=== PATIENT | male | born 1955 | race Caucasian/White ===

== ENCOUNTER → 2020-06-17 | Outpatient (CLI) | payer MEDICARE, MEDICAID ==
[2015-07-01 18:00] VITALS: BP 104/73
[~2020-06-17] MED LIST: ALPR0.5T6 PO; AMLO10TA8 PO; ASPI1CPM PO; CITA10TA8 PO; DEXA4TAB PO; HYDR-2761 PO; IBUP-1060 PO; INDO50CA15 PO; LOSA-73 PO; METO50TA6 PO; NAPR-514 PO; ONDA4TAB12 PO; PENI500T PO
--- NOTE | 2020-06-17 16:35 | CARD ---
MR#: [id number] Date of Study: 06/17/2020 Ordering Physician: HARMEET COSTELLO, Referring Physician: HARMEET COSTELLO, Tech: Melissa Apple [facility] APPROVED REPORT EXAM: Two-dimensional and M-mode echocardiogram with Doppler and color Doppler. Other Information Quality : Good INDICATION Cardiac Disease: CAD Colostomy History 2014 2D DIMENSIONS RVDd2.0 (2.9-3.5cm)Left Atrium(2D)2.4 (1.6-4.0cm) IVSd0.7 (0.7-1.1cm)Aortic Root(2D)2.6 (2.0-3.7cm) LVDd6.3 (3.9-5.9cm)LVOT Diameter1.9 (1.8-2.4cm) PWd0.7 (0.7-1.1cm)LVDs5.0 (2.5-4.0cm) FS (%) 10.0 %SV83.0 ml LVEF(%)20.0 (>50%) Aortic Valve AoV Peak Rolan.114.9cm/sAoV VTI16.9cm AO Peak GR.5.3mmHgLVOT Peak Rolan.86.0cm/s LVOT VTI 14.17cmAO Mean GR.3mmHg FRANK (VMAX)2.76vq8BBD (VTI)2.43cm2 AI P 1/2 Lgkj678my Mitral Valve MV E Qnxowotf04.2cm/sMV DECEL RAKM067yd MV A Agbvtyah39.4cm/sMV POC35bd E/A Ratio0.5MVA (PHT)3.30cm2 TDI E/Lateral E'11.4E/Medial E'11.7 Tricuspid Valve TR P. Mcuoxwfd427gz/sRAP VGLJGQSI8xmSd TR Peak Gr.19fyEbCAGK44vqGp Pulmonary Vein S1 Ewooahmc79.8cm/sD2 Uxthlawx10.2cm/s LEFT VENTRICLE The Left Ventricle is mildly dilated. There is normal left ventricular wall thickness. Left ventricle ejection fraction is severely impaired. The Ejection Fraction is 15-20%. Severe global hypokinesis. Tissue Doppler imaging reveals severe left ventricular diastolic dysfunction. RIGHT VENTRICLE The right ventricle is normal size. The right ventricular systolic function is normal. ATRIA The left atrium size is normal. The right atrium size is normal. The interatrial septum is intact wit h no evidence for an atrial septal defect or patent foramen ovale as noted on 2-D or Doppler imaging. AORTIC VALVE The aortic valve is calcified but opens well. Doppler and Color Flow revealed trace aortic regurgitat ion. There is no significant aortic valvular stenosis. MITRAL VALVE The mitral valve is calcified but opens well. There is no evidence of mitral valve prolapse. There is no mitral valve stenosis. Doppler and Color-flow revealed trace mitral regurgitation. TRICUSPID VALVE The tricuspid valve is normal in structure and function. Doppler and Color Flow revealed trace tricus pid regurgitation. The PA pressure was estimated at 18 mmHg. There is no tricuspid valve stenosis. PULMONIC VALVE The pulmonic valve is not well visualized. Doppler and Color Flow revealed no pulmonic valvular regur gitation. There is no pulmonic valvular stenosis. GREAT VESSELS The aortic root is normal in size. The ascending aorta is normal in size. The IVC was not visualized. PERICARDIAL EFFUSION There is no evidence of significant pericardial effusion. Critical Notification Critical Value: No <Conclusion> Left ventricle ejection fraction is severely impaired. The Ejection Fraction is 15-20%. Severe global hypokinesis. Signed by : Harmeet Costello, Electronically Approved : 06/17/2020 16:34:12
== END | disposition home or self-care (01) ==
LOC: ECHO 09:49
PROVIDERS: ATTEND Internal Medicine Cardiovascular Disease
DX: I08.0 Rheumatic disorders of both mitral and aortic valves (principal); I25.10 Atherosclerotic heart disease of native coronary artery without angina pectoris
CPT/HCPCS: 93306

== ENCOUNTER → 2020-09-16 | Outpatient (CLI) | payer MEDICARE, MEDICAID ==
[2020-09-07 07:00] VITALS: BP_SYST 124
[2020-09-07 15:00] VITALS: BP_DIAS 79
[~2020-09-16] MED LIST changes: +AMLO-187 PO; -AMLO10TA8 PO; +CARV3.1210 PO; +LEVO50TA5 PO; +ONDA-84 PO; +PANT40TA77 PO
--- NOTE | 2020-09-16 16:33 | RAD ---
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 RADIOPHARMACEUTICAL: 13.47 mCi of F-18 Fluorodeoxyglucose (FDG) I.V. via the left antecubital fossa. TECHNIQUE: Patient weight: 100 pounds. Following at least four-hour fasting, the patient's blood glucose was 139 mg/dl. Approximately 1 hour after administration of FDG, overlapping emission scanning was performed from the orbital meatal line through the pelvis. A low-dose CT was performed for attenuation correction purposes and anatomic localization. Fused images of PET and CT were reviewed. Any standardized uptake values (SUV) reported are maximum values within a volume region of interest, expressed in gm/ml. COMPARISON: Chest abdomen pelvis CT with IV contrast of 08/28/2020 FINDINGS: PET: In the head and neck, asymmetric FDG activity in the left parotid gland to a max SUV of 2.99 is evident. Uptake in the left superior esophagus at the level of the arytenoids to max SUV of 3.43 is present. No abnormal FDG uptake in the cervical lymph nodes. In the chest, long segment of abnormal FDG uptake in the thoracic esophagus from the approximate level of the aortopulmonary window through to the gastroesophageal junction is seen, showing FDG uptake superiorly (at level of the aortopulmonary window) to max SUV of 6.46, and inferiorly, near the gastroesophageal junction to a max SUV of 3.74. In addition, masslike consolidation in the medial basal left lower lobe is present that shows FDG uptake to max SUV of 6.54. This is associated with peribronchial thickening and ipsilateral peripheral lower lobe nodularity and volume loss. In the abdomen and pelvis, there are loops of small bowel along the left pelvic sidewall that appear mildly thick walled and show increased FDG uptake to max SUV of 5.2. No abnormal activity in the bones identified. CT: In the head and neck, no mass or adenopathy is seen. In the chest, the esophagus is severely distended with ingested debris and inferiorly occluded by soft tissue. This extends into the gastroesophageal junction with masslike soft tissue is identified extending to the gastric cardia and antrum. No mediastinal or hilar adenopathy is identified on CT. There are calcified mediastinal lymph nodes. Thoracic aorta is borderline ectatic at 3.8 cm. The heart is upper normal in size. No pericardial effusion. Dense coronary calcifications. Lungs show patchy consolidation in the left lower lobe associated with peribronchial thickening and tree-in-bud groundglass opacities. No pleural effusion or pneumothorax. Mild bilateral gynecomastia. No acute or aggressive osseous lesions. There is stigmata of a low body mass index. Abdomen and pelvis show benign-appearing cysts in the left kidney that requires no additional imaging evaluation and moderate stool scattered throughout the large bowel. There are loops of small bowel along the left pelvic sidewall that show possible wall thickening (image 288 of series 3) that are associated with mild FDG uptake. Bones show degenerative changes and mild osteopenia. IMPRESSION: 1. Long segment thoracic esophageal wall thickening extending into the gastroesophageal junction is associated with abnormal FDG activity to a max SUV of 6.46, compatible with the recent diagnosis of esophageal carcinoma. No uptake suggesting locoregional florentin spread. 2. Mild activity in the upper cervical esophagus at the level of the arytenoids to max SUV of 3.43 could be inflammatory. No associated soft tissue mass identified. Recommend correlation with endoscopy. 3. Consolidation in the left lower lobe with tree-in-bud opacities and satellite nodules is likely inflammatory/infectious. However, solid left lower lobe lung mass is not excluded. Abnormal FDG uptake measures 6.54 and merits reassessment on follow-up. 4. Possible wall thickening in small bowel loops in the left pelvis is associated with mild FDG uptake to max SUV of 5.2. Correlate for any evidence of enteritis. More detailed assessment can be pursued with CT with IV contrast if clinically warranted. Electronically signed by: Rere Gaspar MD (09/16/2020 4:30 PM) [id number]
== END ==
LOC: PETSC 11:52
PROVIDERS: ATTEND Internal Medicine
DX: C32.9 Malignant neoplasm of larynx, unspecified (principal); N62 Hypertrophy of breast; N28.1 Cyst of kidney, acquired; M85.88 Other specified disorders of bone density and structure, other site; R91.1 Solitary pulmonary nodule; M19.09 Primary osteoarthritis, other specified site
CPT/HCPCS: 78815; A9552

== ENCOUNTER → 2020-09-21 | Outpatient (CLI) | payer MEDICARE, MEDICAID ==
[2020-09-07 15:00] VITALS: BP 124/79
[2020-09-21 11:22] LABS: BASO % 1 % (0-3); EOS # 0.1 x10^3/uL (0.0-0.7); EOS % 3 % (0-3); HEMATOCRIT 35.2 % (39.0-53.0); HEMOGLOBIN 11.6 g/dL (13.0-17.5); LYMPH # 0.6 x10^3/uL (1.0-4.8); LYMPH % 16 % (24-48); MEAN CORPUSCULAR HEMOGLOBIN 28 pg (25-35); MEAN CORPUSCULAR HGB CONC 33 g/dL (31-37); MEAN CORPUSCULAR VOLUME 85 fL (79-100); MONO # 0.5 x10^3/uL (0.0-1.1); MONO % 12 % (0-9); NEUT # 2.7 x10^3/uL (1.8-7.7); NEUT % 68 % (31-73); PLATELET COUNT 349 x10^3/uL (140-400); RED BLOOD COUNT 4.14 x10^6/uL (4.30-5.70); RED CELL DISTRIBUTION WIDTH 15.4 % (11.5-14.5)
[2020-09-21 11:35] LABS: CREATININE 1.3 mg/dL (0.7-1.3); GFR 55.2; POTASSIUM 4.2 mmol/L (3.5-5.1)
[2020-09-21 11:38] LABS: ALBUMIN 2.9 g/dL (3.4-5.0); ALBUMIN/GLOBULIN RATIO 0.7 (1.0-1.7); TOTAL BILIRUBIN 0.4 mg/dL (0.2-1.0); TOTAL PROTEIN 6.8 g/dL (6.4-8.2)
== END ==
LOC: ONCLAB 10:43
PROVIDERS: ATTEND Internal Medicine Hematology & Oncology
DX: C15.5 Malignant neoplasm of lower third of esophagus (principal)
CPT/HCPCS: 36415; 80053; 85025

== ENCOUNTER 2020-10-28 07:42 | Outpatient (CLI) | payer MEDICARE, MEDICAID ==
[~2020-10-28] VITALS: Ht 162.6 cm; Wt 45.4 kg
[2020-10-28] MEDS ORDERED: ceFAZolin SODIUM IV Push 1 GM VIAL. IVP ONE (08:00)
[2020-10-28 08:22] VITALS: BP 146/79
[2020-10-28] MEDS ORDERED: fentaNYL PF VIAL 100 MCG/2 ML VIAL IV ONE (08:30)
[2020-10-28] MEDS ORDERED: LIDOCAINE 1%/EPI 1:100,000 20 ML VIAL. SQ ONE (08:30)
[2020-10-28] MEDS ORDERED: MIDAZOLAM HCL/PF 2 MG/2 ML VIAL. IV ONE (08:30)
[2020-10-28 08:55] LABS: BASO % 1 % (0-3); EOS % 1 % (0-3); HEMATOCRIT 38.5 % (39.0-53.0); HEMOGLOBIN 12.8 g/dL (13.0-17.5); LYMPH # 0.6 x10^3/uL (1.0-4.8); LYMPH % 8 % (24-48); MEAN CORPUSCULAR HEMOGLOBIN 28 pg (25-35); MEAN CORPUSCULAR HGB CONC 33 g/dL (31-37); MEAN CORPUSCULAR VOLUME 84 fL (79-100); MONO # 0.5 x10^3/uL (0.0-1.1); MONO % 7 % (0-9); NEUT # 6.2 x10^3/uL (1.8-7.7); NEUT % 84 % (31-73); PLATELET COUNT 184 x10^3/uL (140-400); RED BLOOD COUNT 4.58 x10^6/uL (4.30-5.70); RED CELL DISTRIBUTION WIDTH 14.9 % (11.5-14.5); WHITE BLOOD COUNT 7.4 x10^3/uL (4.0-11.0)
[2020-10-28 08:57] LABS: PROTHROMBIN TIME PATIENT 14.1 SEC (11.7-14.0)
[2020-10-28 09:04] LABS: ANION GAP 11 (6-14); BLOOD UREA NITROGEN 11 mg/dL (8-26); BUN/CREATININE RATIO 8 (6-20); CALCIUM 9.4 mg/dL (8.5-10.1); CARBON DIOXIDE 28 mmol/L (21-32); CHLORIDE 102 mmol/L (98-107); CREATININE 1.4 mg/dL (0.7-1.3); GFR 50.7; GLUCOSE 85 mg/dL (70-99); POTASSIUM 3.5 mmol/L (3.5-5.1); SODIUM 141 mmol/L (136-145)
[2020-10-28 09:09] LABS: ALBUMIN 3.5 g/dL (3.4-5.0); ALBUMIN/GLOBULIN RATIO 0.9 (1.0-1.7); ALK PHOS 79 U/L (46-116); AST (SGOT) 9 U/L (15-37); TOTAL BILIRUBIN 0.9 mg/dL (0.2-1.0); TOTAL PROTEIN 7.5 g/dL (6.4-8.2)
[2020-10-28 09:10] LABS: ALT (SGPT) < 6 U/L (16-63)
[2020-10-28 09:42] VITALS: BP 100/74
[2020-10-28 10:00] VITALS: BP 118/78
[2020-10-28 10:15] VITALS: BP 116/76
[2020-10-28 10:30] VITALS: BP 133/76
[2020-10-28 10:45] VITALS: BP 112/71
--- NOTE | 2020-10-28 10:51 | NUR ---
pt discharged to home with family. PIV dc'd. Pt ambulated and tolerated PO
--- NOTE | 2020-10-28 16:21 | RAD ---
Procedure: Ultrasound and fluoroscopically guided placement of right internal jugular power port.. 10/28/2020 2:16 PM Clinical Indication: ESOPHAGEAL CA Sedation: Conscious sedation was administered for 30 minutes. The patient was monitored by a qualified independent observer throughout the time of sedation. Please refer to the medical record for exact doses of medications utilized to achieve moderate sedation. Fluoroscopy time: 0.1 minutes Dose area product: 0.3Gycm2 Consent: The procedure was explained in its entirety to the patient or the patients designated business center representative by a member of the treatment team, including a discussion of the risks, benefits and commonly accepted alternatives to the procedure, as well as the expected consequences of no therapy whatsoever. Discussion of the risks included, but was not limited to, those that are most frequent and those that are rare but possibly severe or life-threatening, as well as the possibility of unforeseen complications. Technique and Findings: All elements of maximal sterile barrier technique including the use of a cap, mask, sterile gown, sterile gloves, large sterile sheet, appropriate hand hygiene, and 2% chlorhexidine for cutaneous antisepsis (or acceptable alternative antiseptic per current guidelines) were followed for this procedure. Following informed consent, and a timeout procedure, the patient was prepped and draped in the usual sterile fashion. Ultrasound interrogation of the right neck revealed patency and compressibility of the right internal jugular vein. A 21-gauge micropuncture was then used to gain access to this vein under ultrasound guidance. A hard copy ultrasound image was recorded. The needle was exchanged over a wire for a sheath. A 1 inch incision was made several centimeters inferior to the venotomy site. A catheter was tunneled from this site dermatotomy site in the neck. Catheter was advanced through peel-away sheath such that its tip was in the proximal right atrium with the patient supine. The catheter was trimmed to length and connected to the port reservoir. The port was found to flush and aspirate normally. The wound was closed in layers using 4-0 Vicryl suture. Sterile dressings were applied. Impression: Successful ultrasound and fluoroscopically guided placement of a right internal jugular PowerPort
== END 2020-10-28 11:24 | disposition home or self-care (01) ==
LOC: INTRAD 07:42
PROVIDERS: ATTEND Internal Medicine Hematology & Oncology
DX: Z45.2 Encounter for adjustment and management of vascular access device (principal); C15.9 Malignant neoplasm of esophagus, unspecified; I10 Essential (primary) hypertension; E03.9 Hypothyroidism, unspecified; M19.90 Unspecified osteoarthritis, unspecified site; F32.9 Major depressive disorder, single episode, unspecified; Z79.899 Other long term (current) drug therapy; Z72.89 Other problems related to lifestyle
CPT/HCPCS: 36415; 36561; 76937; 77001; 80053; 85025; 85610; 99152; 99153; C1751; C1892; J0690; J2250; J3010; J3490

== ENCOUNTER → 2020-11-08 | Outpatient (CLI) | payer MEDICARE, MEDICAID ==
[2020-10-28 10:45] VITALS: BP 112/71
[2020-11-08 09:40] LABS: BASO % 1 % (0-3); EOS # 0.1 x10^3/uL (0.0-0.7); EOS % 2 % (0-3); HEMATOCRIT 34.5 % (39.0-53.0); HEMOGLOBIN 11.4 g/dL (13.0-17.5); LYMPH # 0.2 x10^3/uL (1.0-4.8); LYMPH % 5 % (24-48); MEAN CORPUSCULAR HEMOGLOBIN 27 pg (25-35); MEAN CORPUSCULAR HGB CONC 33 g/dL (31-37); MEAN CORPUSCULAR VOLUME 83 fL (79-100); MONO # 0.2 x10^3/uL (0.0-1.1); MONO % 5 % (0-9); NEUT # 4.3 x10^3/uL (1.8-7.7); NEUT % 88 % (31-73); PLATELET COUNT 206 x10^3/uL (140-400); RED BLOOD COUNT 4.17 x10^6/uL (4.30-5.70); RED CELL DISTRIBUTION WIDTH 14.9 % (11.5-14.5); WHITE BLOOD COUNT 4.9 x10^3/uL (4.0-11.0)
[2020-11-08 10:05] LABS: CREATININE 1.1 mg/dL (0.7-1.3); POTASSIUM 3.9 mmol/L (3.5-5.1)
[2020-11-08 10:09] LABS: ALBUMIN 3.2 g/dL (3.4-5.0); ALBUMIN/GLOBULIN RATIO 0.9 (1.0-1.7); TOTAL BILIRUBIN 0.8 mg/dL (0.2-1.0); TOTAL PROTEIN 6.7 g/dL (6.4-8.2)
[2020-11-08 10:22] LABS: % BANDS 4 % (0-9); % BASOS 3 % (0-3); % EOS 4 % (0-5); % LYMPHS 6 % (24-48); % MONOS 1 % (0-10); % SEGS 82 % (35-66); PLT ESTIMATE ADEQUATE (ADEQUATE)
== END ==
LOC: ONCLAB 09:17
PROVIDERS: ATTEND Internal Medicine Hematology & Oncology
DX: C15.5 Malignant neoplasm of lower third of esophagus (principal)
CPT/HCPCS: 36415; 80053; 85007; 85025

== ENCOUNTER → 2020-11-15 | Outpatient (CLI) | payer MEDICARE, MEDICAID ==
[2020-10-28 10:45] VITALS: BP 112/71
[2020-11-15 09:07] LABS: CALCIUM 8.9 mg/dL (8.5-10.1); CREATININE 0.9 mg/dL (0.7-1.3); GFR 84.4
[2020-11-15 09:08] LABS: BASO % 1 % (0-3); EOS # 0.1 x10^3/uL (0.0-0.7); EOS % 4 % (0-3); HEMATOCRIT 35.2 % (39.0-53.0); HEMOGLOBIN 11.4 g/dL (13.0-17.5); LYMPH # 0.1 x10^3/uL (1.0-4.8); LYMPH % 7 % (24-48); MEAN CORPUSCULAR HEMOGLOBIN 26 pg (25-35); MEAN CORPUSCULAR HGB CONC 32 g/dL (31-37); MEAN CORPUSCULAR VOLUME 82 fL (79-100); MONO # 0.2 x10^3/uL (0.0-1.1); MONO % 12 % (0-9); NEUT # 1.3 x10^3/uL (1.8-7.7); NEUT % 77 % (31-73); PLATELET COUNT 176 x10^3/uL (140-400); RED BLOOD COUNT 4.32 x10^6/uL (4.30-5.70); RED CELL DISTRIBUTION WIDTH 14.7 % (11.5-14.5)
[2020-11-15 09:14] LABS: ALBUMIN 3.3 g/dL (3.4-5.0); ALBUMIN/GLOBULIN RATIO 1.2 (1.0-1.7); TOTAL BILIRUBIN 0.6 mg/dL (0.2-1.0); TOTAL PROTEIN 6.1 g/dL (6.4-8.2)
[2020-11-15 09:22] LABS: WHITE BLOOD COUNT 1.8 x10^3/uL (4.0-11.0)
[2020-11-15 12:03] LABS: % ATYL 1 % (0-0); % BANDS 20 % (0-9); % EOS 2 % (0-5); % LYMPHS 10 % (24-48); % MONOS 8 % (0-10); % SEGS 59 % (35-66)
[2020-11-15 12:06] LABS: ANISOCYTOSIS SLIGHT; PLT ESTIMATE ADEQUATE (ADEQUATE); POIKILOCYTOSIS SLIGHT
[2020-11-15 12:07] LABS: TOXIC GRANULATION SLIGHT
== END ==
LOC: ONCLAB 08:54
PROVIDERS: ATTEND Internal Medicine Hematology & Oncology
DX: C15.5 Malignant neoplasm of lower third of esophagus (principal)
CPT/HCPCS: 36415; 80053; 85007; 85025

== ENCOUNTER 2020-11-22 11:25 | Inpatient (IN) | payer MEDICARE, MEDICAID ==
[~2020-11-22] VITALS: Ht 162.6 cm; Wt 43.3 kg
[~2020-11-22 11:25] MED LIST changes: -CEPH250C PO; -NAPR-695 PO; -PRED20TA PO
[2020-11-22 12:48] LABS: BASO % 1 % (0-3); EOS % 1 % (0-3); HEMATOCRIT 31.4 % (39.0-53.0); HEMOGLOBIN 10.3 g/dL (13.0-17.5); LYMPH # 0.1 x10^3/uL (1.0-4.8); LYMPH % 4 % (24-48); MEAN CORPUSCULAR HEMOGLOBIN 26 pg (25-35); MEAN CORPUSCULAR HGB CONC 33 g/dL (31-37); MEAN CORPUSCULAR VOLUME 81 fL (79-100); MONO # 0.4 x10^3/uL (0.0-1.1); MONO % 16 % (0-9); NEUT # 2.3 x10^3/uL (1.8-7.7); NEUT % 80 % (31-73); PLATELET COUNT 106 x10^3/uL (140-400); RED BLOOD COUNT 3.89 x10^6/uL (4.30-5.70); RED CELL DISTRIBUTION WIDTH 14.8 % (11.5-14.5); WHITE BLOOD COUNT 2.9 x10^3/uL (4.0-11.0)
[2020-11-22 12:54] LABS: CALCIUM 8.5 mg/dL (8.5-10.1); CREATININE 1.1 mg/dL (0.7-1.3); POTASSIUM 3.7 mmol/L (3.5-5.1)
--- NOTE | 2020-11-22 12:59 | ED.ADGEN ---
Past Medical History Past Medical History: Cancer, Hypertension, [place], Stroke, Other Additional Past Medical Histor: throat CA, esphogeal CA Past Surgical History: Other Additional Past Surgical Histo: CABG, colostomy bag Smoking Status: Never Smoker Alcohol Use: None General Adult EDM: Chief Complaint: ABNORMAL LABS HPI: HPI: Patient is 65-year-old male who presents to the emergency room complaining of failure to thrive. Patient is currently on chemotherapy for esophageal cancer. He has not been able to eat anything for the last week. He went in for chemo today and they stated that he needed to come to the emergency room due to severe weakness and that he cannot get chemo today. They has been trying to get him on TPN better awaiting approval from insurance. Patient states that he is unable to get up and take care of himself at this time due to severe weakness. Review of Systems: Review of Systems: Complete ROS is negative unless otherwise documented in HPI Current Medications: Current Medications Medications (Trade) Dose Ordered Sig/Steff Start Time Stop Time Status Last Admin Dose Admin Info (Tpn Per Pharmacy) 1 each PRN DAILY PRN 11/22/20 15:15 UNV Allergies: Allergies: Allergies Coded Allergies Type Severity Reaction Last Updated Verified No Known Drug Allergies 08/31/20 No Physical Exam: PE: General: Awake, alert, NAD. Cachectic HEENT: Atraumatic, EOMI, PERRL, airway patent, dry oral mucosa Neck: Supple, trachea midline Respiratory: CTA bilaterally, normal effort, no wheezing/crackles CV: RRR, no murmur, cap refill <2 GI: Soft, nondistended, nontender, no masses, colostomy MSK: No obvious deformities Skin: Warm, dry, intact Neuro: A&O x3, speech NL, sensory and motor grossly intact, no focal deficits Psych: Normal affect, normal mood, not suicidal or homicidal Current Patient Data: Labs: Laboratory Tests Test 11/22/20 12:15 White Blood Count 2.9 x10^3/uL (4.0-11.0) L Red Blood Count 3.89 x10^6/uL (4.30-5.70) L Hemoglobin 10.3 g/dL (13.0-17.5) L Hematocrit 31.4 % (39.0-53.0) L Mean Corpuscular Volume 81 fL (79-100) Mean Corpuscular Hemoglobin 26 pg (25-35) Mean Corpuscular Hemoglobin Concent 33 g/dL (31-37) Red Cell Distribution Width 14.8 % (11.5-14.5) H Platelet Count 106 x10^3/uL (140-400) L Neutrophils (%) (Auto) 80 % (31-73) H Lymphocytes (%) (Auto) 4 % (24-48) L Monocytes (%) (Auto) 16 % (0-9) H Eosinophils (%) (Auto) 1 % (0-3) Basophils (%) (Auto) 1 % (0-3) Neutrophils # (Auto) 2.3 x10^3/uL (1.8-7.7) Lymphocytes # (Auto) 0.1 x10^3/uL (1.0-4.8) L Monocytes # (Auto) 0.4 x10^3/uL (0.0-1.1) Eosinophils # (Auto) 0.0 x10^3/uL (0.0-0.7) Basophils # (Auto) 0.0 x10^3/uL (0.0-0.2) Segmented Neutrophils % 81 % (35-66) H Lymphocytes % 4 % (24-48) L Monocytes % 15 % (0-10) H Platelet Estimate Decreased (ADEQUATE) Tear Drop Cells Occ Ovalocytes Few Sodium Level 141 mmol/L (136-145) Potassium Level 3.7 mmol/L (3.5-5.1) Chloride Level 104 mmol/L (98-107) Carbon Dioxide Level 26 mmol/L (21-32) Anion Gap 11 (6-14) Blood Urea Nitrogen 14 mg/dL (8-26) Creatinine 1.1 mg/dL (0.7-1.3) Estimated GFR (Cockcroft-Gault) 67.0 BUN/Creatinine Ratio 13 (6-20) Glucose Level 69 mg/dL (70-99) L Calcium Level 8.5 mg/dL (8.5-10.1) Total Bilirubin 0.7 mg/dL (0.2-1.0) Aspartate Amino Transferase (AST) 10 U/L (15-37) L Alanine Aminotransferase (ALT) 9 U/L (16-63) L Alkaline Phosphatase 47 U/L (46-116) Total Protein 5.7 g/dL (6.4-8.2) L Albumin 2.7 g/dL (3.4-5.0) L Albumin/Globulin Ratio 0.9 (1.0-1.7) L Laboratory Tests 11/22/20 12:15 Laboratory Tests 11/22/20 12:15 Vital Signs: Vital Signs Date Time Temp Pulse Resp B/P (MAP) Pulse Ox O2 Delivery O2 Flow Rate FiO2 11/22/20 15:00 58 14 112/77 (89) 100 Room Air 11/22/20 11:40 97.9 97.9 EKG: EKG: [] Heart Score: Risk Factors: Risk Factors: DM, Current or recent (<one month) smoker, HTN, HLP, family history of CAD, obesity. Risk Scores: Score 0 - 3: 2.5% MACE over next 6 weeks - Discharge Home Score 4 - 6: 20.3% MACE over next 6 weeks - Admit for Clinical Observation Score 7 - 10: 72.7% MACE over next 6 weeks - Early Invasive Strategies Radiology/Procedures: Radiology/Procedures: [] Course & Med Decision Making: Course & Med Decision Making Pertinent Labs and Imaging studies reviewed. (See chart for details) Patient is 65-year-old male presents to the emergency room with failure to thrive. Patient appears to be significantly dehydrated. He was sent here by oncology for admission. We will plan for admission and will address all lab abnormalities. Dragon Disclaimer: Dragon Disclaimer: This electronic medical record was generated, in whole or in part, using a voice recognition dictation system. Departure Departure Impression: Primary Impression: Failure to thrive Additional Impression: Dehydration Disposition: ADMITTED INPT THIS HOSP Condition: STABLE Referrals: BRITTANY CLIFFORD MD (PCP) Problem Qualifiers MIC LEON MD Nov 22, 2020 12:59
[2020-11-22 13:00] LABS: ALBUMIN 2.7 g/dL (3.4-5.0); ALBUMIN/GLOBULIN RATIO 0.9 (1.0-1.7); TOTAL BILIRUBIN 0.7 mg/dL (0.2-1.0); TOTAL PROTEIN 5.7 g/dL (6.4-8.2)
[2020-11-22 13:38] LABS: % LYMPHS 4 % (24-48); % MONOS 15 % (0-10); % SEGS 81 % (35-66); OVALOCYTES FEW; PLT ESTIMATE DECREASED (ADEQUATE); TEAR DROP CELLS OCC
--- NOTE | 2020-11-22 15:15 | PDOC1 ---
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 He has not been able to eat anything for the last week and for the 2 weeks prior to that was regurgitating everything he tried to eat. Patient states that he is unable to get up and take care of himself at this time due to severe weakness. His family is bedside. Patient has continued to lose weight, now down to 43kg. Labs with WBC 2.9, Hb 10.3, Platelets 106, Na 141, K 3.7, BUN 14, Cr 1.1, Albumin 2.7, glucose 69 He is unable to stand even with assistance. Admitted for further care. Past Medical History Cardiovascular: HTN CENTRAL NERVOUS SYSTEM: CVA Heme/Onc: Cancer Hepatobiliary: No pertinent hx Psych: No pertinent hx Rheumatologic: No pertinent hx Infectious disease: No pertinent hx Renal/: No pertinent hx Endocrine: No pertinent hx Past Surgical History Past Surgical History: Other Social History Smoke: No ALCOHOL: none Drugs: None Current Problem List Problem List Problems Medical Problems: (1) Dehydration Status: Acute (2) Failure to thrive Status: Acute Current Medications Current Medications Active Scripts Active Protonix (Pantoprazole Sodium) 40 Mg Tablet.dr 40 Mg PO DAILYAC 30 Days Reported Levothyroxine Sodium 50 Mcg Tablet 1 Tab PO DAILY Carvedilol (Carvedilol) 3.125 Mg Tablet 3.125 Mg PO BIDWMEALS Ondansetron Hcl 4 Mg Tablet 1 Tab PO PRN Q8HRS PRN Allergies Allergies: Coded Allergies: No Known Drug Allergies (Unverified , 08/31/20) ROS General: YES: Fatigue, Malaise, Appetite; No: Chills, Night Sweats, Other PSYCHOLOGICAL ROS: YES: Anxiety; No: Behavioral Disorder, Concentration difficultie, Decreased libido, Depression, Disorientation, Hallucinations, Hostility, Irritablity, Memory difficulties, Mood Swings, Obsessive thoughts, Physical abuse, Sexual abuse, Sleep disturbances, Suicidal ideation, Other Eyes: No Blurry vision, No Decreased vision, No Double vision, No Dry eyes, No Excessive tearing, No Eye Pain, No Itchy Eyes, No Loss of vision, No Photophobia, No Scotomata, No Uses contacts, No Uses glasses, No Other HEENT: No: Heacaches, Visual Changes, Hearing change, Nasal congestion, Nasal discharge, Oral lesions, Sinus pain, Sore Throat, Epistaxis, Sneezing, Snoring, Tinnitus, Vertigo, Vocal changes, Other ALLERGY AND IMMUNOLOGY: No: Hives, Insect Bite Sensitivity, Itchy/Watery Eyes, Nasal Congestion, Post Nasal Drip, Seasonal Allergies, Other Hematological and Lymphatic: No: Bleeding Problems, Blood Clots, Blood Transfusions, Brusing, Night Sweats, Pallor, Swollen Lymph Nodes, Other ENDOCRINE: No: Breast Changes, Galactorrhea, Hair Pattern Changes, Hot Flashes, Malaise/lethargy, Mood Swings, Palpitations, Polydipsia/polyuria, Skin Changes, Temperature Intolerance, Unexpected Weight Changes, Other Breast: No New/Changing Breast Lumps, No Nipple changes, No Nipple discharge, No Other Respiratory: No: Cough, Hemoptysis, Orthopnea, Pleuritic Pain, Shortness of breath, SOB with excertion, Sputum Changes, Stridor, Tachypnea, Wheezing, Other Cardiovascular: No Chest Pain, No Palpitations, No Orthopnea, No Paroxysmal Noc. Dyspnea, No Edema, No Lt Headedness, No Other Gastrointestinal: Yes Nausea, Yes Vomiting, Yes Abdominal Pain; No Diarrhea, No Constipation, No Melena, No Hematochezia, No Other Genitourinary: No Dysuria, No Frequency, No Incontinence, No Hematuria, No Retention, No Discharge, No Urgency, No Pain, No Flank Pain, No Other, No , No , No , No , No , No , No Musculoskeletal: No Gait Disturbance, No Joint Pain, No Joint Stiffness, No Joint Swelling, No Muscle Pain, No Muscular Weakness, No Pain In:, No Swelling In:, No Other Neurological: No Behavorial Changes, No Bowel/Bladder ControlChng, No Confusion, No Dizziness, No Gait Disturbance, No Headaches, No Impaired Coord/balance, No Memory Loss, No Numbness/Tingling, No Seizures, No Speech Problems, No Tremors, No Visual Changes, No Weakness, No Other Skin: No Dry Skin, No Eczema, No Hair Changes, No Lumps, No Mole Changes, No Mottling, No Nail Changes, No Pruritus, No Rash, No Skin Lesion Changes, No Other, No Acne Physical Exam General: Alert, Oriented X3, Cooperative, mild distress HEENT: Atraumatic, PERRLA, EOMI, Mucous membr. moist/pink, Other (cachectic appearing) Lungs: Clear to auscultation, Normal air movement Heart: S1S2, RRR, no thrills, no rubs, no gallops, no murmurs Abdomen: Normal bowel sounds, Soft, No tenderness, No hepatosplenomegaly, No masses Skin: No rashes, No breakdown, No significant lesion Neuro: Normal speech, Strength at 5/5 X4 ext, Normal tone, Sensation intact, Cranial nerves 3-12 NL, Reflexes 2+ Psych/Mental Status: Mental status NL, Mood NL Vitals Vitals Vital Signs Date Time Temp Pulse Resp B/P (MAP) Pulse Ox O2 Delivery O2 Flow Rate FiO2 11/22/20 13:30 60 13 130/87 (101) 100 Room Air 11/22/20 11:40 97.9 97.9 Labs Labs Laboratory Tests Test 11/22/20 12:15 White Blood Count 2.9 x10^3/uL (4.0-11.0) Red Blood Count 3.89 x10^6/uL (4.30-5.70) Hemoglobin 10.3 g/dL (13.0-17.5) Hematocrit 31.4 % (39.0-53.0) Mean Corpuscular Volume 81 fL (79-100) Mean Corpuscular Hemoglobin 26 pg (25-35) Mean Corpuscular Hemoglobin Concent 33 g/dL (31-37) Red Cell Distribution Width 14.8 % (11.5-14.5) Platelet Count 106 x10^3/uL (140-400) Neutrophils (%) (Auto) 80 % (31-73) Lymphocytes (%) (Auto) 4 % (24-48) Monocytes (%) (Auto) 16 % (0-9) Eosinophils (%) (Auto) 1 % (0-3) Basophils (%) (Auto) 1 % (0-3) Neutrophils # (Auto) 2.3 x10^3/uL (1.8-7.7) Lymphocytes # (Auto) 0.1 x10^3/uL (1.0-4.8) Monocytes # (Auto) 0.4 x10^3/uL (0.0-1.1) Eosinophils # (Auto) 0.0 x10^3/uL (0.0-0.7) Basophils # (Auto) 0.0 x10^3/uL (0.0-0.2) Segmented Neutrophils % 81 % (35-66) Lymphocytes % 4 % (24-48) Monocytes % 15 % (0-10) Platelet Estimate Decreased (ADEQUATE) Tear Drop Cells Occ Ovalocytes Few Sodium Level 141 mmol/L (136-145) Potassium Level 3.7 mmol/L (3.5-5.1) Chloride Level 104 mmol/L (98-107) Carbon Dioxide Level 26 mmol/L (21-32) Anion Gap 11 (6-14) Blood Urea Nitrogen 14 mg/dL (8-26) Creatinine 1.1 mg/dL (0.7-1.3) Estimated GFR (Cockcroft-Gault) 67.0 BUN/Creatinine Ratio 13 (6-20) Glucose Level 69 mg/dL (70-99) Calcium Level 8.5 mg/dL (8.5-10.1) Total Bilirubin 0.7 mg/dL (0.2-1.0) Aspartate Amino Transf (AST/SGOT) 10 U/L (15-37) Alanine Aminotransferase (ALT/SGPT) 9 U/L (16-63) Alkaline Phosphatase 47 U/L (46-116) Total Protein 5.7 g/dL (6.4-8.2) Albumin 2.7 g/dL (3.4-5.0) Albumin/Globulin Ratio 0.9 (1.0-1.7) Laboratory Tests Test 11/22/20 12:15 White Blood Count 2.9 x10^3/uL (4.0-11.0) Red Blood Count 3.89 x10^6/uL (4.30-5.70) Hemoglobin 10.3 g/dL (13.0-17.5) Hematocrit 31.4 % (39.0-53.0) Mean Corpuscular Volume 81 fL (79-100) Mean Corpuscular Hemoglobin 26 pg (25-35) Mean Corpuscular Hemoglobin Concent 33 g/dL (31-37) Red Cell Distribution Width 14.8 % (11.5-14.5) Platelet Count 106 x10^3/uL (140-400) Neutrophils (%) (Auto) 80 % (31-73) Lymphocytes (%) (Auto) 4 % (24-48) Monocytes (%) (Auto) 16 % (0-9) Eosinophils (%) (Auto) 1 % (0-3) Basophils (%) (Auto) 1 % (0-3) Neutrophils # (Auto) 2.3 x10^3/uL (1.8-7.7) Lymphocytes # (Auto) 0.1 x10^3/uL (1.0-4.8) Monocytes # (Auto) 0.4 x10^3/uL (0.0-1.1) Eosinophils # (Auto) 0.0 x10^3/uL (0.0-0.7) Basophils # (Auto) 0.0 x10^3/uL (0.0-0.2) Segmented Neutrophils % 81 % (35-66) Lymphocytes % 4 % (24-48) Monocytes % 15 % (0-10) Platelet Estimate Decreased (ADEQUATE) Tear Drop Cells Occ Ovalocytes Few Sodium Level 141 mmol/L (136-145) Potassium Level 3.7 mmol/L (3.5-5.1) Chloride Level 104 mmol/L (98-107) Carbon Dioxide Level 26 mmol/L (21-32) Anion Gap 11 (6-14) Blood Urea Nitrogen 14 mg/dL (8-26) Creatinine 1.1 mg/dL (0.7-1.3) Estimated GFR (Cockcroft-Gault) 67.0 BUN/Creatinine Ratio 13 (6-20) Glucose Level 69 mg/dL (70-99) Calcium Level 8.5 mg/dL (8.5-10.1) Total Bilirubin 0.7 mg/dL (0.2-1.0) Aspartate Amino Transf (AST/SGOT) 10 U/L (15-37) Alanine Aminotransferase (ALT/SGPT) 9 U/L (16-63) Alkaline Phosphatase 47 U/L (46-116) Total Protein 5.7 g/dL (6.4-8.2) Albumin 2.7 g/dL (3.4-5.0) Albumin/Globulin Ratio 0.9 (1.0-1.7) VTE Prophylaxis Ordered VTE Prophylaxis Devices: No VTE Pharmacological Prophylaxi: Yes Assessment/Plan Assessment/Plan A/P: Dysphagia - due to esophageal cancer, strictures as well. Unable to get enough nutrition to survive currently. Failure to thrive - due to inability to obtain proper nutrition. 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 will monitor Protein calorie malnutrition - severe, will add TPN to his regimen Weakness - will have PT and OT evaluated for ADLs and self care FEN - TPN PPX - lovenox FULL CODE Dispo -inpatient for above Justifications for Admission Other Justification KATHRYN MONTES DE OCA MD Nov 22, 2020 15:15
[2020-11-22] MEDS: ONDANSETRON ODT 4 MG TAB.RAPDIS. PO PRN (18:15)
[2020-11-22 18:44] VITALS: BP 121/83
[2020-11-22] MEDS: AMINO AC 3%/ELECTROLYTE/GLYCER 1,000 ML IV SCH (19:59)
[2020-11-22] MEDS: CARVEDILOL 3.125 MG TABLET. PO SCH (20:00)
[2020-11-22 23:00] VITALS: BP 128/78
[2020-11-23 03:00] VITALS: BP 139/83
[2020-11-23] MEDS: LEVOTHYROXINE 50 MCG TABLET PO SCH (05:38)
[2020-11-23] MEDS: ENOXAPARIN 30 MG/0.3 ML SYRINGE. SQ SCH ×2 (05:39→21:30)
[2020-11-23 07:00] VITALS: BP 142/92
[2020-11-23] MEDS: PANTOPRAZOLE 40 MG TABLET.DR. PO SCH (07:31)
[2020-11-23] MEDS: ONDANSETRON ODT 4 MG TAB.RAPDIS. PO PRN (07:32)
[2020-11-23] MEDS: CARVEDILOL 3.125 MG TABLET. PO SCH ×2 (08:53→16:22)
--- NOTE | 2020-11-23 09:24 | NUR ---
SW following. Discussed with RN, pt from home with family, room air, GI soft. RN ordering PT/OT. SW will continue to follow.
[2020-11-23] MEDS ORDERED: ACETAMINOPHEN 325 MG SUPP.RECT. PR PRN (10:00)
[2020-11-23] MEDS: AMINO AC 3%/ELECTROLYTE/GLYCER 1,000 ML IV SCH ×2 (10:35→18:45)
[2020-11-23 11:00] VITALS: BP 133/91
--- NOTE | 2020-11-23 11:06 | PDOC ---
PROGRESS NOTES Date of Service: DATE: 11/23/20 TIME: 11:03 Chief Complaint Chief Complaint Dysphagia - due to esophageal cancer, strictures as well. Unable to get enough nutrition to survive currently. Failure to thrive - due to inability to obtain proper nutrition. 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 He has not been able to eat anything for the last week and for the 2 weeks prior to that was regurgitating everything he tried to eat. Patient states that he is unable to get up and take care of himself at this time due to severe weakness. His family is bedside. Patient has continued to lose weight, now down to 43kg. Labs with WBC 2.9, Hb 10.3, Platelets 106, Na 141, K 3.7, BUN 14, Cr 1.1, Albumin 2.7, glucose 69 He is unable to stand even with assistance. Admitted for further care. 11/23 No acute events reported overnight, case discussed with nursing staff patient in no acute distress no complaints during my visit no complaints during my visit Vitals Vitals Vital Signs Date Time Temp Pulse Resp B/P (MAP) Pulse Ox O2 Delivery O2 Flow Rate FiO2 11/23/20 08:53 83 142/92 11/23/20 07:00 97.7 16 98 Room Air 97.7 Physical Exam General: Alert, Oriented X3, Cooperative, mild distress Heart: Regular rate, Normal S1, Normal S2 Lungs: Clear, Wheezing, Other Abdomen: Normal bowel sounds, Soft, No tenderness, No hepatosplenomegaly, No masses Extremities: No clubbing, No cyanosis Skin: No rashes, No breakdown, No significant lesion Labs LABS Laboratory Tests Test 11/22/20 12:15 White Blood Count 2.9 x10^3/uL (4.0-11.0) Red Blood Count 3.89 x10^6/uL (4.30-5.70) Hemoglobin 10.3 g/dL (13.0-17.5) Hematocrit 31.4 % (39.0-53.0) Mean Corpuscular Volume 81 fL (79-100) Mean Corpuscular Hemoglobin 26 pg (25-35) Mean Corpuscular Hemoglobin Concent 33 g/dL (31-37) Red Cell Distribution Width 14.8 % (11.5-14.5) Platelet Count 106 x10^3/uL (140-400) Neutrophils (%) (Auto) 80 % (31-73) Lymphocytes (%) (Auto) 4 % (24-48) Monocytes (%) (Auto) 16 % (0-9) Eosinophils (%) (Auto) 1 % (0-3) Basophils (%) (Auto) 1 % (0-3) Neutrophils # (Auto) 2.3 x10^3/uL (1.8-7.7) Lymphocytes # (Auto) 0.1 x10^3/uL (1.0-4.8) Monocytes # (Auto) 0.4 x10^3/uL (0.0-1.1) Eosinophils # (Auto) 0.0 x10^3/uL (0.0-0.7) Basophils # (Auto) 0.0 x10^3/uL (0.0-0.2) Segmented Neutrophils % 81 % (35-66) Lymphocytes % 4 % (24-48) Monocytes % 15 % (0-10) Platelet Estimate Decreased (ADEQUATE) Tear Drop Cells Occ Ovalocytes Few Sodium Level 141 mmol/L (136-145) Potassium Level 3.7 mmol/L (3.5-5.1) Chloride Level 104 mmol/L (98-107) Carbon Dioxide Level 26 mmol/L (21-32) Anion Gap 11 (6-14) Blood Urea Nitrogen 14 mg/dL (8-26) Creatinine 1.1 mg/dL (0.7-1.3) Estimated GFR (Cockcroft-Gault) 67.0 BUN/Creatinine Ratio 13 (6-20) Glucose Level 69 mg/dL (70-99) Calcium Level 8.5 mg/dL (8.5-10.1) Total Bilirubin 0.7 mg/dL (0.2-1.0) Aspartate Amino Transf (AST/SGOT) 10 U/L (15-37) Alanine Aminotransferase (ALT/SGPT) 9 U/L (16-63) Alkaline Phosphatase 47 U/L (46-116) Total Protein 5.7 g/dL (6.4-8.2) Albumin 2.7 g/dL (3.4-5.0) Albumin/Globulin Ratio 0.9 (1.0-1.7) Assessment and Plan Assessmemt and Plan Problems Medical Problems: (1) Dehydration Status: Acute (2) Failure to thrive Status: Acute Comment Review of Relevant I have reviewed the following items adeline (where applicable) has been applied. Labs Laboratory Tests Test 11/22/20 12:15 White Blood Count 2.9 x10^3/uL (4.0-11.0) Red Blood Count 3.89 x10^6/uL (4.30-5.70) Hemoglobin 10.3 g/dL (13.0-17.5) Hematocrit 31.4 % (39.0-53.0) Mean Corpuscular Volume 81 fL (79-100) Mean Corpuscular Hemoglobin 26 pg (25-35) Mean Corpuscular Hemoglobin Concent 33 g/dL (31-37) Red Cell Distribution Width 14.8 % (11.5-14.5) Platelet Count 106 x10^3/uL (140-400) Neutrophils (%) (Auto) 80 % (31-73) Lymphocytes (%) (Auto) 4 % (24-48) Monocytes (%) (Auto) 16 % (0-9) Eosinophils (%) (Auto) 1 % (0-3) Basophils (%) (Auto) 1 % (0-3) Neutrophils # (Auto) 2.3 x10^3/uL (1.8-7.7) Lymphocytes # (Auto) 0.1 x10^3/uL (1.0-4.8) Monocytes # (Auto) 0.4 x10^3/uL (0.0-1.1) Eosinophils # (Auto) 0.0 x10^3/uL (0.0-0.7) Basophils # (Auto) 0.0 x10^3/uL (0.0-0.2) Segmented Neutrophils % 81 % (35-66) Lymphocytes % 4 % (24-48) Monocytes % 15 % (0-10) Platelet Estimate Decreased (ADEQUATE) Tear Drop Cells Occ Ovalocytes Few Sodium Level 141 mmol/L (136-145) Potassium Level 3.7 mmol/L (3.5-5.1) Chloride Level 104 mmol/L (98-107) Carbon Dioxide Level 26 mmol/L (21-32) Anion Gap 11 (6-14) Blood Urea Nitrogen 14 mg/dL (8-26) Creatinine 1.1 mg/dL (0.7-1.3) Estimated GFR (Cockcroft-Gault) 67.0 BUN/Creatinine Ratio 13 (6-20) Glucose Level 69 mg/dL (70-99) Calcium Level 8.5 mg/dL (8.5-10.1) Total Bilirubin 0.7 mg/dL (0.2-1.0) Aspartate Amino Transf (AST/SGOT) 10 U/L (15-37) Alanine Aminotransferase (ALT/SGPT) 9 U/L (16-63) Alkaline Phosphatase 47 U/L (46-116) Total Protein 5.7 g/dL (6.4-8.2) Albumin 2.7 g/dL (3.4-5.0) Albumin/Globulin Ratio 0.9 (1.0-1.7) Laboratory Tests Test 11/22/20 12:15 White Blood Count 2.9 x10^3/uL (4.0-11.0) Red Blood Count 3.89 x10^6/uL (4.30-5.70) Hemoglobin 10.3 g/dL (13.0-17.5) Hematocrit 31.4 % (39.0-53.0) Mean Corpuscular Volume 81 fL (79-100) Mean Corpuscular Hemoglobin 26 pg (25-35) Mean Corpuscular Hemoglobin Concent 33 g/dL (31-37) Red Cell Distribution Width 14.8 % (11.5-14.5) Platelet Count 106 x10^3/uL (140-400) Neutrophils (%) (Auto) 80 % (31-73) Lymphocytes (%) (Auto) 4 % (24-48) Monocytes (%) (Auto) 16 % (0-9) Eosinophils (%) (Auto) 1 % (0-3) Basophils (%) (Auto) 1 % (0-3) Neutrophils # (Auto) 2.3 x10^3/uL (1.8-7.7) Lymphocytes # (Auto) 0.1 x10^3/uL (1.0-4.8) Monocytes # (Auto) 0.4 x10^3/uL (0.0-1.1) Eosinophils # (Auto) 0.0 x10^3/uL (0.0-0.7) Basophils # (Auto) 0.0 x10^3/uL (0.0-0.2) Segmented Neutrophils % 81 % (35-66) Lymphocytes % 4 % (24-48) Monocytes % 15 % (0-10) Platelet Estimate Decreased (ADEQUATE) Tear Drop Cells Occ Ovalocytes Few Sodium Level 141 mmol/L (136-145) Potassium Level 3.7 mmol/L (3.5-5.1) Chloride Level 104 mmol/L (98-107) Carbon Dioxide Level 26 mmol/L (21-32) Anion Gap 11 (6-14) Blood Urea Nitrogen 14 mg/dL (8-26) Creatinine 1.1 mg/dL (0.7-1.3) Estimated GFR (Cockcroft-Gault) 67.0 BUN/Creatinine Ratio 13 (6-20) Glucose Level 69 mg/dL (70-99) Calcium Level 8.5 mg/dL (8.5-10.1) Total Bilirubin 0.7 mg/dL (0.2-1.0) Aspartate Amino Transf (AST/SGOT) 10 U/L (15-37) Alanine Aminotransferase (ALT/SGPT) 9 U/L (16-63) Alkaline Phosphatase 47 U/L (46-116) Total Protein 5.7 g/dL (6.4-8.2) Albumin 2.7 g/dL (3.4-5.0) Albumin/Globulin Ratio 0.9 (1.0-1.7) Medications Current Medications Info (Tpn Per Pharmacy) 1 each PRN DAILY PRN MC SEE COMMENTS; Start 11/22/20 at 15:15 Amino Acids/ Glycerin/ Electrolytes 1,000 ml @ 80 mls/hr [id number] IV Last administered on 11/23/20at 10:35; Start 11/22/20 at 17:45 Carvedilol (Coreg) 3.125 mg BIDWMEALS PO Last administered on 11/23/20at 08:53; Start 11/22/20 at 18:00 Levothyroxine Sodium (Synthroid) 50 mcg DAILY06 PO Last administered on 11/23/20at 05:38; Start 11/23/20 at 06:00 Pantoprazole Sodium (Protonix) 40 mg DAILYAC PO Last administered on 11/23/20at 07:31; Start 11/23/20 at 07:30 Ondansetron HCl (Zofran Odt) 4 mg PRN Q8HRS PRN PO NAUSEA/VOMITING Last administered on 11/23/20at 07:32; Start 11/22/20 at 18:00 Enoxaparin Sodium (Lovenox 30mg Syringe) 30 mg Q24H SQ Last administered on 11/23/20at 05:39; Start 11/22/20 at 22:00 Acetaminophen (Tylenol Supp) 325 mg PRN Q6HRS PRN [place] MILD PAIN / TEMP > 100.3'F; Start 11/23/20 at 10:00 Active Scripts Active Protonix (Pantoprazole Sodium) 40 Mg Tablet.dr 40 Mg PO DAILYAC 30 Days Reported Levothyroxine Sodium 50 Mcg Tablet 1 Tab PO DAILY Carvedilol (Carvedilol) 3.125 Mg Tablet 3.125 Mg PO BIDWMEALS Ondansetron Hcl 4 Mg Tablet 1 Tab PO PRN Q8HRS PRN Vitals/I & O Vital Sign - Last 24 Hours 11/22/20 11/22/20 11/22/20 11/22/20 11:40 12:30 13:00 13:30 Temp 97.9 97.9 Pulse 58 64 56 60 Resp 18 15 14 13 B/P (MAP) 132/87 (102) 132/87 (102) 130/80 (97) 130/87 (101) Pulse Ox 100 100 100 O2 Delivery Room Air Room Air Room Air Room Air 11/22/20 11/22/20 11/22/20 11/22/20 14:00 14:30 15:00 15:30 Pulse 58 56 58 58 Resp 14 12 14 14 B/P (MAP) 128/85 (99) 116/81 (93) 112/77 (89) 131/80 (97) Pulse Ox 100 100 100 100 O2 Delivery Room Air Room Air Room Air Room Air 11/22/20 11/22/20 11/22/20 11/22/20 16:00 16:30 17:00 17:30 Pulse 60 60 62 60 Resp 15 17 18 19 B/P (MAP) 121/74 (90) 129/74 (92) 144/85 (104) 125/74 (91) Pulse Ox 100 100 100 100 O2 Delivery Room Air Room Air Room Air Room Air 11/22/20 11/22/20 11/22/20 11/23/20 18:44 20:00 23:00 03:00 Temp 98.2 96.6 98.0 98.2 96.6 98.0 Pulse 66 66 64 67 Resp 18 18 18 B/P (MAP) 121/83 (96) 121/83 128/78 (95) 139/83 (101) Pulse Ox 96 99 99 O2 Delivery Room Air Room Air Room Air 11/23/20 11/23/20 07:00 08:53 Temp 97.7 97.7 Pulse 83 83 Resp 16 B/P (MAP) 142/92 (109) 142/92 Pulse Ox 98 O2 Delivery Room Air Intake and Output 11/22/20 11/22/20 11/23/20 15:00 23:00 07:00 Output Total 0 ml Balance 0 ml Justicifation of Admission Dx: Justifications for Admission: Justification of Admission Dx: Yes DANIELITO OLGUIN MD Nov 23, 2020 11:06
--- NOTE | 2020-11-23 12:54 | PDOC2 ---
CONSULT Date of Consult Date of Consult DATE: 11/23/20 TIME: 12:46 Reason for Consult Reason for Consult: Esophageal cancer Referring Physician Referring Physician: Dr. Mondragon Identification/Chief Complaint Chief Complaint Generalized weakness and unable to swallow Source Source: Caregiver, Chart review, Patient History of Present Illness Reason for Visit: Burt Dao is a 65-year-old male with history of oropharyngeal cancer who is currently undergoing concurrent chemoradiotherapy for locally advanced gastroesophageal junction adenocarcinoma. He started concurrent chemoradiotherapy 3 weeks ago and has had progressive decline in oral intake due to esophageal obstruction. He has also had associated weight loss during treatment of 15 pounds. Burt was seen in Dr. Neil's office for consideration of feeding tube placement. Due to presence of colostomy, TPN was recommended and orders were placed. Burt was seen in the office yesterday for consideration of chemotherapy. He reported continued weakness and reported that TPN had not been started yet. He informed me that he wanted to go to the emergency room and get admitted to start TPN. He has been seen by RD and TPN orders have been placed. Oncology consultation has been sought due to the patient's history of esophageal cancer. He is accompanied by his [id number] in the hospital room. Past Medical History Cardiovascular: HTN CENTRAL NERVOUS SYSTEM: CVA Heme/Onc: Cancer Hepatobiliary: No pertinent hx Psych: No pertinent hx Rheumatologic: No pertinent hx Infectious disease: No pertinent hx Renal/: No pertinent hx Endocrine: No pertinent hx Past Surgical History Past Surgical History: Other Social History No ALCOHOL: none Drugs: None Lives: with Family Domestic Violence: Neg Current Problem List Problem List Problems Medical Problems: (1) Dehydration Status: Acute (2) Failure to thrive Status: Acute Current Medications Current Medications Current Medications Info (Tpn Per Pharmacy) 1 each PRN DAILY PRN MC SEE COMMENTS; Start 11/22/20 at 15:15 Amino Acids/ Glycerin/ Electrolytes 1,000 ml @ 80 mls/hr [id number] IV Last administered on 11/23/20at 10:35; Start 11/22/20 at 17:45 Carvedilol (Coreg) 3.125 mg BIDWMEALS PO Last administered on 11/23/20at 08:53; Start 11/22/20 at 18:00 Levothyroxine Sodium (Synthroid) 50 mcg DAILY06 PO Last administered on 11/23/20at 05:38; Start 11/23/20 at 06:00 Pantoprazole Sodium (Protonix) 40 mg DAILYAC PO Last administered on 11/23/20at 07:31; Start 11/23/20 at 07:30 Ondansetron HCl (Zofran Odt) 4 mg PRN Q8HRS PRN PO NAUSEA/VOMITING Last administered on 11/23/20at 07:32; Start 11/22/20 at 18:00; Stop 11/23/20 at 12:46; Status DC Enoxaparin Sodium (Lovenox 30mg Syringe) 30 mg Q24H SQ Last administered on 11/23/20at 05:39; Start 11/22/20 at 22:00 Acetaminophen (Tylenol Supp) 325 mg PRN Q6HRS PRN TX MILD PAIN / TEMP > 100.3'F; Start 11/23/20 at 10:00 Active Scripts Active Protonix (Pantoprazole Sodium) 40 Mg Tablet.dr 40 Mg PO DAILYAC 30 Days Reported Levothyroxine Sodium 50 Mcg Tablet 1 Tab PO DAILY Carvedilol (Carvedilol) 3.125 Mg Tablet 3.125 Mg PO BIDWMEALS Ondansetron Hcl 4 Mg Tablet 1 Tab PO PRN Q8HRS PRN Allergies Allergies: Coded Allergies: No Known Drug Allergies (Unverified , 08/31/20) ROS General: YES: Fatigue, Malaise PSYCHOLOGICAL ROS: No: Hallucinations, Hostility Eyes: No Eye Pain, No Itchy Eyes HEENT: No: Oral lesions, Sinus pain ALLERGY AND IMMUNOLOGY: No: Nasal Congestion, Post Nasal Drip Hematological and Lymphatic: No: Brusing, Night Sweats ENDOCRINE: YES: Malaise/lethargy Respiratory: YES: Shortness of breath Cardiovascular: No Chest Pain, No Palpitations Gastrointestinal: Yes Nausea, Yes Vomiting; No Abdominal Pain, No Diarrhea, No Constipation Genitourinary: No Dysuria, No Frequency Musculoskeletal: No Gait Disturbance, No Joint Pain Neurological: No Confusion, No Dizziness Skin: No Lumps Physical Exam General: Alert, Oriented X3 HEENT: Atraumatic Lungs: Clear to auscultation Heart: Regular rate Abdomen: Normal bowel sounds, Soft, Other (Colostomy bag noted) Extremities: No clubbing Skin: No rashes Neuro: Normal speech MUSCULOSKELETAL: No swelling Vitals VITALS Vital Signs Date Time Temp Pulse Resp B/P (MAP) Pulse Ox O2 Delivery O2 Flow Rate FiO2 11/23/20 11:00 97.9 75 16 133/91 (105) 100 Room Air 97.9 Labs Labs Laboratory Tests Test 11/22/20 12:15 White Blood Count 2.9 x10^3/uL (4.0-11.0) Red Blood Count 3.89 x10^6/uL (4.30-5.70) Hemoglobin 10.3 g/dL (13.0-17.5) Hematocrit 31.4 % (39.0-53.0) Mean Corpuscular Volume 81 fL (79-100) Mean Corpuscular Hemoglobin 26 pg (25-35) Mean Corpuscular Hemoglobin Concent 33 g/dL (31-37) Red Cell Distribution Width 14.8 % (11.5-14.5) Platelet Count 106 x10^3/uL (140-400) Neutrophils (%) (Auto) 80 % (31-73) Lymphocytes (%) (Auto) 4 % (24-48) Monocytes (%) (Auto) 16 % (0-9) Eosinophils (%) (Auto) 1 % (0-3) Basophils (%) (Auto) 1 % (0-3) Neutrophils # (Auto) 2.3 x10^3/uL (1.8-7.7) Lymphocytes # (Auto) 0.1 x10^3/uL (1.0-4.8) Monocytes # (Auto) 0.4 x10^3/uL (0.0-1.1) Eosinophils # (Auto) 0.0 x10^3/uL (0.0-0.7) Basophils # (Auto) 0.0 x10^3/uL (0.0-0.2) Segmented Neutrophils % 81 % (35-66) Lymphocytes % 4 % (24-48) Monocytes % 15 % (0-10) Platelet Estimate Decreased (ADEQUATE) Tear Drop Cells Occ Ovalocytes Few Sodium Level 141 mmol/L (136-145) Potassium Level 3.7 mmol/L (3.5-5.1) Chloride Level 104 mmol/L (98-107) Carbon Dioxide Level 26 mmol/L (21-32) Anion Gap 11 (6-14) Blood Urea Nitrogen 14 mg/dL (8-26) Creatinine 1.1 mg/dL (0.7-1.3) Estimated GFR (Cockcroft-Gault) 67.0 BUN/Creatinine Ratio 13 (6-20) Glucose Level 69 mg/dL (70-99) Calcium Level 8.5 mg/dL (8.5-10.1) Total Bilirubin 0.7 mg/dL (0.2-1.0) Aspartate Amino Transf (AST/SGOT) 10 U/L (15-37) Alanine Aminotransferase (ALT/SGPT) 9 U/L (16-63) Alkaline Phosphatase 47 U/L (46-116) Total Protein 5.7 g/dL (6.4-8.2) Albumin 2.7 g/dL (3.4-5.0) Albumin/Globulin Ratio 0.9 (1.0-1.7) Assessment/Plan Assessment/Plan Assessment: GE junction adenocarcinoma Weight loss Severe protein calorie malnutrition due to dysphagia History of oropharyngeal cancer Recommendations: -Continue radiation while inpatient per radiation oncology -No plans for additional chemotherapy at this time -Agree with initiating TPN. Will follow recommendations -We will arrange follow-up with oncology after hospital discharge -We will start IV Zofran 4 mg every 6 hours as needed. Discontinued Zofran ODT. -Rest per Dr Alanna Barr MD Medical Oncology/Hematology Ph: [phone] JASSON BARR MD Nov 23, 2020 12:54
[2020-11-23] MEDS: ONDANSETRON PF 4 MG/2 ML VIAL. IVP PRN (12:56)
[2020-11-23 12:58] LABS: ALBUMIN 2.6 g/dL (3.4-5.0); ALBUMIN/GLOBULIN RATIO 0.9 (1.0-1.7); CALCIUM 8.4 mg/dL (8.5-10.1); CREATININE 1.1 mg/dL (0.7-1.3); MAGNESIUM 1.8 mg/dL (1.8-2.4); PHOSPHORUS 2.7 mg/dL (2.6-4.7); POTASSIUM 3.9 mmol/L (3.5-5.1); TOTAL BILIRUBIN 0.7 mg/dL (0.2-1.0); TOTAL PROTEIN 5.4 g/dL (6.4-8.2)
[2020-11-23] MEDS: TPN PER PHARMACY MC PRN ×2 (14:19→14:20)
--- NOTE | 2020-11-23 14:29 | NUR ---
Pharmacy TPN Dosing Note S: JASON KIRK is a 65 year old M Currently receiving Central Continuous TPN started 11/23/20 B:Pertinent PMH: NPO/ESOPHAGEAL CANCER Height: 5 feet, 4 inches Weight: 41.5 kg Current diet: LABS: Sodium: 136 Potassium: 3.9 Chloride: 101 Calcium: 8.4 Corrected Calcium: 9.52 Magnesium: 1.8 CO2: 28 SCr: 1.1 Glucose: 97 Albumin: 2.6 AST: 11 ALT: 47 TPN FORMULA: TPN TYPE: Central Continuous AMINO ACIDS: 60 gm DEXTROSE: 195 gm LIPIDS: 20 gm SODIUM CHLORIDE: 90 mEq SODIUM ACETATE: mEq SODIUM PHOSPHATE: mmol POTASSIUM CHLORIDE: 50 mEq POTASSIUM ACETATE: mEq POTASSIUM PHOSPHATE: 13.6 mmol MAGNESIUM: 10 mEq CALCIUM: 10 mEq INSULIN: units MULTIPLE VITAMIN: 5 ml TRACE ELEMENTS: 1 ml(s) TPN PLAN: HOUSE TPN. BMP/LYTES TOMORROW. R: Begin TPN AT 63ML/HR Will monitor electrolytes, glucose, and tolerance to TPN. SONJA HESS [facility], 11/23/20 [id number]
[2020-11-23 15:00] VITALS: BP 130/89
[2020-11-23 19:00] VITALS: BP 131/91
[2020-11-23] MEDS: PROCHLORPERAZINE 10 MG/2 ML VIAL. IV PRN (19:37)
[2020-11-23] MEDS ORDERED: TOTAL PARENTERAL NUTRITION 1,429.9614 ML, AMINO ACID 15% 60 GM, DEXTROSE 70 % IN WATER ... IV SCH (22:00)
[2020-11-23 22:56] VITALS: BP 120/91
[2020-11-24 02:58] VITALS: BP 101/73
[2020-11-24] MEDS: LEVOTHYROXINE 50 MCG TABLET PO SCH (05:07)
[2020-11-24] MEDS: ONDANSETRON PF 4 MG/2 ML VIAL. IVP PRN ×2 (05:07→12:38)
[2020-11-24] MEDS: PANTOPRAZOLE 40 MG TABLET.DR. PO SCH (05:07)
[2020-11-24 05:42] LABS: CALCIUM 8.2 mg/dL (8.5-10.1); CREATININE 0.9 mg/dL (0.7-1.3); GFR 84.4; MAGNESIUM 1.8 mg/dL (1.8-2.4); PHOSPHORUS 2.2 mg/dL (2.6-4.7); POTASSIUM 3.6 mmol/L (3.5-5.1)
[2020-11-24 07:00] VITALS: BP 86/61
[2020-11-24] MEDS: CARVEDILOL 3.125 MG TABLET. PO SCH ×2 (08:00→16:25)
--- NOTE | 2020-11-24 08:51 | PDOC2 ---
CONSULT Date of Consult Date of Consult DATE: 11/24/20 TIME: 08:39 Reason for Consult Reason for Consult: TPN Referring Physician Referring Physician: IPC Identification/Chief Complaint Chief Complaint weakness, failure to thrive Source Source: Chart review, Patient History of Present Illness Reason for Visit: Patient known from outpt evaluation and office had been working on arranging TPN. Seen in oncology and worsening fatigue, weakness, inability to take any oral sustenance Past Medical History Cardiovascular: HTN CENTRAL NERVOUS SYSTEM: CVA Heme/Onc: Cancer Hepatobiliary: No pertinent hx Psych: No pertinent hx Rheumatologic: No pertinent hx Infectious disease: No pertinent hx Renal/: No pertinent hx Endocrine: No pertinent hx Past Surgical History Past Surgical History: Colectomy, Other Family History Family History: Family History Unknown Social History No ALCOHOL: none Drugs: None Lives: with Family Domestic Violence: Neg Current Problem List Problem List Problems Medical Problems: (1) Dehydration Status: Acute (2) Failure to thrive Status: Acute Current Medications Current Medications Current Medications Info (Tpn Per Pharmacy) 1 each PRN DAILY PRN MC SEE COMMENTS Last administered on 11/23/20at 14:20; Start 11/22/20 at 15:15 Amino Acids/ Glycerin/ Electrolytes 1,000 ml @ 80 mls/hr [id number] IV Last administered on 11/23/20at 10:35; Start 11/22/20 at 17:45; Stop 11/23/20 at 21:59; Status DC Carvedilol (Coreg) 3.125 mg BIDWMEALS PO Last administered on 11/23/20at 16:22; Start 11/22/20 at 18:00 Levothyroxine Sodium (Synthroid) 50 mcg DAILY06 PO Last administered on 11/24/20at 05:07; Start 11/23/20 at 06:00 Pantoprazole Sodium (Protonix) 40 mg DAILYAC PO Last administered on 11/24/20at 05:07; Start 11/23/20 at 07:30 Ondansetron HCl (Zofran Odt) 4 mg PRN Q8HRS PRN PO NAUSEA/VOMITING Last administered on 11/23/20at 07:32; Start 11/22/20 at 18:00; Stop 11/23/20 at 12:46; Status DC Enoxaparin Sodium (Lovenox 30mg Syringe) 30 mg Q24H SQ Last administered on 11/23/20at 21:30; Start 11/22/20 at 22:00 Acetaminophen (Tylenol Supp) 325 mg PRN Q6HRS PRN SC MILD PAIN / TEMP > 100.3'F; Start 11/23/20 at 10:00 Ondansetron HCl (Zofran) 4 mg PRN Q6HRS PRN IVP NAUSEA/VOMITING Last administered on 11/24/20at 05:07; Start 11/23/20 at 12:45 Sodium Chloride 90 meq/Potassium Chloride 50 meq/ Potassium Phosphate 13.6 mmol/Magnesium Sulfate 10 meq/ Calcium Gluconate 10 meq/ Multivitamins 5 ml/Zinc/Copper/ Manganese/ Selenium 1 ml/ Total Parenteral Nutrition/Amino Acids/Dextrose/ Fat Emulsion Intravenous 1,512 ml @ 63 mls/hr TPN CONT IV Last administered on 11/23/20at 21:26; Start 11/23/20 at 22:00; Stop 11/24/20 at 21:59 Prochlorperazine Edisylate (Compazine) 10 mg PRN Q6HRS PRN IV NAUSEA/VOMITING Last administered on 11/23/20at 19:37; Start 11/23/20 at 19:15 Active Scripts Active Protonix (Pantoprazole Sodium) 40 Mg Tablet.dr 40 Mg PO DAILYAC 30 Days Reported Levothyroxine Sodium 50 Mcg Tablet 1 Tab PO DAILY Carvedilol (Carvedilol) 3.125 Mg Tablet 3.125 Mg PO BIDWMEALS Ondansetron Hcl 4 Mg Tablet 1 Tab PO PRN Q8HRS PRN Allergies Allergies: Coded Allergies: No Known Drug Allergies (Unverified , 08/31/20) ROS General: YES: Fatigue, Other (weakness ) PSYCHOLOGICAL ROS: No: Anxiety, Depression Eyes: No Blurry vision, No Double vision HEENT: No: Heacaches, Sore Throat Hematological and Lymphatic: No: Bleeding Problems, Blood Clots Respiratory: No: Cough, SOB with excertion Cardiovascular: No Chest Pain, No Palpitations Gastrointestinal: No Abdominal Pain, No Diarrhea Genitourinary: No Frequency, No Hematuria Musculoskeletal: Yes Muscular Weakness; No Joint Swelling Neurological: Yes Impaired Coord/balance; No Confusion Skin: No Pruritus, No Rash Physical Exam General: Cooperative, No acute distress, Other (thin, frail) HEENT: Atraumatic, PERRLA Lungs: Clear to auscultation, Normal air movement Heart: Regular rate, Normal S1, Normal S2 Abdomen: Soft, Other (colostomy in place) Extremities: No clubbing, No cyanosis Skin: No rashes, No breakdown Neuro: Normal gait, Normal speech Psych/Mental Status: Mental status NL, Mood NL MUSCULOSKELETAL: No deformity, No swelling Vitals VITALS Vital Signs Date Time Temp Pulse Resp B/P (MAP) Pulse Ox O2 Delivery O2 Flow Rate FiO2 11/24/20 08:00 73 86/61 11/24/20 07:59 Room Air 11/24/20 07:00 97.7 16 97 97.7 Labs Labs Laboratory Tests Test 11/22/20 12:15 11/23/20 12:30 11/24/20 05:15 White Blood Count 2.9 x10^3/uL (4.0-11.0) Red Blood Count 3.89 x10^6/uL (4.30-5.70) Hemoglobin 10.3 g/dL (13.0-17.5) Hematocrit 31.4 % (39.0-53.0) Mean Corpuscular Volume 81 fL (79-100) Mean Corpuscular Hemoglobin 26 pg (25-35) Mean Corpuscular Hemoglobin Concent 33 g/dL (31-37) Red Cell Distribution Width 14.8 % (11.5-14.5) Platelet Count 106 x10^3/uL (140-400) Neutrophils (%) (Auto) 80 % (31-73) Lymphocytes (%) (Auto) 4 % (24-48) Monocytes (%) (Auto) 16 % (0-9) Eosinophils (%) (Auto) 1 % (0-3) Basophils (%) (Auto) 1 % (0-3) Neutrophils # (Auto) 2.3 x10^3/uL (1.8-7.7) Lymphocytes # (Auto) 0.1 x10^3/uL (1.0-4.8) Monocytes # (Auto) 0.4 x10^3/uL (0.0-1.1) Eosinophils # (Auto) 0.0 x10^3/uL (0.0-0.7) Basophils # (Auto) 0.0 x10^3/uL (0.0-0.2) Segmented Neutrophils % 81 % (35-66) Lymphocytes % 4 % (24-48) Monocytes % 15 % (0-10) Platelet Estimate Decreased (ADEQUATE) Tear Drop Cells Occ Ovalocytes Few Sodium Level 141 mmol/L (136-145) 136 mmol/L (136-145) 136 mmol/L (136-145) Potassium Level 3.7 mmol/L (3.5-5.1) 3.9 mmol/L (3.5-5.1) 3.6 mmol/L (3.5-5.1) Chloride Level 104 mmol/L (98-107) 101 mmol/L (98-107) 99 mmol/L (98-107) Carbon Dioxide Level 26 mmol/L (21-32) 28 mmol/L (21-32) 29 mmol/L (21-32) Anion Gap 11 (6-14) 7 (6-14) 8 (6-14) Blood Urea Nitrogen 14 mg/dL (8-26) 18 mg/dL (8-26) 21 mg/dL (8-26) Creatinine 1.1 mg/dL (0.7-1.3) 1.1 mg/dL (0.7-1.3) 0.9 mg/dL (0.7-1.3) Estimated GFR (Cockcroft-Gault) 67.0 67.0 84.4 BUN/Creatinine Ratio 13 (6-20) 16 (6-20) Glucose Level 69 mg/dL (70-99) 97 mg/dL (70-99) 158 mg/dL (70-99) Calcium Level 8.5 mg/dL (8.5-10.1) 8.4 mg/dL (8.5-10.1) 8.2 mg/dL (8.5-10.1) Total Bilirubin 0.7 mg/dL (0.2-1.0) 0.7 mg/dL (0.2-1.0) Aspartate Amino Transf (AST/SGOT) 10 U/L (15-37) 11 U/L (15-37) Alanine Aminotransferase (ALT/SGPT) 9 U/L (16-63) 10 U/L (16-63) Alkaline Phosphatase 47 U/L (46-116) 47 U/L (46-116) Total Protein 5.7 g/dL (6.4-8.2) 5.4 g/dL (6.4-8.2) Albumin 2.7 g/dL (3.4-5.0) 2.6 g/dL (3.4-5.0) Albumin/Globulin Ratio 0.9 (1.0-1.7) 0.9 (1.0-1.7) Phosphorus Level 2.7 mg/dL (2.6-4.7) 2.2 mg/dL (2.6-4.7) Magnesium Level 1.8 mg/dL (1.8-2.4) 1.8 mg/dL (1.8-2.4) Triglycerides Level 183 mg/dL (0-150) Laboratory Tests Test 11/23/20 12:30 11/24/20 05:15 Sodium Level 136 mmol/L (136-145) 136 mmol/L (136-145) Potassium Level 3.9 mmol/L (3.5-5.1) 3.6 mmol/L (3.5-5.1) Chloride Level 101 mmol/L (98-107) 99 mmol/L (98-107) Carbon Dioxide Level 28 mmol/L (21-32) 29 mmol/L (21-32) Anion Gap 7 (6-14) 8 (6-14) Blood Urea Nitrogen 18 mg/dL (8-26) 21 mg/dL (8-26) Creatinine 1.1 mg/dL (0.7-1.3) 0.9 mg/dL (0.7-1.3) Estimated GFR (Cockcroft-Gault) 67.0 84.4 BUN/Creatinine Ratio 16 (6-20) Glucose Level 97 mg/dL (70-99) 158 mg/dL (70-99) Calcium Level 8.4 mg/dL (8.5-10.1) 8.2 mg/dL (8.5-10.1) Phosphorus Level 2.7 mg/dL (2.6-4.7) 2.2 mg/dL (2.6-4.7) Magnesium Level 1.8 mg/dL (1.8-2.4) 1.8 mg/dL (1.8-2.4) Total Bilirubin 0.7 mg/dL (0.2-1.0) Aspartate Amino Transf (AST/SGOT) 11 U/L (15-37) Alanine Aminotransferase (ALT/SGPT) 10 U/L (16-63) Alkaline Phosphatase 47 U/L (46-116) Total Protein 5.4 g/dL (6.4-8.2) Albumin 2.6 g/dL (3.4-5.0) Albumin/Globulin Ratio 0.9 (1.0-1.7) Triglycerides Level 183 mg/dL (0-150) Assessment/Plan Assessment/Plan esophageal adenocarcinoma Has a colostomy in place that due to placement prevents any placement of feeding tube and is a poor surgical candidate related to this and previous surgeries TPN will be sole source of nutrition and will be needed for at least 90 days--to least allow time to see if improvement from radiation treatment I will FU with pt as an outpt after TPN started, please call with questions SHOSHANA SOMMERS MAIL DIST[employer]OR Nov 24, 2020 08:51
--- NOTE | 2020-11-24 09:20 | NUR ---
[facility] following. Discussed with RN, pt from home with family, room air, clear liquid diet. Per Yudith Nickel - home TPN set up has been started by their office with [facility]. [facility] sent message to [facility] to determine if there is anything else needed so pt can discharge home with TPN. Awaiting response. RN anticipates discharge home today. [facility] will continue to follow. Addendum: 11/24/20 at 1011 by ASHLEY GOLDSTEIN [facility] faxed all clinicals requested to [facility]. Advised pt is likely discharging today. [facility] stated they can try and get it done today but it might be tomorrow. [facility] stated to Braulio at [facility] that other infusion companies can get home TPN arranged same day, so to please do everything he possibly can to get this done for today. [facility] will continue to follow. Addendum: 11/24/20 at 1143 by ASHLEY GOLDSTEIN Everything is completed for home TPN through [facility]. Rowley with [facility] meeting with pt prior to discharge (have used [facility] before). Awaiting discharge orders. RN notified.
[2020-11-24 11:00] VITALS: BP 87/58
[2020-11-24 15:00] VITALS: BP 91/64
[2020-11-24] MEDS: TPN PER PHARMACY MC PRN (15:03)
--- NOTE | 2020-11-24 15:08 | NUR ---
Pharmacy TPN Dosing Note S: JASON KIRK is a 65 year old M Currently receiving Central Continuous TPN started 11/23/20 B:Pertinent PMH: NPO/ESOPHAGEAL CANCER Height: 5 feet, 4 inches Weight: 41.8 kg Current diet: LABS: Sodium: 136 Potassium: 3.6 Chloride: 99 Calcium: 8.4 Corrected Calcium: 9.52 Magnesium: 1.8 CO2: 29 SCr: 0.9 Glucose: 158 Albumin: 2.6 AST: 11 ALT: 47 TPN FORMULA: TPN TYPE: Central Continuous AMINO ACIDS: 60 gm DEXTROSE: 195 gm LIPIDS: 20 gm SODIUM CHLORIDE: 90 mEq SODIUM ACETATE: mEq SODIUM PHOSPHATE: mmol POTASSIUM CHLORIDE: 50 mEq POTASSIUM ACETATE: mEq POTASSIUM PHOSPHATE: 13.6 mmol MAGNESIUM: 10 mEq CALCIUM: 10 mEq INSULIN: units MULTIPLE VITAMIN: 5 ml TRACE ELEMENTS: 1 ml(s) TPN PLAN: HOUSE TPN. BMP/LYTES TOMORROW. R: Continue TPN AT 63ML/HR Will monitor electrolytes, glucose, and tolerance to TPN. SONJA HESS [facility], 11/24/20 [id number]
--- NOTE | 2020-11-24 15:11 | PDOC ---
PROGRESS NOTES Date of Service: DATE: 11/24/20 TIME: 15:09 Chief Complaint Chief Complaint Dysphagia - due to esophageal cancer, strictures as well. Unable to get enough nutrition to survive currently. Failure to thrive - due to inability to obtain proper nutrition. 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 He has not been able to eat anything for the last week and for the 2 weeks prior to that was regurgitating everything he tried to eat. Patient states that he is unable to get up and take care of himself at this time due to severe weakness. His family is bedside. Patient has continued to lose w eight, now down to 43kg. Labs with WBC 2.9, Hb 10.3, Platelets 106, Na 141, K 3.7, BUN 14, Cr 1.1, Albumin 2.7, glucose 69 He is unable to stand even with assistance. Admitted for further care. 11/23 No acute events reported overnight, case discussed with nursing staff patient in no acute distress no complaints during my visit no complaints during my visit 11/24 Patient feeling somewhat better. professional employer consultant recommendations are greatly appreciated. He is scheduled to have radiation therapy in the a.m. Still having nausea for which our hadoop consultant has transition to an IV form in order to control his symptoms better. Still quite debilitated tolerating some clear liquids which is more for quality rather than for nutrition. Home health has been arranged by case management we will reassess in the a.m. and hopefully discharge soon Vitals Vitals Vital Signs Date Time Temp Pulse Resp B/P (MAP) Pulse Ox O2 Delivery O2 Flow Rate FiO2 11/24/20 11:00 97.8 67 16 87/58 (68) 100 Room Air 97.8 Physical Exam General: Cooperative, No acute distress, Other (thin, frail) Heart: Regular rate, Normal S1, Normal S2 Lungs: Clear, Wheezing, Other Abdomen: Soft, Other (colostomy in place) Extremities: No clubbing, No cyanosis Skin: No rashes, No breakdown Labs LABS Laboratory Tests Test 11/24/20 05:15 Sodium Level 136 mmol/L (136-145) Potassium Level 3.6 mmol/L (3.5-5.1) Chloride Level 99 mmol/L (98-107) Carbon Dioxide Level 29 mmol/L (21-32) Anion Gap 8 (6-14) Blood Urea Nitrogen 21 mg/dL (8-26) Creatinine 0.9 mg/dL (0.7-1.3) Estimated GFR (Cockcroft-Gault) 84.4 Glucose Level 158 mg/dL (70-99) Calcium Level 8.2 mg/dL (8.5-10.1) Phosphorus Level 2.2 mg/dL (2.6-4.7) Magnesium Level 1.8 mg/dL (1.8-2.4) Assessment and Plan Assessmemt and Plan Problems Medical Problems: (1) Dehydration Status: Acute (2) Failure to thrive Status: Acute Comment Review of Relevant I have reviewed the following items adeline (where applicable) has been applied. Labs Laboratory Tests Test 11/23/20 12:30 11/24/20 05:15 Sodium Level 136 mmol/L (136-145) 136 mmol/L (136-145) Potassium Level 3.9 mmol/L (3.5-5.1) 3.6 mmol/L (3.5-5.1) Chloride Level 101 mmol/L (98-107) 99 mmol/L (98-107) Carbon Dioxide Level 28 mmol/L (21-32) 29 mmol/L (21-32) Anion Gap 7 (6-14) 8 (6-14) Blood Urea Nitrogen 18 mg/dL (8-26) 21 mg/dL (8-26) Creatinine 1.1 mg/dL (0.7-1.3) 0.9 mg/dL (0.7-1.3) Estimated GFR (Cockcroft-Gault) 67.0 84.4 BUN/Creatinine Ratio 16 (6-20) Glucose Level 97 mg/dL (70-99) 158 mg/dL (70-99) Calcium Level 8.4 mg/dL (8.5-10.1) 8.2 mg/dL (8.5-10.1) Phosphorus Level 2.7 mg/dL (2.6-4.7) 2.2 mg/dL (2.6-4.7) Magnesium Level 1.8 mg/dL (1.8-2.4) 1.8 mg/dL (1.8-2.4) Total Bilirubin 0.7 mg/dL (0.2-1.0) Aspartate Amino Transf (AST/SGOT) 11 U/L (15-37) Alanine Aminotransferase (ALT/SGPT) 10 U/L (16-63) Alkaline Phosphatase 47 U/L (46-116) Total Protein 5.4 g/dL (6.4-8.2) Albumin 2.6 g/dL (3.4-5.0) Albumin/Globulin Ratio 0.9 (1.0-1.7) Triglycerides Level 183 mg/dL (0-150) Laboratory Tests Test 11/24/20 05:15 Sodium Level 136 mmol/L (136-145) Potassium Level 3.6 mmol/L (3.5-5.1) Chloride Level 99 mmol/L (98-107) Carbon Dioxide Level 29 mmol/L (21-32) Anion Gap 8 (6-14) Blood Urea Nitrogen 21 mg/dL (8-26) Creatinine 0.9 mg/dL (0.7-1.3) Estimated GFR (Cockcroft-Gault) 84.4 Glucose Level 158 mg/dL (70-99) Calcium Level 8.2 mg/dL (8.5-10.1) Phosphorus Level 2.2 mg/dL (2.6-4.7) Magnesium Level 1.8 mg/dL (1.8-2.4) Medications Current Medications Info (Tpn Per Pharmacy) 1 each PRN DAILY PRN MC SEE COMMENTS Last administered on 11/24/20at 15:03; Start 11/22/20 at 15:15 Amino Acids/ Glycerin/ Electrolytes 1,000 ml @ 80 mls/hr [id number] IV Last administered on 11/23/20at 10:35; Start 11/22/20 at 17:45; Stop 11/23/20 at 21:59; Status DC Carvedilol (Coreg) 3.125 mg BIDWMEALS PO Last administered on 11/23/20at 16:22; Start 11/22/20 at 18:00 Levothyroxine Sodium (Synthroid) 50 mcg DAILY06 PO Last administered on 11/24/20at 05:07; Start 11/23/20 at 06:00 Pantoprazole Sodium (Protonix) 40 mg DAILYAC PO Last administered on 11/24/20at 05:07; Start 11/23/20 at 07:30 Ondansetron HCl (Zofran Odt) 4 mg PRN Q8HRS PRN PO NAUSEA/VOMITING Last administered on 11/23/20at 07:32; Start 11/22/20 at 18:00; Stop 11/23/20 at 12:46; Status DC Enoxaparin Sodium (Lovenox 30mg Syringe) 30 mg Q24H SQ Last administered on 11/23/20at 21:30; Start 11/22/20 at 22:00 Acetaminophen (Tylenol Supp) 325 mg PRN Q6HRS PRN OR MILD PAIN / TEMP > 100.3'F; Start 11/23/20 at 10:00 Ondansetron HCl (Zofran) 4 mg PRN Q6HRS PRN IVP NAUSEA/VOMITING Last administered on 11/24/20at 12:38; Start 11/23/20 at 12:45 Sodium Chloride 90 meq/Potassium Chloride 50 meq/ Potassium Phosphate 13.6 mmol/Magnesium Sulfate 10 meq/ Calcium Gluconate 10 meq/ Multivitamins 5 ml/Zinc/Copper/ Manganese/ Selenium 1 ml/ Total Parenteral Nutrition/Amino Acids/Dextrose/ Fat Emulsion Intravenous 1,512 ml @ 63 mls/hr TPN CONT IV Last administered on 11/23/20at 21:26; Start 11/23/20 at 22:00; Stop 11/24/20 at 21:59 Prochlorperazine Edisylate (Compazine) 10 mg PRN Q6HRS PRN IV NAUSEA/VOMITING Last administered on 11/23/20at 19:37; Start 11/23/20 at 19:15 Sodium Chloride 90 meq/Potassium Chloride 50 meq/ Potassium Phosphate 13.6 mmol/Magnesium Sulfate 10 meq/ Calcium Gluconate 10 meq/ Multivitamins 5 ml/Zinc/Copper/ Manganese/ Selenium 1 ml/ Total Parenteral Nutrition/Amino Acids/Dextrose/ Fat Emulsion Intravenous 1,512 ml @ 63 mls/hr TPN CONT IV ; Start 11/24/20 at 22:00; Stop 11/25/20 at 21:59 Active Scripts Active Protonix (Pantoprazole Sodium) 40 Mg Tablet.dr 40 Mg PO DAILYAC 30 Days Reported Levothyroxine Sodium 50 Mcg Tablet 1 Tab PO DAILY Carvedilol (Carvedilol) 3.125 Mg Tablet 3.125 Mg PO BIDWMEALS Ondansetron Hcl 4 Mg Tablet 1 Tab PO PRN Q8HRS PRN Vitals/I & O Vital Sign - Last 24 Hours 11/23/20 11/23/20 11/23/20 11/23/20 16:22 19:00 20:00 22:56 Temp 98.7 97.9 98.7 97.9 Pulse 76 70 94 Resp 16 14 B/P (MAP) 130/89 131/91 (104) 120/91 (101) Pulse Ox 97 99 O2 Delivery Room Air Room Air Room Air 11/24/20 11/24/20 11/24/20 11/24/20 02:58 07:00 07:59 08:00 Temp 98.0 97.7 98.0 97.7 Pulse 90 73 73 Resp 14 16 B/P (MAP) 101/73 (82) 86/61 (69) 86/61 Pulse Ox 98 97 O2 Delivery Room Air Room Air Room Air 11/24/20 11:00 Temp 97.8 97.8 Pulse 67 Resp 16 B/P (MAP) 87/58 (68) Pulse Ox 100 O2 Delivery Room Air Intake and Output 11/23/20 11/23/20 11/24/20 15:00 23:00 07:00 Intake Total 360 ml 170 ml Balance 360 ml 170 ml Nutrition Consultation Dietary Evaluation: Recommendations by RD: Dietary education by RD, PPN/TPN Comments: REC STD TPN : 195 g dextrose, 60 g AA, 20 g lipid and diet as tolerated Expected Outcomes/Goals: to meet >75% est nutr needs via TPN Interpretation of weight loss: >10% in 6 months Malnutrition Findings: Food and Nutrition Intake (Sev: <50% est energy req 5days Body Fat Depletion (Non Severe: Mod to Severe Weight Status: Underweight Justicifation of Admission Dx: Justifications for Admission: Justification of Admission Dx: Yes DANIELITO OLGUIN MD Nov 24, 2020 15:11
[2020-11-24] MEDS: PROCHLORPERAZINE 10 MG/2 ML VIAL. IV PRN (16:32)
[2020-11-24 19:15] VITALS: BP 96/67
[2020-11-24] MEDS ORDERED: TOTAL PARENTERAL NUTRITION 1,429.9614 ML, AMINO ACID 15% 60 GM, DEXTROSE 70 % IN WATER ... IV SCH (22:00)
[2020-11-24] MEDS: ENOXAPARIN 30 MG/0.3 ML SYRINGE. SQ SCH (22:06)
[2020-11-24 23:08] VITALS: BP 86/60
[2020-11-25 03:14] VITALS: BP 84/57
[2020-11-25] MEDS: LEVOTHYROXINE 50 MCG TABLET PO SCH (06:19)
[2020-11-25 07:00] VITALS: BP 82/59
[2020-11-25] MEDS: CARVEDILOL 3.125 MG TABLET. PO SCH ×2 (08:00→17:00)
[2020-11-25] MEDS: PROMETHAZINE 12.5 MG TABLET. PO PRN (08:37)
[2020-11-25] MEDS: PANTOPRAZOLE 40 MG TABLET.DR. PO SCH (08:37)
[2020-11-25 09:18] LABS: ALBUMIN 2.2 g/dL (3.4-5.0); ALBUMIN/GLOBULIN RATIO 0.8 (1.0-1.7); CALCIUM 8.1 mg/dL (8.5-10.1); TOTAL PROTEIN 5.1 g/dL (6.4-8.2)
[2020-11-25 09:19] LABS: CREATININE 0.9 mg/dL (0.7-1.3); GFR 84.4; POTASSIUM 4.3 mmol/L (3.5-5.1); TOTAL BILIRUBIN 0.4 mg/dL (0.2-1.0)
[2020-11-25 09:24] LABS: BASO % 0 % (0-3); EOS % 1 % (0-3); HEMATOCRIT 29.8 % (39.0-53.0); HEMOGLOBIN 9.9 g/dL (13.0-17.5); LYMPH # 0.1 x10^3/uL (1.0-4.8); LYMPH % 2 % (24-48); MEAN CORPUSCULAR HEMOGLOBIN 26 pg (25-35); MEAN CORPUSCULAR HGB CONC 33 g/dL (31-37); MEAN CORPUSCULAR VOLUME 80 fL (79-100); MONO # 0.4 x10^3/uL (0.0-1.1); MONO % 7 % (0-9); NEUT # 5.7 x10^3/uL (1.8-7.7); NEUT % 91 % (31-73); PLATELET COUNT 83 x10^3/uL (140-400); RED BLOOD COUNT 3.75 x10^6/uL (4.30-5.70); RED CELL DISTRIBUTION WIDTH 14.4 % (11.5-14.5); WHITE BLOOD COUNT 6.3 x10^3/uL (4.0-11.0)
--- NOTE | 2020-11-25 09:39 | PDOC ---
PROGRESS NOTES Date of Service: DATE: 11/25/20 TIME: 09:38 Chief Complaint Chief Complaint Dysphagia - due to esophageal cancer, strictures as well. Unable to get enough nutrition to survive currently. Failure to thrive - due to inability to obtain proper nutrition. 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 He has not been able to eat anything for the last week and for the 2 weeks prior to that was regurgitating everything he tried to eat. Patient states that he is unable to get up and take care of himself at this time due to severe weakness. His family is bedside. Patient has continued to lose weight, now down to 43kg. Labs with WBC 2.9, Hb 10.3, Platelets 106, Na 141, K 3.7, BUN 14, Cr 1.1, Albumin 2.7, glucose 69 He is unable to stand even with assistance. Admitted for further care. 11/23 No acute events reported overnight, case discussed with nursing staff patient in no acute distress no complaints during my visit no complaints during my visit 11/24 Patient feeling somewhat better. change consultant recommendations are greatly appreciated. He is scheduled to have radiation therapy in the a.m. Still having nausea for which our data power consultant has transition to an IV form in order to control his symptoms better. Still quite debilitated tolerating some clear liquids which is more for quality rather than for nutrition. Home health has been arranged by case management we will reassess in the a.m. and hopefully discharge soon 11/25 Continues to have emesis no other acute events reported overnight, case discussed with nursing staff patient in no acute distress no complaints during my visit Vitals Vitals Vital Signs Date Time Temp Pulse Resp B/P (MAP) Pulse Ox O2 Delivery O2 Flow Rate FiO2 11/25/20 07:41 Room Air 11/25/20 07:00 98.2 87 16 82/59 (67) 99 98.2 Physical Exam General: Cooperative, No acute distress, Other (thin, frail) Heart: Regular rate, Normal S1, Normal S2 Lungs: Clear, Wheezing, Other Abdomen: Soft, Other (colostomy in place) Extremities: No clubbing, No cyanosis Skin: No rashes, No breakdown Labs LABS Laboratory Tests Test 11/25/20 08:45 White Blood Count 6.3 x10^3/uL (4.0-11.0) Red Blood Count 3.75 x10^6/uL (4.30-5.70) Hemoglobin 9.9 g/dL (13.0-17.5) Hematocrit 29.8 % (39.0-53.0) Mean Corpuscular Volume 80 fL (79-100) Mean Corpuscular Hemoglobin 26 pg (25-35) Mean Corpuscular Hemoglobin Concent 33 g/dL (31-37) Red Cell Distribution Width 14.4 % (11.5-14.5) Platelet Count 83 x10^3/uL (140-400) Neutrophils (%) (Auto) 91 % (31-73) Lymphocytes (%) (Auto) 2 % (24-48) Monocytes (%) (Auto) 7 % (0-9) Eosinophils (%) (Auto) 1 % (0-3) Basophils (%) (Auto) 0 % (0-3) Neutrophils # (Auto) 5.7 x10^3/uL (1.8-7.7) Lymphocytes # (Auto) 0.1 x10^3/uL (1.0-4.8) Monocytes # (Auto) 0.4 x10^3/uL (0.0-1.1) Eosinophils # (Auto) 0.0 x10^3/uL (0.0-0.7) Basophils # (Auto) 0.0 x10^3/uL (0.0-0.2) Sodium Level 136 mmol/L (136-145) Potassium Level 4.3 mmol/L (3.5-5.1) Chloride Level 103 mmol/L (98-107) Carbon Dioxide Level 29 mmol/L (21-32) Anion Gap 4 (6-14) Blood Urea Nitrogen 25 mg/dL (8-26) Creatinine 0.9 mg/dL (0.7-1.3) Estimated GFR (Cockcroft-Gault) 84.4 BUN/Creatinine Ratio 28 (6-20) Glucose Level 111 mg/dL (70-99) Calcium Level 8.1 mg/dL (8.5-10.1) Total Bilirubin 0.4 mg/dL (0.2-1.0) Aspartate Amino Transf (AST/SGOT) 9 U/L (15-37) Alanine Aminotransferase (ALT/SGPT) 9 U/L (16-63) Alkaline Phosphatase 39 U/L (46-116) Total Protein 5.1 g/dL (6.4-8.2) Albumin 2.2 g/dL (3.4-5.0) Albumin/Globulin Ratio 0.8 (1.0-1.7) Assessment and Plan Assessmemt and Plan Problems Medical Problems: (1) Dehydration Status: Acute (2) Failure to thrive Status: Acute Comment Review of Relevant I have reviewed the following items adeline (where applicable) has been applied. Labs Laboratory Tests Test 11/23/20 12:30 11/24/20 05:15 11/25/20 08:45 Sodium Level 136 mmol/L (136-145) 136 mmol/L (136-145) 136 mmol/L (136-145) Potassium Level 3.9 mmol/L (3.5-5.1) 3.6 mmol/L (3.5-5.1) 4.3 mmol/L (3.5-5.1) Chloride Level 101 mmol/L (98-107) 99 mmol/L (98-107) 103 mmol/L (98-107) Carbon Dioxide Level 28 mmol/L (21-32) 29 mmol/L (21-32) 29 mmol/L (21-32) Anion Gap 7 (6-14) 8 (6-14) 4 (6-14) Blood Urea Nitrogen 18 mg/dL (8-26) 21 mg/dL (8-26) 25 mg/dL (8-26) Creatinine 1.1 mg/dL (0.7-1.3) 0.9 mg/dL (0.7-1.3) 0.9 mg/dL (0.7-1.3) Estimated GFR (Cockcroft-Gault) 67.0 84.4 84.4 BUN/Creatinine Ratio 16 (6-20) 28 (6-20) Glucose Level 97 mg/dL (70-99) 158 mg/dL (70-99) 111 mg/dL (70-99) Calcium Level 8.4 mg/dL (8.5-10.1) 8.2 mg/dL (8.5-10.1) 8.1 mg/dL (8.5-10.1) Phosphorus Level 2.7 mg/dL (2.6-4.7) 2.2 mg/dL (2.6-4.7) Magnesium Level 1.8 mg/dL (1.8-2.4) 1.8 mg/dL (1.8-2.4) Total Bilirubin 0.7 mg/dL (0.2-1.0) 0.4 mg/dL (0.2-1.0) Aspartate Amino Transf (AST/SGOT) 11 U/L (15-37) 9 U/L (15-37) Alanine Aminotransferase (ALT/SGPT) 10 U/L (16-63) 9 U/L (16-63) Alkaline Phosphatase 47 U/L (46-116) 39 U/L (46-116) Total Protein 5.4 g/dL (6.4-8.2) 5.1 g/dL (6.4-8.2) Albumin 2.6 g/dL (3.4-5.0) 2.2 g/dL (3.4-5.0) Albumin/Globulin Ratio 0.9 (1.0-1.7) 0.8 (1.0-1.7) Triglycerides Level 183 mg/dL (0-150) White Blood Count 6.3 x10^3/uL (4.0-11.0) Red Blood Count 3.75 x10^6/uL (4.30-5.70) Hemoglobin 9.9 g/dL (13.0-17.5) Hematocrit 29.8 % (39.0-53.0) Mean Corpuscular Volume 80 fL (79-100) Mean Corpuscular Hemoglobin 26 pg (25-35) Mean Corpuscular Hemoglobin Concent 33 g/dL (31-37) Red Cell Distribution Width 14.4 % (11.5-14.5) Platelet Count 83 x10^3/uL (140-400) Neutrophils (%) (Auto) 91 % (31-73) Lymphocytes (%) (Auto) 2 % (24-48) Monocytes (%) (Auto) 7 % (0-9) Eosinophils (%) (Auto) 1 % (0-3) Basophils (%) (Auto) 0 % (0-3) Neutrophils # (Auto) 5.7 x10^3/uL (1.8-7.7) Lymphocytes # (Auto) 0.1 x10^3/uL (1.0-4.8) Monocytes # (Auto) 0.4 x10^3/uL (0.0-1.1) Eosinophils # (Auto) 0.0 x10^3/uL (0.0-0.7) Basophils # (Auto) 0.0 x10^3/uL (0.0-0.2) Laboratory Tests Test 11/25/20 08:45 White Blood Count 6.3 x10^3/uL (4.0-11.0) Red Blood Count 3.75 x10^6/uL (4.30-5.70) Hemoglobin 9.9 g/dL (13.0-17.5) Hematocrit 29.8 % (39.0-53.0) Mean Corpuscular Volume 80 fL (79-100) Mean Corpuscular Hemoglobin 26 pg (25-35) Mean Corpuscular Hemoglobin Concent 33 g/dL (31-37) Red Cell Distribution Width 14.4 % (11.5-14.5) Platelet Count 83 x10^3/uL (140-400) Neutrophils (%) (Auto) 91 % (31-73) Lymphocytes (%) (Auto) 2 % (24-48) Monocytes (%) (Auto) 7 % (0-9) Eosinophils (%) (Auto) 1 % (0-3) Basophils (%) (Auto) 0 % (0-3) Neutrophils # (Auto) 5.7 x10^3/uL (1.8-7.7) Lymphocytes # (Auto) 0.1 x10^3/uL (1.0-4.8) Monocytes # (Auto) 0.4 x10^3/uL (0.0-1.1) Eosinophils # (Auto) 0.0 x10^3/uL (0.0-0.7) Basophils # (Auto) 0.0 x10^3/uL (0.0-0.2) Sodium Level 136 mmol/L (136-145) Potassium Level 4.3 mmol/L (3.5-5.1) Chloride Level 103 mmol/L (98-107) Carbon Dioxide Level 29 mmol/L (21-32) Anion Gap 4 (6-14) Blood Urea Nitrogen 25 mg/dL (8-26) Creatinine 0.9 mg/dL (0.7-1.3) Estimated GFR (Cockcroft-Gault) 84.4 BUN/Creatinine Ratio 28 (6-20) Glucose Level 111 mg/dL (70-99) Calcium Level 8.1 mg/dL (8.5-10.1) Total Bilirubin 0.4 mg/dL (0.2-1.0) Aspartate Amino Transf (AST/SGOT) 9 U/L (15-37) Alanine Aminotransferase (ALT/SGPT) 9 U/L (16-63) Alkaline Phosphatase 39 U/L (46-116) Total Protein 5.1 g/dL (6.4-8.2) Albumin 2.2 g/dL (3.4-5.0) Albumin/Globulin Ratio 0.8 (1.0-1.7) Medications Current Medications Info (Tpn Per Pharmacy) 1 each PRN DAILY PRN MC SEE COMMENTS Last administered on 11/24/20at 15:03; Start 11/22/20 at 15:15 Amino Acids/ Glycerin/ Electrolytes 1,000 ml @ 80 mls/hr [id number] IV Last administered on 11/23/20at 10:35; Start 11/22/20 at 17:45; Stop 11/23/20 at 21:59; Status DC Carvedilol (Coreg) 3.125 mg BIDWMEALS PO Last administered on 11/23/20at 16:22; Start 11/22/20 at 18:00 Levothyroxine Sodium (Synthroid) 50 mcg DAILY06 PO Last administered on 11/25/20at 06:19; Start 11/23/20 at 06:00 Pantoprazole Sodium (Protonix) 40 mg DAILYAC PO Last administered on 11/25/20at 08:37; Start 11/23/20 at 07:30 Ondansetron HCl (Zofran Odt) 4 mg PRN Q8HRS PRN PO NAUSEA/VOMITING Last administered on 11/23/20at 07:32; Start 11/22/20 at 18:00; Stop 11/23/20 at 12:46; Status DC Enoxaparin Sodium (Lovenox 30mg Syringe) 30 mg Q24H SQ Last administered on 11/24/20at 22:06; Start 11/22/20 at 22:00 Acetaminophen (Tylenol Supp) 325 mg PRN Q6HRS PRN OR MILD PAIN / TEMP > 100.3'F; Start 11/23/20 at 10:00 Ondansetron HCl (Zofran) 4 mg PRN Q6HRS PRN IVP NAUSEA/VOMITING Last administered on 11/24/20at 12:38; Start 11/23/20 at 12:45 Sodium Chloride 90 meq/Potassium Chloride 50 meq/ Potassium Phosphate 13.6 mmol/Magnesium Sulfate 10 meq/ Calcium Gluconate 10 meq/ Multivitamins 5 ml/Zinc/Copper/ Manganese/ Selenium 1 ml/ Total Parenteral Nutrition/Amino Acids/Dextrose/ Fat Emulsion Intravenous 1,512 ml @ 63 mls/hr TPN CONT IV Last administered on 11/23/20at 21:26; Start 11/23/20 at 22:00; Stop 11/24/20 at 21:59; Status DC Prochlorperazine Edisylate (Compazine) 10 mg PRN Q6HRS PRN IV NAUSEA/VOMITING Last administered on 11/24/20at 16:32; Start 11/23/20 at 19:15 Sodium Chloride 90 meq/Potassium Chloride 50 meq/ Potassium Phosphate 13.6 mmol/Magnesium Sulfate 10 meq/ Calcium Gluconate 10 meq/ Multivitamins 5 ml/Zinc/Copper/ Manganese/ Selenium 1 ml/ Total Parenteral Nutrition/Amino Acids/Dextrose/ Fat Emulsion Intravenous 1,512 ml @ 63 mls/hr TPN CONT IV Last administered on 11/24/20at 22:04; Start 11/24/20 at 22:00; Stop 11/25/20 at 21:59 Promethazine HCl (Phenergan) 12.5 mg PRN Q6HRS PRN PO NAUSEA/VOMITING Last administered on 11/25/20at 08:37; Start 11/25/20 at 08:30 Active Scripts Active Protonix (Pantoprazole Sodium) 40 Mg Tablet.dr 40 Mg PO DAILYAC 30 Days Reported Levothyroxine Sodium 50 Mcg Tablet 1 Tab PO DAILY Carvedilol (Carvedilol) 3.125 Mg Tablet 3.125 Mg PO BIDWMEALS Ondansetron Hcl 4 Mg Tablet 1 Tab PO PRN Q8HRS PRN Vitals/I & O Vital Sign - Last 24 Hours 11/24/20 11/24/20 11/24/20 11/24/20 11:00 15:00 19:15 19:40 Temp 97.8 98.0 97.8 97.8 98.0 97.8 Pulse 67 70 85 Resp 16 16 20 B/P (MAP) 87/58 (68) 91/64 (73) 96/67 (77) Pulse Ox 100 99 95 O2 Delivery Room Air Room Air Room Air Room Air 11/24/20 11/25/20 11/25/20 11/25/20 23:08 03:14 07:00 07:41 Temp 98.3 98.8 98.2 98.3 98.8 98.2 Pulse 57 73 87 Resp 18 18 16 B/P (MAP) 86/60 (69) 84/57 (66) 82/59 (67) Pulse Ox 100 95 99 O2 Delivery Room Air Room Air Room Air Room Air Intake and Output 11/24/20 11/24/20 11/25/20 14:59 22:59 06:59 Intake Total 240 ml 180 ml 1872 ml Output Total 250 ml Balance 240 ml 180 ml 1622 ml Nutrition Consultation Dietary Evaluation: Recommendations by RD: Dietary education by RD, PPN/TPN Comments: REC continue STD TPN : 195 g dextrose, 60 g AA, 20 g lipid and diet as tolerated Expected Outcomes/Goals: to meet >75% est nutr needs via TPN- met, goal ongoing Interpretation of weight loss: >10% in 6 months Malnutrition Findings: Food and Nutrition Intake (Sev: <50% est energy req 5days Body Fat Depletion (Non Severe: Mod to Severe Weight Status: Underweight Justicifation of Admission Dx: Justifications for Admission: Justification of Admission Dx: Yes DANIELITO OLGUIN MD Nov 25, 2020 09:39
[2020-11-25 09:59] LABS: MAGNESIUM 1.9 mg/dL (1.8-2.4); PHOSPHORUS 2.5 mg/dL (2.6-4.7)
[2020-11-25 11:00] VITALS: BP 95/50
[2020-11-25] MEDS: PROCHLORPERAZINE 10 MG/2 ML VIAL. IV PRN (13:31)
[2020-11-25] MEDS: TPN PER PHARMACY MC PRN (14:25)
--- NOTE | 2020-11-25 14:27 | NUR ---
Pharmacy TPN Dosing Note S: JASON KIRK is a 65 year old M Currently receiving Central Continuous TPN started 11/23/20 B:Pertinent PMH: NPO/ESOPHAGEAL CANCER Height: 5 feet, 4 inches Weight: 41.8 kg Current diet: LABS: Sodium: 136 Potassium: 4.3 Chloride: 103 Calcium: 8.1 Corrected Calcium: 9.54 Magnesium: 1.9 CO2: 29 SCr: 0.9 Glucose: 111 Albumin: 2.2 AST: 9 ALT: 39 TPN FORMULA: TPN TYPE: Central Continuous AMINO ACIDS: 60 gm DEXTROSE: 195 gm LIPIDS: 20 gm SODIUM CHLORIDE: 90 mEq SODIUM ACETATE: mEq SODIUM PHOSPHATE: mmol POTASSIUM CHLORIDE: 50 mEq POTASSIUM ACETATE: mEq POTASSIUM PHOSPHATE: 15 mmol MAGNESIUM: 10 mEq CALCIUM: 10 mEq INSULIN: units MULTIPLE VITAMIN: 5 ml TRACE ELEMENTS: 1 ml(s) TPN PLAN: increase kphos to 15 mmol R: Continue TPN at 63ml/hr Will monitor electrolytes, glucose, and tolerance to TPN. SONJA HESS [facility], 11/25/20 [id number]
[2020-11-25 15:00] VITALS: BP 89/57
[2020-11-25 19:04] VITALS: BP 98/62
[2020-11-25] MEDS: ONDANSETRON PF 4 MG/2 ML VIAL. IVP PRN (19:21)
[2020-11-25] MEDS: BENZONATATE 100 MG CAPSULE. PO SCH (19:50)
[2020-11-25] MEDS: guaiFENesin DM 200MG/20MG 10 ML SYRUP PO PRN (19:50)
[2020-11-25] MEDS: ENOXAPARIN 30 MG/0.3 ML SYRINGE. SQ SCH (21:54)
[2020-11-25] MEDS ORDERED: TOTAL PARENTERAL NUTRITION IV SCH (22:00)
[2020-11-25] MEDS ORDERED: AMINO ACID IV SCH (22:00)
[2020-11-25] MEDS ORDERED: DEXTROSE 70% IV SCH (22:00)
[2020-11-25] MEDS ORDERED: [UNRECOGNIZED DRUG - OTHER] IV SCH (22:00)
[2020-11-25 23:00] VITALS: BP 99/67
[2020-11-26 02:48] VITALS: BP 90/55
[2020-11-26] MEDS: PANTOPRAZOLE 40 MG TABLET.DR. PO SCH (05:58)
[2020-11-26] MEDS: LEVOTHYROXINE 50 MCG TABLET PO SCH (05:58)
[2020-11-26 07:04] LABS: CALCIUM 8.1 mg/dL (8.5-10.1); CREATININE 0.9 mg/dL (0.7-1.3); GFR 84.4; MAGNESIUM 2.1 mg/dL (1.8-2.4); POTASSIUM 4.1 mmol/L (3.5-5.1)
[2020-11-26 07:22] VITALS: BP 100/65
[2020-11-26] MEDS: CARVEDILOL 3.125 MG TABLET. PO SCH ×2 (08:00→16:15)
[2020-11-26] MEDS: BENZONATATE 100 MG CAPSULE. PO SCH (08:28)
[2020-11-26] MEDS: PROMETHAZINE 12.5 MG TABLET. PO PRN ×3 (08:28→21:50)
[2020-11-26 10:34] VITALS: BP 101/64
[2020-11-26] MEDS: TPN PER PHARMACY MC PRN (14:17)
--- NOTE | 2020-11-26 14:19 | NUR ---
Pharmacy TPN Dosing Note S: YELENAJASON is a 65 year old M Currently receiving Central Continuous TPN started 11/23/20 B:Pertinent PMH: NPO/ESOPHAGEAL CANCER Height: 5 feet, 4 inches Weight: 44.6 kg Current diet: LABS: Sodium: 135 Potassium: 4.1 Chloride: 105 Calcium: 8.1 Corrected Calcium: 9.54 Magnesium: 2.1 CO2: 26 SCr: 0.9 Glucose: 105 Albumin: 2.2 AST: 9 ALT: 9 TPN FORMULA: TPN TYPE: Central Continuous AMINO ACIDS: 60 gm DEXTROSE: 195 gm LIPIDS: 20 gm SODIUM CHLORIDE: 90 mEq POTASSIUM CHLORIDE: 50 mEq POTASSIUM PHOSPHATE: 15 mmol MAGNESIUM: 10 mEq CALCIUM: 10 mEq MULTIPLE VITAMIN: 5 ml TRACE ELEMENTS: 1 ml(s) TPN PLAN: All electrolyte stable. Continue TPN. R: Continue TPN Will monitor electrolytes, glucose, and tolerance to TPN. Jason Rangel [facility], 11/26/20 [id number]
[2020-11-26 14:30] VITALS: BP 100/68
--- NOTE | 2020-11-26 18:12 | PDOC ---
PROGRESS NOTES Date of Service: DATE: 11/26/20 TIME: 18:11 Chief Complaint Chief Complaint Dysphagia - due to esophageal cancer, strictures as well. Unable to get enough nutrition to survive currently. Failure to thrive - due to inability to obtain proper nutrition. 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 He has not been able to eat anything for the last week and for the 2 weeks prior to that was regurgitating everything he tried to eat. Patient states that he is unable to get up and take care of himself at this time due to severe weakness. His family is bedside. Patient has continued to lose weight, now down to 43kg. Labs with WBC 2.9, Hb 10.3, Platelets 106, Na 141, K 3.7, BUN 14, Cr 1.1, Albumin 2.7, glucose 69 He is unable to stand even with assistance. Admitted for further care. 11/23 No acute events reported overnight, case discussed with nursing staff patient in no acute distress no complaints during my visit no complaints during my visit 11/24 Patient feeling somewhat better. customer support consultant recommendations are greatly appreciated. He is scheduled to have radiation therapy in the a.m. Still having nausea for which our strategic planning consultant has transition to an IV form in order to control his symptoms better. Still quite debilitated tolerating some clear liquids which is more for quality rather than for nutrition. Home health has been arranged by case management we will reassess in the a.m. and hopefully discharge soon 11/25 Continues to have emesis no other acute events reported overnight, case discussed with nursing staff patient in no acute distress no complaints during my visit 11/26 Patient unfortunately is not feeling well still, I have advised him to only put swabs in his mouth for comfort and try to avoid any oral intake since he continues to have emesis. Reassurance has been provided Vitals Vitals Vital Signs Date Time Temp Pulse Resp B/P (MAP) Pulse Ox O2 Delivery O2 Flow Rate FiO2 11/26/20 16:15 72 100/68 11/26/20 14:30 98.0 18 97 Room Air 98.0 Physical Exam General: Cooperative, No acute distress, Other (thin, frail) Heart: Regular rate, Normal S1, Normal S2 Lungs: Clear, Wheezing, Other Abdomen: Soft, Other (colostomy in place) Extremities: No clubbing, No cyanosis Skin: No rashes, No breakdown Labs LABS Laboratory Tests Test 11/26/20 06:15 Sodium Level 135 mmol/L (136-145) Potassium Level 4.1 mmol/L (3.5-5.1) Chloride Level 105 mmol/L (98-107) Carbon Dioxide Level 26 mmol/L (21-32) Anion Gap 4 (6-14) Blood Urea Nitrogen 23 mg/dL (8-26) Creatinine 0.9 mg/dL (0.7-1.3) Estimated GFR (Cockcroft-Gault) 84.4 Glucose Level 106 mg/dL (70-99) Calcium Level 8.1 mg/dL (8.5-10.1) Phosphorus Level 3.0 mg/dL (2.6-4.7) Magnesium Level 2.1 mg/dL (1.8-2.4) Assessment and Plan Assessmemt and Plan Problems Medical Problems: (1) Dehydration Status: Acute (2) Failure to thrive Status: Acute Comment Review of Relevant I have reviewed the following items adeline (where applicable) has been applied. Labs Laboratory Tests Test 11/25/20 08:45 11/26/20 06:15 White Blood Count 6.3 x10^3/uL (4.0-11.0) Red Blood Count 3.75 x10^6/uL (4.30-5.70) Hemoglobin 9.9 g/dL (13.0-17.5) Hematocrit 29.8 % (39.0-53.0) Mean Corpuscular Volume 80 fL (79-100) Mean Corpuscular Hemoglobin 26 pg (25-35) Mean Corpuscular Hemoglobin Concent 33 g/dL (31-37) Red Cell Distribution Width 14.4 % (11.5-14.5) Platelet Count 83 x10^3/uL (140-400) Neutrophils (%) (Auto) 91 % (31-73) Lymphocytes (%) (Auto) 2 % (24-48) Monocytes (%) (Auto) 7 % (0-9) Eosinophils (%) (Auto) 1 % (0-3) Basophils (%) (Auto) 0 % (0-3) Neutrophils # (Auto) 5.7 x10^3/uL (1.8-7.7) Lymphocytes # (Auto) 0.1 x10^3/uL (1.0-4.8) Monocytes # (Auto) 0.4 x10^3/uL (0.0-1.1) Eosinophils # (Auto) 0.0 x10^3/uL (0.0-0.7) Basophils # (Auto) 0.0 x10^3/uL (0.0-0.2) Sodium Level 136 mmol/L (136-145) 135 mmol/L (136-145) Potassium Level 4.3 mmol/L (3.5-5.1) 4.1 mmol/L (3.5-5.1) Chloride Level 103 mmol/L (98-107) 105 mmol/L (98-107) Carbon Dioxide Level 29 mmol/L (21-32) 26 mmol/L (21-32) Anion Gap 4 (6-14) 4 (6-14) Blood Urea Nitrogen 25 mg/dL (8-26) 23 mg/dL (8-26) Creatinine 0.9 mg/dL (0.7-1.3) 0.9 mg/dL (0.7-1.3) Estimated GFR (Cockcroft-Gault) 84.4 84.4 BUN/Creatinine Ratio 28 (6-20) Glucose Level 111 mg/dL (70-99) 106 mg/dL (70-99) Calcium Level 8.1 mg/dL (8.5-10.1) 8.1 mg/dL (8.5-10.1) Phosphorus Level 2.5 mg/dL (2.6-4.7) 3.0 mg/dL (2.6-4.7) Magnesium Level 1.9 mg/dL (1.8-2.4) 2.1 mg/dL (1.8-2.4) Total Bilirubin 0.4 mg/dL (0.2-1.0) Aspartate Amino Transf (AST/SGOT) 9 U/L (15-37) Alanine Aminotransferase (ALT/SGPT) 9 U/L (16-63) Alkaline Phosphatase 39 U/L (46-116) Total Protein 5.1 g/dL (6.4-8.2) Albumin 2.2 g/dL (3.4-5.0) Albumin/Globulin Ratio 0.8 (1.0-1.7) Laboratory Tests Test 11/26/20 06:15 Sodium Level 135 mmol/L (136-145) Potassium Level 4.1 mmol/L (3.5-5.1) Chloride Level 105 mmol/L (98-107) Carbon Dioxide Level 26 mmol/L (21-32) Anion Gap 4 (6-14) Blood Urea Nitrogen 23 mg/dL (8-26) Creatinine 0.9 mg/dL (0.7-1.3) Estimated GFR (Cockcroft-Gault) 84.4 Glucose Level 106 mg/dL (70-99) Calcium Level 8.1 mg/dL (8.5-10.1) Phosphorus Level 3.0 mg/dL (2.6-4.7) Magnesium Level 2.1 mg/dL (1.8-2.4) Medications Current Medications Info (Tpn Per Pharmacy) 1 each PRN DAILY PRN MC SEE COMMENTS Last administered on 11/26/20at 14:17; Start 11/22/20 at 15:15 Amino Acids/ Glycerin/ Electrolytes 1,000 ml @ 80 mls/hr [id number] IV Last administered on 11/23/20at 10:35; Start 11/22/20 at 17:45; Stop 11/23/20 at 21:59; Status DC Carvedilol (Coreg) 3.125 mg BIDWMEALS PO Last administered on 11/23/20at 16:22; Start 11/22/20 at 18:00 Levothyroxine Sodium (Synthroid) 50 mcg DAILY06 PO Last administered on 11/26/20at 05:58; Start 11/23/20 at 06:00 Pantoprazole Sodium (Protonix) 40 mg DAILYAC PO Last administered on 11/26/20at 0 5:58; Start 11/23/20 at 07:30 Ondansetron HCl (Zofran Odt) 4 mg PRN Q8HRS PRN PO NAUSEA/VOMITING Last administered on 11/23/20at 07:32; Start 11/22/20 at 18:00; Stop 11/23/20 at 12:46; Status DC Enoxaparin Sodium (Lovenox 30mg Syringe) 30 mg Q24H SQ Last administered on 11/25/20at 21:54; Start 11/22/20 at 22:00; Stop 11/26/20 at 11:31; Status DC Acetaminophen (Tylenol Supp) 325 mg PRN Q6HRS PRN [place] MILD PAIN / TEMP > 100.3'F; Start 11/23/20 at 10:00 Ondansetron HCl (Zofran) 4 mg PRN Q6HRS PRN IVP NAUSEA/VOMITING (1st Choice) Last administered on 11/25/20at 19:21; Start 11/23/20 at 12:45 Sodium Chloride 90 meq/Potassium Chloride 50 meq/ Potassium Phosphate 13.6 mmol/Magnesium Sulfate 10 meq/ Calcium Gluconate 10 meq/ Multivitamins 5 ml/Zinc/Copper/ Manganese/ Selenium 1 ml/ Total Parenteral Nutrition/Amino Acids/Dextrose/ Fat Emulsion Intravenous 1,512 ml @ 63 mls/hr TPN CONT IV Last administered on 11/23/20at 21:26; Start 11/23/20 at 22:00; Stop 11/24/20 at 21:59; Status DC Prochlorperazine Edisylate (Compazine) 10 mg PRN Q6HRS PRN IV NAUSEA/VOMITING (2nd Choice) Last administered on 11/25/20at 13:31; Start 11/23/20 at 19:15 Sodium Chloride 90 meq/Potassium Chloride 50 meq/ Potassium Phosphate 13.6 mmol/Magnesium Sulfate 10 meq/ Calcium Gluconate 10 meq/ Multivitamins 5 ml/Zinc/Copper/ Manganese/ Selenium 1 ml/ Total Parenteral Nutrition/Amino Acids/Dextrose/ Fat Emulsion Intravenous 1,512 ml @ 63 mls/hr TPN CONT IV Last administered on 11/24/20at 22:04; Start 11/24/20 at 22:00; Stop 11/25/20 at 21:59; Status DC Promethazine HCl (Phenergan) 12.5 mg PRN Q6HRS PRN PO NAUSEA/VOMITING Last administered on 11/26/20at 16:17; Start 11/25/20 at 08:30 Sodium Chloride 90 meq/Potassium Chloride 50 meq/ Potassium Phosphate 15 mmol/ Magnesium Sulfate 10 meq/Calcium Gluconate 10 meq/ Multivitamins 5 ml/Zinc/Copper/ Manganese/ Selenium 1 ml/ Total Parenteral Nutrition/Amino Acids/Dextrose/ Fat Emulsion Intravenous 1,512 ml @ 63 mls/hr TPN CONT IV Last administered on 11/25/20at 21:54; Start 11/25/20 at 22:00; Stop 11/26/20 at 21:59 Guaifenesin (Robitussin Dm) 10 ml PRN Q6HRS PRN PO COUGH Last administered on 11/25/20at 19:50; Start 11/25/20 at 19:15 Benzonatate (Tessalon Perle) 100 mg [id number] PO Last administered on 11/26/20at 08:28; Start 11/25/20 at 21:00; Stop 11/26/20 at 09:01; Status DC Enoxaparin Sodium (Lovenox 40mg Syringe) 40 mg Q24H SQ ; Start 11/26/20 at 22:00 Sodium Chloride 90 meq/Potassium Chloride 50 meq/ Potassium Phosphate 15 mmol/ Magnesium Sulfate 10 meq/Calcium Gluconate 10 meq/ Multivitamins 5 ml/Zinc/Copper/ Manganese/ Selenium 1 ml/ Total Parenteral Nutrition/Amino Acids/Dextrose/ Fat Emulsion Intravenous 1,512 ml @ 63 mls/hr TPN CONT IV ; Start 11/26/20 at 22:00; Stop 11/27/20 at 21:59 Active Scripts Active Protonix (Pantoprazole Sodium) 40 Mg Tablet. 40 Mg PO DAILYAC 30 Days Reported Levothyroxine Sodium 50 Mcg Tablet 1 Tab PO DAILY Carvedilol (Carvedilol) 3.125 Mg Tablet 3.125 Mg PO BIDWMEALS Ondansetron Hcl 4 Mg Tablet 1 Tab PO PRN Q8HRS PRN Vitals/I & O Vital Sign - Last 24 Hours 11/25/20 11/25/20 11/25/20 11/26/20 19:04 20:00 23:00 02:48 Temp 98.1 98.9 98.0 98.1 98.9 98.0 Pulse 77 88 96 Resp 18 14 20 B/P (MAP) 98/62 (74) 99/67 (78) 90/55 (67) Pulse Ox 93 99 97 O2 Delivery Room Air Room Air Room Air Room Air 11/26/20 11/26/20 11/26/20 11/26/20 07:22 07:40 08:00 10:34 Temp 98.1 99.2 98.1 99.2 Pulse 69 69 66 Resp 18 18 B/P (MAP) 100/65 (77) 100/65 101/64 (76) Pulse Ox 99 95 O2 Delivery Room Air Room Air Room Air 11/26/20 11/26/20 14:30 16:15 Temp 98.0 98.0 Pulse 72 72 Resp 18 B/P (MAP) 100/68 (79) 100/68 Pulse Ox 97 O2 Delivery Room Air Intake and Output0 11/25/20 11/25/20 11/26/20 15:00 23:00 07:00 Intake Total 300 ml 200 ml 120 ml Output Total 400 ml Balance 300 ml 200 ml -280 ml Nutrition Consultation Dietary Evaluation: Recommendations by RD: Dietary education by RD, PPN/TPN Comments: REC continue STD TPN : 195 g dextrose, 60 g AA, 20 g lipid and diet as tolerated Expected Outcomes/Goals: to meet >75% est nutr needs via TPN- met, goal ongoing Interpretation of weight loss: >10% in 6 months Malnutrition Findings: Food and Nutrition Intake (Sev: <50% est energy req 5days Body Fat Depletion (Non Severe: Mod to Severe Weight Status: Underweight Justicifation of Admission Dx: Justifications for Admission: Justification of Admission Dx: Yes DANIELITO OLGUIN MD Nov 26, 2020 18:12
[2020-11-26 19:00] VITALS: BP 99/63
[2020-11-26] MEDS: ENOXAPARIN 40 MG/0.4 ML SYRINGE. SQ SCH (20:23)
[2020-11-26] MEDS ORDERED: DEXTROSE 70% IV SCH (22:00)
[2020-11-26] MEDS ORDERED: TOTAL PARENTERAL NUTRITION IV SCH (22:00)
[2020-11-26] MEDS ORDERED: AMINO ACID IV SCH (22:00)
[2020-11-26] MEDS ORDERED: [UNRECOGNIZED DRUG - OTHER] IV SCH (22:00)
[2020-11-26 23:50] VITALS: BP 122/75
[2020-11-27] MEDS: guaiFENesin DM 200MG/20MG 10 ML SYRUP PO PRN ×2 (01:04→16:08)
[2020-11-27 03:05] VITALS: BP 131/83
[2020-11-27] MEDS: PROMETHAZINE 12.5 MG TABLET. PO PRN ×2 (06:03→21:24)
[2020-11-27] MEDS: PANTOPRAZOLE 40 MG TABLET.DR. PO SCH (06:03)
[2020-11-27] MEDS: LEVOTHYROXINE 50 MCG TABLET PO SCH (06:03)
[2020-11-27 07:00] VITALS: BP 149/93
[2020-11-27] MEDS: CARVEDILOL 3.125 MG TABLET. PO SCH ×2 (08:33→16:08)
--- NOTE | 2020-11-27 09:03 | PDOC ---
PROGRESS NOTES Date of Service: DATE: 11/27/20 TIME: 09:01 Chief Complaint Chief Complaint Dysphagia - due to esophageal cancer, strictures as well. Unable to get enough nutrition to survive currently. Right lower lobe coarse breath sounds, we will rule out pneumonic process with x-ray Failure to thrive - due to inability to obtain proper nutrition. 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 Esophageal strictures - as above Pancytopenia - likely related to cancer and treatment. 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 He has not been able to eat anything for the last week and for the 2 weeks prior to that was regurgitating everything he tried to eat. Patient states that he is unable to get up and take care of himself at this time due to severe weakness. His family is bedside. Patient has continued to lose weight, now down to 43kg. Labs with WBC 2.9, Hb 10.3, Platelets 106, Na 141, K 3.7, BUN 14, Cr 1.1, Al bumin 2.7, glucose 69 He is unable to stand even with assistance. Admitted for further care. 11/23 No acute events reported overnight, case discussed with nursing staff patient in no acute distress no complaints during my visit no complaints during my visit 11/24 Patient feeling somewhat better. sap plant maintenance consultant recommendations are greatly appreciated. He is scheduled to have radiation therapy in the a.m. Still having nausea for which our operations consultant has transition to an IV form in order to control his symptoms better. Still quite debilitated tolerating some clear liquids which is more for quality rather than for nutrition. Home health has been arranged by case management we will reassess in the a.m. and hopefully discharge soon 11/25 Continues to have emesis no other acute events reported overnight, case discussed with nursing staff patient in no acute distress no complaints during my visit 11/26 Patient unfortunately is not feeling well still, I have advised him to only put swabs in his mouth for comfort and try to avoid any oral intake since he continues to have emesis. Reassurance has been provided 11/27 Patient with improved symptoms. Still quite debilitated on physical exam the patient has coarse breath sounds over the right lower lobe. Suspicion for aspiration given his underlying pathology is high. We will do x-rays today we will start empiric antibiotics Vitals Vitals Vital Signs Date Time Temp Pulse Resp B/P (MAP) Pulse Ox O2 Delivery O2 Flow Rate FiO2 11/27/20 08:33 75 149/93 11/27/20 07:15 Room Air 11/27/20 07:00 98.2 18 99 98.2 Physical Exam General: Cooperative, No acute distress, Other (thin, frail) Heart: Regular rate, Normal S1, Normal S2 Lungs: Clear, Wheezing, Other Abdomen: Soft, Other (colostomy in place) Extremities: No clubbing, No cyanosis Skin: No rashes, No breakdown Review of Systems Review of Systems Review of systems pertinent as per HPI otherwise 14 point review of system is negative Assessment and Plan Assessmemt and Plan Problems Medical Problems: (1) Dehydration Status: Acute (2) Failure to thrive Status: Acute Comment Review of Relevant I have reviewed the following items adeline (where applicable) has been applied. Labs Laboratory Tests Test 11/26/20 06:15 Sodium Level 135 mmol/L (136-145) Potassium Level 4.1 mmol/L (3.5-5.1) Chloride Level 105 mmol/L (98-107) Carbon Dioxide Level 26 mmol/L (21-32) Anion Gap 4 (6-14) Blood Urea Nitrogen 23 mg/dL (8-26) Creatinine 0.9 mg/dL (0.7-1.3) Estimated GFR (Cockcroft-Gault) 84.4 Glucose Level 106 mg/dL (70-99) Calcium Level 8.1 mg/dL (8.5-10.1) Phosphorus Level 3.0 mg/dL (2.6-4.7) Magnesium Level 2.1 mg/dL (1.8-2.4) Medications Current Medications Info (Tpn Per Pharmacy) 1 each PRN DAILY PRN MC SEE COMMENTS Last administered on 11/26/20at 14:17; Start 11/22/20 at 15:15 Amino Acids/ Glycerin/ Electrolytes 1,000 ml @ 80 mls/hr [id number] IV Last administered on 11/23/20at 10:35; Start 11/22/20 at 17:45; Stop 11/23/20 at 21:59; Status DC Carvedilol (Coreg) 3.125 mg BIDWMEALS PO Last administered on 11/27/20at 08:33; Start 11/22/20 at 18:00 Levothyroxine Sodium (Synthroid) 50 mcg DAILY06 PO Last administered on 11/27/20 06:03; Start 11/23/20 at 06:00 Pantoprazole Sodium (Protonix) 40 mg DAILYAC PO Last administered on 11/27/20at 06:03; Start 11/23/20 at 07:30 Ondansetron HCl (Zofran Odt) 4 mg PRN Q8HRS PRN PO NAUSEA/VOMITING Last administered on 11/23/20at 07:32; Start 11/22/20 at 18:00; Stop 11/23/20 at 12:46; Status DC Enoxaparin Sodium (Lovenox 30mg Syringe) 30 mg Q24H SQ Last administered on 11/25/20at 21:54; Start 11/22/20 at 22:00; Stop 11/26/20 at 11:31; Status DC Acetaminophen (Tylenol Supp) 325 mg PRN Q6HRS PRN [place] MILD PAIN / TEMP > 100.3'F; Start 11/23/20 at 10:00 Ondansetron HCl (Zofran) 4 mg PRN Q6HRS PRN IVP NAUSEA/VOMITING (1st Choice) Last administered on 11/25/20at 19:21; Start 11/23/20 at 12:45 Sodium Chloride 90 meq/Potassium Chloride 50 meq/ Potassium Phosphate 13.6 mmol/Magnesium Sulfate 10 meq/ Calcium Gluconate 10 meq/ Multivitamins 5 ml/Zinc/Copper/ Manganese/ Selenium 1 ml/ Total Parenteral Nutrition/Amino Acids/Dextrose/ Fat Emulsion Intravenous 1,512 ml @ 63 mls/hr TPN CONT IV Last administered on 11/23/20at 21:26; Start 11/23/20 at 22:00; Stop 11/24/20 at 21:59; Status DC Prochlorperazine Edisylate (Compazine) 10 mg PRN Q6HRS PRN IV NAUSEA/VOMITING (2nd Choice) Last administered on 11/25/20at 13:31; Start 11/23/20 at 19:15 Sodium Chloride 90 meq/Potassium Chloride 50 meq/ Potassium Phosphate 13.6 mmol/Magnesium Sulfate 10 meq/ Calcium Gluconate 10 meq/ Multivitamins 5 ml/Zinc/Copper/ Manganese/ Selenium 1 ml/ Total Parenteral Nutrition/Amino Acids/Dextrose/ Fat Emulsion Intravenous 1,512 ml @ 63 mls/hr TPN CONT IV Las t administered on 11/24/20at 22:04; Start 11/24/20 at 22:00; Stop 11/25/20 at 21:59; Status DC Promethazine HCl (Phenergan) 12.5 mg PRN Q6HRS PRN PO NAUSEA/VOMITING Last administered on 11/27/20at 06:03; Start 11/25/20 at 08:30 Sodium Chloride 90 meq/Potassium Chloride 50 meq/ Potassium Phosphate 15 mmol/ Magnesium Sulfate 10 meq/Calcium Gluconate 10 meq/ Multivitamins 5 ml/Zinc/Copper/ Manganese/ Selenium 1 ml/ Total Parenteral Nutrition/Amino Acids/Dextrose/ Fat Emulsion Intravenous 1,512 ml @ 63 mls/hr TPN CONT IV Last administered on 11/25/20at 21:54; Start 11/25/20 at 22:00; Stop 11/26/20 at 21:59; Status DC Guaifenesin (Robitussin Dm) 10 ml PRN Q6HRS PRN PO COUGH Last administered on 11/27/20at 01:04; Start 11/25/20 at 19:15 Benzonatate (Tessalon Perle) 100 mg [id number] PO Last administered on 11/26/20at 08:28; Start 11/25/20 at 21:00; Stop 11/26/20 at 09:01; Status DC Enoxaparin Sodium (Lovenox 40mg Syringe) 40 mg Q24H SQ Last administered on 11/26/20at 20:23; Start 11/26/20 at 22:00 Sodium Chloride 90 meq/Potassium Chloride 50 meq/ Potassium Phosphate 15 mmol/ Magnesium Sulfate 10 meq/Calcium Gluconate 10 meq/ Multivitamins 5 ml/Zinc/Hammad er/ Manganese/ Selenium 1 ml/ Total Parenteral Nutrition/Amino Acids/Dextrose/ Fat Emulsion Intravenous 1,512 ml @ 63 mls/hr TPN CONT IV Last administered on 11/26/20at 21:50; Start 11/26/20 at 22:00; Stop 11/27/20 at 21:59 Active Scripts Active Protonix (Pantoprazole Sodium) 40 Mg Tablet.dr 40 Mg PO DAILYAC 30 Days Reported Levothyroxine Sodium 50 Mcg Tablet 1 Tab PO DAILY Carvedilol (Carvedilol) 3.125 Mg Tablet 3.125 Mg PO BIDWMEALS Ondansetron Hcl 4 Mg Tablet 1 Tab PO PRN Q8HRS PRN Vitals/I & O Vital Sign - Last 24 Hours 11/26/20 11/26/20 11/26/20 11/26/20 10:34 14:30 16:15 19:00 Temp 99.2 98.0 98.6 99.2 98.0 98.6 Pulse 66 72 72 76 Resp 18 18 18 B/P (MAP) 101/64 (76) 100/68 (79) 100/68 99/63 (75) Pulse Ox 95 97 100 O2 Delivery Room Air Room Air Room Air 11/26/20 11/26/20 11/27/20 11/27/20 20:00 23:50 03:05 07:00 Temp 98.7 98.3 98.2 98.7 98.3 98.2 Pulse 70 75 75 Resp 18 18 18 B/P (MAP) 122/75 (91) 131/83 (99) 149/93 (111) Pulse Ox 100 100 99 O2 Delivery Room Air Room Air Room Air Room Air 11/27/20 11/27/20 07:15 08:33 Pulse 75 B/P (MAP) 149/93 O2 Delivery Room Air Intake and Output 11/26/20 11/26/20 11/27/20 15:00 23:00 07:00 Intake Total 0 ml 120 ml Output Total 300 ml 120 ml 250 ml Balance -300 ml -120 ml -130 ml Nutrition Consultation Dietary Evaluation: Recommendations by RD: Dietary education by RD, PPN/TPN Comments: REC continue STD TPN : 195 g dextrose, 60 g AA, 20 g lipid and diet as tolerated Expected Outcomes/Goals: to meet >75% est nutr needs via TPN- met, goal ongoing Interpretation of weight loss: >10% in 6 months Malnutrition Findings: Food and Nutrition Intake (Sev: <50% est energy req 5days Body Fat Depletion (Non Severe: Mod to Severe Weight Status: Underweight Justicifation of Admission Dx: Justifications for Admission: Justification of Admission Dx: Yes DANIELITO OLGUIN MD Nov 27, 2020 09:03
--- NOTE | 2020-11-27 09:12 | RAD ---
AP chest. HISTORY: Cough AP view was taken of the chest. Patient is rotated to the left. Heart is normal in size. There are ol d left rib fractures. There is a right Port-A-Cath which extends to the superior vena cava in good po sition. There is chronic pleural thickening and scarring on the left. No new confluent infiltrates ar e noted. IMPRESSION: 1. Right Port-A-Cath in good position. 2. Chronic pleural thickening on the left. 3. No new infiltrates. Electronically signed by: Aleksandr Garcia MD (11/27/2020 9:04 AM) [facility]
[2020-11-27 11:00] VITALS: BP 130/79
[2020-11-27] MEDS: PIPERACILLIN/TAZOBACTAM 3.375 GM in IV NORMAL SALINE 50ML 50 ML IV SCH ×3 (11:32→23:44)
[2020-11-27] MEDS: TPN PER PHARMACY MC PRN (12:21)
--- NOTE | 2020-11-27 12:27 | NUR ---
Pharmacy TPN Dosing Note S: YELENAJASON is a 65 year old M Currently receiving Central Continuous TPN started 11/23/20 B:Pertinent PMH: NPO/ESOPHAGEAL CANCER Height: 5 feet, 4 inches Weight: 44.9 kg Current diet: LABS: Sodium: 135 Potassium: 4.1 Chloride: 105 Calcium: 8.1 Corrected Calcium: 9.54 Magnesium: 2.1 CO2: 26 SCr: 0.9 Glucose: 105 Albumin: 2.2 AST: 9 ALT: 9 TPN FORMULA: TPN TYPE: Central Continuous AMINO ACIDS: 60 gm DEXTROSE: 195 gm LIPIDS: 20 gm SODIUM CHLORIDE: 90 mEq POTASSIUM CHLORIDE: 50 mEq POTASSIUM PHOSPHATE: 15 mmol MAGNESIUM: 10 mEq CALCIUM: 10 mEq MULTIPLE VITAMIN: 5 ml TRACE ELEMENTS: 1 ml(s) TPN PLAN: No lytes today. Continue same TPN. R: Continue TPN Will monitor electrolytes, glucose, and tolerance to TPN. Jason Rangel [facility], 11/27/20 [id number]
[2020-11-27 14:28] VITALS: BP 120/76
[2020-11-27 19:14] VITALS: BP 139/85
[2020-11-27] MEDS: ENOXAPARIN 40 MG/0.4 ML SYRINGE. SQ SCH (21:24)
[2020-11-27] MEDS ORDERED: DEXTROSE 70% IV SCH (22:00)
[2020-11-27] MEDS ORDERED: [UNRECOGNIZED DRUG - OTHER] IV SCH (22:00)
[2020-11-27] MEDS ORDERED: TOTAL PARENTERAL NUTRITION IV SCH (22:00)
[2020-11-27] MEDS ORDERED: AMINO ACID IV SCH (22:00)
[2020-11-27 22:23] VITALS: BP 107/57
[2020-11-28 02:30] VITALS: BP 119/81
[2020-11-28] MEDS: LEVOTHYROXINE 50 MCG TABLET PO SCH (05:30)
[2020-11-28] MEDS: PIPERACILLIN/TAZOBACTAM 3.375 GM in IV NORMAL SALINE 50ML 50 ML IV SCH (05:30)
[2020-11-28] MEDS: PANTOPRAZOLE 40 MG TABLET.DR. PO SCH (05:31)
[2020-11-28 07:00] VITALS: BP 100/62
[2020-11-28] MEDS: CARVEDILOL 3.125 MG TABLET. PO SCH ×2 (08:00→17:00)
[2020-11-28] MEDS: PROMETHAZINE 12.5 MG TABLET. PO PRN (08:04)
[2020-11-28 08:39] LABS: MAGNESIUM 1.8 mg/dL (1.8-2.4)
[2020-11-28 08:40] LABS: ALBUMIN 2.3 g/dL (3.4-5.0); ALBUMIN/GLOBULIN RATIO 0.8 (1.0-1.7); GFR 74.8; POTASSIUM 4.3 mmol/L (3.5-5.1); TOTAL BILIRUBIN 0.7 mg/dL (0.2-1.0); TOTAL PROTEIN 5.3 g/dL (6.4-8.2)
[2020-11-28] MEDS: TPN PER PHARMACY MC PRN (10:35)
--- NOTE | 2020-11-28 10:35 | NUR ---
SW following. Discussed with RN, pt from home - everything arranged for [facility] for TPN and [facility]. Dr. Mcginnis asked SW to speak to pt about SNF. SW met with pt (no isolation precautions at the time), pt does not want to go to SNF at this time. SW advised pt if he gets home and changes his mind then [facility] can get him to a SNF from home. Pt verbalized understanding. Pt reported his sister will be back home tomorrow (11/29/20) - Dr. Mcginnis planning on discharge home tomorrow. SW will continue to follow.
[2020-11-28 11:00] VITALS: BP 95/61
--- NOTE | 2020-11-28 11:28 | PDOC ---
[facility] PROGRESS NOTE Date of Service DOS: DATE: 11/28/20 TIME: 11:27 Chief Complaint Chief Complaint Dysphagia - due to esophageal cancer, strictures as well. Unable to get enough nutrition to survive currently. Right lower lobe coarse breath sounds, we will rule out pneumonic process with x-ray Failure to thrive - due to inability to obtain proper nutrition. 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 Esophageal strictures - as above Pancytopenia - likely related to cancer and treatment. 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 He has not been able to eat anything for the last week and for the 2 weeks prior to that was regurgitating everything he tried to eat. Patient states that he is unable to get up and take care of himself at this time due to severe weakness. His family is bedside. Patient has continued to lose weight, now down to 43kg. Labs with WBC 2.9, Hb 10.3, Platelets 106, Na 141, K 3.7, BUN 14, Cr 1.1, Albumin 2.7, glucose 69 He is unable to stand even with assistance. Admitted for further care. 1/6 No acute events reported overnight, case discussed with nursing staff patient in no acute distress no complaints during my visit no complaints during my visit 11/24 Patient feeling somewhat better. reporting process consultant recommendations are greatly appreciated. He is scheduled to have radiation therapy in the a.m. Still having nausea for which our service delivery management consultant has transition to an IV form in order to control his symptoms better. Still quite debilitated tolerating some clear liquids which is more for quality rather than for nutrition. Home health has been arranged by case management we will reassess in the a.m. and hopefully discharge soon 11/25 Continues to have emesis no other acute events reported overnight, case discussed with nursing staff patient in no acute distress no complaints during my visit 11/26 Patient unfortunately is not feeling well still, I have advised him to only put swabs in his mouth for comfort and try to avoid any oral intake since he continues to have emesis. Reassurance has been provided 11/27 Patient with improved symptoms. Still quite debilitated on physical exam the patient has coarse breath sounds over the right lower lobe. Suspicion for aspiration given his underlying pathology is high. We will do x-rays today we will start empiric antibiotics 11/28/2020 No acute events overnight. Patient continues to have some vomiting but tolerating clear liquids. No chest pain. Was started on antibiotics over the weekend due to concern for aspiration pneumonia. However labs and imaging did not indicate this phenomenon as of yet. Patient clinically looks stable. Anticipate discharge in the next 24 hours. Vitals/I&O Vitals/I&O: Vital Signs Date Time Temp Pulse Resp B/P (MAP) Pulse Ox O2 Delivery O2 Flow Rate FiO2 11/28/20 07:32 Room Air 11/28/20 07:00 98.1 73 18 100/62 (75) 98 98.1 I & O 11/27/20 11/27/20 11/28/20 15:00 23:00 07:00 Intake Total 60 ml 0 ml Output Total 800 ml 600 ml 400 ml Balance -800 ml -540 ml -400 ml Physical Exam General: Cooperative, No acute distress, Other (thin, frail) Heart: Regular rate, Normal S1, Normal S2 Lungs: Clear, Wheezing, Other Abdomen: Soft, Other (colostomy in place) Extremities: No clubbing, No cyanosis Skin: No rashes, No breakdown Labs Labs: Laboratory Tests Test 11/28/20 08:15 Sodium Level 136 mmol/L (136-145) Potassium Level 4.3 mmol/L (3.5-5.1) Chloride Level 102 mmol/L (98-107) Carbon Dioxide Level 28 mmol/L (21-32) Anion Gap 6 (6-14) Blood Urea Nitrogen 19 mg/dL (8-26) Creatinine 1.0 mg/dL (0.7-1.3) Estimated GFR (Cockcroft-Gault) 74.8 BUN/Creatinine Ratio 19 (6-20) Glucose Level 89 mg/dL (70-99) Calcium Level 8.0 mg/dL (8.5-10.1) Phosphorus Level 4.0 mg/dL (2.6-4.7) Magnesium Level 1.8 mg/dL (1.8-2.4) Total Bilirubin 0.7 mg/dL (0.2-1.0) Aspartate Amino Transf (AST/SGOT) 9 U/L (15-37) Alanine Aminotransferase (ALT/SGPT) 12 U/L (16-63) Alkaline Phosphatase 64 U/L (46-116) Total Protein 5.3 g/dL (6.4-8.2) Albumin 2.3 g/dL (3.4-5.0) Albumin/Globulin Ratio 0.8 (1.0-1.7) Assessment and Plan Assessmemt and Plan Problems Medical Problems: (1) Dehydration Status: Acute (2) Failure to thrive Status: Acute Comment Review of Relevant I have reviewed the following items adeline (where applicable) has been applied. Medications: Current Medications Medications (Trade) Dose Ordered Sig/Steff Route PRN Reason Start Time Stop Time Status Last Admin Dose Admin Piperacillin Sod/ Tazobactam Sod 3.375 gm/Sodium Chloride 50 ml @ 100 mls/hr Q6HRS IV 11/27/20 12:00 11/28/20 09:48 DC 11/28/20 05:30 Sodium Chloride 90 meq/Potassium Chloride 50 meq/ Potassium Phosphate 15 mmol/ Magnesium Sulfate 10 meq/Calcium Gluconate 10 meq/ Multivitamins 5 ml/Zinc/Copper/ Manganese/ Selenium 1 ml/ Total Parenteral Nutrition/Amino Acids/Dextrose/ Fat Emulsion Intravenous 1,512 ml @ 63 mls/hr TPN CONT IV 11/27/20 22:00 11/28/20 21:59 11/27/20 21:25 Justifications for Admission Other Justification DANNY LOPES MD Nov 28, 2020 11:28
--- NOTE | 2020-11-28 13:41 | NUR ---
Pharmacy TPN Dosing Note S: JASON KIRK is a 65 year old M Currently receiving Central Continuous TPN started 11/23/20 B:Pertinent PMH: NPO/ESOPHAGEAL CANCER Height: 5 feet, 4 inches Weight: 43.5 kg Current diet: LABS: Sodium: 136 Potassium: 4.3 Chloride: 102 Calcium: 8.0 Corrected Calcium: 9.36 Magnesium: 1.8 CO2: 28 SCr: 1.0 Glucose: 89 Albumin: 2.3 AST: 9 ALT: 12 TPN FORMULA: TPN TYPE: Central Continuous AMINO ACIDS: 60 gm DEXTROSE: 195 gm LIPIDS: 20 gm SODIUM CHLORIDE: 110 mEq SODIUM ACETATE: mEq SODIUM PHOSPHATE: mmol POTASSIUM CHLORIDE: 50 mEq POTASSIUM ACETATE: mEq POTASSIUM PHOSPHATE: 12 mmol MAGNESIUM: 12 mEq CALCIUM: 10 mEq INSULIN: units MULTIPLE VITAMIN: 5 ml TRACE ELEMENTS: 1 ml(s) TPN PLAN: increase NACL TO 110 MEQ, INCREASE MAGSO4 12MEQ, DECREASE KPHOS TO 12 MM R: Continue TPN AT 63ML/HR Will monitor electrolytes, glucose, and tolerance to TPN. SONAJ HESS [facility], 11/28/20 [id number]
[2020-11-28 15:00] VITALS: BP 102/63
[2020-11-28 19:00] VITALS: BP 114/72
[2020-11-28] MEDS ORDERED: DEXTROSE 70% IV SCH (22:00)
[2020-11-28] MEDS ORDERED: [UNRECOGNIZED DRUG - OTHER] IV SCH (22:00)
[2020-11-28] MEDS ORDERED: AMINO ACID IV SCH (22:00)
[2020-11-28] MEDS ORDERED: TOTAL PARENTERAL NUTRITION IV SCH (22:00)
[2020-11-28] MEDS: ENOXAPARIN 40 MG/0.4 ML SYRINGE. SQ SCH (22:17)
[2020-11-28 22:44] VITALS: BP 108/71
[2020-11-29 02:46] VITALS: BP 115/70
[2020-11-29] MEDS: LEVOTHYROXINE 50 MCG TABLET PO SCH (05:45)
[2020-11-29] MEDS: PANTOPRAZOLE 40 MG TABLET.DR. PO SCH (05:45)
[2020-11-29 07:00] VITALS: BP 108/71
[2020-11-29] MEDS: CARVEDILOL 3.125 MG TABLET. PO SCH (08:00)
[2020-11-29] MEDS: PROMETHAZINE 12.5 MG TABLET. PO PRN (08:35)
--- NOTE | 2020-11-29 10:24 | SNU/HH DC ---
DISCHARGE WITH HOME HEALTH DISCHARGE INFORMATION: Discharge Date: Nov 29, 2020 Final Diagnosis: Problems Medical Problems: (1) Dehydration Status: Acute (2) Failure to thrive Status: Acute Condition on Discharge: Stable CODE STATUS: Code Status: Full HOME HEALTH: Face to Face: I certify this patient is under my care and that I, or a nurse practitioner or physician's trading assistant working with me, had a face to face encounter that meets the physician face to face encounter requirements with this patient on []. Medical Complications: Other (Esophageal cancer) RN For Eval/Treatment: Yes Physical Therapy For: Evalulation/Treatment Occupational Therapy For: Evaluation/Treatment Speech Language Pathology For: Evaluation/Treatment Home Health Aide For: Self-care Pt Meets Homebound Status: Poor coordination w/ amb., Frequent falls w/ injury, Limited distance walking, Unable to negotiate home POST DISCHARGE ORDERS: Activity Instructions for Disc: Resume previous activity, Activity as tolerated Weight Bearing Status after Di: As tolerated DIET AFTER DISCHARGE: Clear liquid diet CHECKS AFTER DISCHARGE: Checks after discharge: Check blood press - daily, Check your Temp as needed FOLLOW-UP: Follow up with: PCP within 2 weeks of discharge DC TO SNF LABS: CBC, CMP within 1 week at discharge while on TPN TREATMENT/EQUIPMENT ORDERS: Adaptive Equipment Issued: None, Walker Infusion Equipment, home use: IV Line, PICC Line (Patient will be on TPN) CERTIFICATION STATEMENT: Certification Statement: Certification Statement: Based on the above finding, I certify that this patient is confined to the home and needs intermittent correction care, physical therapy and/or speech therapy, or continues to need occupational therapy.~ This patient is under my care, and I have initiated the establishment of the plan of care.~ This patient will be followed by myself or a community physician who will periodically review the plan of care. Home Meds Active Scripts Pantoprazole Sodium (PROTONIX ) 40 Mg Tablet., 40 MG PO DAILYAC for GERD for 30 Days, #30 TAB Prov:CINDY MUÑIZ MD 09/07/20 Reported Medications Levothyroxine Sodium (LEVOTHYROXINE SODIUM) 50 Mcg Tablet, 1 TAB PO DAILY for hypothyroid, #30 TAB 5 Refills 08/27/20 Carvedilol (CARVEDILOL ) 3.125 Mg Tablet, 3.125 MG PO BIDWMEALS for CARDIAC, TAB 08/27/20 Ondansetron Hcl (ONDANSETRON HCL) 4 Mg Tablet, 1 TAB PO PRN Q8HRS PRN for NAUSEA/VOMITING, #10 TAB 1 Refill 08/27/20 DANNY LOPES MD Nov 29, 2020 10:24
[2020-11-29 11:00] VITALS: BP 114/61
--- NOTE | 2020-11-29 11:21 | NUR ---
[facility] following. Discussed with RN, pt stating his sister now won't be home until tomorrow (11/30/20). Discharge orders entered. SW spoke with pt's sister to verify and advise of discharge. Maura stated she was going to be able to pick him up first thing tomorrow morning, however pt advised pt is not medically needing to be in the hospital. Marua advised she can come home this evening. SW to arrange transportation - verifying pt address to arrange the transportation. Dr. Mcginnis and RN notified. [facility] will continue to follow. Addendum: 11/29/20 at 1130 by ASHLEY GOLDSTEIN Transportation arranged with [employer], slate picker between [phone]. RN and pt's sister in law notified. Discharge orders faxed to [facility]. No further SW needs.
[2020-11-29 11:34] LABS: BASO % 1 % (0-3); EOS # 0.1 x10^3/uL (0.0-0.7); EOS % 3 % (0-3); HEMATOCRIT 25.1 % (39.0-53.0); HEMOGLOBIN 8.3 g/dL (13.0-17.5); LYMPH # 0.1 x10^3/uL (1.0-4.8); LYMPH % 3 % (24-48); MEAN CORPUSCULAR HEMOGLOBIN 26 pg (25-35); MEAN CORPUSCULAR HGB CONC 33 g/dL (31-37); MEAN CORPUSCULAR VOLUME 80 fL (79-100); MONO # 0.5 x10^3/uL (0.0-1.1); MONO % 17 % (0-9); NEUT % 76 % (31-73); PLATELET COUNT 87 x10^3/uL (140-400); RED BLOOD COUNT 3.13 x10^6/uL (4.30-5.70); RED CELL DISTRIBUTION WIDTH 14.5 % (11.5-14.5); WHITE BLOOD COUNT 2.7 x10^3/uL (4.0-11.0)
[2020-11-29 11:44] LABS: CALCIUM 8.2 mg/dL (8.5-10.1); CREATININE 0.9 mg/dL (0.7-1.3); GFR 84.4; POTASSIUM 4.3 mmol/L (3.5-5.1)
[2020-11-29 11:48] LABS: MAGNESIUM 2.1 mg/dL (1.8-2.4); PHOSPHORUS 3.1 mg/dL (2.6-4.7)
[2020-11-29 15:00] VITALS: BP 101/64
--- NOTE | 2020-11-29 17:09 | NUR ---
PT DISCHARGED HOME WITH HOME HEALTH. [facility] CH[facility]ED PT TPN AND PROVIDED EDUCATION ON HOW TO USE PUMP. PT ASSISTED TO WHEELCHAIR AND WAS TAKEN BY TRANSPORTATION.
--- NOTE | 2020-12-01 15:29 | PDOC3 ---
[facility]-Discharge Summary Date of Admission: Date of Admission: Nov 22, 2020 Date of Discharge: Date of Discharge: Nov 29, 2020 Discharge Diagnosis: Discharge Diagnosis: Dysphagia - due to esophageal cancer, strictures as well. Unable to get enough nutrition to survive currently. Right lower lobe coarse breath sounds, we will rule out pneumonic process with x-ray Failure to thrive - due to inability to obtain proper nutrition. 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 Esophageal strictures - as above Pancytopenia - likely related to cancer and treatment. 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 He has not been able to eat anything for the last week and for the 2 weeks prior to that was regurgitating everything he tried to eat. Patient states that he is unable to get up and take care of himself at this time due to severe weakness. His family is bedside. Patient has continued to lose weight, now down to 43kg. Labs with WBC 2.9, Hb 10.3, Platelets 106, Na 141, K 3.7, BUN 14, Cr 1.1, Albumin 2.7, glucose 69 He is unable to stand even with assistance. Admitted for further care. 11/23 No acute events reported overnight, case discussed with nursing staff patient in no acute distress no complaints during my visit no complaints during my visit 11/24 Patient feeling somewhat better. regulatory consultant recommendations are greatly appreciated. He is scheduled to have radiation therapy in the a.m. Still having nausea for which our workers compensation consultant has transition to an IV form in order to control his symptoms better. Still quite debilitated tolerating some clear liquids which is more for quality rather than for nutrition. Home health has been arranged by case management we will reassess in the a.m. and hopefully discharge soon 11/25 Continues to have emesis no other acute events reported overnight, case discussed with nursing staff patient in no acute distress no complaints during my visit 11/26 Patient unfortunately is not feeling well still, I have advised him to only put swabs in his mouth for comfort and try to avoid any oral intake since he continues to have emesis. Reassurance has been provided 11/27 Patient with improved symptoms. Still quite debilitated on physical exam the patient has coarse breath sounds over the right lower lobe. Suspicion for aspiration given his underlying pathology is high. We will do x-rays today we will start empiric antibiotics 11/28/2020 No acute events overnight. Patient continues to have some vomiting but tolerating clear liquids. No chest pain. Was started on antibiotics over the weekend due to concern for aspiration pneumonia. However labs and imaging did not indicate this phenomenon as of yet. Patient clinically looks stable. Anticipate discharge in the next 24 hours. [facility] following. Discussed with RN, pt stating his sister now won't be home until tomorrow (11/30/20). Discharge orders entered. [facility] spoke with pt's sister to verify and advise of discharge. Maura stated she was going to be able to pick him up first thing tomorrow morning, however pt advised pt is not medically needing to be in the hospital. Maura advised she can come home this evening. SW to arrange transportation - verifying pt address to arrange the transportation. Dr. Mcginnis and RN notified. [facility] will continue to follow. Addendum: 11/29/20 at 1130 by ASHLEY GOLDSTEIN Transportation arranged with [employer], pick up worker between [phone]. RN and pt's sister in law notified. Discharge orders faxed to [facility]. No further SW needs. User: Mary Richards Rp PHA Date: 11/28/20 13:41 Type: Pharmacist Notes ----- Pharmacy TPN Dosing Note S: JASON KIRK is a 65 year old M Currently receiving Central Continuous TPN started 11/23/20 B:Pertinent PMH: NPO/ESOPHAGEAL CANCER Height: 5 feet, 4 inches Weight: 43.5 kg Current diet: LABS: Sodium: 136 Potassium: 4.3 Chloride: 102 Calcium: 8.0 Corrected Calcium: 9.36 Magnesium: 1.8 CO2: 28 SCr: 1.0 Glucose: 89 Albumin: 2.3 AST: 9 ALT: 12 TPN FORMULA: TPN TYPE: Central Continuous AMINO ACIDS: 60 gm DEXTROSE: 195 gm LIPIDS: 20 gm SODIUM CHLORIDE: 110 mEq SODIUM ACETATE: mEq SODIUM PHOSPHATE: mmol POTASSIUM CHLORIDE: 50 mEq POTASSIUM ACETATE: mEq POTASSIUM PHOSPHATE: 12 mmol MAGNESIUM: 12 mEq CALCIUM: 10 mEq INSULIN: units MULTIPLE VITAMIN: 5 ml TRACE ELEMENTS: 1 ml(s) TPN PLAN: increase NACL TO 110 MEQ, INCREASE MAGSO4 12MEQ, DECREASE KPHOS TO 12 MM R: Continue TPN AT 63ML/HR Will monitor electrolytes, glucose, and tolerance to TPN. Disposition: Disposition/Orders: D/C to Home w/ HH Activity: Activity: Resume previous activity Diet: Diet: Clear Liquids Medications: Home Meds Active Scripts Pantoprazole Sodium (PROTONIX ) 40 Mg Tablet.dr, 40 MG PO DAILYAC for GERD for 30 Days, #30 TAB Prov:CINDY MUÑIZ MD 09/07/20 Reported Medications Levothyroxine Sodium (LEVOTHYROXINE SODIUM) 50 Mcg Tablet, 1 TAB PO DAILY for hypothyroid, #30 TAB 5 Refills 08/27/20 Carvedilol (CARVEDILOL ) 3.125 Mg Tablet, 3.125 MG PO BIDWMEALS for CARDIAC, TAB 08/27/20 Ondansetron Hcl (ONDANSETRON HCL) 4 Mg Tablet, 1 TAB PO PRN Q8HRS PRN for NAUSEA/VOMITING, #10 TAB 1 Refill 08/27/20 Scheduled Carvedilol (Carvedilol ), 3.125 MG PO BIDWMEALS, (Reported) Levothyroxine Sodium (Levothyroxine Sodium), 1 TAB PO DAILY, (Reported) Pantoprazole Sodium (Protonix ), 40 MG PO DAILYAC Scheduled PRN Ondansetron Hcl (Ondansetron Hcl), 1 TAB PO PRN Q8HRS PRN for NAUSEA/VOMITING, (Reported) Total Time: Total Time: Total time spent was 50 minutes in preparing scripts, discharge planning with SW and RN, and preparing this discharge summary. Patient seen and examined on day of discharge. Justicifation of Admission Dx: Justifications for Admission: Justification of Admission Dx: Yes DANNY MCGINNIS MD Dec 01, 2020 15:29
== END 2020-11-29 17:14 | disposition home health service (06) | DRG 374 ==
LOC: ER 11:25 → 4 NORTH 15:16
PROVIDERS: ADMIT Internal Medicine; ATTEND Internal Medicine
DX: C15.9 Malignant neoplasm of esophagus, unspecified (principal); D61.810 Antineoplastic chemotherapy induced pancytopenia; E43 Unspecified severe protein-calorie malnutrition; C16.0 Malignant neoplasm of cardia; K57.80 Diverticulitis of intestine, part unspecified, with perforation and abscess without bleeding; D61.818 Other pancytopenia; Z68.1 Body mass index [BMI] 19.9 or less, adult; C02.9 Malignant neoplasm of tongue, unspecified; E86.0 Dehydration; I10 Essential (primary) hypertension; I25.10 Atherosclerotic heart disease of native coronary artery without angina pectoris; K22.2 Esophageal obstruction; Z85.01 Personal history of malignant neoplasm of esophagus; R62.7 Adult failure to thrive; Z85.810 Personal history of malignant neoplasm of tongue; Z85.818 Personal history of malignant neoplasm of other sites of lip, oral cavity, and pharynx; Z86.73 Personal history of transient ischemic attack (TIA), and cerebral infarction without residual deficits; Z92.21 Personal history of antineoplastic chemotherapy; Z92.3 Personal history of irradiation; Z93.3 Colostomy status; Z95.1 Presence of aortocoronary bypass graft
CPT/HCPCS: 36415; 71045; 80048; 80053; 83735; 84100; 84478; 85007; 85025; 99285; J0610; J0780; J1650; J2405; J2543; J3475; J3480; J3490; 97110-GP; 97116-GP; 97530-GO; 97530-GP; 97535-GO; G0378; Q0169

== ENCOUNTER → 2020-11-22 | Outpatient (CLI) | payer MEDICARE, MEDICAID ==
[2020-10-28 10:45] VITALS: BP 112/71
[~2020-11-22] MED LIST changes: +CEPH250C PO; +NAPR-695 PO; +PRED20TA PO
[2020-11-22 09:19] LABS: BASO % 1 % (0-3); EOS % 1 % (0-3); HEMATOCRIT 34.8 % (39.0-53.0); HEMOGLOBIN 11.4 g/dL (13.0-17.5); LYMPH # 0.1 x10^3/uL (1.0-4.8); LYMPH % 3 % (24-48); MEAN CORPUSCULAR HEMOGLOBIN 27 pg (25-35); MEAN CORPUSCULAR HGB CONC 33 g/dL (31-37); MEAN CORPUSCULAR VOLUME 81 fL (79-100); MONO # 0.5 x10^3/uL (0.0-1.1); MONO % 16 % (0-9); NEUT # 2.4 x10^3/uL (1.8-7.7); NEUT % 79 % (31-73); PLATELET COUNT 131 x10^3/uL (140-400); RED BLOOD COUNT 4.32 x10^6/uL (4.30-5.70); RED CELL DISTRIBUTION WIDTH 14.3 % (11.5-14.5)
[2020-11-22 09:25] LABS: CALCIUM 8.9 mg/dL (8.5-10.1); CREATININE 1.3 mg/dL (0.7-1.3); GFR 55.2; POTASSIUM 3.8 mmol/L (3.5-5.1)
[2020-11-22 09:30] LABS: ALBUMIN/GLOBULIN RATIO 0.9 (1.0-1.7); TOTAL BILIRUBIN 0.8 mg/dL (0.2-1.0); TOTAL PROTEIN 6.2 g/dL (6.4-8.2)
[2020-11-22 10:18] LABS: % EOS 1 % (0-5); % LYMPHS 5 % (24-48); % MONOS 15 % (0-10); % SEGS 79 % (35-66)
[2020-11-22 10:19] LABS: OVALOCYTES FEW; PLT ESTIMATE DECREASED (ADEQUATE); TEAR DROP CELLS OCC
== END ==
LOC: ONCLAB 08:47
PROVIDERS: ATTEND Internal Medicine Hematology & Oncology
DX: C15.5 Malignant neoplasm of lower third of esophagus (principal)
CPT/HCPCS: 36415; 80053; 85007; 85025

== ENCOUNTER → 2020-12-01 | Outpatient (CLI) | payer MEDICARE, MEDICAID ==
[2020-11-29 15:00] VITALS: BP 101/64
[2020-12-01 09:46] LABS: BASO % 1 % (0-3); EOS # 0.1 x10^3/uL (0.0-0.7); EOS % 4 % (0-3); HEMATOCRIT 25.2 % (39.0-53.0); HEMOGLOBIN 8.5 g/dL (13.0-17.5); LYMPH # 0.1 x10^3/uL (1.0-4.8); LYMPH % 2 % (24-48); MEAN CORPUSCULAR HEMOGLOBIN 28 pg (25-35); MEAN CORPUSCULAR HGB CONC 34 g/dL (31-37); MEAN CORPUSCULAR VOLUME 83 fL (79-100); MONO # 0.3 x10^3/uL (0.0-1.1); MONO % 9 % (0-9); NEUT # 2.7 x10^3/uL (1.8-7.7); NEUT % 84 % (31-73); PLATELET COUNT 112 x10^3/uL (140-400); RED BLOOD COUNT 3.05 x10^6/uL (4.30-5.70); RED CELL DISTRIBUTION WIDTH 14.7 % (11.5-14.5); WHITE BLOOD COUNT 3.2 x10^3/uL (4.0-11.0)
[2020-12-01 10:49] LABS: ALBUMIN 2.1 g/dL (3.4-5.0); ALBUMIN/GLOBULIN RATIO 0.7 (1.0-1.7); CALCIUM 7.8 mg/dL (8.5-10.1); CREATININE 0.7 mg/dL (0.7-1.3); GFR 112.8; POTASSIUM 4.2 mmol/L (3.5-5.1); TOTAL BILIRUBIN 0.4 mg/dL (0.2-1.0); TOTAL PROTEIN 5.3 g/dL (6.4-8.2)
== END ==
LOC: ONCLAB 09:04
PROVIDERS: ATTEND Internal Medicine Hematology & Oncology
DX: C15.5 Malignant neoplasm of lower third of esophagus (principal)
CPT/HCPCS: 36415; 80053; 85025

== ENCOUNTER → 2020-12-08 | Outpatient (CLI) | payer MEDICARE, MEDICAID ==
[2020-11-29 15:00] VITALS: BP 101/64
[2020-12-08 09:27] LABS: BASO % 1 % (0-3); EOS # 0.2 x10^3/uL (0.0-0.7); EOS % 12 % (0-3); LYMPH % 1 % (24-48); MEAN CORPUSCULAR HEMOGLOBIN 27 pg (25-35); MEAN CORPUSCULAR HGB CONC 33 g/dL (31-37); MEAN CORPUSCULAR VOLUME 81 fL (79-100); MONO # 0.1 x10^3/uL (0.0-1.1); MONO % 7 % (0-9); NEUT # 1.2 x10^3/uL (1.8-7.7); NEUT % 80 % (31-73); PLATELET COUNT 119 x10^3/uL (140-400); RED BLOOD COUNT 2.55 x10^6/uL (4.30-5.70); RED CELL DISTRIBUTION WIDTH 15.1 % (11.5-14.5)
[2020-12-08 09:35] LABS: WHITE BLOOD COUNT 1.5 x10^3/uL (4.0-11.0)
[2020-12-08 09:36] LABS: HEMATOCRIT 20.8 % (39.0-53.0); HEMOGLOBIN 6.8 g/dL (13.0-17.5)
[2020-12-08 09:40] LABS: CREATININE 0.8 mg/dL (0.7-1.3); GFR 96.7; POTASSIUM 3.8 mmol/L (3.5-5.1)
[2020-12-08 09:46] LABS: ALBUMIN 2.3 g/dL (3.4-5.0); ALBUMIN/GLOBULIN RATIO 0.7 (1.0-1.7); TOTAL BILIRUBIN 0.3 mg/dL (0.2-1.0); TOTAL PROTEIN 5.6 g/dL (6.4-8.2)
[2020-12-08 14:55] LABS: % BANDS 4 % (0-9); % EOS 12 % (0-5); % LYMPHS 5 % (24-48); % MONOS 2 % (0-10); % SEGS 77 % (35-66); ANISOCYTOSIS SLIGHT; OVALOCYTES FEW; PLT ESTIMATE DECREASED (ADEQUATE)
== END ==
LOC: ONCLAB 09:03
PROVIDERS: ATTEND Internal Medicine Hematology & Oncology
DX: C15.5 Malignant neoplasm of lower third of esophagus (principal)
CPT/HCPCS: 36415; 80053; 85007; 85025

== ENCOUNTER 2020-12-12 12:56 | Inpatient (IN) | payer MEDICARE, MEDICAID ==
[~2020-12-12] VITALS: Ht 162.6 cm; Wt 42.3 kg
[2020-12-12 14:26] LABS: BASO % 1 % (0-3); EOS % 3 % (0-3); HEMATOCRIT 21.8 % (39.0-53.0); HEMOGLOBIN 7.1 g/dL (13.0-17.5); LYMPH % 2 % (24-48); MEAN CORPUSCULAR HEMOGLOBIN 26 pg (25-35); MEAN CORPUSCULAR HGB CONC 33 g/dL (31-37); MEAN CORPUSCULAR VOLUME 81 fL (79-100); MONO # 0.3 x10^3/uL (0.0-1.1); MONO % 21 % (0-9); NEUT % 74 % (31-73); PLATELET COUNT 142 x10^3/uL (140-400); RED BLOOD COUNT 2.69 x10^6/uL (4.30-5.70); RED CELL DISTRIBUTION WIDTH 15.8 % (11.5-14.5)
[2020-12-12 14:28] LABS: CALCIUM 8.3 mg/dL (8.5-10.1); CREATININE 0.9 mg/dL (0.7-1.3); GFR 84.4; POTASSIUM 4.4 mmol/L (3.5-5.1)
[2020-12-12 14:30] LABS: WHITE BLOOD COUNT 1.4 x10^3/uL (4.0-11.0)
[2020-12-12 14:34] LABS: ALBUMIN 2.3 g/dL (3.4-5.0); ALBUMIN/GLOBULIN RATIO 0.7 (1.0-1.7); TOTAL BILIRUBIN 0.4 mg/dL (0.2-1.0); TOTAL PROTEIN 5.7 g/dL (6.4-8.2)
--- NOTE | 2020-12-12 14:48 | RAD ---
EXAM: AP View of the chest DATE: 12/12/2020 2:19 PM INDICATION: FATIGUE, HX CA COMPARISON: 11/27/2020 FINDINGS: Right port tip terminates within the distal SVC. The heart is not enlarged. Background of emphysematous change. Patchy opacities left lung base. Small left pleural effusion. No definite pneumothorax. IMPRESSION: Patchy opacities adjacent to the small left pleural effusion, may represent atelectasis or scarring, in general improved compared to 11/27/2020. Electronically signed by: Pietro Pantoja MD (12/12/2020 2:46 PM) MOUNA
[2020-12-12 15:25] LABS: BILIRUBIN,URINE NEGATIVE (NEG); CLARITY,URINE CLEAR; COLOR,URINE YELLOW; NITRITE,URINE NEGATIVE (NEG); PROTEIN,URINE NEGATIVE (NEG-TRACE); UROBILINOGEN,URINE 0.2 mg/dL (0.2 mg/dL)
[2020-12-12 15:27] LABS: % BANDS 13 % (0-9); % LYMPHS 13 % (24-48); % MONOS 13 % (0-10); % SEGS 61 % (35-66); PLT ESTIMATE ADEQUATE (ADEQUATE)
[2020-12-12 15:28] LABS: ANISOCYTOSIS SLIGHT
[2020-12-12 15:38] LABS: BACTERIA,URINE FEW /HPF (0-FEW)
--- NOTE | 2020-12-12 16:28 | EKG ---
[facility] [address] [place] [address] Test Date: 2020-12-12 Test Time: 13:38:40 Pat Name: JASON KIRK Department: Room: Gender: M Medicare Specialist: : [id number] Requested By: SUZAN DIAZ Order Number: [id number] Reading MD: Measurements Intervals [place] Rate: 109 P: 90 DC: 126 QRS: -26 QRSD: 84 T: 29 QT: 332 QTc: 449 Interpretive Statements SINUS TACHYCARDIA VENTRICULAR PREMATURE COMPLEX(ES) LEFT ATRIAL ABNORMALITY LEFTWARD AXIS QRS(T) CONTOUR ABNORMALITY CONSISTENT WITH ANTEROSEPTAL INFARCT AGE UNDETERMINED T ABNORMALITY IN ANTERIOR LEADS ABNORMAL ECG RI6.02 No previous ECG available for comparison
--- NOTE | 2020-12-12 16:31 | PHYS DOC ---
Past Medical History Past Medical History: Cancer, Hypertension, [place], Stroke, Other Additional Past Medical Histor: throat CA, esphogeal CA Past Surgical History: Other Additional Past Surgical Histo: CABG, colostomy bag Smoking Status: Never Smoker Alcohol Use: None General Adult EDM: Chief Complaint: FATIGUE HPI: HPI: Patient is a 65 year old male presents to the emergency department planing of increased weakness feeling tired and fatigued this started today. Patient s tates that he has a history of esophageal cancer and colon cancer, patient states that he completed his chemotherapy treatments 2 weeks ago and has been on radiation therapy since and completed his last radiation therapy treatment today. Patient reports that he has noticed all of a sudden today he had weakness and fatigue and was unable to stand and walk around and do his normal daily living activities. Patient denies shortness of breath, denies chest pains, denies abdominal pains, states he does have a colostomy bag and has been having normal bowel movements. Patient denies any urinary tract infection signs and symptoms. Patient denies any body aches. Review of Systems: Review of Systems: 14 body systems of review of systems have been reviewed. See HPI for pertinent positives and negative responses, otherwise all other systems are negative, nonpertinent or noncontributory. Heart Score: Risk Factors: Risk Factors: DM, Current or recent (<one month) smoker, HTN, HLP, family history of CAD, obesity. Risk Scores: Score 0 - 3: 2.5% MACE over next 6 weeks - Discharge Home Score 4 - 6: 20.3% MACE over next 6 weeks - Admit for Clinical Observation Score 7 - 10: 72.7% MACE over next 6 weeks - Early Invasive Strategies Current Medications: Patient reports taking 50 mcg levothyroxine, 40 mg Protonix, 4 mg ondansetron as needed, 3.125 mg carvedilol. Allergies: Allergies: Allergies Coded Allergies Type Severity Reaction Last Updated Verified No Known Drug Allergies 08/31/20 No Physical Exam: PE: Constitutional: Well developed, poor nourishment requiring TPN, no acute distress, non-toxic appearance. Thin emaciated male. HENT: Normocephalic, atraumatic, bilateral external ears normal, oropharynx moist, no oral exudates, nose normal. Eyes: PERRLA, EOMI, conjunctiva normal, no discharge. Neck: Normal range of motion, no tenderness, supple, no stridor. Cardiovascular:Heart rate irregular rhythm, no murmur Lungs & Thorax: Bronchial and fascicular lung sounds throughout upper lobes, diminished in the left middle and left lower lobe, diminished in right lower lobe, no other adventitious lung sounds appreciated. Abdomen: Bowel sounds normal, soft, no tenderness, no masses, no pulsatile masses. Patient has colostomy stoma with bag intact with fecal matter in bag. Skin: Warm, dry, no erythema, no rash. Back: No tenderness, no CVA tenderness. Extremities: No tenderness, no cyanosis, no clubbing, ROM intact, no edema. Neurologic: Alert and oriented X 3, normal motor function, normal sensory function, no focal deficits noted. Psychologic: Affect normal, judgement normal, mood normal. Current Patient Data: Labs: Laboratory Tests Test 12/12/20 14:00 12/12/20 15:17 White Blood Count 1.4 x10^3/uL Red Blood Count 2.69 x10^6/uL Hemoglobin 7.1 g/dL Hematocrit 21.8 % Mean Corpuscular Volume 81 fL Mean Corpuscular Hemoglobin 26 pg Mean Corpuscular Hemoglobin Concent 33 g/dL Red Cell Distribution Width 15.8 % Platelet Count 142 x10^3/uL Neutrophils (%) (Auto) 74 % Lymphocytes (%) (Auto) 2 % Monocytes (%) (Auto) 21 % Eosinophils (%) (Auto) 3 % Basophils (%) (Auto) 1 % Neutrophils # (Auto) 1.0 x10^3/uL Lymphocytes # (Auto) 0.0 x10^3/uL Monocytes # (Auto) 0.3 x10^3/uL Eosinophils # (Auto) 0.0 x10^3/uL Basophils # (Auto) 0.0 x10^3/uL Segmented Neutrophils % 61 % Band Neutrophils % 13 % Lymphocytes % 13 % Monocytes % 13 % Platelet Estimate Adequate Anisocytosis Slight Sodium Level 134 mmol/L Potassium Level 4.4 mmol/L Chloride Level 102 mmol/L Carbon Dioxide Level 22 mmol/L Anion Gap 10 Blood Urea Nitrogen 17 mg/dL Creatinine 0.9 mg/dL Estimated GFR (Cockcroft-Gault) 84.4 BUN/Creatinine Ratio 19 Glucose Level 102 mg/dL Calcium Level 8.3 mg/dL Total Bilirubin 0.4 mg/dL Aspartate Amino Transf (AST/SGOT) 11 U/L Alanine Aminotransferase (ALT/SGPT) 21 U/L Alkaline Phosphatase 61 U/L Troponin I Quantitative 0.027 ng/mL Total Protein 5.7 g/dL Albumin 2.3 g/dL Albumin/Globulin Ratio 0.7 Urine Collection Type Unknown Urine Color Yellow Urine Clarity Clear Urine pH 5.0 Urine Specific [place] 1.015 Urine Protein Negative mg/dL Urine Glucose (UA) Negative mg/dL Urine Ketones (Stick) Negative mg/dL Urine Blood Negative Urine Nitrite Negative Urine Bilirubin Negative Urine Urobilinogen Dipstick 0.2 mg/dL Urine Leukocyte Esterase Negative Urine RBC 1-2 /HPF Urine WBC 1-4 /HPF Urine Squamous Epithelial Cells Few /LPF Urine Bacteria Few /HPF Urine Mucus Slight /LPF Current Medications Medications (Trade) Dose Ordered Sig/Steff Route PRN Reason Start Time Stop Time Status Last Admin Dose Admin Cefepime HCl (Maxipime) 2 gm 1X ONCE IVP 12/12/20 16:45 12/12/20 16:46 DC 12/12/20 17:01 Sennosides (Senna) 17.2 mg PRN BID PRN PO CONSTIPATION 12/12/20 16:45 Docusate Sodium (Colace) 100 mg PRN DAILY PRN PO HARD STOOLS 12/12/20 16:45 Ondansetron HCl (Zofran) 4 mg PRN Q6HRS PRN IVP NAUSEA/VOMITING 12/12/20 16:45 Dextrose (Dextrose 50%-Water Syringe) 12.5 gm PRN Q15MIN PRN IV SEE COMMENTS 12/12/20 16:45 Laboratory Tests Test 12/12/20 14:00 12/12/20 15:17 White Blood Count 1.4 x10^3/uL (4.0-11.0) *L Red Blood Count 2.69 x10^6/uL (4.30-5.70) L Hemoglobin 7.1 g/dL (13.0-17.5) L Hematocrit 21.8 % (39.0-53.0) L Mean Corpuscular Volume 81 fL (79-100) Mean Corpuscular Hemoglobin 26 pg (25-35) Mean Corpuscular Hemoglobin Concent 33 g/dL (31-37) Red Cell Distribution Width 15.8 % (11.5-14.5) H Platelet Count 142 x10^3/uL (140-400) Neutrophils (%) (Auto) 74 % (31-73) H Lymphocytes (%) (Auto) 2 % (24-48) L Monocytes (%) (Auto) 21 % (0-9) H Eosinophils (%) (Auto) 3 % (0-3) Basophils (%) (Auto) 1 % (0-3) Neutrophils # (Auto) 1.0 x10^3/uL (1.8-7.7) L Lymphocytes # (Auto) 0.0 x10^3/uL (1.0-4.8) L Monocytes # (Auto) 0.3 x10^3/uL (0.0-1.1) Eosinophils # (Auto) 0.0 x10^3/uL (0.0-0.7) Basophils # (Auto) 0.0 x10^3/uL (0.0-0.2) Segmented Neutrophils % 61 % (35-66) Band Neutrophils % 13 % (0-9) H Lymphocytes % 13 % (24-48) L Monocytes % 13 % (0-10) H Platelet Estimate Adequate (ADEQUATE) Anisocytosis Slight Sodium Level 134 mmol/L (136-145) L Potassium Level 4.4 mmol/L (3.5-5.1) Chloride Level 102 mmol/L (98-107) Carbon Dioxide Level 22 mmol/L (21-32) Anion Gap 10 (6-14) Blood Urea Nitrogen 17 mg/dL (8-26) Creatinine 0.9 mg/dL (0.7-1.3) Estimated GFR (Cockcroft-Gault) 84.4 BUN/Creatinine Ratio 19 (6-20) Glucose Level 102 mg/dL (70-99) H Calcium Level 8.3 mg/dL (8.5-10.1) L Total Bilirubin 0.4 mg/dL (0.2-1.0) Aspartate Amino Transferase (AST) 11 U/L (15-37) L Alanine Aminotransferase (ALT) 21 U/L (16-63) Alkaline Phosphatase 61 U/L (46-116) Troponin I Quantitative 0.027 ng/mL (0.000-0.055) Total Protein 5.7 g/dL (6.4-8.2) L Albumin 2.3 g/dL (3.4-5.0) L Albumin/Globulin Ratio 0.7 (1.0-1.7) L Urine Collection Type Unknown Urine Color Yellow Urine Clarity Clear Urine pH 5.0 (<5.0-8.0) Urine Specific [place] 1.015 (1.000-1.030) Urine Protein Negative mg/dL (NEG-TRACE) Urine Glucose (UA) Negative mg/dL (NEG) Urine Ketones (Stick) Negative mg/dL (NEG) Urine Blood Negative (NEG) Urine Nitrite Negative (NEG) Urine Bilirubin Negative (NEG) Urine Urobilinogen Dipstick 0.2 mg/dL (0.2 mg/dL) Urine Leukocyte Esterase Negative (NEG) Urine RBC 1-2 /HPF (0-2) Urine WBC 1-4 /HPF (0-4) Urine Squamous Epithelial Cells Few /LPF Urine Bacteria Few /HPF (0-FEW) Urine Mucus Slight /LPF Laboratory Tests 12/12/20 14:00 Laboratory Tests 12/12/20 14:00 Vital Signs: Vital Signs Date Time Temp Pulse Resp B/P (MAP) Pulse Ox O2 Delivery O2 Flow Rate FiO2 12/12/20 13:15 99.8 110 16 129/71 (90) 99 Room Air 99.8 EKG: EKG: EKG performed at 1338 by ED nursing staff shows a heart rate of 109 bpm, sinus tachycardia with occasional PVCs, [place] interval 0.126, QTc interval 0.449, no acute STEMI, no ACS, no acute ischemia appreciated, EKG interpreted by ED attending physician Dr. Stokes Radiology/Procedures: Radiology/Procedures: PATIENT: JASON KIRK ACCOUNT: [id number] : 1955 LOCATION: ER AGE: 65 SEX: M EXAM STATUS: REG ER ORD. PHYSICIAN: NON,STAFF REASON: FATIGUE, HX CA PROCEDURE: PORTABLE CHEST 1V EXAM: AP View of the chest DATE: 12/12/2020 2:19 PM INDICATION: FATIGUE, HX CA COMPARISON: 11/27/2020 FINDINGS: Right port tip terminates within the distal SVC. The heart is not enlarged. Background of emphysematous change. Patchy opacities left lung base. Small left pleural effusion. No definite pneumothorax. IMPRESSION: Patchy opacities adjacent to the small left pleural effusion, may represent atelectasis or scarring, in general improved compared to 11/27/2020. Electronically signed by: Pietro Del Valle MD (12/12/2020 2:46 PM) [facility] DICTATED and SIGNED BY: PIETRO DEL VALLE MD DATE: 12/12/20 [id number] 0 Course & Med Decision Making: Course & Med Decision Making Pertinent Labs and Imaging studies reviewed. (See chart for details) 65-year-old male, vital signs reviewed, presents emergency department with a complaint of fatigue. Patient has a history of colon cancer and esophageal cancer, just finished chemotherapy 2 weeks ago, and his last round of radiation therapy today. Physical examination was concerning for pulmonary process, related to patient's tachycardia and fatigue, ER work-up consisted of EKG, troponinhigh, CBC, CMP, chest x-ray, blood cultures x2. Patient CBC concerning for neutropenia, chest x-ray concerning for left lower lobe pneumonia, called and reviewed case with [facility] physician Dr. Mcginnis who was agreeable to take patient under admission to an appropriate neutropenic unit. Discussed admission plans with patient who was amendable to being admitted to the hospital for treatment of pneumonia and weakness. Patient will be tested for the COVID-19 virus under PUI status. Patient will be admitted to [facility] under Dr. Mcginnis's care Dragon Disclaimer: Gm Disclaimer: This electronic medical record was generated, in whole or in part, using a voice recognition dictation system. Departure Departure Impression: Primary Impression: Left lower lobe pneumonia Qualified Codes: J18.9 - Pneumonia, unspecified organism Additional Impressions: Person under investigation for COVID-19 Neutropenia Qualified Codes: D70.9 - Neutropenia, unspecified Esophageal cancer Qualified Codes: C15.9 - Malignant neoplasm of esophagus, unspecified Colon cancer Qualified Codes: C18.9 - Malignant neoplasm of colon, unspecified Fatigue Qualified Codes: R53.83 - Other fatigue Disposition: 01 DC HOME SELF CARE/HOMELESS Admitting [facility] (ADMITT TO DR MCGINNIS) Condition: GUARDED Referrals: BRITTANY CLIFFORD MD (PCP) SUZAN DIAZ APRN Dec 12, 2020 16:31
--- NOTE | 2020-12-12 16:38 | PDOC1 ---
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 PEG is contraindicated and he was sent home with TPN through his portacath. Since his discharge on 12/01/20, patient has been doing well with his last session of chemoTx 2 weeks ago, but he stated he did feel week yesterday before his radiation Tx. Last labs drawn shown he had a WBC of 1.5 and today was 1.4 in the ED with ANC of > 700. He denied fevers, N/V, chest pain, SOB, diarrhea, or ABD pain. he does still have early satiety and some dysphagia with chopped chicken and mashed potatoes. He is able to tolerate ice cream and broth. Past Medical/Surgical History: PMH/PSH: Past Medical History: Cancer, Hypertension, [place], Stroke, throat CA, esphogeal CA Past Surgical History: CABG, colostomy bag Allergies: Allergies: Coded Allergies: No Known Drug Allergies (Unverified , 08/31/20) Family History: Family History: Reviewed with no relevant findings Social History: Social History: Smoking Status: Never Smoker Alcohol Use: None Current Medications: Current Medications Current Medications Cefepime HCl (Maxipime) 2 gm 1X ONCE IVP ; Start 12/12/20 at 16:45; Stop 12/12/20 at 16:46 Active Scripts Active Protonix (Pantoprazole Sodium) 40 Mg Tablet.dr 40 Mg PO DAILYAC 30 Days Reported Levothyroxine Sodium 50 Mcg Tablet 1 Tab PO DAILY Carvedilol (Carvedilol) 3.125 Mg Tablet 3.125 Mg PO BIDWMEALS Ondansetron Hcl 4 Mg Tablet 1 Tab PO PRN Q8HRS PRN ROS: Review of Systems Review of System REVIEW OF SYSTEMS: GENERAL: Denies weakness SKIN: No bruising, hair changes or rashes. EYES: No blurred, double or loss of vision. NOSE AND THROAT: No history of nosebleeds, hoarseness or sore throat. HEART: No history of palpitations, chest pain or shortness of breath on exertion. LUNGS: Denies cough, hemoptysis, wheezing or shortness of breath. GASTROINTESTINAL: Denies changes in appetite, nausea, vomiting, diarrhea or constipation. GENITOURINARY: No history of frequency, urgency, hesitancy or nocturia. NEUROLOGIC: Denies history of numbness, tingling, or tremor. PSYCHIATRIC: No history of panic, anxiety or depression. ENDOCRINE: No history of heat or cold intolerance, polyuria or polydipsia. EXTREMITIES: Denies joint pain, pain on walking or stiffness. Physical Exam: Vital Signs: Vital Signs Date Time Temp Pulse Resp B/P (MAP) Pulse Ox O2 Delivery O2 Flow Rate FiO2 12/12/20 13:15 99.8 110 16 129/71 (90) 99 Room Air 99.8 Physcial Exam: GEN: No apparent distress. Alert and oriented HEENT: Normal cephalic, atraumatic, external auditory canals are patent EYES: Extraocular muscles are intact, pupil are equally round and reactive to light and accommodation MUSCULOSKELETAL: Well developed , well nourished, good range of motion ENDOCRINE: No thyromegaly was palpated LYMPHATICS: No cervical chain or axillary nodes were noted HEMATOPOIETIC: No bruising NECK: Supple, no JVD, no thyromegaly was noted LUNGS: Clear to auscultation in all lung kimble without rhonchi or wheezing HEART: RRR, S!, S2 present. Peripheral pulses intact, no obvious murmurs noted ABDOMEN: Soft, nontender. Positive bowel sounds, no organomegaly, normal bowel sounds EXTREMITIES: Without clubbing, cyanosis, or edema. Pedal pulses intact. Negative Homans sign NEUROLOGIC: Normal speech and tone. A&O x 3, moves all extremities, no obvious focal deficits PSYCHIATRIC: Normal affect, normal mood. Stable SKIN: No ulcerations or rashes, good skin turgor, no jaundice VASCULAR: Good capillary refill, neurovascular bundle appears to be intact Labs: Labs: Laboratory Tests Test 12/12/20 14:00 12/12/20 15:17 White Blood Count 1.4 x10^3/uL (4.0-11.0) Red Blood Count 2.69 x10^6/uL (4.30-5.70) Hemoglobin 7.1 g/dL (13.0-17.5) Hematocrit 21.8 % (39.0-53.0) Mean Corpuscular Volume 81 fL (79-100) Mean Corpuscular Hemoglobin 26 pg (25-35) Mean Corpuscular Hemoglobin Concent 33 g/dL (31-37) Red Cell Distribution Width 15.8 % (11.5-14.5) Platelet Count 142 x10^3/uL (140-400) Neutrophils (%) (Auto) 74 % (31-73) Lymphocytes (%) (Auto) 2 % (24-48) Monocytes (%) (Auto) 21 % (0-9) Eosinophils (%) (Auto) 3 % (0-3) Basophils (%) (Auto) 1 % (0-3) Neutrophils # (Auto) 1.0 x10^3/uL (1.8-7.7) Lymphocytes # (Auto) 0.0 x10^3/uL (1.0-4.8) Monocytes # (Auto) 0.3 x10^3/uL (0.0-1.1) Eosinophils # (Auto) 0.0 x10^3/uL (0.0-0.7) Basophils # (Auto) 0.0 x10^3/uL (0.0-0.2) Segmented Neutrophils % 61 % (35-66) Band Neutrophils % 13 % (0-9) Lymphocytes % 13 % (24-48) Monocytes % 13 % (0-10) Platelet Estimate Adequate (ADEQUATE) Anisocytosis Slight Sodium Level 134 mmol/L (136-145) Potassium Level 4.4 mmol/L (3.5-5.1) Chloride Level 102 mmol/L (98-107) Carbon Dioxide Level 22 mmol/L (21-32) Anion Gap 10 (6-14) Blood Urea Nitrogen 17 mg/dL (8-26) Creatinine 0.9 mg/dL (0.7-1.3) Estimated GFR (Cockcroft-Gault) 84.4 BUN/Creatinine Ratio 19 (6-20) Glucose Level 102 mg/dL (70-99) Calcium Level 8.3 mg/dL (8.5-10.1) Total Bilirubin 0.4 mg/dL (0.2-1.0) Aspartate Amino Transf (AST/SGOT) 11 U/L (15-37) Alanine Aminotransferase (ALT/SGPT) 21 U/L (16-63) Alkaline Phosphatase 61 U/L (46-116) Troponin I Quantitative 0.027 ng/mL (0.000-0.055) Total Protein 5.7 g/dL (6.4-8.2) Albumin 2.3 g/dL (3.4-5.0) Albumin/Globulin Ratio 0.7 (1.0-1.7) Urine Collection Type Unknown Urine Color Yellow Urine Clarity Clear Urine pH 5.0 (<5.0-8.0) Urine Specific [place] 1.015 (1.000-1.030) Urine Protein Negative mg/dL (NEG-TRACE) Urine Glucose (UA) Negative mg/dL (NEG) Urine Ketones (Stick) Negative mg/dL (NEG) Urine Blood Negative (NEG) Urine Nitrite Negative (NEG) Urine Bilirubin Negative (NEG) Urine Urobilinogen Dipstick 0.2 mg/dL (0.2 mg/dL) Urine Leukocyte Esterase Negative (NEG) Urine RBC 1-2 /HPF (0-2) Urine WBC 1-4 /HPF (0-4) Urine Squamous Epithelial Cells Few /LPF Urine Bacteria Few /HPF (0-FEW) Urine Mucus Slight /LPF Laboratory Tests Test 12/12/20 14:00 12/12/20 15:17 White Blood Count 1.4 x10^3/uL (4.0-11.0) Red Blood Count 2.69 x10^6/uL (4.30-5.70) Hemoglobin 7.1 g/dL (13.0-17.5) Hematocrit 21.8 % (39.0-53.0) Mean Corpuscular Volume 81 fL (79-100) Mean Corpuscular Hemoglobin 26 pg (25-35) Mean Corpuscular Hemoglobin Concent 33 g/dL (31-37) Red Cell Distribution Width 15.8 % (11.5-14.5) Platelet Count 142 x10^3/uL (140-400) Neutrophils (%) (Auto) 74 % (31-73) Lymphocytes (%) (Auto) 2 % (24-48) Monocytes (%) (Auto) 21 % (0-9) Eosinophils (%) (Auto) 3 % (0-3) Basophils (%) (Auto) 1 % (0-3) Neutrophils # (Auto) 1.0 x10^3/uL (1.8-7.7) Lymphocytes # (Auto) 0.0 x10^3/uL (1.0-4.8) Monocytes # (Auto) 0.3 x10^3/uL (0.0-1.1) Eosinophils # (Auto) 0.0 x10^3/uL (0.0-0.7) Basophils # (Auto) 0.0 x10^3/uL (0.0-0.2) Segmented Neutrophils % 61 % (35-66) Band Neutrophils % 13 % (0-9) Lymphocytes % 13 % (24-48) Monocytes % 13 % (0-10) Platelet Estimate Adequate (ADEQUATE) Anisocytosis Slight Sodium Level 134 mmol/L (136-145) Potassium Level 4.4 mmol/L (3.5-5.1) Chloride Level 102 mmol/L (98-107) Carbon Dioxide Level 22 mmol/L (21-32) Anion Gap 10 (6-14) Blood Urea Nitrogen 17 mg/dL (8-26) Creatinine 0.9 mg/dL (0.7-1.3) Estimated GFR (Cockcroft-Gault) 84.4 BUN/Creatinine Ratio 19 (6-20) Glucose Level 102 mg/dL (70-99) Calcium Level 8.3 mg/dL (8.5-10.1) Total Bilirubin 0.4 mg/dL (0.2-1.0) Aspartate Amino Transf (AST/SGOT) 11 U/L (15-37) Alanine Aminotransferase (ALT/SGPT) 21 U/L (16-63) Alkaline Phosphatase 61 U/L (46-116) Troponin I Quantitative 0.027 ng/mL (0.000-0.055) Total Protein 5.7 g/dL (6.4-8.2) Albumin 2.3 g/dL (3.4-5.0) Albumin/Globulin Ratio 0.7 (1.0-1.7) Urine Collection Type Unknown Urine Color Yellow Urine Clarity Clear Urine pH 5.0 (<5.0-8.0) Urine Specific [place] 1.015 (1.000-1.030) Urine Protein Negative mg/dL (NEG-TRACE) Urine Glucose (UA) Negative mg/dL (NEG) Urine Ketones (Stick) Negative mg/dL (NEG) Urine Blood Negative (NEG) Urine Nitrite Negative (NEG) Urine Bilirubin Negative (NEG) Urine Urobilinogen Dipstick 0.2 mg/dL (0.2 mg/dL) Urine Leukocyte Esterase Negative (NEG) Urine RBC 1-2 /HPF (0-2) Urine WBC 1-4 /HPF (0-4) Urine Squamous Epithelial Cells Few /LPF Urine Bacteria Few /HPF (0-FEW) Urine Mucus Slight /LPF Images: Images CXR FINDINGS: Right port tip terminates within the distal SVC. The heart is not enlarged. Background of emphysematous change. Patchy opacities left lung base. Small left pleural effusion. No definite pneumothorax. Assessment/Plan Assessment/Plan Acute generalized weakness due to recent chemoradiation Tx Neutropenia Failure to thrive Debility Oropharyngeal dysphagia due to adenoCA Hyponatremia due to volume depletion Severe protein malnutrition Admit to medicine for further management Oncology consult Neutropenic precautions Continue IV Cefepime 2G Daily Nutrition consult Continue TPN via Portacath FLD continue IVF Lovenox for DVT prophylaxis DPOA: Maura ([id number]) Justifications for Admission Other Justification DANNY LOPES MD Dec 12, 2020 16:38
[2020-12-12] MEDS ORDERED: CEFEPIME HCL IV Push 2 GM VIAL. IVP ONE (16:45)
[2020-12-12] MEDS ORDERED: SENNOSIDES 8.6 MG TABLET PO PRN (16:45)
[2020-12-12] MEDS ORDERED: DEXTROSE 50% 25 GM / 50ML DISP.SYRIN. IV PRN (16:45)
[2020-12-12] MEDS ORDERED: DOCUSATE SODIUM 100 MG CAPSULE. PO PRN (16:45)
[2020-12-12 18:00] VITALS: BP 118/68
[2020-12-12 19:00] VITALS: BP 92/60
[2020-12-12] MEDS: ONDANSETRON PF 4 MG/2 ML VIAL. IVP PRN (19:01)
[2020-12-12] MEDS: ENOXAPARIN 40 MG/0.4 ML SYRINGE. SQ SCH (19:01)
[2020-12-12] MEDS: IV NORMAL SALINE 1000ML BAG 1,000 ML IV SCH (19:02)
[2020-12-12 23:00] VITALS: BP 105/64
[2020-12-12] MEDS: ZOLPIDEM 5 MG TABLET. PO PRN (23:41)
[2020-12-13] VITALS (9 sets, daily range): BP systolic 89–108; BP diastolic 54–70
[2020-12-13] MEDS: IV NORMAL SALINE 1000ML BAG 1,000 ML IV SCH ×3 (06:08→23:45)
[2020-12-13 06:20] LABS: BASO % 1 % (0-3); EOS % 4 % (0-3); LYMPH % 3 % (24-48); MEAN CORPUSCULAR HEMOGLOBIN 26 pg (25-35); MEAN CORPUSCULAR HGB CONC 33 g/dL (31-37); MEAN CORPUSCULAR VOLUME 81 fL (79-100); MONO # 0.2 x10^3/uL (0.0-1.1); MONO % 16 % (0-9); NEUT # 0.8 x10^3/uL (1.8-7.7); NEUT % 76 % (31-73); PLATELET COUNT 104 x10^3/uL (140-400); RED BLOOD COUNT 2.44 x10^6/uL (4.30-5.70); RED CELL DISTRIBUTION WIDTH 15.5 % (11.5-14.5)
[2020-12-13 06:24] LABS: HEMATOCRIT 19.7 % (39.0-53.0)
[2020-12-13 06:25] LABS: HEMOGLOBIN 6.7 g/dL (13.0-17.5)
[2020-12-13 06:37] LABS: CREATININE 0.8 mg/dL (0.7-1.3); GFR 96.7; MAGNESIUM 1.7 mg/dL (1.8-2.4); PHOSPHORUS 3.4 mg/dL (2.6-4.7)
--- NOTE | 2020-12-13 06:46 | PDOC ---
PROGRESS NOTES Date of Service: DATE: 12/13/20 TIME: 06:46 Chief Complaint Chief Complaint IMPRESSION Assessment/Plan Acute generalized weakness due to recent chemoradiation Tx Patchy opacities left lung base. Small left pleural effusion. Neutropenia Failure to thrive Debility Oropharyngeal dysphagia due to adenoCA Hyponatremia due to volume depletion Severe protein malnutrition POS BLOOD CULT 12-13 Blood culture positive with Gram-positive cocci, likely from the Port-A-Cath IE colonization or infection. PLAN Admit to medicine for further management Oncology consult Neutropenic precautions ID CONSULT Continue IV Cefepime 2G Daily Nutrition consult Continue TPN via Portacath FLD continue IVF Lovenox for DVT prophylaxis DPOA: Maura ([id number]) REPEAT BLOOD CULT X 2 12-13 LACTIC ACID PROCALCITONIN Start G-CSF 300 mcg daily while inpatient BLOOD CULTURE Final GRAM POSITIVE COCCI IN CLUSTERS, SUGGESTIVE OF STAPH, IN 2 OF 4 BOTLES, TWO SETS DRAWN ONE SET IS POSITIVE. 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 PEG is contraindicated and he was sent home with TPN through his portacath. Since his discharge on 12/01/20, patient has been doing well with his last session of chemoTx 2 weeks ago, but he stated he did feel week yesterday before his radiation Tx. Last labs drawn shown he had a WBC of 1.5 and today was 1.4 in the ED with ANC of > 700. He denied fevers, N/V, chest pain, SOB, diarrhea, or ABD pain. he does still have early satiety and some dysphagia with chopped chicken and mashed potatoes. He is able to tolerate ice cream and broth. Past Medical/Surgical History: PMH/PSH: Past Medical History: Cancer, Hypertension, IA, Stroke, throat CA, esphogeal CA Past Surgical History: CABG, colostomy bag Allergies: Allergies: Coded Allergies: No Known Drug Allergies (Unverified , 08/31/20) Family History: Family History: Reviewed with no relevant findings Social History: Social History: Smoking Status: Never Smoker Alcohol Use: None Vitals Vitals Vital Signs Date Time Temp Pulse Resp B/P (MAP) Pulse Ox O2 Delivery O2 Flow Rate FiO2 12/13/20 03:00 99.9 92 16 89/54 (66) 99 Room Air 99.9 Physical Exam Physical Exam Physcial Exam: GEN: No apparent distress. Alert and oriented HEENT: Normal cephalic, atraumatic, external auditory canals are patent EYES: Extraocular muscles are intact, pupil are equally round and reactive to light and accommodation MUSCULOSKELETAL: Well developed , well nourished, good range of motion ENDOCRINE: No thyromegaly was palpated LYMPHATICS: No cervical chain or axillary nodes were noted HEMATOPOIETIC: No bruising NECK: Supple, no JVD, no thyromegaly was noted LUNGS: Clear to auscultation in all lung kimble without rhonchi or wheezing HEART: RRR, S!, S2 present. Peripheral pulses intact, no obvious murmurs noted ABDOMEN: Soft, nontender. Positive bowel sounds, no organomegaly, normal bowel sounds EXTREMITIES: Without clubbing, cyanosis, or edema. Pedal pulses intact. Negative Homans sign NEUROLOGIC: Normal speech and tone. A&O x 3, moves all extremities, no obvious focal deficits PSYCHIATRIC: Normal affect, normal mood. Stable SKIN: No ulcerations or rashes, good skin turgor, no jaundice VASCULAR: Good capillary refill, neurovascular bundle appears to be intact General: Alert, Cooperative Lungs: Clear, Wheezing, Other Labs LABS SPEC #: [id number] JASEN: 12/12/20 STATUS: COMP REQ #: [id number] RECD: 12/12/[address]: SUZAN DIAZ APRN SOURCE: BLOOD ENTR: 12/12/[address] [facility] [address]: BRITTANY CLIFFORD MD [facility]: ORDERED: BCULT Procedure Result BLOOD CULTURE Final GRAM POSITIVE COCCI IN CLUSTERS, SUGGESTIVE OF STAPH, IN 2 OF 4 BOTLES, TWO SETS DRAWN ONE SET IS POSITIVE. CALLED TO MAYNOR MCDONALD RN ON AT 8:15 ON 12/13/20 DW MT SENT TO [facility] FOR FURTHER WORKUP. Signed PATIENT: JASON KIRK ACCOUNT: [id number] : 1955 LOCATION: [facility] AGE: 65 SEX: M EXAM STATUS: REG CLI ORD. 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 RADIOPHARMACEUTICAL: 13.47 mCi of F-18 Fluorodeoxyglucose (FDG) I.V. via the left antecubital fossa. TECHNIQUE: Patient weight: 100 pounds. Following at least four-hour fasting, the patient's blood glucose was 139 mg/dl. Approximately 1 hour after administration of FDG, overlapping emission scanning was performed from the orbital meatal line through the pelvis. A low-dose CT was performed for attenuation correction purposes and anatomic localization. Fused images of PET and CT were reviewed. Any standardized uptake values (SUV) reported are maximum values within a volume region of interest, expressed in gm/ml. COMPARISON: Chest abdomen pelvis CT with IV contrast of 08/28/2020 FINDINGS: PET: In the head and neck, asymmetric FDG activity in the left parotid gland to a max SUV of 2.99 is evident. Uptake in the left superior esophagus at the level of the arytenoids to max SUV of 3.43 is present. No abnormal FDG uptake in the cervical lymph nodes. In the chest, long segment of abnormal FDG uptake in the thoracic esophagus from the approximate level of the aortopulmonary window through to the gastroesophageal junction is seen, showing FDG uptake superiorly (at level of the aortopulmonary window) to max SUV of 6.46, and inferiorly, near the gastroesophageal junction to a max SUV of 3.74. In addition, masslike consolidation in the medial basal left lower lobe is present that shows FDG uptake to max SUV of 6.54. This is associated with peribronchial thickening and ipsilateral peripheral lower lobe nodularity and volume loss. In the abdomen and pelvis, there are loops of small bowel along the left pelvic sidewall that appear mildly thick walled and show increased FDG uptake to max SUV of 5.2. No abnormal activity in the bones identified. CT: In the head and neck, no mass or adenopathy is seen. In the chest, the esophagus is severely distended with ingested debris and inferiorly occluded by soft tissue. This extends into the gastroesophageal junction with masslike soft tissue is identified extending to the gastric cardia and antrum. No mediastinal or hilar adenopathy is identified on CT. There are calcified mediastinal lymph nodes. Thoracic aorta is borderline ectatic at 3.8 cm. The heart is upper normal in size. No pericardial effusion. Dense coronary calcifications. Lungs show patchy consolidation in the left lower lobe associated with peribronchial thickening and tree-in-bud groundglass opacities. No pleural effusion or pneumothorax. Mild bilateral gynecomastia. No acute or aggressive osseous lesions. There is stigmata of a low body mass index. Abdomen and pelvis show benign-appearing cysts in the left kidney that requires no additional imaging evaluation and moderate stool scattered throughout the large bowel. There are loops of small bowel along the left pelvic sidewall that show possible wall thickening (image 288 of series 3) that are associated with mild FDG uptake. Bones show degenerative changes and mild osteopenia. IMPRESSION: 1. Long segment thoracic esophageal wall thickening extending into the gastroesophageal junction is associated with abnormal FDG activity to a max SUV of 6.46, compatible with the recent diagnosis of esophageal carcinoma. No uptake suggesting locoregional florentin spread. 2. Mild activity in the upper cervical esophagus at the level of the arytenoids to max SUV of 3.43 could be inflammatory. No associated soft tissue mass identified. Recommend correlation with endoscopy. 3. Consolidation in the left lower lobe with tree-in-bud opacities and satellite nodules is likely inflammatory/infectious. However, solid left lower lobe lung mass is not excluded. Abnormal FDG uptake measures 6.54 and merits reassessment on follow-up. 4. Possible wall thickening in small bowel loops in the left pelvis is associated with mild FDG uptake to max SUV of 5.2. Correlate for any evidence of enteritis. More detailed assessment can be pursued with CT with IV contrast if clinically warranted. Electronically signed by: Marzena Gaspar MD (09/16/2020 4:30 PM) [id number] DICTATED and SIGNED BY: MARZENA GASPAR MD DATE: 09/16/20 1630 PATIENT: JASON KIRK ACCOUNT: [id number] : 1955 LOCATION: ER AGE: 65 SEX: M EXAM STATUS: REG ER ORD. PHYSICIAN: NON,STAFF REASON: FATIGUE, HX CA PROCEDURE: PORTABLE CHEST 1V EXAM: AP View of the chest DATE: 12/12/2020 2:19 PM INDICATION: FATIGUE, HX CA COMPARISON: 11/27/2020 FINDINGS: Right port tip terminates within the distal SVC. The heart is not enlarged. Background of emphysematous change. Patchy opacities left lung base. Small left pleural effusion. No definite pneumothorax. IMPRESSION: Patchy opacities adjacent to the small left pleural effusion, may represent atelectasis or scarring, in general improved compared to 11/27/2020. Electronically signed by: Pietro Del Valle MD (12/12/2020 2:46 PM) [facility] DICTATED and SIGNED BY: PIETRO DEL VALLE MD DATE: 12/12/20 [id number] Laboratory Tests Test 12/12/20 14:00 12/12/20 15:17 12/13/20 06:00 White Blood Count 1.4 x10^3/uL (4.0-11.0) 1.0 x10^3/uL (4.0-11.0) Red Blood Count 2.69 x10^6/uL (4.30-5.70) 2.44 x10^6/uL (4.30-5.70) Hemoglobin 7.1 g/dL (13.0-17.5) 6.7 g/dL (13.0-17.5) Hematocrit 21.8 % (39.0-53.0) 19.7 % (39.0-53.0) Mean Corpuscular Volume 81 fL (79-100) 81 fL (79-100) Mean Corpuscular Hemoglobin 26 pg (25-35) 26 pg (25-35) Mean Corpuscular Hemoglobin Concent 33 g/dL (31-37) 33 g/dL (31-37) Red Cell Distribution Width 15.8 % (11.5-14.5) 15.5 % (11.5-14.5) Platelet Count 142 x10^3/uL (140-400) 104 x10^3/uL (140-400) Neutrophils (%) (Auto) 74 % (31-73) 76 % (31-73) Lymphocytes (%) (Auto) 2 % (24-48) 3 % (24-48) Monocytes (%) (Auto) 21 % (0-9) 16 % (0-9) Eosinophils (%) (Auto) 3 % (0-3) 4 % (0-3) Basophils (%) (Auto) 1 % (0-3) 1 % (0-3) Neutrophils # (Auto) 1.0 x10^3/uL (1.8-7.7) 0.8 x10^3/uL (1.8-7.7) Lymphocytes # (Auto) 0.0 x10^3/uL (1.0-4.8) 0.0 x10^3/uL (1.0-4.8) Monocytes # (Auto) 0.3 x10^3/uL (0.0-1.1) 0.2 x10^3/uL (0.0-1.1) Eosinophils # (Auto) 0.0 x10^3/uL (0.0-0.7) 0.0 x10^3/uL (0.0-0.7) Basophils # (Auto) 0.0 x10^3/uL (0.0-0.2) 0.0 x10^3/uL (0.0-0.2) Segmented Neutrophils % 61 % (35-66) Band Neutrophils % 13 % (0-9) Lymphocytes % 13 % (24-48) Monocytes % 13 % (0-10) Platelet Estimate Adequate (ADEQUATE) Anisocytosis Slight Sodium Level 134 mmol/L (136-145) 135 mmol/L (136-145) Potassium Level 4.4 mmol/L (3.5-5.1) 4.0 mmol/L (3.5-5.1) Chloride Level 102 mmol/L (98-107) 103 mmol/L (98-107) Carbon Dioxide Level 22 mmol/L (21-32) 24 mmol/L (21-32) Anion Gap 10 (6-14) 8 (6-14) Blood Urea Nitrogen 17 mg/dL (8-26) 19 mg/dL (8-26) Creatinine 0.9 mg/dL (0.7-1.3) 0.8 mg/dL (0.7-1.3) Estimated GFR (Cockcroft-Gault) 84.4 96.7 BUN/Creatinine Ratio 19 (6-20) Glucose Level 102 mg/dL (70-99) 86 mg/dL (70-99) Calcium Level 8.3 mg/dL (8.5-10.1) 8.0 mg/dL (8.5-10.1) Total Bilirubin 0.4 mg/dL (0.2-1.0) Aspartate Amino Transf (AST/SGOT) 11 U/L (15-37) Alanine Aminotransferase (ALT/SGPT) 21 U/L (16-63) Alkaline Phosphatase 61 U/L (46-116) Troponin I Quantitative 0.027 ng/mL (0.000-0.055) Total Protein 5.7 g/dL (6.4-8.2) Albumin 2.3 g/dL (3.4-5.0) Albumin/Globulin Ratio 0.7 (1.0-1.7) Urine Collection Type Unknown Urine Color Yellow Urine Clarity Clear Urine pH 5.0 (<5.0-8.0) Urine Specific Carbon 1.015 (1.000-1.030) Urine Protein Negative mg/dL (NEG-TRACE) Urine Glucose (UA) Negative mg/dL (NEG) Urine Ketones (Stick) Negative mg/dL (NEG) Urine Blood Negative (NEG) Urine Nitrite Negative (NEG) Urine Bilirubin Negative (NEG) Urine Urobilinogen Dipstick 0.2 mg/dL (0.2 mg/dL) Urine Leukocyte Esterase Negative (NEG) Urine RBC 1-2 /HPF (0-2) Urine WBC 1-4 /HPF (0-4) Urine Squamous Epithelial Cells Few /LPF Urine Bacteria Few /HPF (0-FEW) Urine Mucus Slight /LPF Phosphorus Level 3.4 mg/dL (2.6-4.7) Magnesium Level 1.7 mg/dL (1.8-2.4) Assessment and Plan Assessmemt and Plan Problems Medical Problems: (1) Colon cancer Status: Acute (2) Esophageal cancer Status: Acute (3) Fatigue Status: Acute (4) Left lower lobe pneumonia Status: Acute (5) Person under investigation for COVID-19 Status: Acute Comment Review of Relevant I have reviewed the following items adeline (where applicable) has been applied. Labs Laboratory Tests Test 12/12/20 14:00 12/12/20 15:17 12/13/20 06:00 White Blood Count 1.4 x10^3/uL (4.0-11.0) 1.0 x10^3/uL (4.0-11.0) Red Blood Count 2.69 x10^6/uL (4.30-5.70) 2.44 x10^6/uL (4.30-5.70) Hemoglobin 7.1 g/dL (13.0-17.5) 6.7 g/dL (13.0-17.5) Hematocrit 21.8 % (39.0-53.0) 19.7 % (39.0-53.0) Mean Corpuscular Volume 81 fL (79-100) 81 fL (79-100) Mean Corpuscular Hemoglobin 26 pg (25-35) 26 pg (25-35) Mean Corpuscular Hemoglobin Concent 33 g/dL (31-37) 33 g/dL (31-37) Red Cell Distribution Width 15.8 % (11.5-14.5) 15.5 % (11.5-14.5) Platelet Count 142 x10^3/uL (140-400) 104 x10^3/uL (140-400) Neutrophils (%) (Auto) 74 % (31-73) 76 % (31-73) Lymphocytes (%) (Auto) 2 % (24-48) 3 % (24-48) Monocytes (%) (Auto) 21 % (0-9) 16 % (0-9) Eosinophils (%) (Auto) 3 % (0-3) 4 % (0-3) Basophils (%) (Auto) 1 % (0-3) 1 % (0-3) Neutrophils # (Auto) 1.0 x10^3/uL (1.8-7.7) 0.8 x10^3/uL (1.8-7.7) Lymphocytes # (Auto) 0.0 x10^3/uL (1.0-4.8) 0.0 x10^3/uL (1.0-4.8) Monocytes # (Auto) 0.3 x10^3/uL (0.0-1.1) 0.2 x10^3/uL (0.0-1.1) Eosinophils # (Auto) 0.0 x10^3/uL (0.0-0.7) 0.0 x10^3/uL (0.0-0.7) Basophils # (Auto) 0.0 x10^3/uL (0.0-0.2) 0.0 x10^3/uL (0.0-0.2) Segmented Neutrophils % 61 % (35-66) Band Neutrophils % 13 % (0-9) Lymphocytes % 13 % (24-48) Monocytes % 13 % (0-10) Platelet Estimate Adequate (ADEQUATE) Anisocytosis Slight Sodium Level 134 mmol/L (136-145) 135 mmol/L (136-145) Potassium Level 4.4 mmol/L (3.5-5.1) 4.0 mmol/L (3.5-5.1) Chloride Level 102 mmol/L (98-107) 103 mmol/L (98-107) Carbon Dioxide Level 22 mmol/L (21-32) 24 mmol/L (21-32) Anion Gap 10 (6-14) 8 (6-14) Blood Urea Nitrogen 17 mg/dL (8-26) 19 mg/dL (8-26) Creatinine 0.9 mg/dL (0.7-1.3) 0.8 mg/dL (0.7-1.3) Estimated GFR (Cockcroft-Gault) 84.4 96.7 BUN/Creatinine Ratio 19 (6-20) Glucose Level 102 mg/dL (70-99) 86 mg/dL (70-99) Calcium Level 8.3 mg/dL (8.5-10.1) 8.0 mg/dL (8.5-10.1) Total Bilirubin 0.4 mg/dL (0.2-1.0) Aspartate Amino Transf (AST/SGOT) 11 U/L (15-37) Alanine Aminotransferase (ALT/SGPT) 21 U/L (16-63) Alkaline Phosphatase 61 U/L (46-116) Troponin I Quantitative 0.027 ng/mL (0.000-0.055) Total Protein 5.7 g/dL (6.4-8.2) Albumin 2.3 g/dL (3.4-5.0) Albumin/Globulin Ratio 0.7 (1.0-1.7) Urine Collection Type Unknown Urine Color Yellow Urine Clarity Clear Urine pH 5.0 (<5.0-8.0) Urine Specific Carbon 1.015 (1.000-1.030) Urine Protein Negative mg/dL (NEG-TRACE) Urine Glucose (UA) Negative mg/dL (NEG) Urine Ketones (Stick) Negative mg/dL (NEG) Urine Blood Negative (NEG) Urine Nitrite Negative (NEG) Urine Bilirubin Negative (NEG) Urine Urobilinogen Dipstick 0.2 mg/dL (0.2 mg/dL) Urine Leukocyte Esterase Negative (NEG) Urine RBC 1-2 /HPF (0-2) Urine WBC 1-4 /HPF (0-4) Urine Squamous Epithelial Cells Few /LPF Urine Bacteria Few /HPF (0-FEW) Urine Mucus Slight /LPF Phosphorus Level 3.4 mg/dL (2.6-4.7) Magnesium Level 1.7 mg/dL (1.8-2.4) Laboratory Tests Test 12/12/20 14:00 12/12/20 15:17 12/13/20 06:00 White Blood Count 1.4 x10^3/uL (4.0-11.0) 1.0 x10^3/uL (4.0-11.0) Red Blood Count 2.69 x10^6/uL (4.30-5.70) 2.44 x10^6/uL (4.30-5.70) Hemoglobin 7.1 g/dL (13.0-17.5) 6.7 g/dL (13.0-17.5) Hematocrit 21.8 % (39.0-53.0) 19.7 % (39.0-53.0) Mean Corpuscular Volume 81 fL (79-100) 81 fL (79-100) Mean Corpuscular Hemoglobin 26 pg (25-35) 26 pg (25-35) Mean Corpuscular Hemoglobin Concent 33 g/dL (31-37) 33 g/dL (31-37) Red Cell Distribution Width 15.8 % (11.5-14.5) 15.5 % (11.5-14.5) Platelet Count 142 x10^3/uL (140-400) 104 x10^3/uL (140-400) Neutrophils (%) (Auto) 74 % (31-73) 76 % (31-73) Lymphocytes (%) (Auto) 2 % (24-48) 3 % (24-48) Monocytes (%) (Auto) 21 % (0-9) 16 % (0-9) Eosinophils (%) (Auto) 3 % (0-3) 4 % (0-3) Basophils (%) (Auto) 1 % (0-3) 1 % (0-3) Neutrophils # (Auto) 1.0 x10^3/uL (1.8-7.7) 0.8 x10^3/uL (1.8-7.7) Lymphocytes # (Auto) 0.0 x10^3/uL (1.0-4.8) 0.0 x10^3/uL (1.0-4.8) Monocytes # (Auto) 0.3 x10^3/uL (0.0-1.1) 0.2 x10^3/uL (0.0-1.1) Eosinophils # (Auto) 0.0 x10^3/uL (0.0-0.7) 0.0 x10^3/uL (0.0-0.7) Basophils # (Auto) 0.0 x10^3/uL (0.0-0.2) 0.0 x10^3/uL (0.0-0.2) Segmented Neutrophils % 61 % (35-66) Band Neutrophils % 13 % (0-9) Lymphocytes % 13 % (24-48) Monocytes % 13 % (0-10) Platelet Estimate Adequate (ADEQUATE) Anisocytosis Slight Sodium Level 134 mmol/L (136-145) 135 mmol/L (136-145) Potassium Level 4.4 mmol/L (3.5-5.1) 4.0 mmol/L (3.5-5.1) Chloride Level 102 mmol/L (98-107) 103 mmol/L (98-107) Carbon Dioxide Level 22 mmol/L (21-32) 24 mmol/L (21-32) Anion Gap 10 (6-14) 8 (6-14) Blood Urea Nitrogen 17 mg/dL (8-26) 19 mg/dL (8-26) Creatinine 0.9 mg/dL (0.7-1.3) 0.8 mg/dL (0.7-1.3) Estimated GFR (Cockcroft-Gault) 84.4 96.7 BUN/Creatinine Ratio 19 (6-20) Glucose Level 102 mg/dL (70-99) 86 mg/dL (70-99) Calcium Level 8.3 mg/dL (8.5-10.1) 8.0 mg/dL (8.5-10.1) Total Bilirubin 0.4 mg/dL (0.2-1.0) Aspartate Amino Transf (AST/SGOT) 11 U/L (15-37) Alanine Aminotransferase (ALT/SGPT) 21 U/L (16-63) Alkaline Phosphatase 61 U/L (46-116) Troponin I Quantitative 0.027 ng/mL (0.000-0.055) Total Protein 5.7 g/dL (6.4-8.2) Albumin 2.3 g/dL (3.4-5.0) Albumin/Globulin Ratio 0.7 (1.0-1.7) Urine Collection Type Unknown Urine Color Yellow Urine Clarity Clear Urine pH 5.0 (<5.0-8.0) Urine Specific Carbon 1.015 (1.000-1.030) Urine Protein Negative mg/dL (NEG-TRACE) Urine Glucose (UA) Negative mg/dL (NEG) Urine Ketones (Stick) Negative mg/dL (NEG) Urine Blood Negative (NEG) Urine Nitrite Negative (NEG) Urine Bilirubin Negative (NEG) Urine Urobilinogen Dipstick 0.2 mg/dL (0.2 mg/dL) Urine Leukocyte Esterase Negative (NEG) Urine RBC 1-2 /HPF (0-2) Urine WBC 1-4 /HPF (0-4) Urine Squamous Epithelial Cells Few /LPF Urine Bacteria Few /HPF (0-FEW) Urine Mucus Slight /LPF Phosphorus Level 3.4 mg/dL (2.6-4.7) Magnesium Level 1.7 mg/dL (1.8-2.4) Medications Current Medications Cefepime HCl (Maxipime) 2 gm 1X ONCE IVP Last administered on 12/12/20at 17:01; Start 12/12/20 at 16:45; Stop 12/12/20 at 16:46; Status DC Sennosides (Senna) 17.2 mg PRN BID PRN PO CONSTIPATION; Start 12/12/20 at 16:45 Docusate Sodium (Colace) 100 mg PRN DAILY PRN PO HARD STOOLS; Start 12/12/20 at 16:45 Ondansetron HCl (Zofran) 4 mg PRN Q6HRS PRN IVP NAUSEA/VOMITING Last administered on 12/12/20at 19:01; Start 12/12/20 at 16:45 Dextrose (Dextrose 50%-Water Syringe) 12.5 gm PRN Q15MIN PRN IV SEE COMMENTS; Start 12/12/20 at 16:45 Cefepime HCl (Maxipime) 2 gm DAILY ONCE IVP ; Start 12/13/20 at 09:00; Stop 12/13/20 at 09:01 Sodium Chloride 1,000 ml @ 100 mls/hr Q10H IV Last administered on 12/13/20at 06:08; Start 12/12/20 at 17:45 Enoxaparin Sodium (Lovenox 40mg Syringe) 40 mg Q24H SQ Last administered on 12/12/20at 19:01; Start 12/12/20 at 17:45 Zolpidem Tartrate (Ambien) 5 mg PRN QHS PRN PO INSOMNIA Last administered on 12/12/20at 23:41; Start 12/12/20 at 23:30 Active Scripts Active Protonix (Pantoprazole Sodium) 40 Mg Tablet.dr 40 Mg PO DAILYAC 30 Days Reported Levothyroxine Sodium 50 Mcg Tablet 1 Tab PO DAILY Carvedilol (Carvedilol) 3.125 Mg Tablet 3.125 Mg PO BIDWMEALS Ondansetron Hcl 4 Mg Tablet 1 Tab PO PRN Q8HRS PRN Vitals/I & O Vital Sign - Last 24 Hours 12/12/20 12/12/20 12/12/20 12/12/20 13:15 13:45 14:15 14:45 Temp 99.8 99.8 Pulse 110 106 108 104 Resp 24 B/P (MAP) 129/71 (90) 119/71 (87) 116/74 (88) 111/67 (82) Pulse Ox 99 99 100 100 O2 Delivery Room Air Room Air Room Air Room Air 12/12/20 12/12/20 12/12/20 12/12/20 15:45 16:15 16:45 17:15 Pulse 106 104 110 114 Resp 20 B/P (MAP) 119/69 (86) 115/74 (88) 117/73 (88) 111/69 (83) Pulse Ox 98 98 98 99 O2 Delivery Room Air Room Air Room Air Room Air 12/12/20 12/12/20 12/12/20 12/12/20 18:00 19:00 20:00 23:00 Temp 101.5 99.8 99.4 101.5 99.8 99.4 Pulse 112 105 100 Resp 18 B/P (MAP) 118/68 (85) 92/60 (71) 105/64 (78) Pulse Ox 100 97 100 O2 Delivery Room Air Room Air Room Air Room Air 12/13/20 03:00 Temp 99.9 99.9 Pulse 92 Resp 16 B/P (MAP) 89/54 (66) Pulse Ox 99 O2 Delivery Room Air Intake and Output 12/12/20 12/12/20 12/13/20 15:00 23:00 07:00 Intake Total 150 ml 160 ml Output Total 1 ml 725 ml Balance 149 ml -565 ml Justicifation of Admission Dx: Justifications for Admission: Justification of Admission Dx: Yes RONALD VANEGAS MD Dec 13, 2020 06:46
[2020-12-13] MEDS: ONDANSETRON PF 4 MG/2 ML VIAL. IVP PRN ×2 (08:08→16:04)
[2020-12-13] MEDS ORDERED: CEFEPIME HCL IV Push 2 GM VIAL. IVP ONE (09:00)
--- NOTE | 2020-12-13 10:47 | PDOC ---
Infectious Disease Note Vital Sign Vital Signs Vital Signs Date Time Temp Pulse Resp B/P (MAP) Pulse Ox O2 Delivery O2 Flow Rate FiO2 12/13/20 07:00 97.9 90 18 96/61 (73) 99 Room Air 97.9 Labs Lab Laboratory Tests Test 12/12/20 14:00 12/12/20 15:17 12/13/20 06:00 White Blood Count 1.4 x10^3/uL (4.0-11.0) 1.0 x10^3/uL (4.0-11.0) Red Blood Count 2.69 x10^6/uL (4.30-5.70) 2.44 x10^6/uL (4.30-5.70) Hemoglobin 7.1 g/dL (13.0-17.5) 6.7 g/dL (13.0-17.5) Hematocrit 21.8 % (39.0-53.0) 19.7 % (39.0-53.0) Mean Corpuscular Volume 81 fL (79-100) 81 fL (79-100) Mean Corpuscular Hemoglobin 26 pg (25-35) 26 pg (25-35) Mean Corpuscular Hemoglobin Concent 33 g/dL (31-37) 33 g/dL (31-37) Red Cell Distribution Width 15.8 % (11.5-14.5) 15.5 % (11.5-14.5) Platelet Count 142 x10^3/uL (140-400) 104 x10^3/uL (140-400) Neutrophils (%) (Auto) 74 % (31-73) 76 % (31-73) Lymphocytes (%) (Auto) 2 % (24-48) 3 % (24-48) Monocytes (%) (Auto) 21 % (0-9) 16 % (0-9) Eosinophils (%) (Auto) 3 % (0-3) 4 % (0-3) Basophils (%) (Auto) 1 % (0-3) 1 % (0-3) Neutrophils # (Auto) 1.0 x10^3/uL (1.8-7.7) 0.8 x10^3/uL (1.8-7.7) Lymphocytes # (Auto) 0.0 x10^3/uL (1.0-4.8) 0.0 x10^3/uL (1.0-4.8) Monocytes # (Auto) 0.3 x10^3/uL (0.0-1.1) 0.2 x10^3/uL (0.0-1.1) Eosinophils # (Auto) 0.0 x10^3/uL (0.0-0.7) 0.0 x10^3/uL (0.0-0.7) Basophils # (Auto) 0.0 x10^3/uL (0.0-0.2) 0.0 x10^3/uL (0.0-0.2) Segmented Neutrophils % 61 % (35-66) Band Neutrophils % 13 % (0-9) Lymphocytes % 13 % (24-48) Monocytes % 13 % (0-10) Platelet Estimate Adequate (ADEQUATE) Anisocytosis Slight Sodium Level 134 mmol/L (136-145) 135 mmol/L (136-145) Potassium Level 4.4 mmol/L (3.5-5.1) 4.0 mmol/L (3.5-5.1) Chloride Level 102 mmol/L (98-107) 103 mmol/L (98-107) Carbon Dioxide Level 22 mmol/L (21-32) 24 mmol/L (21-32) Anion Gap 10 (6-14) 8 (6-14) Blood Urea Nitrogen 17 mg/dL (8-26) 19 mg/dL (8-26) Creatinine 0.9 mg/dL (0.7-1.3) 0.8 mg/dL (0.7-1.3) Estimated GFR (Cockcroft-Gault) 84.4 96.7 BUN/Creatinine Ratio 19 (6-20) Glucose Level 102 mg/dL (70-99) 86 mg/dL (70-99) Calcium Level 8.3 mg/dL (8.5-10.1) 8.0 mg/dL (8.5-10.1) Total Bilirubin 0.4 mg/dL (0.2-1.0) Aspartate Amino Transf (AST/SGOT) 11 U/L (15-37) Alanine Aminotransferase (ALT/SGPT) 21 U/L (16-63) Alkaline Phosphatase 61 U/L (46-116) Troponin I Quantitative 0.027 ng/mL (0.000-0.055) Total Protein 5.7 g/dL (6.4-8.2) Albumin 2.3 g/dL (3.4-5.0) Albumin/Globulin Ratio 0.7 (1.0-1.7) Urine Collection Type Unknown Urine Color Yellow Urine Clarity Clear Urine pH 5.0 (<5.0-8.0) Urine Specific [place] 1.015 (1.000-1.030) Urine Protein Negative mg/dL (NEG-TRACE) Urine Glucose (UA) Negative mg/dL (NEG) Urine Ketones (Stick) Negative mg/dL (NEG) Urine Blood Negative (NEG) Urine Nitrite Negative (NEG) Urine Bilirubin Negative (NEG) Urine Urobilinogen Dipstick 0.2 mg/dL (0.2 mg/dL) Urine Leukocyte Esterase Negative (NEG) Urine RBC 1-2 /HPF (0-2) Urine WBC 1-4 /HPF (0-4) Urine Squamous Epithelial Cells Few /LPF Urine Bacteria Few /HPF (0-FEW) Urine Mucus Slight /LPF Phosphorus Level 3.4 mg/dL (2.6-4.7) Magnesium Level 1.7 mg/dL (1.8-2.4) Micro Microbiology 12/12/20 Blood Culture - Final, Complete Objective Assessment pt seen, consult dictated Plan Plan of Care / TIM WONG MD Dec 13, 2020 10:47
[2020-12-13] MEDS ORDERED: MAGNESIUM SULFATE 2GM 50 ML IV SCH (11:00)
[2020-12-13] MEDS ORDERED: VANCOMYCIN 1 GM in IV NORMAL SALINE 250ML 250 ML IV ONE (11:00)
--- NOTE | 2020-12-13 12:04 | CONS ---
DATE OF CONSULTATION: PULMONARY CONSULTATION ATTENDING PHYSICIAN: David Mcginnis MD. REASON FOR CONSULTATION: Possible pneumonia. 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 He has been on chemo, last chemo was a week ago. He was brought into the hospital with failure to thrive and dysphagia. The patient has been on TPN. He denied any fever or chills. No chest pain. He has a cough, which has been productive of light yellow sputum production. His chest x-ray from 12/12 was reviewed. There is possible tiny left basal infiltrate versus atelectasis. Consultation requested for further evaluation and management. PAST MEDICAL HISTORY: History of oropharyngeal adeno CA, locally advanced through the GE junction, currently on chemo. History of CABG, colostomy bag. PAST SURGICAL HISTORY: As above. ALLERGIES: None. MEDICATIONS: Reviewed as listed in the MRAD including vancomycin and cefepime. REVIEW OF SYSTEMS: Ten-point system obtained. Pertinent positives discussed in my history of present illness, otherwise noncontributory. All systems that were negative were reviewed as well. SOCIAL HISTORY: Very minimal tobacco use. FAMILY HISTORY: Noncontributory to lungs. PHYSICAL EXAMINATION: VITAL SIGNS: T-max of 101.5. Blood pressure stable, pulse ox 100% on room air. GENERAL: He appears to be weak and wasted. NECK: Supple. LUNGS: With diminished breath sounds. CARDIOVASCULAR: With a regular rate. ABDOMEN: Soft. EXTREMITIES: With no pitting edema. LABORATORY DATA: Reviewed. White cell count 1.0, hemoglobin 6.7, and platelets are 104. IMPRESSION: 1. Fever in a patient who is pancytopenic and immunocompromised. The sources of fever could be lungs. Currently on broad-spectrum antibiotics. 2. Pancytopenia post-chemotherapy. 3. 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 4. No significant tobacco history. RECOMMENDATIONS: 1. Continue with present antibiotics. Infectious Disease is following. 2. Chest x-ray with minimal infiltrate versus atelectasis, left base. Rule out all other sources of infection as well. 3. Follow white cell count, platelets and hemoglobin. 4. Transfusion per PCP. 5. TPN for nutrition. 6. Discussed with RN. We will follow along with you. BINDU BARRIOS MD DR: Avtar JOB#: [id number] / [id number]
--- NOTE | 2020-12-13 12:47 | CONS ---
DATE OF CONSULTATION: 12/13/2020 REQUESTING PHYSICIAN: Dr. Mcginnis. REASON FOR CONSULTATION: Blood culture positive in a patient with neutropenic fever. HISTORY OF PRESENT ILLNESS: This is a 65-year-old gentleman with a history of adenocarcinoma, oropharynx with advance to the GE junction, who has finished chemotherapy and in fact yesterday finished the last radiation dose, the patient was very weak and debilitated, could no dress himself, hence decided to come in. He did not have any fever at home. Denied any nausea, vomiting. He has lost a lot of weight as he is on TPN at home and unable to eat. The patient was noted to have fever up to 101.5. White count is down to 1, hemoglobin 6.7, platelets are 104,000. His blood culture is positive with 2/4 gram-positive cocci in clusters. The patient is receiving cefepime and consult has been requested. PAST MEDICAL HISTORY: Positive for oropharyngeal cancer with involvement of the GE junction, status post chemoradiation, gastroesophageal reflux disease, hypertension, coronary artery disease with stenting done, cerebrovascular accident, hypothyroidism, and history of depression. SOCIAL HISTORY: Negative for smoking, alcohol or illicit drug use. ALLERGIES: No known drug allergies. CURRENT MEDICATIONS: Reviewed. REVIEW OF SYSTEMS: As in HPI. All other systems reviewed are negative. PHYSICAL EXAMINATION: GENERAL: Alert and oriented gentleman, not in distress. The patient is thin, cachectic down to 102 pounds. VITAL SIGNS: Stable. Temperature 97.9 with a T-max 101.5, pulse 90, respirations 18, blood pressure 96/61. HEENT: Both pupils are round and reacting. No conjunctival lesion, no lesion in the mouth. NECK: Supple, no JVP, no lymphadenopathy. LUNGS: Clear. HEART: S1, S2 regular. ABDOMEN: Has a colostomy in place, but otherwise unremarkable. The patient does have Port-A-Cath in the right upper chest, which is not showing any obvious signs of infection. NEUROLOGIC: The patient is alert, awake and appropriate. No focal neurologic deficit. LABORATORY DATA: White count is 1000, hemoglobin 6.7, platelets are 104,000. BUN and creatinine is normal. Blood culture 2/4 positive with Gram-positive cocci in clusters, further identification is pending. IMPRESSION: 1. Neutropenic fever. 2. Blood culture positive with Gram-positive cocci, likely from the Port-A-Cath either colonization or infection. Further ID of the organism is pending. 3. Neutropenia from chemotherapy. 4. 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 5. Malnutrition. RECOMMENDATIONS: Continue cefepime, adjust the dose. Add vancomycin and the patient is high risk for fungemia. We will continue to follow. Thank you very much, Dr. Mcginnis, for giving me the opportunity to participate in this patient's care. TIM WONG MD DR: MUSTAPHA/audra JOB#: [id number] / [id number]
--- NOTE | 2020-12-13 12:49 | PDOC2 ---
CONSULT Date of Consult Date of Consult DATE: 12/13/20 TIME: 12:43 Reason for Consult Reason for Consult: Esophageal cancer on chemoradiation, neutropenia Referring Physician Referring Physician: Dr. Stapleton Identification/Chief Complaint Chief Complaint Fever and failure to thrive Source Source: Chart review, Patient History of Present Illness Reason for Visit: Burt Dao is a 65-year-old male who has recently completed concurrent chemoradiotherapy for locally advanced GE junction adenocarcinoma. He has been admitted to the hospital after presenting with fever and fatigue. Burt completed concurrent chemoradiotherapy on 12/12/2020. His last dose of chemotherapy was 2 weeks ago. Chemotherapy was held last week due to neutropenia that was noted on labs obtained on 12/08/2020. His treatment was previously complicated by dysphagia and weight loss associated with dysphagia. He was hospitalized and began total parenteral nutrition. He has continued TPN with improvement in his weight and functional status since then. He has continued with radiation throughout and finished it yesterday. Burt reports that after finishing radiation, he experienced more fatigue than normal. He al so had a temperature of 100.5. He came into the emergency room and was admitted for further evaluation and management. He received a chest x-ray which showed a left lower lobe infiltrates that was previously noted. Labs also show neutropenia with WBC count of 1 today. He denies any other symptoms. He continues to have dysphagia and associated nausea and vomiting. Past Medical History Cardiovascular: HTN CENTRAL NERVOUS SYSTEM: CVA Heme/Onc: Cancer Hepatobiliary: No pertinent hx Psych: No pertinent hx Rheumatologic: No pertinent hx Infectious disease: No pertinent hx Renal/: No pertinent hx Endocrine: No pertinent hx Past Surgical History Past Surgical History: Colectomy, Other Family History Family History: Family History Unknown Social History ALCOHOL: none Drugs: None Lives: with Family Domestic Violence: Neg Current Problem List Problem List Problems Medical Problems: (1) Colon cancer Status: Acute (2) Esophageal cancer Status: Acute (3) Fatigue Status: Acute (4) Left lower lobe pneumonia Status: Acute (5) Person under investigation for COVID-19 Status: Acute Current Medications Current Medications Current Medications Cefepime HCl (Maxipime) 2 gm 1X ONCE IVP Last administered on 12/12/20at 17:01; Start 12/12/20 at 16:45; Stop 12/12/20 at 16:46; Status DC Sennosides (Senna) 17.2 mg PRN BID PRN PO CONSTIPATION; Start 12/12/20 at 16:45 Docusate Sodium (Colace) 100 mg PRN DAILY PRN PO HARD STOOLS; Start 12/12/20 at 16:45 Ondansetron HCl (Zofran) 4 mg PRN Q6HRS PRN IVP NAUSEA/VOMITING Last administered on 12/13/20at 08:08; Start 12/12/20 at 16:45 Dextrose (Dextrose 50%-Water Syringe) 12.5 gm PRN Q15MIN PRN IV SEE COMMENTS; Start 12/12/20 at 16:45 Cefepime HCl (Maxipime) 2 gm DAILY ONCE IVP Last administered on 12/13/20at 08:08; Start 12/13/20 at 09:00; Stop 12/13/20 at 10:46; Status DC Sodium Chloride 1,000 ml @ 100 mls/hr Q10H IV Last administered on 12/13/20at 06:08; Start 12/12/20 at 17:45 Enoxaparin Sodium (Lovenox 40mg Syringe) 40 mg Q24H SQ Last administered on 12/12/20at 19:01; Start 12/12/20 at 17:45 Zolpidem Tartrate (Ambien) 5 mg PRN QHS PRN PO INSOMNIA Last administered on 12/12/20at 23:41; Start 12/12/20 at 23:30 Magnesium Sulfate 50 ml @ 25 mls/hr Q24H IV ; Start 12/13/20 at 11:00; Stop 12/13/20 at 12:59 Cefepime HCl (Maxipime) 1 gm Q12HR IVP ; Start 12/13/20 at 21:00 Vancomycin HCl (Vanco Per Pharmacy) 1 each PRN DAILY PRN MC SEE COMMENTS; Start 12/13/20 at 10:45 Vancomycin HCl 1 gm/Sodium Chloride 250 ml @ 250 mls/hr 1X ONCE IV Last administered on 12/13/20at 12:22; Start 12/13/20 at 11:00; Stop 12/13/20 at 11:59; Status DC Micafungin Sodium 100 mg/Dextrose 100 ml @ 100 mls/hr Q24H IV ; Start 12/13/20 at 12:00 Info (Tpn Per Pharmacy) 1 each PRN DAILY PRN MC SEE COMMENTS; Start 12/13/20 at 11:30 Sodium Chloride 110 meq/Potassium Chloride 50 meq/ Potassium Phosphate 12 mmol/ Magnesium Sulfate 12 meq/Calcium Gluconate 10 meq/ Multivitamins 5 ml/Zinc/Copper/ Manganese/ Selenium 1 ml/ Total Parenteral Nutrition/Amino Acids/Dextrose/ Fat Emulsion Intravenous 1,512 ml @ 63 mls/hr TPN CONT IV ; Start 12/13/20 at 22:00; Stop 12/14/20 at 21:59 Active Scripts Active Protonix (Pantoprazole Sodium) 40 Mg Tablet.dr 40 Mg PO DAILYAC 30 Days Reported Levothyroxine Sodium 50 Mcg Tablet 1 Tab PO DAILY Carvedilol (Carvedilol) 3.125 Mg Tablet 3.125 Mg PO BIDWMEALS Ondansetron Hcl 4 Mg Tablet 1 Tab PO PRN Q8HRS PRN Allergies Allergies: Coded Allergies: No Known Drug Allergies (Unverified , 08/31/20) ROS General: YES: Fatigue, Malaise PSYCHOLOGICAL ROS: No: Hallucinations, Hostility Eyes: No Eye Pain, No Itchy Eyes HEENT: No: Oral lesions, Sinus pain ALLERGY AND IMMUNOLOGY: No: Nasal Congestion, Post Nasal Drip Hematological and Lymphatic: No: Brusing, Night Sweats ENDOCRINE: YES: Malaise/lethargy, Mood Swings; No: Palpitations Respiratory: YES: Cough, Shortness of breath Cardiovascular: yes Chest Pain Gastrointestinal: Yes Nausea, Yes Vomiting; No Abdominal Pain, No Diarrhea Genitourinary: No Dysuria, No Frequency Musculoskeletal: No Joint Stiffness Neurological: No Behavorial Changes Skin: No Rash Physical Exam General: Alert, Oriented X3 HEENT: Atraumatic Lungs: Clear to auscultation Heart: Regular rate, Normal S1, Normal S2 Abdomen: Soft Extremities: No cyanosis Skin: No rashes Neuro: Normal speech MUSCULOSKELETAL: No swelling Vitals VITALS Vital Signs Date Time Temp Pulse Resp B/P (MAP) Pulse Ox O2 Delivery O2 Flow Rate FiO2 12/13/20 11:29 97.6 87 18 91/65 97.6 12/13/20 11:00 100 Room Air Labs Labs Laboratory Tests Test 12/12/20 14:00 12/12/20 15:17 12/13/20 06:00 12/13/20 09:50 White Blood Count 1.4 x10^3/uL (4.0-11.0) 1.0 x10^3/uL (4.0-11.0) Red Blood Count 2.69 x10^6/uL (4.30-5.70) 2.44 x10^6/uL (4.30-5.70) Hemoglobin 7.1 g/dL (13.0-17.5) 6.7 g/dL (13.0-17.5) Hematocrit 21.8 % (39.0-53.0) 19.7 % (39.0-53.0) Mean Corpuscular Volume 81 fL (79-100) 81 fL (79-100) Mean Corpuscular Hemoglobin 26 pg (25-35) 26 pg (25-35) Mean Corpuscular Hemoglobin Concent 33 g/dL (31-37) 33 g/dL (31-37) Red Cell Distribution Width 15.8 % (11.5-14.5) 15.5 % (11.5-14.5) Platelet Count 142 x10^3/uL (140-400) 104 x10^3/uL (140-400) Neutrophils (%) (Auto) 74 % (31-73) 76 % (31-73) Lymphocytes (%) (Auto) 2 % (24-48) 3 % (24-48) Monocytes (%) (Auto) 21 % (0-9) 16 % (0-9) Eosinophils (%) (Auto) 3 % (0-3) 4 % (0-3) Basophils (%) (Auto) 1 % (0-3) 1 % (0-3) Neutrophils # (Auto) 1.0 x10^3/uL (1.8-7.7) 0.8 x10^3/uL (1.8-7.7) Lymphocytes # (Auto) 0.0 x10^3/uL (1.0-4.8) 0.0 x10^3/uL (1.0-4.8) Monocytes # (Auto) 0.3 x10^3/uL (0.0-1.1) 0.2 x10^3/uL (0.0-1.1) Eosinophils # (Auto) 0.0 x10^3/uL (0.0-0.7) 0.0 x10^3/uL (0.0-0.7) Basophils # (Auto) 0.0 x10^3/uL (0.0-0.2) 0.0 x10^3/uL (0.0-0.2) Segmented Neutrophils % 61 % (35-66) Band Neutrophils % 13 % (0-9) Lymphocytes % 13 % (24-48) Monocytes % 13 % (0-10) Platelet Estimate Adequate (ADEQUATE) Anisocytosis Slight Sodium Level 134 mmol/L (136-145) 135 mmol/L (136-145) Potassium Level 4.4 mmol/L (3.5-5.1) 4.0 mmol/L (3.5-5.1) Chloride Level 102 mmol/L (98-107) 103 mmol/L (98-107) Carbon Dioxide Level 22 mmol/L (21-32) 24 mmol/L (21-32) Anion Gap 10 (6-14) 8 (6-14) Blood Urea Nitrogen 17 mg/dL (8-26) 19 mg/dL (8-26) Creatinine 0.9 mg/dL (0.7-1.3) 0.8 mg/dL (0.7-1.3) Estimated GFR (Cockcroft-Gault) 84.4 96.7 BUN/Creatinine Ratio 19 (6-20) Glucose Level 102 mg/dL (70-99) 86 mg/dL (70-99) Calcium Level 8.3 mg/dL (8.5-10.1) 8.0 mg/dL (8.5-10.1) Total Bilirubin 0.4 mg/dL (0.2-1.0) Aspartate Amino Transf (AST/SGOT) 11 U/L (15-37) Alanine Aminotransferase (ALT/SGPT) 21 U/L (16-63) Alkaline Phosphatase 61 U/L (46-116) Troponin I Quantitative 0.027 ng/mL (0.000-0.055) Total Protein 5.7 g/dL (6.4-8.2) Albumin 2.3 g/dL (3.4-5.0) Albumin/Globulin Ratio 0.7 (1.0-1.7) Urine Collection Type Unknown Urine Color Yellow Urine Clarity Clear Urine pH 5.0 (<5.0-8.0) Urine Specific [place] 1.015 (1.000-1.030) Urine Protein Negative mg/dL (NEG-TRACE) Urine Glucose (UA) Negative mg/dL (NEG) Urine Ketones (Stick) Negative mg/dL (NEG) Urine Blood Negative (NEG) Urine Nitrite Negative (NEG) Urine Bilirubin Negative (NEG) Urine Urobilinogen Dipstick 0.2 mg/dL (0.2 mg/dL) Urine Leukocyte Esterase Negative (NEG) Urine RBC 1-2 /HPF (0-2) Urine WBC 1-4 /HPF (0-4) Urine Squamous Epithelial Cells Few /LPF Urine Bacteria Few /HPF (0-FEW) Urine Mucus Slight /LPF Phosphorus Level 3.4 mg/dL (2.6-4.7) Magnesium Level 1.7 mg/dL (1.8-2.4) Procalcitonin 0.23 ng/mL (0.00-0.10) Lactic Acid Level 0.7 mmol/L (0.4-2.0) Laboratory Tests Test 12/12/20 14:00 12/12/20 15:17 12/13/20 06:00 12/13/20 09:50 White Blood Count 1.4 x10^3/uL (4.0-11.0) 1.0 x10^3/uL (4.0-11.0) Red Blood Count 2.69 x10^6/uL (4.30-5.70) 2.44 x10^6/uL (4.30-5.70) Hemoglobin 7.1 g/dL (13.0-17.5) 6.7 g/dL (13.0-17.5) Hematocrit 21.8 % (39.0-53.0) 19.7 % (39.0-53.0) Mean Corpuscular Volume 81 fL (79-100) 81 fL (79-100) Mean Corpuscular Hemoglobin 26 pg (25-35) 26 pg (25-35) Mean Corpuscular Hemoglobin Concent 33 g/dL (31-37) 33 g/dL (31-37) Red Cell Distribution Width 15.8 % (11.5-14.5) 15.5 % (11.5-14.5) Platelet Count 142 x10^3/uL (140-400) 104 x10^3/uL (140-400) Neutrophils (%) (Auto) 74 % (31-73) 76 % (31-73) Lymphocytes (%) (Auto) 2 % (24-48) 3 % (24-48) Monocytes (%) (Auto) 21 % (0-9) 16 % (0-9) Eosinophils (%) (Auto) 3 % (0-3) 4 % (0-3) Basophils (%) (Auto) 1 % (0-3) 1 % (0-3) Neutrophils # (Auto) 1.0 x10^3/uL (1.8-7.7) 0.8 x10^3/uL (1.8-7.7) Lymphocytes # (Auto) 0.0 x10^3/uL (1.0-4.8) 0.0 x10^3/uL (1.0-4.8) Monocytes # (Auto) 0.3 x10^3/uL (0.0-1.1) 0.2 x10^3/uL (0.0-1.1) Eosinophils # (Auto) 0.0 x10^3/uL (0.0-0.7) 0.0 x10^3/uL (0.0-0.7) Basophils # (Auto) 0.0 x10^3/uL (0.0-0.2) 0.0 x10^3/uL (0.0-0.2) Segmented Neutrophils % 61 % (35-66) Band Neutrophils % 13 % (0-9) Lymphocytes % 13 % (24-48) Monocytes % 13 % (0-10) Platelet Estimate Adequate (ADEQUATE) Anisocytosis Slight Sodium Level 134 mmol/L (136-145) 135 mmol/L (136-145) Potassium Level 4.4 mmol/L (3.5-5.1) 4.0 mmol/L (3.5-5.1) Chloride Level 102 mmol/L (98-107) 103 mmol/L (98-107) Carbon Dioxide Level 22 mmol/L (21-32) 24 mmol/L (21-32) Anion Gap 10 (6-14) 8 (6-14) Blood Urea Nitrogen 17 mg/dL (8-26) 19 mg/dL (8-26) Creatinine 0.9 mg/dL (0.7-1.3) 0.8 mg/dL (0.7-1.3) Estimated GFR (Cockcroft-Gault) 84.4 96.7 BUN/Creatinine Ratio 19 (6-20) Glucose Level 102 mg/dL (70-99) 86 mg/dL (70-99) Calcium Level 8.3 mg/dL (8.5-10.1) 8.0 mg/dL (8.5-10.1) Total Bilirubin 0.4 mg/dL (0.2-1.0) Aspartate Amino Transf (AST/SGOT) 11 U/L (15-37) Alanine Aminotransferase (ALT/SGPT) 21 U/L (16-63) Alkaline Phosphatase 61 U/L (46-116) Troponin I Quantitative 0.027 ng/mL (0.000-0.055) Total Protein 5.7 g/dL (6.4-8.2) Albumin 2.3 g/dL (3.4-5.0) Albumin/Globulin Ratio 0.7 (1.0-1.7) Urine Collection Type Unknown Urine Color Yellow Urine Clarity Clear Urine pH 5.0 (<5.0-8.0) Urine Specific [place] 1.015 (1.000-1.030) Urine Protein Negative mg/dL (NEG-TRACE) Urine Glucose (UA) Negative mg/dL (NEG) Urine Ketones (Stick) Negative mg/dL (NEG) Urine Blood Negative (NEG) Urine Nitrite Negative (NEG) Urine Bilirubin Negative (NEG) Urine Urobilinogen Dipstick 0.2 mg/dL (0.2 mg/dL) Urine Leukocyte Esterase Negative (NEG) Urine RBC 1-2 /HPF (0-2) Urine WBC 1-4 /HPF (0-4) Urine Squamous Epithelial Cells Few /LPF Urine Bacteria Few /HPF (0-FEW) Urine Mucus Slight /LPF Phosphorus Level 3.4 mg/dL (2.6-4.7) Magnesium Level 1.7 mg/dL (1.8-2.4) Procalcitonin 0.23 ng/mL (0.00-0.10) Lactic Acid Level 0.7 mmol/L (0.4-2.0) Assessment/Plan Assessment/Plan Assessment: Locally advanced GE junction adenocarcinoma, status post concurrent chemoradiotherapy with carboplatin and paclitaxel Fever, possibly secondary to aspiration pneumonia Protein calorie malnutrition secondary to dysphagia Dysphagia from esophageal cancer, status post initiation of TPN Neutropenia from antineoplastic chemotherapy Recommendations: -Continue with empiric antibiotics per ID service at this time -We will follow up on blood culture results -Given neutropenia and fever, would recommend starting G-CSF 300 mcg daily while inpatient -Follow-up will be arranged with medical oncology clinic after discharge from hospital -Continue TPN -Rest per Dr. Pieter Barr MD Medical Oncology/Hematology Ph: [phone] JASSON BARR MD Dec 13, 2020 12:49
[2020-12-13] MEDS: MICAFUNGIN 100 MG in IV DEXTROSE 5% 100ML 100 ML IV SCH (14:06)
[2020-12-13] MEDS: VANCOMYCIN PER PHARMACY MC PRN (15:45)
[2020-12-13] MEDS: TPN PER PHARMACY MC PRN (15:50)
--- NOTE | 2020-12-13 15:58 | NUR ---
Pharmacy Vancomycin Dosing Note S:Consulted to monitor and dose vancomycin started 12/13/20. O:JASON KIRK is a 65 year old M with Bacteremia, Neutropenic Fever . Height: 5 feet, 4 inches Weight: 46.0 kg [place] Body Weight: 59.20 Adjusted Body Weight: 53.92 Dosing Weight: Actual Other Antibiotics: cefepime micafungin LABS: Last BUN: 19 Last Creatinine: 0.8 Creatinine Clearance: 47 mL/min Last WBC: 1 Last Procalcitonin: 0.23 Tmax (past 24 hours): 101.5 Microbiology: BLOOD: GPC SUGGESTIVE OF STAPH IN 2/4 BOTTLES I/O: 310/726 Last dose given 12/13/20 at 1222 Vancomycin Dosing: Loading Dose: 1000 mg x1 Dosing Weight: Actual Target Trough: 15-20 A: Based on: weight and renal function P: 1. Begin Vancomycin 750 mg IV q24h 2. Follow up Trough level on 12/15/20 at 1200 3. Pharmacy will continue to monitor, follow and adjust therapy as needed. Nela Richards RPH, 12/13/20 1714
--- NOTE | 2020-12-13 16:00 | NUR ---
Pharmacy TPN Dosing Note S: JASON KIRK is a 65 year old M Currently receiving Central Continuous TPN B:Pertinent PMH: Oropharyngeal adenocarcinoma Height: 5 feet, 4 inches Weight: 46.0 kg Current diet: LABS: Sodium: 135 Potassium: 4 Chloride: 103 Calcium: 8.0 Corrected Calcium: 9.36 Magnesium: 1.7 CO2: 24 SCr: 0.8 Glucose: 86 Albumin: 2.3 AST: 11 ALT: 21 TPN FORMULA: TPN TYPE: Central Continuous AMINO ACIDS: 60 gm DEXTROSE: 195 gm LIPIDS: 20 gm SODIUM CHLORIDE: 110 mEq POTASSIUM CHLORIDE: 50 mEq POTASSIUM PHOSPHATE: 12 mmol MAGNESIUM: 12 mEq CALCIUM: 10 mEq MULTIPLE VITAMIN: 5 ml TRACE ELEMENTS: 1 ml(s) TPN PLAN: Last formula (from earlier admit this month) re-ordered for patient. Labs in AM R: Begin TPN Will monitor electrolytes, glucose, and tolerance to TPN. Nela Richards RPH, 12/13/20 1600
[2020-12-13] MEDS: ENOXAPARIN 40 MG/0.4 ML SYRINGE. SQ SCH (16:05)
--- NOTE | 2020-12-13 16:26 | NUR ---
SW following for discharge planning. Spoke with RN and reviewed chart. Pt on room air, COVID pending. Consults to ID, pulmonary, and oncology. Pt's WBC is 1.0 and his Hgb is 6.7. Pt positive for bacteremia and on IV Cefepime and IV Vancomycin. Pt current [facility] and [facility] for home TPN. Pt remains on TPN. Coordinated care with Braulio for [facility] and Kathe from [facility]. SW following.
[2020-12-13] MEDS: FILGRASTIM 300 MCG/ML SQ SCH (21:58)
[2020-12-13] MEDS: CEFEPIME HCL IV Push 1 GM VIAL. IVP SCH (21:58)
[2020-12-13] MEDS ORDERED: DEXTROSE 70% IV SCH (22:00)
[2020-12-13] MEDS ORDERED: TOTAL PARENTERAL NUTRITION IV SCH (22:00)
[2020-12-13] MEDS ORDERED: [UNRECOGNIZED DRUG - OTHER] IV SCH (22:00)
[2020-12-13] MEDS ORDERED: AMINO ACID IV SCH (22:00)
[2020-12-13] MEDS: ZOLPIDEM 5 MG TABLET. PO PRN (22:13)
[2020-12-14 04:00] VITALS: BP 103/73
[2020-12-14 05:06] LABS: BASO % 1 % (0-3); EOS # 0.1 x10^3/uL (0.0-0.7); EOS % 3 % (0-3); HEMOGLOBIN 7.4 g/dL (13.0-17.5); LYMPH % 1 % (24-48); MEAN CORPUSCULAR HEMOGLOBIN 28 pg (25-35); MEAN CORPUSCULAR HGB CONC 34 g/dL (31-37); MEAN CORPUSCULAR VOLUME 82 fL (79-100); MONO # 0.4 x10^3/uL (0.0-1.1); MONO % 11 % (0-9); NEUT # 3.1 x10^3/uL (1.8-7.7); NEUT % 84 % (31-73); PLATELET COUNT 116 x10^3/uL (140-400); RED BLOOD COUNT 2.69 x10^6/uL (4.30-5.70); RED CELL DISTRIBUTION WIDTH 16.7 % (11.5-14.5); WHITE BLOOD COUNT 3.7 x10^3/uL (4.0-11.0)
[2020-12-14 05:22] LABS: ALBUMIN 1.8 g/dL (3.4-5.0); ALBUMIN/GLOBULIN RATIO 0.6 (1.0-1.7); CALCIUM 7.5 mg/dL (8.5-10.1); CREATININE 0.8 mg/dL (0.7-1.3); GFR 96.7; POTASSIUM 3.7 mmol/L (3.5-5.1); TOTAL BILIRUBIN 0.4 mg/dL (0.2-1.0); TOTAL PROTEIN 4.7 g/dL (6.4-8.2)
[2020-12-14 05:23] LABS: MAGNESIUM 2.1 mg/dL (1.8-2.4); PHOSPHORUS 3.1 mg/dL (2.6-4.7)
[2020-12-14 07:00] VITALS: BP 109/69
[2020-12-14] MEDS: IV NORMAL SALINE 1000ML BAG 1,000 ML IV SCH ×2 (08:28→22:26)
[2020-12-14] MEDS: CEFEPIME HCL IV Push 1 GM VIAL. IVP SCH ×2 (08:29→21:33)
--- NOTE | 2020-12-14 08:45 | PDOC ---
PROGRESS NOTES Date of Service: DATE: 12/14/20 TIME: 08:45 Chief Complaint Chief Complaint IMPRESSION Assessment/Plan Acute generalized weakness due to recent chemoradiation Tx Patchy opacities left lung base. Small left pleural effusion. Neutropenia Failure to thrive Debility Oropharyngeal dysphagia due to adenoCA Hyponatremia due to volume depletion Severe protein malnutrition POS BLOOD CULT 12-13 Blood culture positive with Gram-positive cocci, likely from the Port-A-Cath IE colonization or infection. PLAN Admit to medicine for further management Oncology consult Neutropenic precautions ID CONSULT Continue IV Cefepime 2G Daily Nutrition consult Continue TPN via Portacath FLD continue IVF Lovenox for DVT prophylaxis DPOA: Maura ([id number]) REPEAT BLOOD CULT X 2 12-13 LACTIC ACID PROCALCITONIN Start G-CSF 300 mcg daily while inpatient BLOOD CULTURE Final GRAM POSITIVE COCCI IN CLUSTERS, SUGGESTIVE OF STAPH, IN 2 OF 4 BOTLES, TWO SETS DRAWN ONE SET IS POSITIVE. 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 PEG is contraindicated and he was sent home with TPN through his portacath. Since his discharge on 12/01/20, patient has been doing well with his last session of chemoTx 2 weeks ago, but he stated he did feel week yesterday before his radiation Tx. Last labs drawn shown he had a WBC of 1.5 and today was 1.4 in the ED with ANC of > 700. He denied fevers, N/V, chest pain, SOB, diarrhea, or ABD pain. he does still have early satiety and some dysphagia with chopped chicken and mashed potatoes. He is able to tolerate ice cream and broth. 12-14 COVID NEG, feeling a bit stronger, D/W RN Past Medical/Surgical History: PMH/PSH: Past Medical History: Cancer, Hypertension, MS, Stroke, throat CA, esphogeal CA Past Surgical History: CABG, colostomy bag Allergies: Allergies: Coded Allergies: No Known Drug Allergies (Unverified , 08/31/20) Family History: Family History: Reviewed with no relevant findings Social History: Social History: Smoking Status: Never Smoker Alcohol Use: None Vitals Vitals Vital Signs Date Time Temp Pulse Resp B/P (MAP) Pulse Ox O2 Delivery O2 Flow Rate FiO2 12/14/20 04:00 97.1 85 16 103/73 (83) 100 Room Air 97.1 Physical Exam Physical Exam Physcial Exam: GEN: No apparent distress. Alert and oriented HEENT: Normal cephalic, atraumatic, external auditory canals are patent EYES: Extraocular muscles are intact, pupil are equally round and reactive to light and accommodation MUSCULOSKELETAL: Well developed , well nourished, good range of motion ENDOCRINE: No thyromegaly was palpated LYMPHATICS: No cervical chain or axillary nodes were noted HEMATOPOIETIC: No bruising NECK: Supple, no JVD, no thyromegaly was noted LUNGS: Clear to auscultation in all lung kimble without rhonchi or wheezing HEART: RRR, S!, S2 present. Peripheral pulses intact, no obvious murmurs noted ABDOMEN: Soft, nontender. Positive bowel sounds, no organomegaly, normal bowel sounds EXTREMITIES: Without clubbing, cyanosis, or edema. Pedal pulses intact. Negative Homans sign NEUROLOGIC: Normal speech and tone. A&O x 3, moves all extremities, no obvious focal deficits PSYCHIATRIC: Normal affect, normal mood. Stable SKIN: No ulcerations or rashes, good skin turgor, no jaundice VASCULAR: Good capillary refill, neurovascular bundle appears to be intact General: Alert, Oriented X3, Cooperative, No acute distress Heart: Regular rate, Normal S1, Normal S2 Lungs: Clear, Wheezing, Other Abdomen: Soft Extremities: No clubbing, No cyanosis Skin: No rashes Labs LABS GROWTH OF GRAM POSITIVE COCCI FINAL ID= [STAPHYLOCOCCUS EPIDERMIDIS] Laboratory Tests Test 12/13/20 09:50 12/13/20 23:55 12/14/20 04:55 Lactic Acid Level 0.7 mmol/L (0.4-2.0) Procalcitonin 0.18 ng/mL (0.00-0.10) White Blood Count 3.7 x10^3/uL (4.0-11.0) Red Blood Count 2.69 x10^6/uL (4.30-5.70) Hemoglobin 7.4 g/dL (13.0-17.5) Hematocrit 22.0 % (39.0-53.0) Mean Corpuscular Volume 82 fL (79-100) Mean Corpuscular Hemoglobin 28 pg (25-35) Mean Corpuscular Hemoglobin Concent 34 g/dL (31-37) Red Cell Distribution Width 16.7 % (11.5-14.5) Platelet Count 116 x10^3/uL (140-400) Neutrophils (%) (Auto) 84 % (31-73) Lymphocytes (%) (Auto) 1 % (24-48) Monocytes (%) (Auto) 11 % (0-9) Eosinophils (%) (Auto) 3 % (0-3) Basophils (%) (Auto) 1 % (0-3) Neutrophils # (Auto) 3.1 x10^3/uL (1.8-7.7) Lymphocytes # (Auto) 0.0 x10^3/uL (1.0-4.8) Monocytes # (Auto) 0.4 x10^3/uL (0.0-1.1) Eosinophils # (Auto) 0.1 x10^3/uL (0.0-0.7) Basophils # (Auto) 0.0 x10^3/uL (0.0-0.2) Sodium Level 135 mmol/L (136-145) Potassium Level 3.7 mmol/L (3.5-5.1) Chloride Level 104 mmol/L (98-107) Carbon Dioxide Level 24 mmol/L (21-32) Anion Gap 7 (6-14) Blood Urea Nitrogen 17 mg/dL (8-26) Creatinine 0.8 mg/dL (0.7-1.3) Estimated GFR (Cockcroft-Gault) 96.7 BUN/Creatinine Ratio 21 (6-20) Glucose Level 102 mg/dL (70-99) Calcium Level 7.5 mg/dL (8.5-10.1) Phosphorus Level 3.1 mg/dL (2.6-4.7) Magnesium Level 2.1 mg/dL (1.8-2.4) Total Bilirubin 0.4 mg/dL (0.2-1.0) Aspartate Amino Transf (AST/SGOT) 13 U/L (15-37) Alanine Aminotransferase (ALT/SGPT) 22 U/L (16-63) Alkaline Phosphatase 52 U/L (46-116) Total Protein 4.7 g/dL (6.4-8.2) Albumin 1.8 g/dL (3.4-5.0) Albumin/Globulin Ratio 0.6 (1.0-1.7) Triglycerides Level 94 mg/dL (0-150) Assessment and Plan Assessmemt and Plan Problems Medical Problems: (1) Colon cancer Status: Acute (2) Esophageal cancer Status: Acute (3) Fatigue Status: Acute (4) Left lower lobe pneumonia Status: Acute (5) Person under investigation for COVID-19 Status: Acute Comment Review of Relevant I have reviewed the following items adeline (where applicable) has been applied. Labs Laboratory Tests Test 12/12/20 14:00 12/12/20 15:02 12/12/20 15:17 12/13/20 06:00 White Blood Count 1.4 x10^3/uL (4.0-11.0) 1.0 x10^3/uL (4.0-11.0) Red Blood Count 2.69 x10^6/uL (4.30-5.70) 2.44 x10^6/uL (4.30-5.70) Hemoglobin 7.1 g/dL (13.0-17.5) 6.7 g/dL (13.0-17.5) Hematocrit 21.8 % (39.0-53.0) 19.7 % (39.0-53.0) Mean Corpuscular Volume 81 fL (79-100) 81 fL (79-100) Mean Corpuscular Hemoglobin 26 pg (25-35) 26 pg (25-35) Mean Corpuscular Hemoglobin Concent 33 g/dL (31-37) 33 g/dL (31-37) Red Cell Distribution Width 15.8 % (11.5-14.5) 15.5 % (11.5-14.5) Platelet Count 142 x10^3/uL (140-400) 104 x10^3/uL (140-400) Neutrophils (%) (Auto) 74 % (31-73) 76 % (31-73) Lymphocytes (%) (Auto) 2 % (24-48) 3 % (24-48) Monocytes (%) (Auto) 21 % (0-9) 16 % (0-9) Eosinophils (%) (Auto) 3 % (0-3) 4 % (0-3) Basophils (%) (Auto) 1 % (0-3) 1 % (0-3) Neutrophils # (Auto) 1.0 x10^3/uL (1.8-7.7) 0.8 x10^3/uL (1.8-7.7) Lymphocytes # (Auto) 0.0 x10^3/uL (1.0-4.8) 0.0 x10^3/uL (1.0-4.8) Monocytes # (Auto) 0.3 x10^3/uL (0.0-1.1) 0.2 x10^3/uL (0.0-1.1) Eosinophils # (Auto) 0.0 x10^3/uL (0.0-0.7) 0.0 x10^3/uL (0.0-0.7) Basophils # (Auto) 0.0 x10^3/uL (0.0-0.2) 0.0 x10^3/uL (0.0-0.2) Segmented Neutrophils % 61 % (35-66) Band Neutrophils % 13 % (0-9) Lymphocytes % 13 % (24-48) Monocytes % 13 % (0-10) Platelet Estimate Adequate (ADEQUATE) Anisocytosis Slight Sodium Level 134 mmol/L (136-145) 135 mmol/L (136-145) Potassium Level 4.4 mmol/L (3.5-5.1) 4.0 mmol/L (3.5-5.1) Chloride Level 102 mmol/L (98-107) 103 mmol/L (98-107) Carbon Dioxide Level 22 mmol/L (21-32) 24 mmol/L (21-32) Anion Gap 10 (6-14) 8 (6-14) Blood Urea Nitrogen 17 mg/dL (8-26) 19 mg/dL (8-26) Creatinine 0.9 mg/dL (0.7-1.3) 0.8 mg/dL (0.7-1.3) Estimated GFR (Cockcroft-Gault) 84.4 96.7 BUN/Creatinine Ratio 19 (6-20) Glucose Level 102 mg/dL (70-99) 86 mg/dL (70-99) Calcium Level 8.3 mg/dL (8.5-10.1) 8.0 mg/dL (8.5-10.1) Total Bilirubin 0.4 mg/dL (0.2-1.0) Aspartate Amino Transf (AST/SGOT) 11 U/L (15-37) Alanine Aminotransferase (ALT/SGPT) 21 U/L (16-63) Alkaline Phosphatase 61 U/L (46-116) Troponin I Quantitative 0.027 ng/mL (0.000-0.055) Total Protein 5.7 g/dL (6.4-8.2) Albumin 2.3 g/dL (3.4-5.0) Albumin/Globulin Ratio 0.7 (1.0-1.7) Coronavirus (PCR) Not detected (Not Detected) Urine Collection Type Unknown Urine Color Yellow Urine Clarity Clear Urine pH 5.0 (<5.0-8.0) Urine Specific [place] 1.015 (1.000-1.030) Urine Protein Negative mg/dL (NEG-TRACE) Urine Glucose (UA) Negative mg/dL (NEG) Urine Ketones (Stick) Negative mg/dL (NEG) Urine Blood Negative (NEG) Urine Nitrite Negative (NEG) Urine Bilirubin Negative (NEG) Urine Urobilinogen Dipstick 0.2 mg/dL (0.2 mg/dL) Urine Leukocyte Esterase Negative (NEG) Urine RBC 1-2 /HPF (0-2) Urine WBC 1-4 /HPF (0-4) Urine Squamous Epithelial Cells Few /LPF Urine Bacteria Few /HPF (0-FEW) Urine Mucus Slight /LPF Phosphorus Level 3.4 mg/dL (2.6-4.7) Magnesium Level 1.7 mg/dL (1.8-2.4) Procalcitonin 0.23 ng/mL (0.00-0.10) Test 12/13/20 09:50 12/13/20 23:55 12/14/20 04:55 Lactic Acid Level 0.7 mmol/L (0.4-2.0) Procalcitonin 0.18 ng/mL (0.00-0.10) White Blood Count 3.7 x10^3/uL (4.0-11.0) Red Blood Count 2.69 x10^6/uL (4.30-5.70) Hemoglobin 7.4 g/dL (13.0-17.5) Hematocrit 22.0 % (39.0-53.0) Mean Corpuscular Volume 82 fL (79-100) Mean Corpuscular Hemoglobin 28 pg (25-35) Mean Corpuscular Hemoglobin Concent 34 g/dL (31-37) Red Cell Distribution Width 16.7 % (11.5-14.5) Platelet Count 116 x10^3/uL (140-400) Neutrophils (%) (Auto) 84 % (31-73) Lymphocytes (%) (Auto) 1 % (24-48) Monocytes (%) (Auto) 11 % (0-9) Eosinophils (%) (Auto) 3 % (0-3) Basophils (%) (Auto) 1 % (0-3) Neutrophils # (Auto) 3.1 x10^3/uL (1.8-7.7) Lymphocytes # (Auto) 0.0 x10^3/uL (1.0-4.8) Monocytes # (Auto) 0.4 x10^3/uL (0.0-1.1) Eosinophils # (Auto) 0.1 x10^3/uL (0.0-0.7) Basophils # (Auto) 0.0 x10^3/uL (0.0-0.2) Sodium Level 135 mmol/L (136-145) Potassium Level 3.7 mmol/L (3.5-5.1) Chloride Level 104 mmol/L (98-107) Carbon Dioxide Level 24 mmol/L (21-32) Anion Gap 7 (6-14) Blood Urea Nitrogen 17 mg/dL (8-26) Creatinine 0.8 mg/dL (0.7-1.3) Estimated GFR (Cockcroft-Gault) 96.7 BUN/Creatinine Ratio 21 (6-20) Glucose Level 102 mg/dL (70-99) Calcium Level 7.5 mg/dL (8.5-10.1) Phosphorus Level 3.1 mg/dL (2.6-4.7) Magnesium Level 2.1 mg/dL (1.8-2.4) Total Bilirubin 0.4 mg/dL (0.2-1.0) Aspartate Amino Transf (AST/SGOT) 13 U/L (15-37) Alanine Aminotransferase (ALT/SGPT) 22 U/L (16-63) Alkaline Phosphatase 52 U/L (46-116) Total Protein 4.7 g/dL (6.4-8.2) Albumin 1.8 g/dL (3.4-5.0) Albumin/Globulin Ratio 0.6 (1.0-1.7) Triglycerides Level 94 mg/dL (0-150) Laboratory Tests Test 12/13/20 09:50 12/13/20 23:55 12/14/20 04:55 Lactic Acid Level 0.7 mmol/L (0.4-2.0) Procalcitonin 0.18 ng/mL (0.00-0.10) White Blood Count 3.7 x10^3/uL (4.0-11.0) Red Blood Count 2.69 x10^6/uL (4.30-5.70) Hemoglobin 7.4 g/dL (13.0-17.5) Hematocrit 22.0 % (39.0-53.0) Mean Corpuscular Volume 82 fL (79-100) Mean Corpuscular Hemoglobin 28 pg (25-35) Mean Corpuscular Hemoglobin Concent 34 g/dL (31-37) Red Cell Distribution Width 16.7 % (11.5-14.5) Platelet Count 116 x10^3/uL (140-400) Neutrophils (%) (Auto) 84 % (31-73) Lymphocytes (%) (Auto) 1 % (24-48) Monocytes (%) (Auto) 11 % (0-9) Eosinophils (%) (Auto) 3 % (0-3) Basophils (%) (Auto) 1 % (0-3) Neutrophils # (Auto) 3.1 x10^3/uL (1.8-7.7) Lymphocytes # (Auto) 0.0 x10^3/uL (1.0-4.8) Monocytes # (Auto) 0.4 x10^3/uL (0.0-1.1) Eosinophils # (Auto) 0.1 x10^3/uL (0.0-0.7) Basophils # (Auto) 0.0 x10^3/uL (0.0-0.2) Sodium Level 135 mmol/L (136-145) Potassium Level 3.7 mmol/L (3.5-5.1) Chloride Level 104 mmol/L (98-107) Carbon Dioxide Level 24 mmol/L (21-32) Anion Gap 7 (6-14) Blood Urea Nitrogen 17 mg/dL (8-26) Creatinine 0.8 mg/dL (0.7-1.3) Estimated GFR (Cockcroft-Gault) 96.7 BUN/Creatinine Ratio 21 (6-20) Glucose Level 102 mg/dL (70-99) Calcium Level 7.5 mg/dL (8.5-10.1) Phosphorus Level 3.1 mg/dL (2.6-4.7) Magnesium Level 2.1 mg/dL (1.8-2.4) Total Bilirubin 0.4 mg/dL (0.2-1.0) Aspartate Amino Transf (AST/SGOT) 13 U/L (15-37) Alanine Aminotransferase (ALT/SGPT) 22 U/L (16-63) Alkaline Phosphatase 52 U/L (46-116) Total Protein 4.7 g/dL (6.4-8.2) Albumin 1.8 g/dL (3.4-5.0) Albumin/Globulin Ratio 0.6 (1.0-1.7) Triglycerides Level 94 mg/dL (0-150) Microbiology 12/12/20 Blood Culture - Preliminary, Resulted NO GROWTH AFTER 1 DAY Medications Current Medications Cefepime HCl (Maxipime) 2 gm 1X ONCE IVP Last administered on 12/12/20at 17:01; Start 12/12/20 at 16:45; Stop 12/12/20 at 16:46; Status DC Sennosides (Senna) 17.2 mg PRN BID PRN PO CONSTIPATION; Start 12/12/20 at 16:45 Docusate Sodium (Colace) 100 mg PRN DAILY PRN PO HARD STOOLS; Start 12/12/20 at 16:45 Ondansetron HCl (Zofran) 4 mg PRN Q6HRS PRN IVP NAUSEA/VOMITING Last administered on 12/13/20at 16:04; Start 12/12/20 at 16:45 Dextrose (Dextrose 50%-Water Syringe) 12.5 gm PRN Q15MIN PRN IV SEE COMMENTS; Start 12/12/20 at 16:45 Cefepime HCl (Maxipime) 2 gm DAILY ONCE IVP Last administered on 12/13/20at 08:08; Start 12/13/20 at 09:00; Stop 12/13/20 at 10:46; Status DC Sodium Chloride 1,000 ml @ 100 mls/hr Q10H IV Last administered on 12/14/20at 08:28; Start 12/12/20 at 17:45 Enoxaparin Sodium (Lovenox 40mg Syringe) 40 mg Q24H SQ Last administered on 12/13/20at 16:05; Start 12/12/20 at 17:45 Zolpidem Tartrate (Ambien) 5 mg PRN QHS PRN PO INSOMNIA Last administered on 12/13/20at 22:13; Start 12/12/20 at 23:30 Magnesium Sulfate 50 ml @ 25 mls/hr Q24H IV Last administered on 12/13/20at 16:04; Start 12/13/20 at 11:00; Stop 12/13/20 at 12:59; Status DC Cefepime HCl (Maxipime) 1 gm Q12HR IVP Last administered on 12/14/20at 08:29; Start 12/13/20 at 21:00 Vancomycin HCl (Vanco Per Pharmacy) 1 each PRN DAILY PRN MC SEE COMMENTS Last administered on 12/13/20at 15:45; Start 12/13/20 at 10:45 Vancomycin HCl 1 gm/Sodium Chloride 250 ml @ 250 mls/hr 1X ONCE IV Last administered on 12/13/20at 12:22; Start 12/13/20 at 11:00; Stop 12/13/20 at 11:59; Status DC Micafungin Sodium 100 mg/Dextrose 100 ml @ 100 mls/hr Q24H IV Last administered on 12/13/20at 14:06; Start 12/13/20 at 12:00 Info (Tpn Per Pharmacy) 1 each PRN DAILY PRN MC SEE COMMENTS Last administered on 12/13/20at 15:50; Start 12/13/20 at 11:30 Sodium Chloride 110 meq/Potassium Chloride 50 meq/ Potassium Phosphate 12 mmol/ Magnesium Sulfate 12 meq/Calcium Gluconate 10 meq/ Multivitamins 5 ml/Zinc/Copper/ Manganese/ Selenium 1 ml/ Total Parenteral Nutrition/Amino Acids/Dextrose/ Fat Emulsion Intravenous 1,512 ml @ 63 mls/hr TPN CONT IV Last administered on 12/13/20at 21:57; Start 12/13/20 at 22:00; Stop 12/14/20 at 21:59 Filgrastim (Neupogen) 300 mcg QHS SQ Last administered on 12/13/20at 21:58; Start 12/13/20 at 21:00 Vancomycin HCl 750 mg/Sodium Chloride 250 ml @ 250 mls/hr Q24H IV ; Start 12/14/20 at 12:30 Vancomycin HCl (Vancomycin Trough Level) 1 each 1X ONCE MC ; Start 12/15/20 at 12:00; Stop 12/15/20 at 12:01 Active Scripts Active Protonix (Pantoprazole Sodium) 40 Mg Tablet.dr 40 Mg PO DAILYAC 30 Days Reported Levothyroxine Sodium 50 Mcg Tablet 1 Tab PO DAILY Carvedilol (Carvedilol) 3.125 Mg Tablet 3.125 Mg PO BIDWMEALS Ondansetron Hcl 4 Mg Tablet 1 Tab PO PRN Q8HRS PRN Vitals/I & O Vital Sign - Last 24 Hours 12/13/20 12/13/20 12/13/20 12/13/20 10:29 11:00 11:29 13:47 Temp 98.6 97.4 97.6 98.7 98.6 97.4 97.6 98.7 Pulse 95 89 87 78 Resp 18 18 18 16 B/P (MAP) 108/66 105/70 (82) 91/65 98/63 Pulse Ox 100 O2 Delivery Room Air 12/13/20 12/13/20 12/13/20 12/13/20 15:00 19:00 20:00 22:59 Temp 99.8 99.8 98.6 99.8 99.8 98.6 Pulse 85 86 84 Resp 18 19 16 B/P (MAP) 100/63 (75) 96/56 (69) 102/68 (79) Pulse Ox 99 100 98 O2 Delivery Room Air Room Air Room Air Room Air 12/14/20 04:00 Temp 97.1 97.1 Pulse 85 Resp 16 B/P (MAP) 103/73 (83) Pulse Ox 100 O2 Delivery Room Air Intake and Output 12/13/20 12/13/20 12/14/20 14:59 22:59 06:59 Intake Total 501 ml 1000 ml Output Total 600 ml 200 ml 800 ml Balance -99 ml 800 ml -800 ml Nutrition Consultation Dietary Evaluation: Recommendations by RD: Dietary education by RD, PPN/TPN Comments: REC continue diet as tolerated TPN REC: 195 g dextrose, 60 g AA, 20 g lipid and monitor Expected Outcomes/Goals: to meet >75% est nutr needs via po intake and nutrition support Interpretation of weight loss: >10% in 6 months Malnutrition Findings: Food and Nutrition Intake (Sev: <50% est energy req 5days Body Fat Depletion (Non Severe: Mod to Severe Weight Status: Underweight Justicifation of Admission Dx: Justifications for Admission: Justification of Admission Dx: Yes RONALD VANEGAS MD Dec 14, 2020 08:45
--- NOTE | 2020-12-14 10:30 | PDOC ---
Infectious Disease Note Subjective Subjective pt is feeling good, no fever, no complaints ROS ROS no n/v/d/sob/fever Vital Sign Vital Signs Vital Signs Date Time Temp Pulse Resp B/P (MAP) Pulse Ox O2 Delivery O2 Flow Rate FiO2 12/14/20 07:00 97.4 71 18 109/69 (82) 100 Room Air 97.4 Physical Exam PHYSICAL EXAM GENERAL: Alert and oriented gentleman, not in distress. The patient is thin, cachectic down to 102 pounds. VITAL SIGNS: Stable. HEENT: Both pupils are round and reacting. No conjunctival lesion, no lesion in the mouth. NECK: Supple, no JVP, no lymphadenopathy. LUNGS: Clear. HEART: S1, S2 regular. ABDOMEN: Has a colostomy in place, but otherwise unremarkable. The patient does have Port-A-Cath in the right upper chest, which is not showing any obvious signs of infection. NEUROLOGIC: The patient is alert, awake and appropriate. No focal neurologic deficit. Labs Lab Laboratory Tests Test 12/13/20 23:55 12/14/20 04:55 Procalcitonin 0.18 ng/mL (0.00-0.10) White Blood Count 3.7 x10^3/uL (4.0-11.0) Red Blood Count 2.69 x10^6/uL (4.30-5.70) Hemoglobin 7.4 g/dL (13.0-17.5) Hematocrit 22.0 % (39.0-53.0) Mean Corpuscular Volume 82 fL (79-100) Mean Corpuscular Hemoglobin 28 pg (25-35) Mean Corpuscular Hemoglobin Concent 34 g/dL (31-37) Red Cell Distribution Width 16.7 % (11.5-14.5) Platelet Count 116 x10^3/uL (140-400) Neutrophils (%) (Auto) 84 % (31-73) Lymphocytes (%) (Auto) 1 % (24-48) Monocytes (%) (Auto) 11 % (0-9) Eosinophils (%) (Auto) 3 % (0-3) Basophils (%) (Auto) 1 % (0-3) Neutrophils # (Auto) 3.1 x10^3/uL (1.8-7.7) Lymphocytes # (Auto) 0.0 x10^3/uL (1.0-4.8) Monocytes # (Auto) 0.4 x10^3/uL (0.0-1.1) Eosinophils # (Auto) 0.1 x10^3/uL (0.0-0.7) Basophils # (Auto) 0.0 x10^3/uL (0.0-0.2) Sodium Level 135 mmol/L (136-145) Potassium Level 3.7 mmol/L (3.5-5.1) Chloride Level 104 mmol/L (98-107) Carbon Dioxide Level 24 mmol/L (21-32) Anion Gap 7 (6-14) Blood Urea Nitrogen 17 mg/dL (8-26) Creatinine 0.8 mg/dL (0.7-1.3) Estimated GFR (Cockcroft-Gault) 96.7 BUN/Creatinine Ratio 21 (6-20) Glucose Level 102 mg/dL (70-99) Calcium Level 7.5 mg/dL (8.5-10.1) Phosphorus Level 3.1 mg/dL (2.6-4.7) Magnesium Level 2.1 mg/dL (1.8-2.4) Total Bilirubin 0.4 mg/dL (0.2-1.0) Aspartate Amino Transf (AST/SGOT) 13 U/L (15-37) Alanine Aminotransferase (ALT/SGPT) 22 U/L (16-63) Alkaline Phosphatase 52 U/L (46-116) Total Protein 4.7 g/dL (6.4-8.2) Albumin 1.8 g/dL (3.4-5.0) Albumin/Globulin Ratio 0.6 (1.0-1.7) Triglycerides Level 94 mg/dL (0-150) Micro BLOOD CULTURE LC Final Final GROWTH OF GRAM POSITIVE COCCI FINAL ID= [STAPHYLOCOCCUS EPIDERMIDIS] Growth of organism in only one of multiple sets; isolation does not necessarily indicate infection. Contact Microbiology Lab if further testing is clinically warranted. STAPHYLOCOCCUS EPIDERMIDIS Unless otherwise specified, Testing Performed by: [address] [id number] For Inquires, the Physician may contact the Microbiology department at [phone] Objective Assessment IMPRESSION: 1. Neutropenic fever. 2. Blood culture positive with Gram-positive cocci, likely from the Port-A-Cath either colonization or infection. Coag neg staph 3. Neutropenia from chemotherapy. 4. 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 5. Malnutrition. Plan Plan of Care start scaling down antibiotics hopefully if noting new tomorrow , d/c on po zyvox TIM WONG MD Dec 14, 2020 10:29
[2020-12-14 11:00] VITALS: BP 102/66
--- NOTE | 2020-12-14 11:48 | PDOC ---
PULMONARY PROGRESS NOTES DATE: 12/14/20 TIME: 11:43 Subjective Patient is resting comfortably on room air no increased shortness of breath or chest pain or cough No overnight concerns from nursing Vitals Vital Signs Date Time Temp Pulse Resp B/P (MAP) Pulse Ox O2 Delivery O2 Flow Rate FiO2 12/14/20 11:00 96.7 78 18 102/66 (78) 100 Room Air 96.7 ROS: No Nausea, No Chest Pain, No Abdominal Pain, No Increase Cough General: Alert, No acute distress HEENT: Other Lungs: Clear, Wheezing, Other Cardiovascular: S1 Abdomen: Soft, Other (ostomy) Extremities: Other Labs Laboratory Tests Test 12/12/20 14:00 12/12/20 15:02 12/12/20 15:17 12/13/20 06:00 White Blood Count 1.4 x10^3/uL (4.0-11.0) 1.0 x10^3/uL (4.0-11.0) Red Blood Count 2.69 x10^6/uL (4.30-5.70) 2.44 x10^6/uL (4.30-5.70) Hemoglobin 7.1 g/dL (13.0-17.5) 6.7 g/dL (13.0-17.5) Hematocrit 21.8 % (39.0-53.0) 19.7 % (39.0-53.0) Mean Corpuscular Volume 81 fL (79-100) 81 fL (79-100) Mean Corpuscular Hemoglobin 26 pg (25-35) 26 pg (25-35) Mean Corpuscular Hemoglobin Concent 33 g/dL (31-37) 33 g/dL (31-37) Red Cell Distribution Width 15.8 % (11.5-14.5) 15.5 % (11.5-14.5) Platelet Count 142 x10^3/uL (140-400) 104 x10^3/uL (140-400) Neutrophils (%) (Auto) 74 % (31-73) 76 % (31-73) Lymphocytes (%) (Auto) 2 % (24-48) 3 % (24-48) Monocytes (%) (Auto) 21 % (0-9) 16 % (0-9) Eosinophils (%) (Auto) 3 % (0-3) 4 % (0-3) Basophils (%) (Auto) 1 % (0-3) 1 % (0-3) Neutrophils # (Auto) 1.0 x10^3/uL (1.8-7.7) 0.8 x10^3/uL (1.8-7.7) Lymphocytes # (Auto) 0.0 x10^3/uL (1.0-4.8) 0.0 x10^3/uL (1.0-4.8) Monocytes # (Auto) 0.3 x10^3/uL (0.0-1.1) 0.2 x10^3/uL (0.0-1.1) Eosinophils # (Auto) 0.0 x10^3/uL (0.0-0.7) 0.0 x10^3/uL (0.0-0.7) Basophils # (Auto) 0.0 x10^3/uL (0.0-0.2) 0.0 x10^3/uL (0.0-0.2) Segmented Neutrophils % 61 % (35-66) Band Neutrophils % 13 % (0-9) Lymphocytes % 13 % (24-48) Monocytes % 13 % (0-10) Platelet Estimate Adequate (ADEQUATE) Anisocytosis Slight Sodium Level 134 mmol/L (136-145) 135 mmol/L (136-145) Potassium Level 4.4 mmol/L (3.5-5.1) 4.0 mmol/L (3.5-5.1) Chloride Level 102 mmol/L (98-107) 103 mmol/L (98-107) Carbon Dioxide Level 22 mmol/L (21-32) 24 mmol/L (21-32) Anion Gap 10 (6-14) 8 (6-14) Blood Urea Nitrogen 17 mg/dL (8-26) 19 mg/dL (8-26) Creatinine 0.9 mg/dL (0.7-1.3) 0.8 mg/dL (0.7-1.3) Estimated GFR (Cockcroft-Gault) 84.4 96.7 BUN/Creatinine Ratio 19 (6-20) Glucose Level 102 mg/dL (70-99) 86 mg/dL (70-99) Calcium Level 8.3 mg/dL (8.5-10.1) 8.0 mg/dL (8.5-10.1) Total Bilirubin 0.4 mg/dL (0.2-1.0) Aspartate Amino Transf (AST/SGOT) 11 U/L (15-37) Alanine Aminotransferase (ALT/SGPT) 21 U/L (16-63) Alkaline Phosphatase 61 U/L (46-116) Troponin I Quantitative 0.027 ng/mL (0.000-0.055) Total Protein 5.7 g/dL (6.4-8.2) Albumin 2.3 g/dL (3.4-5.0) Albumin/Globulin Ratio 0.7 (1.0-1.7) Coronavirus (PCR) Not detected (Not Detected) Urine Collection Type Unknown Urine Color Yellow Urine Clarity Clear Urine pH 5.0 (<5.0-8.0) Urine Specific [place] 1.015 (1.000-1.030) Urine Protein Negative mg/dL (NEG-TRACE) Urine Glucose (UA) Negative mg/dL (NEG) Urine Ketones (Stick) Negative mg/dL (NEG) Urine Blood Negative (NEG) Urine Nitrite Negative (NEG) Urine Bilirubin Negative (NEG) Urine Urobilinogen Dipstick 0.2 mg/dL (0.2 mg/dL) Urine Leukocyte Esterase Negative (NEG) Urine RBC 1-2 /HPF (0-2) Urine WBC 1-4 /HPF (0-4) Urine Squamous Epithelial Cells Few /LPF Urine Bacteria Few /HPF (0-FEW) Urine Mucus Slight /LPF Phosphorus Level 3.4 mg/dL (2.6-4.7) Magnesium Level 1.7 mg/dL (1.8-2.4) Procalcitonin 0.23 ng/mL (0.00-0.10) Test 12/13/20 09:50 12/13/20 23:55 12/14/20 04:55 Lactic Acid Level 0.7 mmol/L (0.4-2.0) Procalcitonin 0.18 ng/mL (0.00-0.10) White Blood Count 3.7 x10^3/uL (4.0-11.0) Red Blood Count 2.69 x10^6/uL (4.30-5.70) Hemoglobin 7.4 g/dL (13.0-17.5) Hematocrit 22.0 % (39.0-53.0) Mean Corpuscular Volume 82 fL (79-100) Mean Corpuscular Hemoglobin 28 pg (25-35) Mean Corpuscular Hemoglobin Concent 34 g/dL (31-37) Red Cell Distribution Width 16.7 % (11.5-14.5) Platelet Count 116 x10^3/uL (140-400) Neutrophils (%) (Auto) 84 % (31-73) Lymphocytes (%) (Auto) 1 % (24-48) Monocytes (%) (Auto) 11 % (0-9) Eosinophils (%) (Auto) 3 % (0-3) Basophils (%) (Auto) 1 % (0-3) Neutrophils # (Auto) 3.1 x10^3/uL (1.8-7.7) Lymphocytes # (Auto) 0.0 x10^3/uL (1.0-4.8) Monocytes # (Auto) 0.4 x10^3/uL (0.0-1.1) Eosinophils # (Auto) 0.1 x10^3/uL (0.0-0.7) Basophils # (Auto) 0.0 x10^3/uL (0.0-0.2) Sodium Level 135 mmol/L (136-145) Potassium Level 3.7 mmol/L (3.5-5.1) Chloride Level 104 mmol/L (98-107) Carbon Dioxide Level 24 mmol/L (21-32) Anion Gap 7 (6-14) Blood Urea Nitrogen 17 mg/dL (8-26) Creatinine 0.8 mg/dL (0.7-1.3) Estimated GFR (Cockcroft-Gault) 96.7 BUN/Creatinine Ratio 21 (6-20) Glucose Level 102 mg/dL (70-99) Calcium Level 7.5 mg/dL (8.5-10.1) Phosphorus Level 3.1 mg/dL (2.6-4.7) Magnesium Level 2.1 mg/dL (1.8-2.4) Total Bilirubin 0.4 mg/dL (0.2-1.0) Aspartate Amino Transf (AST/SGOT) 13 U/L (15-37) Alanine Aminotransferase (ALT/SGPT) 22 U/L (16-63) Alkaline Phosphatase 52 U/L (46-116) Total Protein 4.7 g/dL (6.4-8.2) Albumin 1.8 g/dL (3.4-5.0) Albumin/Globulin Ratio 0.6 (1.0-1.7) Triglycerides Level 94 mg/dL (0-150) Laboratory Tests Test 12/13/20 23:55 12/14/20 04:55 Procalcitonin 0.18 ng/mL (0.00-0.10) White Blood Count 3.7 x10^3/uL (4.0-11.0) Red Blood Count 2.69 x10^6/uL (4.30-5.70) Hemoglobin 7.4 g/dL (13.0-17.5) Hematocrit 22.0 % (39.0-53.0) Mean Corpuscular Volume 82 fL (79-100) Mean Corpuscular Hemoglobin 28 pg (25-35) Mean Corpuscular Hemoglobin Concent 34 g/dL (31-37) Red Cell Distribution Width 16.7 % (11.5-14.5) Platelet Count 116 x10^3/uL (140-400) Neutrophils (%) (Auto) 84 % (31-73) Lymphocytes (%) (Auto) 1 % (24-48) Monocytes (%) (Auto) 11 % (0-9) Eosinophils (%) (Auto) 3 % (0-3) Basophils (%) (Auto) 1 % (0-3) Neutrophils # (Auto) 3.1 x10^3/uL (1.8-7.7) Lymphocytes # (Auto) 0.0 x10^3/uL (1.0-4.8) Monocytes # (Auto) 0.4 x10^3/uL (0.0-1.1) Eosinophils # (Auto) 0.1 x10^3/uL (0.0-0.7) Basophils # (Auto) 0.0 x10^3/uL (0.0-0.2) Sodium Level 135 mmol/L (136-145) Potassium Level 3.7 mmol/L (3.5-5.1) Chloride Level 104 mmol/L (98-107) Carbon Dioxide Level 24 mmol/L (21-32) Anion Gap 7 (6-14) Blood Urea Nitrogen 17 mg/dL (8-26) Creatinine 0.8 mg/dL (0.7-1.3) Estimated GFR (Cockcroft-Gault) 96.7 BUN/Creatinine Ratio 21 (6-20) Glucose Level 102 mg/dL (70-99) Calcium Level 7.5 mg/dL (8.5-10.1) Phosphorus Level 3.1 mg/dL (2.6-4.7) Magnesium Level 2.1 mg/dL (1.8-2.4) Total Bilirubin 0.4 mg/dL (0.2-1.0) Aspartate Amino Transf (AST/SGOT) 13 U/L (15-37) Alanine Aminotransferase (ALT/SGPT) 22 U/L (16-63) Alkaline Phosphatase 52 U/L (46-116) Total Protein 4.7 g/dL (6.4-8.2) Albumin 1.8 g/dL (3.4-5.0) Albumin/Globulin Ratio 0.6 (1.0-1.7) Triglycerides Level 94 mg/dL (0-150) Medications Active Scripts Medications Dose Route/Sig Max Daily Dose Days Date Category Protonix (Pantoprazole Sodium) 40 Mg Tablet.dr 40 Mg PO DAILYAC 30 09/07/20 Rx Levothyroxine Sodium 50 Mcg Tablet 1 Tab PO DAILY 08/27/20 Reported Carvedilol (Carvedilol) 3.125 Mg Tablet 3.125 Mg PO BIDWMEALS 08/27/20 Reported Ondansetron Hcl 4 Mg Tablet 1 Tab PO PRN Q8HRS PRN 08/27/20 Reported Impression . IMPRESSION: 1. Fever in a patient who is pancytopenic and immunocompromised. The sources of fever could be lungs. Currently on broad-spectrum antibiotics. 2. Pancytopenia post-chemotherapy. 3. 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 4. No significant tobacco history. Plan . RECOMMENDATIONS: Continue supplemental oxygen to keep oxygen saturations greater 92%, currently on room air Follow ID recommendations in regards to antibiotics, currently on vancomycin Follow cultures Monitor hemoglobin white blood cell count and platelets Transfusion as needed for anemia Continue TPN for additional nutritional support COVID-19 negative can move out of isolation DVT/GI prophylaxis Discussed with BINDU MERCADO MD Dec 14, 2020 11:48
[2020-12-14] MEDS: MULTIVITAMIN with MINERAL TABLET. PO SCH (11:56)
[2020-12-14] MEDS: MICAFUNGIN 100 MG in IV DEXTROSE 5% 100ML 100 ML IV SCH (11:57)
[2020-12-14] MEDS: VANCOMYCIN PER PHARMACY MC PRN (12:03)
[2020-12-14] MEDS: TPN PER PHARMACY MC PRN (12:04)
--- NOTE | 2020-12-14 12:06 | NUR ---
Pharmacy TPN Dosing Note S: JASON KIRK is a 65 year old M Currently receiving Central Continuous TPN B:Pertinent PMH: Oropharyngeal adenocarcinoma Height: 5 feet, 4 inches Weight: 48.1 kg Current diet: LABS: Sodium: 135 Potassium: 3.7 Chloride: 104 Calcium: 7.5 Corrected Calcium: 9.26 Magnesium: 2.1 CO2: 24 SCr: 0.8 Glucose: 102 Albumin: 1.8 AST: 13 ALT: 22 TPN FORMULA: TPN TYPE: Central Continuous AMINO ACIDS: 60 gm DEXTROSE: 195 gm LIPIDS: 20 gm SODIUM CHLORIDE: 110 mEq POTASSIUM CHLORIDE: 50 mEq POTASSIUM PHOSPHATE: 12 mmol MAGNESIUM: 12 mEq CALCIUM: 10 mEq MULTIPLE VITAMIN: 5 ml TRACE ELEMENTS: 1 ml(s) TPN PLAN: Continue same R: Continue TPN Will monitor electrolytes, glucose, and tolerance to TPN. Nela Richards RPH, 12/14/20 [id number]
[2020-12-14] MEDS ORDERED: VANCOMYCIN 750 MG in IV NORMAL SALINE 250ML 250 ML IV SCH (12:30)
[2020-12-14 15:00] VITALS: BP 110/72
--- NOTE | 2020-12-14 15:22 | NUR ---
SW following for discharge planning. Spoke with RN and reviewed chart. Pt's COVID result came back negative. Discharge plan remains home with resumption of [facility] for TPN and possibly abx. SW following.
--- NOTE | 2020-12-14 16:10 | NUR ---
Patient has been received to room 506. Call light placed within easy reach. Patient declined phone, wants to only use his cell phone. No visitors with patient at this time.
[2020-12-14] MEDS: ENOXAPARIN 40 MG/0.4 ML SYRINGE. SQ SCH ×2 (17:45→19:42)
[2020-12-14 19:00] VITALS: BP 116/75
[2020-12-14] MEDS: ONDANSETRON PF 4 MG/2 ML VIAL. IVP PRN (19:46)
[2020-12-14] MEDS: FILGRASTIM 300 MCG/ML SQ SCH (21:33)
[2020-12-14] MEDS: ZOLPIDEM 5 MG TABLET. PO PRN (21:33)
[2020-12-14] MEDS ORDERED: TOTAL PARENTERAL NUTRITION IV SCH (22:00)
[2020-12-14] MEDS ORDERED: [UNRECOGNIZED DRUG - OTHER] IV SCH (22:00)
[2020-12-14] MEDS ORDERED: DEXTROSE 70% IV SCH (22:00)
[2020-12-14] MEDS ORDERED: AMINO ACID IV SCH (22:00)
[2020-12-14 23:00] VITALS: BP 108/66
[2020-12-15 03:00] VITALS: BP 94/51
[2020-12-15 06:52] LABS: CALCIUM 7.3 mg/dL (8.5-10.1); CREATININE 0.7 mg/dL (0.7-1.3); GFR 112.8; MAGNESIUM 1.7 mg/dL (1.8-2.4); PHOSPHORUS 2.3 mg/dL (2.6-4.7)
[2020-12-15 06:55] LABS: VANC TR 10.2 mcg/mL (10.0-20.0)
[2020-12-15 07:00] VITALS: BP 109/66
[2020-12-15] MEDS: ONDANSETRON PF 4 MG/2 ML VIAL. IVP PRN ×2 (08:41→16:58)
--- NOTE | 2020-12-15 09:04 | PDOC ---
PROGRESS NOTES Date of Service DATE: 12/15/20 TIME: 09:01 Subjective Subjective No interval history. No new symptoms today. Likely discharge home today. Objective Objective Vital Signs Date Time Temp Pulse Resp B/P (MAP) Pulse Ox O2 Delivery O2 Flow Rate FiO2 12/15/20 07:00 97.6 80 17 109/66 (80) 100 Room Air 97.6 Intake and Output 12/15/20 07:00 Intake Total 660 ml Output Total 1000 ml Balance -340 ml Intake Oral 660 ml Output Urine Total 1000 ml Physical Exam Abdomen: Normal bowel sounds, Soft Heart: Regular rate, Normal S1, Normal S2 Extremities: No clubbing General: Alert, Oriented X3 HEENT: Atraumatic Lungs: Clear to auscultation MUSCULOSKELETAL: No swelling Neck: Supple Neuro: Normal gait, Normal speech Psych/Mental Status: Mental status NL Skin: No rashes Assessment Assessment Locally advanced GE junction adenocarcinoma, status post concurrent chemoradiotherapy with carboplatin and paclitaxel Fever, possibly secondary to aspiration pneumonia, resolved Protein calorie malnutrition secondary to dysphagia Dysphagia from esophageal cancer, status post initiation of TPN Neutropenia from antineoplastic chemotherapy Plan Plan of Care -Continue with antibiotics per ID service at this time -No growth noted on blood cultures -Given neutropenia and fever, would recommend starting G-CSF 300 mcg daily while inpatient. He does not require prescription for this after discharge from the hospital -Follow-up will be arranged with medical oncology clinic after discharge from hospital. No additional recommendations for management while inpatient from oncology standpoint -Continue TPN -DC and other management per Dr. Pieter Barr MD Medical Oncology/Hematology Ph: [phone] Comment Review of Relevant I have reviewed the following items adeline (where applicable) has been applied. Labs Laboratory Tests Test 12/13/20 09:50 12/13/20 23:55 12/14/20 04:55 12/15/20 06:25 Lactic Acid Level 0.7 mmol/L (0.4-2.0) Procalcitonin 0.18 ng/mL (0.00-0.10) White Blood Count 3.7 x10^3/uL (4.0-11.0) Red Blood Count 2.69 x10^6/uL (4.30-5.70) Hemoglobin 7.4 g/dL (13.0-17.5) Hematocrit 22.0 % (39.0-53.0) Mean Corpuscular Volume 82 fL (79-100) Mean Corpuscular Hemoglobin 28 pg (25-35) Mean Corpuscular Hemoglobin Concent 34 g/dL (31-37) Red Cell Distribution Width 16.7 % (11.5-14.5) Platelet Count 116 x10^3/uL (140-400) Neutrophils (%) (Auto) 84 % (31-73) Lymphocytes (%) (Auto) 1 % (24-48) Monocytes (%) (Auto) 11 % (0-9) Eosinophils (%) (Auto) 3 % (0-3) Basophils (%) (Auto) 1 % (0-3) Neutrophils # (Auto) 3.1 x10^3/uL (1.8-7.7) Lymphocytes # (Auto) 0.0 x10^3/uL (1.0-4.8) Monocytes # (Auto) 0.4 x10^3/uL (0.0-1.1) Eosinophils # (Auto) 0.1 x10^3/uL (0.0-0.7) Basophils # (Auto) 0.0 x10^3/uL (0.0-0.2) Sodium Level 135 mmol/L (136-145) 137 mmol/L (136-145) Potassium Level 3.7 mmol/L (3.5-5.1) 4.0 mmol/L (3.5-5.1) Chloride Level 104 mmol/L (98-107) 105 mmol/L (98-107) Carbon Dioxide Level 24 mmol/L (21-32) 23 mmol/L (21-32) Anion Gap 7 (6-14) 9 (6-14) Blood Urea Nitrogen 17 mg/dL (8-26) 12 mg/dL (8-26) Creatinine 0.8 mg/dL (0.7-1.3) 0.7 mg/dL (0.7-1.3) Estimated GFR (Cockcroft-Gault) 96.7 112.8 BUN/Creatinine Ratio 21 (6-20) Glucose Level 102 mg/dL (70-99) 98 mg/dL (70-99) Calcium Level 7.5 mg/dL (8.5-10.1) 7.3 mg/dL (8.5-10.1) Phosphorus Level 3.1 mg/dL (2.6-4.7) 2.3 mg/dL (2.6-4.7) Magnesium Level 2.1 mg/dL (1.8-2.4) 1.7 mg/dL (1.8-2.4) Total Bilirubin 0.4 mg/dL (0.2-1.0) Aspartate Amino Transf (AST/SGOT) 13 U/L (15-37) Alanine Aminotransferase (ALT/SGPT) 22 U/L (16-63) Alkaline Phosphatase 52 U/L (46-116) Total Protein 4.7 g/dL (6.4-8.2) Albumin 1.8 g/dL (3.4-5.0) Albumin/Globulin Ratio 0.6 (1.0-1.7) Triglycerides Level 94 mg/dL (0-150) Vancomycin Level Trough 10.2 mcg/mL (10.0-20.0) Vancomycin Last Dose Date 12/14/20 Vancomycin Last Dose Time 1230 Laboratory Tests Test 12/15/20 06:25 Sodium Level 137 mmol/L (136-145) Potassium Level 4.0 mmol/L (3.5-5.1) Chloride Level 105 mmol/L (98-107) Carbon Dioxide Level 23 mmol/L (21-32) Anion Gap 9 (6-14) Blood Urea Nitrogen 12 mg/dL (8-26) Creatinine 0.7 mg/dL (0.7-1.3) Estimated GFR (Cockcroft-Gault) 112.8 Glucose Level 98 mg/dL (70-99) Calcium Level 7.3 mg/dL (8.5-10.1) Phosphorus Level 2.3 mg/dL (2.6-4.7) Magnesium Level 1.7 mg/dL (1.8-2.4) Vancomycin Level Trough 10.2 mcg/mL (10.0-20.0) Vancomycin Last Dose Date 12/14/20 Vancomycin Last Dose Time 1230 Microbiology 12/13/20 Blood Culture - Preliminary, Resulted NO GROWTH AFTER 1 DAY Medications Current Medications Cefepime HCl (Maxipime) 2 gm 1X ONCE IVP Last administered on 12/12/20at 17:01; Start 12/12/20 at 16:45; Stop 12/12/20 at 16:46; Status DC Sennosides (Senna) 17.2 mg PRN BID PRN PO CONSTIPATION; Start 12/12/20 at 16:45 Docusate Sodium (Colace) 100 mg PRN DAILY PRN PO HARD STOOLS; Start 12/12/20 at 16:45 Ondansetron HCl (Zofran) 4 mg PRN Q6HRS PRN IVP NAUSEA/VOMITING Last administered on 12/15/20at 08:41; Start 12/12/20 at 16:45 Dextrose (Dextrose 50%-Water Syringe) 12.5 gm PRN Q15MIN PRN IV SEE COMMENTS; Start 12/12/20 at 16:45 Cefepime HCl (Maxipime) 2 gm DAILY ONCE IVP Last administered on 12/13/20at 08:08; Start 12/13/20 at 09:00; Stop 12/13/20 at 10:46; Status DC Sodium Chloride 1,000 ml @ 100 mls/hr Q10H IV Last administered on 12/14/20at 22:26; Start 12/12/20 at 17:45 Enoxaparin Sodium (Lovenox 40mg Syringe) 40 mg Q24H SQ Last administered on 12/13/20at 16:05; Start 12/12/20 at 17:45 Zolpidem Tartrate (Ambien) 5 mg PRN QHS PRN PO INSOMNIA Last administered on 12/14/20at 21:33; Start 12/12/20 at 23:30 Magnesium Sulfate 50 ml @ 25 mls/hr Q24H IV Last administered on 12/13/20at 16:04; Start 12/13/20 at 11:00; Stop 12/13/20 at 12:59; Status DC Cefepime HCl (Maxipime) 1 gm Q12HR IVP Last administered on 12/14/20at 21:33; Start 12/13/20 at 21:00 Vancomycin HCl (Vanco Per Pharmacy) 1 each PRN DAILY PRN MC SEE COMMENTS Last administered on 12/14/20at 12:03; Start 12/13/20 at 10:45 Vancomycin HCl 1 gm/Sodium Chloride 250 ml @ 250 mls/hr 1X ONCE IV Last administered on 12/13/20at 12:22; Start 12/13/20 at 11:00; Stop 12/13/20 at 11:59; Status DC Micafungin Sodium 100 mg/Dextrose 100 ml @ 100 mls/hr Q24H IV Last administered on 12/14/20at 11:57; Start 12/13/20 at 12:00 Info (Tpn Per Pharmacy) 1 each PRN DAILY PRN MC SEE COMMENTS Last administered on 12/14/20at 12:04; Start 12/13/20 at 11:30 Sodium Chloride 110 meq/Potassium Chloride 50 meq/ Potassium Phosphate 12 mmol/ Magnesium Sulfate 12 meq/Calcium Gluconate 10 meq/ Multivitamins 5 ml/Zinc/Copper/ Manganese/ Selenium 1 ml/ Total Parenteral Nutrition/Amino Acids/Dextrose/ Fat Emulsion Intravenous 1,512 ml @ 63 mls/hr TPN CONT IV Last administered on 12/13/20at 21:57; Start 12/13/20 at 22:00; Stop 12/14/20 at 21:59; Status DC Filgrastim (Neupogen) 300 mcg QHS SQ Last administered on 12/14/20at 21:33; Start 12/13/20 at 21:00 Vancomycin HCl 750 mg/Sodium Chloride 250 ml @ 250 mls/hr Q24H IV Last administered on 12/14/20at 13:58; Start 12/14/20 at 12:30 Vancomycin HCl (Vancomycin Trough Level) 1 each 1X ONCE MC ; Start 12/15/20 at 12:00; Stop 12/15/20 at 12:01 Multivitamins (Thera M Plus) 1 tab DAILY PO Last administered on 12/14/20at 11:56; Start 12/14/20 at 11:30 Sodium Chloride 110 meq/Potassium Chloride 50 meq/ Potassium Phosphate 12 mmol/ Magnesium Sulfate 12 meq/Calcium Gluconate 10 meq/ Multivitamins 5 ml/Zinc/Copper/ Manganese/ Selenium 1 ml/ Total Parenteral Nutrition/Amino Acids/Dextrose/ Fat Emulsion Intravenous 1,512 ml @ 63 mls/hr TPN CONT IV Last administered on 12/14/20at 22:27; Start 12/14/20 at 22:00; Stop 12/15/20 at 21:59 Active Scripts Active Protonix (Pantoprazole Sodium) 40 Mg Tablet. 40 Mg PO DAILYAC 30 Days Reported Levothyroxine Sodium 50 Mcg Tablet 1 Tab PO DAILY Carvedilol (Carvedilol) 3.125 Mg Tablet 3.125 Mg PO BIDWMEALS Ondansetron Hcl 4 Mg Tablet 1 Tab PO PRN Q8HRS PRN Vitals/I & O Vital Sign - Last 24 Hours 12/14/20 12/14/20 12/14/20 12/14/20 11:00 15:00 19:00 19:30 Temp 96.7 96.7 98.1 96.7 96.7 98.1 Pulse 78 75 85 Resp 18 18 16 B/P (MAP) 102/66 (78) 110/72 (85) 116/75 (89) Pulse Ox 100 100 99 O2 Delivery Room Air Room Air Room Air Room Air 12/14/20 12/15/20 12/15/20 23:00 03:00 07:00 Temp 98.6 97.7 97.6 98.6 97.7 97.6 Pulse 81 83 80 Resp 16 16 17 B/P (MAP) 108/66 (80) 94/51 (65) 109/66 (80) Pulse Ox 100 100 100 O2 Delivery Room Air Room Air Room Air Intake and Output 12/14/20 12/14/20 12/15/20 15:00 23:00 07:00 Intake Total 600 ml 60 ml 0 ml Output Total 300 ml 700 ml Balance 600 ml -240 ml -700 ml Justifications for Admission Other Justification Nutrition Consultation Dietary Evaluation: Recommendations by RD: Dietary education by RD, PPN/TPN Comments: REC continue diet as tolerated TPN REC: 195 g dextrose, 60 g AA, 20 g lipid and monitor Expected Outcomes/Goals: to meet >75% est nutr needs via po intake and nutrition support Interpretation of weight loss: >10% in 6 months Malnutrition Findings: Food and Nutrition Intake (Sev: <50% est energy req 5days Body Fat Depletion (Non Severe: Mod to Severe Weight Status: Underweight JASSON BARR MD Dec 15, 2020 09:04
--- NOTE | 2020-12-15 09:05 | PDOC ---
PROGRESS NOTES Date of Service: DATE: 12/15/20 TIME: 09:05 Chief Complaint Chief Complaint IMPRESSION Assessment/Plan Acute generalized weakness due to recent chemoradiation Tx Patchy opacities left lung base. Small left pleural effusion. Neutropenia Failure to thrive Debility Oropharyngeal dysphagia due to adenoCA Hyponatremia due to volume depletion Severe protein malnutrition POS BLOOD CULT - Blood culture positive with Gram-positive cocci, likely from the Port-A-Cath IE colonization or infection. PLAN Admit to medicine for further management Oncology consult Neutropenic precautions ID CONSULT Continue IV Cefepime 2G Daily Nutrition consult Continue TPN via Portacath FLD continue IVF Lovenox for DVT prophylaxis DPOA: Maura ([id number]) REPEAT BLOOD CULT X 2 12-13 LACTIC ACID PROCALCITONIN Start G-CSF 300 mcg daily while inpatient BLOOD CULTURE Final GRAM POSITIVE COCCI IN CLUSTERS, SUGGESTIVE OF STAPH, IN 2 OF 4 BOTLES, TWO SETS DRAWN ONE SET IS POSITIVE. 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 PEG is contraindicated and he was sent home with TPN through his portacath. Since his discharge on 12/01/20, patient has been doing well with his last session of chemoTx 2 weeks ago, but he stated he did feel week yesterday before his radiation Tx. Last labs drawn shown he had a WBC of 1.5 and today was 1.4 in the ED with ANC of > 700. He denied fevers, N/V, chest pain, SOB, diarrhea, or ABD pain. he does still have early satiety and some dysphagia with chopped chicken and mashed potatoes. He is able to tolerate ice cream and broth. 12-14 COVID NEG, feeling a bit stronger, D/W RN Past Medical/Surgical History: PMH/PSH: Past Medical History: Cancer, Hypertension, VA, Stroke, throat CA, esphogeal CA Past Surgical History: CABG, colostomy bag Allergies: Allergies: Coded Allergies: No Known Drug Allergies (Unverified , 08/31/20) Family History: Family History: Reviewed with no relevant findings Social History: Social History: Smoking Status: Never Smoker Alcohol Use: None Vitals Vitals Vital Signs Date Time Temp Pulse Resp B/P (MAP) Pulse Ox O2 Delivery O2 Flow Rate FiO2 12/15/20 07:00 97.6 80 17 109/66 (80) 100 Room Air 97.6 Physical Exam Physical Exam GENERAL: Alert and oriented gentleman, not in distress. The patient is thin, cachectic down to 102 pounds. VITAL SIGNS: Stable. HEENT: Both pupils are round and reacting. No conjunctival lesion, no lesion in the mouth. NECK: Supple, no JVP, no lymphadenopathy. LUNGS: Clear. HEART: S1, S2 regular. ABDOMEN: Has a colostomy in place, but otherwise unremarkable. The patient does have Port-A-Cath in the right upper chest, which is not showing any obvious signs of infection. NEUROLOGIC: The patient is alert, awake and appropriate. No focal neurologic deficit. General: Alert, Oriented X3 Heart: Regular rate, Normal S1, Normal S2 Lungs: Clear, Wheezing, Other Abdomen: Normal bowel sounds, Soft Extremities: No clubbing Skin: No rashes Labs LABS Laboratory Tests Test 12/15/20 06:25 Sodium Level 137 mmol/L (136-145) Potassium Level 4.0 mmol/L (3.5-5.1) Chloride Level 105 mmol/L (98-107) Carbon Dioxide Level 23 mmol/L (21-32) Anion Gap 9 (6-14) Blood Urea Nitrogen 12 mg/dL (8-26) Creatinine 0.7 mg/dL (0.7-1.3) Estimated GFR (Cockcroft-Gault) 112.8 Glucose Level 98 mg/dL (70-99) Calcium Level 7.3 mg/dL (8.5-10.1) Phosphorus Level 2.3 mg/dL (2.6-4.7) Magnesium Level 1.7 mg/dL (1.8-2.4) Vancomycin Level Trough 10.2 mcg/mL (10.0-20.0) Vancomycin Last Dose Date 12/14/20 Vancomycin Last Dose Time 1230 Assessment and Plan Assessmemt and Plan Problems Medical Problems: (1) Colon cancer Status: Acute (2) Esophageal cancer Status: Acute (3) Fatigue Status: Acute (4) Left lower lobe pneumonia Status: Acute (5) Person under investigation for COVID-19 Status: Acute Comment Review of Relevant I have reviewed the following items adeline (where applicable) has been applied. Labs Laboratory Tests Test 12/13/20 09:50 12/13/20 23:55 12/14/20 04:55 12/15/20 06:25 Lactic Acid Level 0.7 mmol/L (0.4-2.0) Procalcitonin 0.18 ng/mL (0.00-0.10) White Blood Count 3.7 x10^3/uL (4.0-11.0) Red Blood Count 2.69 x10^6/uL (4.30-5.70) Hemoglobin 7.4 g/dL (13.0-17.5) Hematocrit 22.0 % (39.0-53.0) Mean Corpuscular Volume 82 fL (79-100) Mean Corpuscular Hemoglobin 28 pg (25-35) Mean Corpuscular Hemoglobin Concent 34 g/dL (31-37) Red Cell Distribution Width 16.7 % (11.5-14.5) Platelet Count 116 x10^3/uL (140-400) Neutrophils (%) (Auto) 84 % (31-73) Lymphocytes (%) (Auto) 1 % (24-48) Monocytes (%) (Auto) 11 % (0-9) Eosinophils (%) (Auto) 3 % (0-3) Basophils (%) (Auto) 1 % (0-3) Neutrophils # (Auto) 3.1 x10^3/uL (1.8-7.7) Lymphocytes # (Auto) 0.0 x10^3/uL (1.0-4.8) Monocytes # (Auto) 0.4 x10^3/uL (0.0-1.1) Eosinophils # (Auto) 0.1 x10^3/uL (0.0-0.7) Basophils # (Auto) 0.0 x10^3/uL (0.0-0.2) Sodium Level 135 mmol/L (136-145) 137 mmol/L (136-145) Potassium Level 3.7 mmol/L (3.5-5.1) 4.0 mmol/L (3.5-5.1) Chloride Level 104 mmol/L (98-107) 105 mmol/L (98-107) Carbon Dioxide Level 24 mmol/L (21-32) 23 mmol/L (21-32) Anion Gap 7 (6-14) 9 (6-14) Blood Urea Nitrogen 17 mg/dL (8-26) 12 mg/dL (8-26) Creatinine 0.8 mg/dL (0.7-1.3) 0.7 mg/dL (0.7-1.3) Estimated GFR (Cockcroft-Gault) 96.7 112.8 BUN/Creatinine Ratio 21 (6-20) Glucose Level 102 mg/dL (70-99) 98 mg/dL (70-99) Calcium Level 7.5 mg/dL (8.5-10.1) 7.3 mg/dL (8.5-10.1) Phosphorus Level 3.1 mg/dL (2.6-4.7) 2.3 mg/dL (2.6-4.7) Magnesium Level 2.1 mg/dL (1.8-2.4) 1.7 mg/dL (1.8-2.4) Total Bilirubin 0.4 mg/dL (0.2-1.0) Aspartate Amino Transf (AST/SGOT) 13 U/L (15-37) Alanine Aminotransferase (ALT/SGPT) 22 U/L (16-63) Alkaline Phosphatase 52 U/L (46-116) Total Protein 4.7 g/dL (6.4-8.2) Albumin 1.8 g/dL (3.4-5.0) Albumin/Globulin Ratio 0.6 (1.0-1.7) Triglycerides Level 94 mg/dL (0-150) Vancomycin Level Trough 10.2 mcg/mL (10.0-20.0) Vancomycin Last Dose Date 12/14/20 Vancomycin Last Dose Time 1230 Laboratory Tests Test 12/15/20 06:25 Sodium Level 137 mmol/L (136-145) Potassium Level 4.0 mmol/L (3.5-5.1) Chloride Level 105 mmol/L (98-107) Carbon Dioxide Level 23 mmol/L (21-32) Anion Gap 9 (6-14) Blood Urea Nitrogen 12 mg/dL (8-26) Creatinine 0.7 mg/dL (0.7-1.3) Estimated GFR (Cockcroft-Gault) 112.8 Glucose Level 98 mg/dL (70-99) Calcium Level 7.3 mg/dL (8.5-10.1) Phosphorus Level 2.3 mg/dL (2.6-4.7) Magnesium Level 1.7 mg/dL (1.8-2.4) Vancomycin Level Trough 10.2 mcg/mL (10.0-20.0) Vancomycin Last Dose Date 12/14/20 Vancomycin Last Dose Time 1230 Microbiology 12/13/20 Blood Culture - Preliminary, Resulted NO GROWTH AFTER 1 DAY Medications Current Medications Cefepime HCl (Maxipime) 2 gm 1X ONCE IVP Last administered on 12/12/20at 17:01; Start 12/12/20 at 16:45; Stop 12/12/20 at 16:46; Status DC Sennosides (Senna) 17.2 mg PRN BID PRN PO CONSTIPATION; Start 12/12/20 at 16:45 Docusate Sodium (Colace) 100 mg PRN DAILY PRN PO HARD STOOLS; Start 12/12/20 at 16:45 Ondansetron HCl (Zofran) 4 mg PRN Q6HRS PRN IVP NAUSEA/VOMITING Last administered on 12/15/20at 08:41; Start 12/12/20 at 16:45 Dextrose (Dextrose 50%-Water Syringe) 12.5 gm PRN Q15MIN PRN IV SEE COMMENTS; Start 12/12/20 at 16:45 Cefepime HCl (Maxipime) 2 gm DAILY ONCE IVP Last administered on 12/13/20at 08:08; Start 12/13/20 at 09:00; Stop 12/13/20 at 10:46; Status DC Sodium Chloride 1,000 ml @ 100 mls/hr Q10H IV Last administered on 12/14/20at 22:26; Start 12/12/20 at 17:45 Enoxaparin Sodium (Lovenox 40mg Syringe) 40 mg Q24H SQ Last administered on 12/13/20at 16:05; Start 12/12/20 at 17:45 Zolpidem Tartrate (Ambien) 5 mg PRN QHS PRN PO INSOMNIA Last administered on 12/14/20at 21:33; Start 12/12/20 at 23:30 Magnesium Sulfate 50 ml @ 25 mls/hr Q24H IV Last administered on 12/13/20at 16:04; Start 12/13/20 at 11:00; Stop 12/13/20 at 12:59; Status DC Cefepime HCl (Maxipime) 1 gm Q12HR IVP Last administered on 12/14/20at 21:33; Start 12/13/20 at 21:00 Vancomycin HCl (Vanco Per Pharmacy) 1 each PRN DAILY PRN MC SEE COMMENTS Last administered on 12/14/20at 12:03; Start 12/13/20 at 10:45 Vancomycin HCl 1 gm/Sodium Chloride 250 ml @ 250 mls/hr 1X ONCE IV Last administered on 12/13/20at 12:22; Start 12/13/20 at 11:00; Stop 12/13/20 at 11:59; Status DC Micafungin Sodium 100 mg/Dextrose 100 ml @ 100 mls/hr Q24H IV Last administered on 12/14/20at 11:57; Start 12/13/20 at 12:00 Info (Tpn Per Pharmacy) 1 each PRN DAILY PRN MC SEE COMMENTS Last administered on 12/14/20at 12:04; Start 12/13/20 at 11:30 Sodium Chloride 110 meq/Potassium Chloride 50 meq/ Potassium Phosphate 12 mmol/ Magnesium Sulfate 12 meq/Calcium Gluconate 10 meq/ Multivitamins 5 ml/Zinc/Copper/ Manganese/ Selenium 1 ml/ Total Parenteral Nutrition/Amino Acids/Dextrose/ Fat Emulsion Intravenous 1,512 ml @ 63 mls/hr TPN CONT IV Last administered on 12/13/20at 21:57; Start 12/13/20 at 22:00; Stop 12/14/20 at 21:59; Status DC Filgrastim (Neupogen) 300 mcg QHS SQ Last administered on 12/14/20at 21:33; Start 12/13/20 at 21:00 Vancomycin HCl 750 mg/Sodium Chloride 250 ml @ 250 mls/hr Q24H IV Last administered on 12/14/20at 13:58; Start 12/14/20 at 12:30 Vancomycin HCl (Vancomycin Trough Level) 1 each 1X ONCE MC ; Start 12/15/20 at 12:00; Stop 12/15/20 at 12:01 Multivitamins (Thera M Plus) 1 tab DAILY PO Last administered on 12/14/20at 11:56; Start 12/14/20 at 11:30 Sodium Chloride 110 meq/Potassium Chloride 50 meq/ Potassium Phosphate 12 mmol/ Magnesium Sulfate 12 meq/Calcium Gluconate 10 meq/ Multivitamins 5 ml/Zinc /Copper/ Manganese/ Selenium 1 ml/ Total Parenteral Nutrition/Amino Acids/Dextrose/ Fat Emulsion Intravenous 1,512 ml @ 63 mls/hr TPN CONT IV Last administered on 12/14/20at 22:27; Start 12/14/20 at 22:00; Stop 12/15/20 at 21:59 Active Scripts Active Protonix (Pantoprazole Sodium) 40 Mg Tablet.dr 40 Mg PO DAILYAC 30 Days Reported Levothyroxine Sodium 50 Mcg Tablet 1 Tab PO DAILY Carvedilol (Carvedilol) 3.125 Mg Tablet 3.125 Mg PO BIDWMEALS Ondansetron Hcl 4 Mg Tablet 1 Tab PO PRN Q8HRS PRN Vitals/I & O Vital Sign - Last 24 Hours 12/14/20 12/14/20 12/14/20 12/14/20 11:00 15:00 19:00 19:30 Temp 96.7 96.7 98.1 96.7 96.7 98.1 Pulse 78 75 85 Resp 18 18 16 B/P (MAP) 102/66 (78) 110/72 (85) 116/75 (89) Pulse Ox 100 100 99 O2 Delivery Room Air Room Air Room Air Room Air 12/14/20 12/15/20 12/15/20 23:00 03:00 07:00 Temp 98.6 97.7 97.6 98.6 97.7 97.6 Pulse 81 83 80 Resp 16 16 17 B/P (MAP) 108/66 (80) 94/51 (65) 109/66 (80) Pulse Ox 100 100 100 O2 Delivery Room Air Room Air Room Air Intake and Output 12/14/20 12/14/20 12/15/20 15:00 23:00 07:00 Intake Total 600 ml 60 ml 0 ml Output Total 300 ml 700 ml Balance 600 ml -240 ml -700 ml Nutrition Consultation Dietary Evaluation: Recommendations by RD: Dietary education by RD, PPN/TPN Comments: REC continue diet as tolerated TPN REC: 195 g dextrose, 60 g AA, 20 g lipid and monitor Expected Outcomes/Goals: to meet >75% est nutr needs via po intake and nutrition support Interpretation of weight loss: >10% in 6 months Malnutrition Findings: Food and Nutrition Intake (Sev: <50% est energy req 5days Body Fat Depletion (Non Severe: Mod to Severe Weight Status: Underweight Justicifation of Admission Dx: Justifications for Admission: Justification of Admission Dx: Yes RONALD VANEGAS MD Dec 15, 2020 09:05
--- NOTE | 2020-12-15 09:30 | PDOC ---
Infectious Disease Note Subjective Subjective pt is feeling good, no fever, no complaints ROS ROS no n/v/d/ Vital Sign Vital Signs Vital Signs Date Time Temp Pulse Resp B/P (MAP) Pulse Ox O2 Delivery O2 Flow Rate FiO2 12/15/20 07:00 97.6 80 17 109/66 (80) 100 Room Air 97.6 Physical Exam PHYSICAL EXAM GENERAL: Alert and oriented gentleman, not in distress. The patient is thin, cachectic down to 102 pounds. VITAL SIGNS: Stable. HEENT: Both pupils are round and reacting. No conjunctival lesion, no lesion in the mouth. NECK: Supple, no JVP, no lymphadenopathy. LUNGS: Clear. HEART: S1, S2 regular. ABDOMEN: Has a colostomy in place, but otherwise unremarkable. The patient does have Port-A-Cath in the right upper chest, which is not showing any obvious signs of infection. NEUROLOGIC: The patient is alert, awake and appropriate. No focal neurologic deficit. Labs Lab Laboratory Tests Test 12/15/20 06:25 Sodium Level 137 mmol/L (136-145) Potassium Level 4.0 mmol/L (3.5-5.1) Chloride Level 105 mmol/L (98-107) Carbon Dioxide Level 23 mmol/L (21-32) Anion Gap 9 (6-14) Blood Urea Nitrogen 12 mg/dL (8-26) Creatinine 0.7 mg/dL (0.7-1.3) Estimated GFR (Cockcroft-Gault) 112.8 Glucose Level 98 mg/dL (70-99) Calcium Level 7.3 mg/dL (8.5-10.1) Phosphorus Level 2.3 mg/dL (2.6-4.7) Magnesium Level 1.7 mg/dL (1.8-2.4) Vancomycin Level Trough 10.2 mcg/mL (10.0-20.0) Vancomycin Last Dose Date 12/14/20 Vancomycin Last Dose Time 1230 Micro BLOOD CULTURE LC Final Final GROWTH OF GRAM POSITIVE COCCI FINAL ID= [STAPHYLOCOCCUS EPIDERMIDIS] Growth of organism in only one of multiple sets; isolation does not necessarily indicate infection. Contact Microbiology Lab if further testing is clinically warranted. STAPHYLOCOCCUS EPIDERMIDIS Unless otherwise specified, Testing Performed by: [address] [address] For Inquires, the Physician may contact the Microbiology department at [phone] Objective Assessment IMPRESSION: 1. Neutropenic fever. 2. Blood culture positive with Gram-positive cocci, likely from the Port-A-Cath either colonization or infection. Coag neg staph 3. Neutropenia from chemotherapy. 4. 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 5. Malnutrition. Plan Plan of Care , d/c on po zyvox if recurs then may need port removal TIM WONG MD Dec 15, 2020 09:30
--- NOTE | 2020-12-15 10:09 | PDOC ---
PULMONARY PROGRESS NOTES DATE: 12/15/20 TIME: 10:07 Subjective Patient is resting comfortably on room air no increased shortness of breath or chest pain or cough Afebrile No overnight concerns from nursing Vitals Vital Signs Date Time Temp Pulse Resp B/P (MAP) Pulse Ox O2 Delivery O2 Flow Rate FiO2 12/15/20 07:00 97.6 80 17 109/66 (80) 100 Room Air 97.6 ROS: No Nausea, No Chest Pain, No Abdominal Pain, No Increase Cough General: Alert, No acute distress HEENT: Other Lungs: Clear, Wheezing, Other Cardiovascular: S1 Abdomen: Soft, Other (ostomy) Extremities: Other Labs Laboratory Tests Test 12/13/20 23:55 12/14/20 04:55 12/15/20 06:25 Procalcitonin 0.18 ng/mL (0.00-0.10) White Blood Count 3.7 x10^3/uL (4.0-11.0) Red Blood Count 2.69 x10^6/uL (4.30-5.70) Hemoglobin 7.4 g/dL (13.0-17.5) Hematocrit 22.0 % (39.0-53.0) Mean Corpuscular Volume 82 fL (79-100) Mean Corpuscular Hemoglobin 28 pg (25-35) Mean Corpuscular Hemoglobin Concent 34 g/dL (31-37) Red Cell Distribution Width 16.7 % (11.5-14.5) Platelet Count 116 x10^3/uL (140-400) Neutrophils (%) (Auto) 84 % (31-73) Lymphocytes (%) (Auto) 1 % (24-48) Monocytes (%) (Auto) 11 % (0-9) Eosinophils (%) (Auto) 3 % (0-3) Basophils (%) (Auto) 1 % (0-3) Neutrophils # (Auto) 3.1 x10^3/uL (1.8-7.7) Lymphocytes # (Auto) 0.0 x10^3/uL (1.0-4.8) Monocytes # (Auto) 0.4 x10^3/uL (0.0-1.1) Eosinophils # (Auto) 0.1 x10^3/uL (0.0-0.7) Basophils # (Auto) 0.0 x10^3/uL (0.0-0.2) Sodium Level 135 mmol/L (136-145) 137 mmol/L (136-145) Potassium Level 3.7 mmol/L (3.5-5.1) 4.0 mmol/L (3.5-5.1) Chloride Level 104 mmol/L (98-107) 105 mmol/L (98-107) Carbon Dioxide Level 24 mmol/L (21-32) 23 mmol/L (21-32) Anion Gap 7 (6-14) 9 (6-14) Blood Urea Nitrogen 17 mg/dL (8-26) 12 mg/dL (8-26) Creatinine 0.8 mg/dL (0.7-1.3) 0.7 mg/dL (0.7-1.3) Estimated GFR (Cockcroft-Gault) 96.7 112.8 BUN/Creatinine Ratio 21 (6-20) Glucose Level 102 mg/dL (70-99) 98 mg/dL (70-99) Calcium Level 7.5 mg/dL (8.5-10.1) 7.3 mg/dL (8.5-10.1) Phosphorus Level 3.1 mg/dL (2.6-4.7) 2.3 mg/dL (2.6-4.7) Magnesium Level 2.1 mg/dL (1.8-2.4) 1.7 mg/dL (1.8-2.4) Total Bilirubin 0.4 mg/dL (0.2-1.0) Aspartate Amino Transf (AST/SGOT) 13 U/L (15-37) Alanine Aminotransferase (ALT/SGPT) 22 U/L (16-63) Alkaline Phosphatase 52 U/L (46-116) Total Protein 4.7 g/dL (6.4-8.2) Albumin 1.8 g/dL (3.4-5.0) Albumin/Globulin Ratio 0.6 (1.0-1.7) Triglycerides Level 94 mg/dL (0-150) Vancomycin Level Trough 10.2 mcg/mL (10.0-20.0) Vancomycin Last Dose Date 12/14/20 Vancomycin Last Dose Time 1230 Laboratory Tests Test 12/15/20 06:25 Sodium Level 137 mmol/L (136-145) Potassium Level 4.0 mmol/L (3.5-5.1) Chloride Level 105 mmol/L (98-107) Carbon Dioxide Level 23 mmol/L (21-32) Anion Gap 9 (6-14) Blood Urea Nitrogen 12 mg/dL (8-26) Creatinine 0.7 mg/dL (0.7-1.3) Estimated GFR (Cockcroft-Gault) 112.8 Glucose Level 98 mg/dL (70-99) Calcium Level 7.3 mg/dL (8.5-10.1) Phosphorus Level 2.3 mg/dL (2.6-4.7) Magnesium Level 1.7 mg/dL (1.8-2.4) Vancomycin Level Trough 10.2 mcg/mL (10.0-20.0) Vancomycin Last Dose Date 12/14/20 Vancomycin Last Dose Time 1230 Medications Active Scripts Medications Dose Route/Sig Max Daily Dose Days Date Category Protonix (Pantoprazole Sodium) 40 Mg Tablet.dr 40 Mg PO DAILYAC 30 09/07/20 Rx Levothyroxine Sodium 50 Mcg Tablet 1 Tab PO DAILY 08/27/20 Reported Carvedilol (Carvedilol) 3.125 Mg Tablet 3.125 Mg PO BIDWMEALS 08/27/20 Reported Ondansetron Hcl 4 Mg Tablet 1 Tab PO PRN Q8HRS PRN 08/27/20 Reported Impression . IMPRESSION: 1. Fever in a patient who is pancytopenic and immunocompromised. The sources of fever could be lungs. --- Fever resolved 2. Pancytopenia post-chemotherapy--improving 3. 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 4. No significant tobacco history. Plan . RECOMMENDATIONS: Continue supplemental oxygen to keep oxygen saturations greater 92%, currently on room air Follow ID recommendations in regards to antibiotics, switch to p.o. Zyvox Follow cultures Monitor hemoglobin white blood cell count and platelets Transfusion as needed for anemia Continue TPN for additional nutritional support, tolerating p.o. COVID-19 negative can move out of isolation DVT/GI prophylaxis Discussed with MECHELLE Grant to discharge from a pulmonary standpoint Stable from a pulmonary standpoint we will see if on a as needed basis if the patient does not discharge BINDU BARRIOS MD Dec 15, 2020 10:09
[2020-12-15] MEDS: MULTIVITAMIN with MINERAL TABLET. PO SCH (10:46)
[2020-12-15] MEDS: IV NORMAL SALINE 1000ML BAG 1,000 ML IV SCH ×2 (10:48→20:55)
[2020-12-15 11:00] VITALS: BP 111/69
[2020-12-15] MEDS ORDERED: SODIUM PHOSPHATE 15 MMOL in IV NS 100 ML IV ONE (14:30)
[2020-12-15] MEDS ORDERED: MAGNESIUM SULFATE 2GM 50 ML IV ONE (14:30)
[2020-12-15] MEDS: TPN PER PHARMACY MC PRN (14:36)
--- NOTE | 2020-12-15 14:36 | NUR ---
Pharmacy TPN Dosing Note S: JASON KIRK is a 65 year old M Currently receiving Central Continuous TPN resumed from [facility] order B:Pertinent PMH: Oropharyngeal adenocarcinoma Height: 5 feet, 4 inches Weight: 43.9 kg Current diet: LABS: Sodium: 137 Potassium: 4 Chloride: 105 Calcium: 7.3 Corrected Calcium: 9.06 Magnesium: 1.7 CO2: 23 SCr: 0.7 Glucose: 98 Albumin: 1.8 AST: 13 ALT: 22 TPN FORMULA: TPN TYPE: Central Continuous AMINO ACIDS: 60 gm DEXTROSE: 195 gm LIPIDS: 20 gm SODIUM CHLORIDE: 110 mEq POTASSIUM CHLORIDE: 50 mEq POTASSIUM PHOSPHATE: 17 mmol MAGNESIUM: 15 mEq CALCIUM: 10 mEq MULTIPLE VITAMIN: 5 ml TRACE ELEMENTS: 1 ml TPN PLAN: -Serum phos low, give NaPhos 15 mmol IV infusion. Increase KPhos to 17 mmol/day in TPN. -Serum mag low, give mag sulfate 2g IV infusion. Increase to 15 mEq/day in TPN. -BMP, mag, phos tomorrow per protocol. R: Continue TPN @ 63 ml/hr and above formula. Will monitor electrolytes, glucose, and tolerance to TPN. LELE LAYNE [facility], 12/15/20 [id number]
[2020-12-15 15:00] VITALS: BP 120/76
--- NOTE | 2020-12-15 16:30 | NUR ---
SW following for discharge planning. Spoke with RN and reviewed chart. Pt transferred to . Discharge plan remains home with resumption of [facility] and [facility] home infusion for TPN and possibly abx. SW following.
[2020-12-15] MEDS: ENOXAPARIN 40 MG/0.4 ML SYRINGE. SQ SCH (16:59)
[2020-12-15 19:00] VITALS: BP 108/66
[2020-12-15] MEDS: ZOLPIDEM 5 MG TABLET. PO PRN (20:51)
[2020-12-15] MEDS: FILGRASTIM 300 MCG/ML SQ SCH (20:52)
[2020-12-15] MEDS ORDERED: LINEZOLID 600 MG TABLET PO SCH (21:00)
[2020-12-15] MEDS ORDERED: DEXTROSE 70% IV SCH (22:00)
[2020-12-15] MEDS ORDERED: AMINO ACID IV SCH (22:00)
[2020-12-15] MEDS ORDERED: TOTAL PARENTERAL NUTRITION IV SCH (22:00)
[2020-12-15] MEDS ORDERED: [UNRECOGNIZED DRUG - OTHER] IV SCH (22:00)
[2020-12-15 23:00] VITALS: BP 101/59
[2020-12-16] MEDS: IV NORMAL SALINE 1000ML BAG 1,000 ML IV SCH ×3 (01:45→22:25)
[2020-12-16 03:00] VITALS: BP 111/71
[2020-12-16] MEDS: LEVOTHYROXINE 50 MCG TABLET PO SCH (06:18)
[2020-12-16] MEDS: ONDANSETRON PF 4 MG/2 ML VIAL. IVP PRN (06:32)
[2020-12-16 06:43] LABS: CALCIUM 7.5 mg/dL (8.5-10.1); CREATININE 0.6 mg/dL (0.7-1.3); GFR 134.8; MAGNESIUM 2.1 mg/dL (1.8-2.4); PHOSPHORUS 2.6 mg/dL (2.6-4.7)
[2020-12-16 07:00] VITALS: BP 122/75
--- NOTE | 2020-12-16 08:40 | PDOC ---
PROGRESS NOTES Date of Service: DATE: 12/16/20 TIME: 08:40 Chief Complaint Chief Complaint IMPRESSION Assessment/Plan Acute generalized weakness due to recent chemoradiation Tx Patchy opacities left lung base. Small left pleural effusion. Neutropenia Failure to thrive Debility Oropharyngeal dysphagia due to adenoCA Hyponatremia due to volume depletion Severe protein malnutrition POS BLOOD CULT 12-13 Blood culture positive with Gram-positive cocci, likely from the Port-A-Cath IE colonization or infection. PLAN Admit to medicine for further management Oncology consult Neutropenic precautions ID CONSULT Continue IV Cefepime 2G Daily Nutrition consult Continue TPN via Portacath FLD continue IVF Lovenox for DVT prophylaxis DPOA: Maura ([id number]) REPEAT BLOOD CULT X 2 12-13 LACTIC ACID PROCALCITONIN Start G-CSF 300 mcg daily while inpatient repeat bc + , G + cocci, still likely port is infected vs colonized change zyvox to iv to help clear cath, removal of port d/w pt if cont to have problem BLOOD CULTURE Final GRAM POSITIVE COCCI IN CLUSTERS, SUGGESTIVE OF STAPH, IN 2 OF 4 BOTLES, TWO SETS DRAWN ONE SET IS POSITIVE. 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 PEG is contraindicated and he was sent home with TPN through his portacath. Since his discharge on 12/01/20, patient has been doing well with his last session of chemoTx 2 weeks ago, but he stated he did feel week yesterday before his radiation Tx. Last labs drawn shown he had a WBC of 1.5 and today was 1.4 in the ED with ANC of > 700. He denied fevers, N/V, chest pain, SOB, diarrhea, or ABD pain. he does still have early satiety and some dysphagia with chopped chicken and mashed potatoes. He is able to tolerate ice cream and broth. 12-14 COVID NEG, feeling a bit stronger, D/W RN 12-16 repeat bc + , G + cocci, still likely port is infected vs colonized change zyvox to iv to help clear cath, removal of port d/w pt if cont to have problem Past Medical/Surgical History: PMH/PSH: Past Medical History: Cancer, Hypertension, PA, Stroke, throat CA, esphogeal CA Past Surgical History: CABG, colostomy bag Allergies: Allergies: Coded Allergies: No Known Drug Allergies (Unverified , 08/31/20) Family History: Family History: Reviewed with no relevant findings Social History: Social History: Smoking Status: Never Smoker Alcohol Use: None Vitals Vitals Vital Signs Date Time Temp Pulse Resp B/P (MAP) Pulse Ox O2 Delivery O2 Flow Rate FiO2 12/16/20 07:00 97.7 72 18 122/75 (91) 100 Room Air 97.7 Physical Exam Physical Exam GENERAL: Alert and oriented gentleman, not in distress. The patient is thin, cachectic down to 102 pounds. VITAL SIGNS: Stable. HEENT: Both pupils are round and reacting. No conjunctival lesion, no lesion in the mouth. NECK: Supple, no JVP, no lymphadenopathy. LUNGS: Clear. HEART: S1, S2 regular. ABDOMEN: Has a colostomy in place, but otherwise unremarkable. The patient does have Port-A-Cath in the right upper chest, which is not showing any obvious signs of infection. NEUROLOGIC: The patient is alert, awake and appropriate. No focal neurologic deficit. General: Alert, Oriented X3 Heart: Regular rate, Normal S1, Normal S2 Lungs: Clear, Wheezing, Other Abdomen: Normal bowel sounds, Soft Extremities: No clubbing Skin: No rashes Labs LABS Laboratory Tests Test 12/16/20 06:15 Sodium Level 137 mmol/L (136-145) Potassium Level 4.0 mmol/L (3.5-5.1) Chloride Level 106 mmol/L (98-107) Carbon Dioxide Level 24 mmol/L (21-32) Anion Gap 7 (6-14) Blood Urea Nitrogen 9 mg/dL (8-26) Creatinine 0.6 mg/dL (0.7-1.3) Estimated GFR (Cockcroft-Gault) 134.8 Glucose Level 84 mg/dL (70-99) Calcium Level 7.5 mg/dL (8.5-10.1) Phosphorus Level 2.6 mg/dL (2.6-4.7) Magnesium Level 2.1 mg/dL (1.8-2.4) Assessment and Plan Assessmemt and Plan Problems Medical Problems: (1) Colon cancer Status: Acute (2) Esophageal cancer Status: Acute (3) Fatigue Status: Acute (4) Left lower lobe pneumonia Status: Acute (5) Person under investigation for COVID-19 Status: Acute Comment Review of Relevant I have reviewed the following items adeline (where applicable) has been applied. Labs Laboratory Tests Test 12/15/20 06:25 12/16/20 06:15 Sodium Level 137 mmol/L (136-145) 137 mmol/L (136-145) Potassium Level 4.0 mmol/L (3.5-5.1) 4.0 mmol/L (3.5-5.1) Chloride Level 105 mmol/L (98-107) 106 mmol/L (98-107) Carbon Dioxide Level 23 mmol/L (21-32) 24 mmol/L (21-32) Anion Gap 9 (6-14) 7 (6-14) Blood Urea Nitrogen 12 mg/dL (8-26) 9 mg/dL (8-26) Creatinine 0.7 mg/dL (0.7-1.3) 0.6 mg/dL (0.7-1.3) Estimated GFR (Cockcroft-Gault) 112.8 134.8 Glucose Level 98 mg/dL (70-99) 84 mg/dL (70-99) Calcium Level 7.3 mg/dL (8.5-10.1) 7.5 mg/dL (8.5-10.1) Phosphorus Level 2.3 mg/dL (2.6-4.7) 2.6 mg/dL (2.6-4.7) Magnesium Level 1.7 mg/dL (1.8-2.4) 2.1 mg/dL (1.8-2.4) Vancomycin Level Trough 10.2 mcg/mL (10.0-20.0) Vancomycin Last Dose Date 12/14/20 Vancomycin Last Dose Time 1230 Laboratory Tests Test 12/16/20 06:15 Sodium Level 137 mmol/L (136-145) Potassium Level 4.0 mmol/L (3.5-5.1) Chloride Level 106 mmol/L (98-107) Carbon Dioxide Level 24 mmol/L (21-32) Anion Gap 7 (6-14) Blood Urea Nitrogen 9 mg/dL (8-26) Creatinine 0.6 mg/dL (0.7-1.3) Estimated GFR (Cockcroft-Gault) 134.8 Glucose Level 84 mg/dL (70-99) Calcium Level 7.5 mg/dL (8.5-10.1) Phosphorus Level 2.6 mg/dL (2.6-4.7) Magnesium Level 2.1 mg/dL (1.8-2.4) Microbiology 12/13/20 Blood Culture - Final, Complete Medications Current Medications Cefepime HCl (Maxipime) 2 gm 1X ONCE IVP Last administered on 12/12/20at 17:01; Start 12/12/20 at 16:45; Stop 12/12/20 at 16:46; Status DC Sennosides (Senna) 17.2 mg PRN BID PRN PO CONSTIPATION; Start 12/12/20 at 16:45 Docusate Sodium (Colace) 100 mg PRN DAILY PRN PO HARD STOOLS; Start 12/12/20 at 16:45 Ondansetron HCl (Zofran) 4 mg PRN Q6HRS PRN IVP NAUSEA/VOMITING Last administered on 12/16/20at 06:32; Start 12/12/20 at 16:45 Dextrose (Dextrose 50%-Water Syringe) 12.5 gm PRN Q15MIN PRN IV SEE COMMENTS; Start 12/12/20 at 16:45 Cefepime HCl (Maxipime) 2 gm DAILY ONCE IVP Last administered on 12/13/20at 08:08; Start 12/13/20 at 09:00; Stop 12/13/20 at 10:46; Status DC Sodium Chloride 1,000 ml @ 100 mls/hr Q10H IV Last administered on 12/16/20at 01:45; Start 12/12/20 at 17:45 Enoxaparin Sodium (Lovenox 40mg Syringe) 40 mg Q24H SQ Last administered on 12/15/20at 16:59; Start 12/12/20 at 17:45 Zolpidem Tartrate (Ambien) 5 mg PRN QHS PRN PO INSOMNIA Last administered on 12/15/20at 20:51; Start 12/12/20 at 23:30 Magnesium Sulfate 50 ml @ 25 mls/hr Q24H IV Last administered on 12/13/20at 16:04; Start 12/13/20 at 11:00; Stop 12/13/20 at 12:59; Status DC Cefepime HCl (Maxipime) 1 gm Q12HR IVP Last administered on 12/14/20at 21:33; Start 12/13/20 at 21:00; Stop 12/15/20 at 09:30; Status DC Vancomycin HCl (Vanco Per Pharmacy) 1 each PRN DAILY PRN MC SEE COMMENTS Last administered on 12/14/20at 12:03; Start 12/13/20 at 10:45; Stop 12/15/20 at 09:46; Status DC Vancomycin HCl 1 gm/Sodium Chloride 250 ml @ 250 mls/hr 1X ONCE IV Last administered on 12/13/20at 12:22; Start 12/13/20 at 11:00; Stop 12/13/20 at 11:59; Status DC Micafungin Sodium 100 mg/Dextrose 100 ml @ 100 mls/hr Q24H IV Last a dministered on 12/14/20at 11:57; Start 12/13/20 at 12:00; Stop 12/15/20 at 09:30; Status DC Info (Tpn Per Pharmacy) 1 each PRN DAILY PRN MC SEE COMMENTS Last administered on 12/15/20at 14:36; Start 12/13/20 at 11:30 Sodium Chloride 110 meq/Potassium Chloride 50 meq/ Potassium Phosphate 12 mmol/ Magnesium Sulfate 12 meq/Calcium Gluconate 10 meq/ Multivitamins 5 ml/Zinc/Copper/ Manganese/ Selenium 1 ml/ Total Parenteral Nutrition/Amino Acids/Dextrose/ Fat Emulsion Intravenous 1,512 ml @ 63 mls/hr TPN CONT IV Last administered on 12/13/20at 21:57; Start 12/13/20 at 22:00; Stop 12/14/20 at 21:59; Status DC Filgrastim (Neupogen) 300 mcg QHS SQ Last administered on 12/15/20at 20:52; Start 12/13/20 at 21:00 Vancomycin HCl 750 mg/Sodium Chloride 250 ml @ 250 mls/hr Q24H IV Last administered on 12/14/20at 13:58; Start 12/14/20 at 12:30; Stop 12/15/20 at 09:30; Status DC Vancomycin HCl (Vancomycin Trough Level) 1 each 1X ONCE MC ; Start 12/15/20 at 12:00; Stop 12/15/20 at 12:01; Status Cancel Multivitamins (Thera M Plus) 1 tab DAILY PO Last administered on 12/15/20at 10:46; Start 12/14/20 at 11:30 Sodium Chloride 110 meq/Potassium Chloride 50 meq/ Potassium Phosphate 12 mmol/ Magnesium Sulfate 12 meq/Calcium Gluconate 10 meq/ Multivitamins 5 ml/Zinc/Copper/ Manganese/ Selenium 1 ml/ Total Parenteral Nutrition/Amino Acids/Dextrose/ Fat Emulsion Intravenous 1,512 ml @ 63 mls/hr TPN CONT IV Last administered on 12/14/20at 22:27; Start 12/14/20 at 22:00; Stop 12/15/20 at 21:59; Status DC Linezolid (Zyvox) 600 mg BID PO Last administered on 12/15/20at 20:52; Start 12/15/20 at 21:00 Levothyroxine Sodium (Synthroid) 50 mcg DAILY06 PO Last administered on 12/16/20at 06:18; Start 12/16/20 at 06:00 Sodium Phosphate 15 mmol/Sodium Chloride 105 ml @ 105 mls/hr 1X ONCE IV Last administered on 12/15/20at 14:44; Start 12/15/20 at 14:30; Stop 12/15/20 at 15:29; Status DC Magnesium Sulfate 50 ml @ 25 mls/hr 1X ONCE IV Last administered on 12/15/20at 14:44; Start 12/15/20 at 14:30; Stop 12/15/20 at 16:29; Status DC Sodium Chloride 110 meq/Potassium Chloride 50 meq/ Potassium Phosphate 17 mmol/ Magnesium Sulfate 15 meq/Calcium Gluconate 10 meq/ Multivitamins 5 ml/Zinc/Copper/ Manganese/ Selenium 1 ml/ Total Parenteral Nutrition/Amino Acids/Dextrose/ Fat Emulsion Intravenous 1,512 ml @ 63 mls/hr TPN CONT IV Last administered on 12/15/20at 20:55; Start 12/15/20 at 22:00; Stop 12/16/20 at 21:59 Active Scripts Active Protonix (Pantoprazole Sodium) 40 Mg Tablet.dr 40 Mg PO DAILYAC 30 Days Reported Levothyroxine Sodium 50 Mcg Tablet 1 Tab PO DAILY Carvedilol (Carvedilol) 3.125 Mg Tablet 3.125 Mg PO BIDWMEALS Ondansetron Hcl 4 Mg Tablet 1 Tab PO PRN Q8HRS PRN Vitals/I & O Vital Sign - Last 24 Hours 12/15/20 12/15/20 12/15/20 12/15/20 11:00 15:00 19:00 20:05 Temp 98.0 97.8 98.1 98.0 97.8 98.1 Pulse 76 76 77 Resp 17 18 18 B/P (MAP) 111/69 (83) 120/76 (91) 108/66 (80) Pulse Ox 100 99 98 O2 Delivery Room Air Room Air Room Air 12/15/20 12/16/20 12/16/20 23:00 03:00 07:00 Temp 98.0 97.8 97.7 98.0 97.8 97.7 Pulse 72 73 72 Resp 16 18 18 B/P (MAP) 101/59 (73) 111/71 (84) 122/75 (91) Pulse Ox 99 99 100 O2 Delivery Room Air Intake and Output 12/15/20 12/15/20 12/16/20 15:00 23:00 07:00 Intake Total 700 ml 400 ml Output Total 250 ml 200 ml 1000 ml Balance 450 ml -200 ml -600 ml Nutrition Consultation Dietary Evaluation: Recommendations by RD: Dietary education by RD, PPN/TPN Comments: REC continue diet as tolerated TPN: 195 g dextrose, 60 g AA, 20 g lipid Expected Outcomes/Goals: to meet >75% est nutr needs via po intake and nutrition support- met, goal ongoing Interpretation of weight loss: >10% in 6 months Malnutrition Findings: Food and Nutrition Intake (Sev: <50% est energy req 5days Body Fat Depletion (Non Severe: Mod to Severe Weight Status: Underweight Justicifation of Admission Dx: Justifications for Admission: Justification of Admission Dx: Yes RONALD VANEGAS MD Dec 16, 2020 08:40
--- NOTE | 2020-12-16 09:43 | PDOC ---
Infectious Disease Note Subjective Subjective pt is feeling good, no fever, no complaints ROS ROS no n/v/d Vital Sign Vital Signs Vital Signs Date Time Temp Pulse Resp B/P (MAP) Pulse Ox O2 Delivery O2 Flow Rate FiO2 12/16/20 07:00 97.7 72 18 122/75 (91) 100 Room Air 97.7 Physical Exam PHYSICAL EXAM GENERAL: Alert and oriented gentleman, not in distress. The patient is thin, cachectic down to 102 pounds. VITAL SIGNS: Stable. HEENT: Both pupils are round and reacting. No conjunctival lesion, no lesion in the mouth. NECK: Supple, no JVP, no lymphadenopathy. LUNGS: Clear. HEART: S1, S2 regular. ABDOMEN: Has a colostomy in place, but otherwise unremarkable. The patient does have Port-A-Cath in the right upper chest, which is not showing any obvious signs of infection. NEUROLOGIC: The patient is alert, awake and appropriate. No focal neurologic deficit. Labs Lab Laboratory Tests Test 12/16/20 06:15 Sodium Level 137 mmol/L (136-145) Potassium Level 4.0 mmol/L (3.5-5.1) Chloride Level 106 mmol/L (98-107) Carbon Dioxide Level 24 mmol/L (21-32) Anion Gap 7 (6-14) Blood Urea Nitrogen 9 mg/dL (8-26) Creatinine 0.6 mg/dL (0.7-1.3) Estimated GFR (Cockcroft-Gault) 134.8 Glucose Level 84 mg/dL (70-99) Calcium Level 7.5 mg/dL (8.5-10.1) Phosphorus Level 2.6 mg/dL (2.6-4.7) Magnesium Level 2.1 mg/dL (1.8-2.4) Micro BLOOD CULTURE LC Final Final GROWTH OF GRAM POSITIVE COCCI FINAL ID= [STAPHYLOCOCCUS EPIDERMIDIS] Growth of organism in only one of multiple sets; isolation does not necessarily indicate infection. Contact Microbiology Lab if further testing is clinically warranted. STAPHYLOCOCCUS EPIDERMIDIS Unless otherwise specified, Testing Performed by: [address] [address] For Inquires, the Physician may contact the Microbiology department at [phone] Objective Assessment IMPRESSION: 1. Neutropenic fever. 2. Blood culture positive with Gram-positive cocci, likely from the Port-A-Cath either colonization or infection. Coag neg staph 3. Neutropenia from chemotherapy. 4. 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 5. Malnutrition. Plan Plan of Care repeat bc + , G + cocci, still likely port is infected vs colonized change zyvox to iv to help clear cath, removal of port d/w pt if cont to have problem TIM WONG MD Dec 16, 2020 09:43
--- NOTE | 2020-12-16 10:54 | PDOC ---
PULMONARY PROGRESS NOTES DATE: 12/16/20 TIME: 10:33 Subjective Patient not more short of air. On room air. No increasing chest pain no pressure Vitals Vital Signs Date Time Temp Pulse Resp B/P (MAP) Pulse Ox O2 Delivery O2 Flow Rate FiO2 12/16/20 07:00 97.7 72 18 122/75 (91) 100 Room Air 97.7 ROS: No Nausea, No Chest Pain, No Abdominal Pain, No Increase Cough General: Alert, No acute distress HEENT: Other Lungs: Clear, Wheezing, Other Cardiovascular: S1 Abdomen: Soft, Other (ostomy) Extremities: Other Labs Laboratory Tests Test 12/15/20 06:25 12/16/20 06:15 Sodium Level 137 mmol/L (136-145) 137 mmol/L (136-145) Potassium Level 4.0 mmol/L (3.5-5.1) 4.0 mmol/L (3.5-5.1) Chloride Level 105 mmol/L (98-107) 106 mmol/L (98-107) Carbon Dioxide Level 23 mmol/L (21-32) 24 mmol/L (21-32) Anion Gap 9 (6-14) 7 (6-14) Blood Urea Nitrogen 12 mg/dL (8-26) 9 mg/dL (8-26) Creatinine 0.7 mg/dL (0.7-1.3) 0.6 mg/dL (0.7-1.3) Estimated GFR (Cockcroft-Gault) 112.8 134.8 Glucose Level 98 mg/dL (70-99) 84 mg/dL (70-99) Calcium Level 7.3 mg/dL (8.5-10.1) 7.5 mg/dL (8.5-10.1) Phosphorus Level 2.3 mg/dL (2.6-4.7) 2.6 mg/dL (2.6-4.7) Magnesium Level 1.7 mg/dL (1.8-2.4) 2.1 mg/dL (1.8-2.4) Vancomycin Level Trough 10.2 mcg/mL (10.0-20.0) Vancomycin Last Dose Date 12/14/20 Vancomycin Last Dose Time 1230 Laboratory Tests Test 12/16/20 06:15 Sodium Level 137 mmol/L (136-145) Potassium Level 4.0 mmol/L (3.5-5.1) Chloride Level 106 mmol/L (98-107) Carbon Dioxide Level 24 mmol/L (21-32) Anion Gap 7 (6-14) Blood Urea Nitrogen 9 mg/dL (8-26) Creatinine 0.6 mg/dL (0.7-1.3) Estimated GFR (Cockcroft-Gault) 134.8 Glucose Level 84 mg/dL (70-99) Calcium Level 7.5 mg/dL (8.5-10.1) Phosphorus Level 2.6 mg/dL (2.6-4.7) Magnesium Level 2.1 mg/dL (1.8-2.4) Medications Active Scripts Medications Dose Route/Sig Max Daily Dose Days Date Category Protonix (Pantoprazole Sodium) 40 Mg Tablet.dr 40 Mg PO DAILYAC 30 09/07/20 Rx Levothyroxine Sodium 50 Mcg Tablet 1 Tab PO DAILY 08/27/20 Reported Carvedilol (Carvedilol) 3.125 Mg Tablet 3.125 Mg PO BIDWMEALS 08/27/20 Reported Ondansetron Hcl 4 Mg Tablet 1 Tab PO PRN Q8HRS PRN 08/27/20 Reported Impression . IMPRESSION: 1. Neutropenic fever 2. Pancytopenia post-chemotherapy--improving 3. 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 4. No significant tobacco history. 5. Bacteremia, suspect related to Port-A-Cath Plan . Antibiotics per ID May need Port-A-Cath removal Continue supplemental oxygen to keep oxygen saturations greater 92%, currently on room air Follow cultures Monitor hemoglobin white blood cell count and platelets Transfusion as needed for anemia Continue TPN for additional nutritional support, tolerating p.o. COVID-19 negative can move out of isolation DVT/GI prophylaxis Discussed with MECHELLE Grant to discharge from a pulmonary standpoint Stable from a pulmonary standpoint we will see if on a as needed basis if the patient does not discharge RICH VUONG MD Dec 16, 2020 10:54
[2020-12-16 11:00] VITALS: BP 121/71
[2020-12-16] MEDS: TPN PER PHARMACY MC PRN (11:22)
--- NOTE | 2020-12-16 11:22 | NUR ---
Pharmacy TPN Dosing Note S: JASON KIRK is a 65 year old M currently receiving Central Continuous TPN B:Pertinent PMH: Oropharyngeal adenocarcinoma Height: 5 feet, 4 inches Weight: 44.3 kg Current diet: full liquid diet LABS: Sodium: 137 Potassium: 7 Chloride: 106 Calcium: 7.5 Corrected Calcium: 9.26 Magnesium: 2.1 CO2: 24 SCr: 0.6 Glucose: 84 Albumin: 1.8 AST: 13 ALT: 22 TPN FORMULA: TPN TYPE: Central Continuous AMINO ACIDS: 60 gm DEXTROSE: 195 gm LIPIDS: 20 gm SODIUM CHLORIDE: 110 mEq POTASSIUM CHLORIDE: 50 mEq POTASSIUM PHOSPHATE: 17 mmol MAGNESIUM: 15 mEq CALCIUM: 10 mEq MULTIPLE VITAMIN: 5 ml TRACE ELEMENTS: 1 ml(s) TPN PLAN: Electrolytes wnl. No changes to current TPN formula. -BMP, Mag and Phos in AM. R: Continue current TPN formula. Will monitor electrolytes, glucose, and tolerance to TPN. FERNIE MOSES RPH, 12/16/20 [id number]
[2020-12-16] MEDS: MULTIVITAMIN with MINERAL TABLET. PO SCH (13:04)
--- NOTE | 2020-12-16 13:38 | NUR ---
TRISTON following for discharge planning. Spoke with RN and reviewed chart. TRISTON met with pt and pt's [id number] Maura King ([phone]) today. TRISTON completed the Zyvox [employer] Patient Assistance Program application and placed it on pt's chart with a copy of pt's [id number] form for proof of income. Blood cultures are pending so TRISTON does not know the dosage information. Dosage information needs to be added prior to faxing the application with the script to [employer], , (fax). This application is for oral Zyvox. If pt needs IV Zyvox then [facility] can supply it as they also do the patient's home TPN. Discharge plan is home with resumption of [facility] and [facility]. Pt added to possible weekend discharge list. TRISTON following. Addendum: 12/16/20 at 1347 by TONI GOLDSTEIN [facility], , (fax). [facility], , (fax). TRISTON did update both Kathe with [facility] and Braulio with [facility] on status of this pt.
[2020-12-16 15:00] VITALS: BP 104/68
[2020-12-16] MEDS: ENOXAPARIN 40 MG/0.4 ML SYRINGE. SQ SCH (17:43)
[2020-12-16 19:00] VITALS: BP 114/76
[2020-12-16] MEDS: FILGRASTIM 300 MCG/ML SQ SCH (20:20)
[2020-12-16] MEDS ORDERED: DEXTROSE 70% IV SCH (22:00)
[2020-12-16] MEDS ORDERED: AMINO ACID IV SCH (22:00)
[2020-12-16] MEDS ORDERED: [UNRECOGNIZED DRUG - OTHER] IV SCH (22:00)
[2020-12-16] MEDS ORDERED: TOTAL PARENTERAL NUTRITION IV SCH (22:00)
[2020-12-16] MEDS: ZOLPIDEM 5 MG TABLET. PO PRN (22:25)
[2020-12-16 23:00] VITALS: BP 104/67
[2020-12-17 03:00] VITALS: BP 104/62
[2020-12-17] MEDS: LEVOTHYROXINE 50 MCG TABLET PO SCH (05:45)
[2020-12-17] MEDS: ONDANSETRON PF 4 MG/2 ML VIAL. IVP PRN ×2 (05:57→18:38)
[2020-12-17 06:06] LABS: BASO % 0 % (0-3); EOS # 0.1 x10^3/uL (0.0-0.7); EOS % 1 % (0-3); HEMATOCRIT 22.3 % (39.0-53.0); HEMOGLOBIN 7.2 g/dL (13.0-17.5); LYMPH # 0.1 x10^3/uL (1.0-4.8); LYMPH % 1 % (24-48); MEAN CORPUSCULAR HEMOGLOBIN 27 pg (25-35); MEAN CORPUSCULAR HGB CONC 32 g/dL (31-37); MEAN CORPUSCULAR VOLUME 83 fL (79-100); MONO # 0.6 x10^3/uL (0.0-1.1); MONO % 5 % (0-9); NEUT # 13.6 x10^3/uL (1.8-7.7); NEUT % 94 % (31-73); PLATELET COUNT 148 x10^3/uL (140-400); RED BLOOD COUNT 2.69 x10^6/uL (4.30-5.70); RED CELL DISTRIBUTION WIDTH 17.2 % (11.5-14.5); WHITE BLOOD COUNT 14.5 x10^3/uL (4.0-11.0)
[2020-12-17 06:14] LABS: CALCIUM 7.7 mg/dL (8.5-10.1); CREATININE 0.7 mg/dL (0.7-1.3); GFR 112.8; MAGNESIUM 1.8 mg/dL (1.8-2.4); PHOSPHORUS 2.5 mg/dL (2.6-4.7); POTASSIUM 4.2 mmol/L (3.5-5.1)
[2020-12-17 07:00] VITALS: BP 114/71
--- NOTE | 2020-12-17 07:43 | PDOC ---
Infectious Disease Note Subjective Subjective pt is feeling good, no fever, no complaints Eating. Port ok ROS ROS o/w neg Vital Sign Vital Signs Vital Signs Date Time Temp Pulse Resp B/P (MAP) Pulse Ox O2 Delivery O2 Flow Rate FiO2 12/17/20 03:00 97.7 64 20 104/62 (76) 99 Room Air 97.7 Physical Exam PHYSICAL EXAM GENERAL: Alert and oriented gentleman, not in distress. The patient is thin, Eating breakfast cachectic down to 102 pounds. HEENT: Both pupils are round and reacting. No conjunctival lesion, no lesion in the mouth. NECK: Supple, no JVP, no lymphadenopathy. LUNGS: Clear. HEART: S1, S2 regular. ABDOMEN: Has a colostomy in place, but otherwise unremarkable. The patient does have Port-A-Cath in the right upper chest, which is not showing any obvious signs of infection. NEUROLOGIC: The patient is alert, awake and appropriate. No focal neurologic deficit. Labs Lab Laboratory Tests Test 12/17/20 05:55 White Blood Count 14.5 x10^3/uL (4.0-11.0) Red Blood Count 2.69 x10^6/uL (4.30-5.70) Hemoglobin 7.2 g/dL (13.0-17.5) Hematocrit 22.3 % (39.0-53.0) Mean Corpuscular Volume 83 fL (79-100) Mean Corpuscular Hemoglobin 27 pg (25-35) Mean Corpuscular Hemoglobin Concent 32 g/dL (31-37) Red Cell Distribution Width 17.2 % (11.5-14.5) Platelet Count 148 x10^3/uL (140-400) Neutrophils (%) (Auto) 94 % (31-73) Lymphocytes (%) (Auto) 1 % (24-48) Monocytes (%) (Auto) 5 % (0-9) Eosinophils (%) (Auto) 1 % (0-3) Basophils (%) (Auto) 0 % (0-3) Neutrophils # (Auto) 13.6 x10^3/uL (1.8-7.7) Lymphocytes # (Auto) 0.1 x10^3/uL (1.0-4.8) Monocytes # (Auto) 0.6 x10^3/uL (0.0-1.1) Eosinophils # (Auto) 0.1 x10^3/uL (0.0-0.7) Basophils # (Auto) 0.0 x10^3/uL (0.0-0.2) Sodium Level 136 mmol/L (136-145) Potassium Level 4.2 mmol/L (3.5-5.1) Chloride Level 106 mmol/L (98-107) Carbon Dioxide Level 25 mmol/L (21-32) Anion Gap 5 (6-14) Blood Urea Nitrogen 6 mg/dL (8-26) Creatinine 0.7 mg/dL (0.7-1.3) Estimated GFR (Cockcroft-Gault) 112.8 Glucose Level 93 mg/dL (70-99) Calcium Level 7.7 mg/dL (8.5-10.1) Phosphorus Level 2.5 mg/dL (2.6-4.7) Magnesium Level 1.8 mg/dL (1.8-2.4) Micro Microbiology 12/13/20 Blood Culture - Final, Complete Objective Assessment IMPRESSION: 1. Neutropenic fever. 2. Blood culture positive with Gram-positive cocci, likely from the Port-A-Cath either colonization or infection. Coag neg staph 3. Neutropenia from chemotherapy. 4. 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 5. Malnutrition. Plan Plan of Care repeat bc + , G + cocci, still likely port is infected vs colonized begin Dapto today D/c zyvox to iv to help clear cath, removal of port d/w pt if cont to have problem RICK COTTO MD Dec 17, 2020 07:43
[2020-12-17] MEDS: IV NORMAL SALINE 1000ML BAG 1,000 ML IV SCH ×2 (08:46→22:46)
[2020-12-17] MEDS: DAPTOMYCIN IV SCH (09:26)
[2020-12-17] MEDS: NORMAL SALINE IV SCH (09:26)
[2020-12-17] MEDS: MULTIVITAMINS,THERAPEUTIC 5 ML ORAL LIQUID. PO SCH (09:42)
[2020-12-17] MEDS: TPN PER PHARMACY MC PRN (10:07)
--- NOTE | 2020-12-17 10:08 | NUR ---
Pharmacy TPN Dosing Note S: JASON KIRK is a 65 year old M Currently receiving Central Continuous TPN started B:Pertinent PMH: Oropharyngeal adenocarcinoma Height: 5 feet, 4 inches Weight: 43.0 kg Current diet: full liquid diet LABS: Sodium: 136 Potassium: 4.2 Chloride: 106 Calcium: 7.5 Corrected Calcium: 9.26 Magnesium: 1.8 CO2: 25 SCr: 0.7 Glucose: 93 Albumin: 1.8 AST: 13 ALT: 22 TPN FORMULA: TPN TYPE: Central Continuous AMINO ACIDS: 60 gm DEXTROSE: 195 gm LIPIDS: 20 gm SODIUM CHLORIDE: 110 mEq SODIUM ACETATE: mEq SODIUM PHOSPHATE: mmol POTASSIUM CHLORIDE: 40 mEq POTASSIUM ACETATE: mEq POTASSIUM PHOSPHATE: 25 mmol MAGNESIUM: 20 mEq CALCIUM: 10 mEq INSULIN: units MULTIPLE VITAMIN: 5 ml TRACE ELEMENTS: 1 ml(s) TPN PLAN: Phos low and mag trending down, will increase KPhos and Mag in TPN. Labs in the am. R: Continue TPN as written above. Will monitor electrolytes, glucose, and tolerance to TPN. LAKIA ISABEL RPH, 12/17/20 [id number]
--- NOTE | 2020-12-17 10:40 | PDOC ---
PROGRESS NOTES Date of Service: DATE: 12/17/20 TIME: 10:39 Chief Complaint Chief Complaint IMPRESSION Assessment/Plan Acute generalized weakness due to recent chemoradiation Tx Patchy opacities left lung base. Small left pleural effusion. Neutropenia Failure to thrive Debility Oropharyngeal dysphagia due to adenoCA Hyponatremia due to volume depletion Severe protein malnutrition POS BLOOD CULT 1-26 Blood culture positive with Gram-positive cocci, likely from the Port-A-Cath IE colonization or infection. PLAN Admit to medicine for further management Oncology consult Neutropenic precautions ID CONSULT Continue IV Cefepime 2G Daily Nutrition consult Continue TPN via Portacath FLD continue IVF Lovenox for DVT prophylaxis DPOA: Maura ([id number]) REPEAT BLOOD CULT X 2 - LACTIC ACID PROCALCITONIN Start G-CSF 300 mcg daily while inpatient repeat bc + , G + cocci, still likely port is infected vs colonized // repeat bc + , G + cocci, still likely port is infected vs colonized begin iv Dapto 1-3 0 change zyvox to iv to help clear cath, removal of port d/w pt if cont to have problem BLOOD CULTURE Final GRAM POSITIVE COCCI IN CLUSTERS, SUGGESTIVE OF STAPH, IN 2 OF 4 BOTLES, TWO SETS DRAWN ONE SET IS POSITIVE. 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 PEG is contraindicated and he was sent home with TPN through his portacath. Since his discharge on 12/01/20, patient has been doing well with his last session of chemoTx 2 weeks ago, but he stated he did feel week yesterday before his radiation Tx. Last labs drawn shown he had a WBC of 1.5 and today was 1.4 in the ED with ANC of > 700. He denied fevers, N/V, chest pain, SOB, diarrhea, or ABD pain. he does still have early satiety and some dysphagia with chopped chicken and mashed potatoes. He is able to tolerate ice cream and broth. 12-14 COVID NEG, feeling a bit stronger, D/W RN 12-16 repeat bc + , G + cocci, still likely port is infected vs colonized change zyvox to iv to help clear cath, removal of port d/w pt if cont to have problem Past Medical/Surgical History: PMH/PSH: Past Medical History: Cancer, Hypertension, CA, Stroke, throat CA, esphogeal CA Past Surgical History: CABG, colostomy bag Allergies: Allergies: Coded Allergies: No Known Drug Allergies (Unverified , 08/31/20) Family History: Family History: Reviewed with no relevant findings Social History: Social History: Smoking Status: Never Smoker Alcohol Use: None Vitals Vitals Vital Signs Date Time Temp Pulse Resp B/P (MAP) Pulse Ox O2 Delivery O2 Flow Rate FiO2 12/17/20 07:00 97.3 74 17 114/71 (85) 100 Room Air 97.3 Physical Exam Physical Exam GENERAL: Alert and oriented gentleman, not in distress. The patient is thin, Eating breakfast cachectic down to 102 pounds. HEENT: Both pupils are round and reacting. No conjunctival lesion, no lesion in the mouth. NECK: Supple, no JVP, no lymphadenopathy. LUNGS: Clear. HEART: S1, S2 regular. ABDOMEN: Has a colostomy in place, but otherwise unremarkable. The patient does have Port-A-Cath in the right upper chest, which is not showing any obvious signs of infection. NEUROLOGIC: The patient is alert, awake and appropriate. No focal neurologic deficit. General: Alert, Oriented X3 Heart: Regular rate, Normal S1, Normal S2 Lungs: Clear, Wheezing, Other Abdomen: Normal bowel sounds, Soft Extremities: No clubbing Skin: No rashes Labs LABS Laboratory Tests Test 12/17/20 05:55 White Blood Count 14.5 x10^3/uL (4.0-11.0) Red Blood Count 2.69 x10^6/uL (4.30-5.70) Hemoglobin 7.2 g/dL (13.0-17.5) Hematocrit 22.3 % (39.0-53.0) Mean Corpuscular Volume 83 fL (79-100) Mean Corpuscular Hemoglobin 27 pg (25-35) Mean Corpuscular Hemoglobin Concent 32 g/dL (31-37) Red Cell Distribution Width 17.2 % (11.5-14.5) Platelet Count 148 x10^3/uL (140-400) Neutrophils (%) (Auto) 94 % (31-73) Lymphocytes (%) (Auto) 1 % (24-48) Monocytes (%) (Auto) 5 % (0-9) Eosinophils (%) (Auto) 1 % (0-3) Basophils (%) (Auto) 0 % (0-3) Neutrophils # (Auto) 13.6 x10^3/uL (1.8-7.7) Lymphocytes # (Auto) 0.1 x10^3/uL (1.0-4.8) Monocytes # (Auto) 0.6 x10^3/uL (0.0-1.1) Eosinophils # (Auto) 0.1 x10^3/uL (0.0-0.7) Basophils # (Auto) 0.0 x10^3/uL (0.0-0.2) Sodium Level 136 mmol/L (136-145) Potassium Level 4.2 mmol/L (3.5-5.1) Chloride Level 106 mmol/L (98-107) Carbon Dioxide Level 25 mmol/L (21-32) Anion Gap 5 (6-14) Blood Urea Nitrogen 6 mg/dL (8-26) Creatinine 0.7 mg/dL (0.7-1.3) Estimated GFR (Cockcroft-Gault) 112.8 Glucose Level 93 mg/dL (70-99) Calcium Level 7.7 mg/dL (8.5-10.1) Phosphorus Level 2.5 mg/dL (2.6-4.7) Magnesium Level 1.8 mg/dL (1.8-2.4) Assessment and Plan Assessmemt and Plan Problems Medical Problems: (1) Colon cancer Status: Acute (2) Esophageal cancer Status: Acute (3) Fatigue Status: Acute (4) Left lower lobe pneumonia Status: Acute (5) Person under investigation for COVID-19 Status: Acute Comment Review of Relevant I have reviewed the following items adeline (where applicable) has been applied. Labs Laboratory Tests Test 12/16/20 06:15 12/17/20 05:55 Sodium Level 137 mmol/L (136-145) 136 mmol/L (136-145) Potassium Level 4.0 mmol/L (3.5-5.1) 4.2 mmol/L (3.5-5.1) Chloride Level 106 mmol/L (98-107) 106 mmol/L (98-107) Carbon Dioxide Level 24 mmol/L (21-32) 25 mmol/L (21-32) Anion Gap 7 (6-14) 5 (6-14) Blood Urea Nitrogen 9 mg/dL (8-26) 6 mg/dL (8-26) Creatinine 0.6 mg/dL (0.7-1.3) 0.7 mg/dL (0.7-1.3) Estimated GFR (Cockcroft-Gault) 134.8 112.8 Glucose Level 84 mg/dL (70-99) 93 mg/dL (70-99) Calcium Level 7.5 mg/dL (8.5-10.1) 7.7 mg/dL (8.5-10.1) Phosphorus Level 2.6 mg/dL (2.6-4.7) 2.5 mg/dL (2.6-4.7) Magnesium Level 2.1 mg/dL (1.8-2.4) 1.8 mg/dL (1.8-2.4) White Blood Count 14.5 x10^3/uL (4.0-11.0) Red Blood Count 2.69 x10^6/uL (4.30-5.70) Hemoglobin 7.2 g/dL (13.0-17.5) Hematocrit 22.3 % (39.0-53.0) Mean Corpuscular Volume 83 fL (79-100) Mean Corpuscular Hemoglobin 27 pg (25-35) Mean Corpuscular Hemoglobin Concent 32 g/dL (31-37) Red Cell Distribution Width 17.2 % (11.5-14.5) Platelet Count 148 x10^3/uL (140-400) Neutrophils (%) (Auto) 94 % (31-73) Lymphocytes (%) (Auto) 1 % (24-48) Monocytes (%) (Auto) 5 % (0-9) Eosinophils (%) (Auto) 1 % (0-3) Basophils (%) (Auto) 0 % (0-3) Neutrophils # (Auto) 13.6 x10^3/uL (1.8-7.7) Lymphocytes # (Auto) 0.1 x10^3/uL (1.0-4.8) Monocytes # (Auto) 0.6 x10^3/uL (0.0-1.1) Eosinophils # (Auto) 0.1 x10^3/uL (0.0-0.7) Basophils # (Auto) 0.0 x10^3/uL (0.0-0.2) Laboratory Tests Test 12/17/20 05:55 White Blood Count 14.5 x10^3/uL (4.0-11.0) Red Blood Count 2.69 x10^6/uL (4.30-5.70) Hemoglobin 7.2 g/dL (13.0-17.5) Hematocrit 22.3 % (39.0-53.0) Mean Corpuscular Volume 83 fL (79-100) Mean Corpuscular Hemoglobin 27 pg (25-35) Mean Corpuscular Hemoglobin Concent 32 g/dL (31-37) Red Cell Distribution Width 17.2 % (11.5-14.5) Platelet Count 148 x10^3/uL (140-400) Neutrophils (%) (Auto) 94 % (31-73) Lymphocytes (%) (Auto) 1 % (24-48) Monocytes (%) (Auto) 5 % (0-9) Eosinophils (%) (Auto) 1 % (0-3) Basophils (%) (Auto) 0 % (0-3) Neutrophils # (Auto) 13.6 x10^3/uL (1.8-7.7) Lymphocytes # (Auto) 0.1 x10^3/uL (1.0-4.8) Monocytes # (Auto) 0.6 x10^3/uL (0.0-1.1) Eosinophils # (Auto) 0.1 x10^3/uL (0.0-0.7) Basophils # (Auto) 0.0 x10^3/uL (0.0-0.2) Sodium Level 136 mmol/L (136-145) Potassium Level 4.2 mmol/L (3.5-5.1) Chloride Level 106 mmol/L (98-107) Carbon Dioxide Level 25 mmol/L (21-32) Anion Gap 5 (6-14) Blood Urea Nitrogen 6 mg/dL (8-26) Creatinine 0.7 mg/dL (0.7-1.3) Estimated GFR (Cockcroft-Gault) 112.8 Glucose Level 93 mg/dL (70-99) Calcium Level 7.7 mg/dL (8.5-10.1) Phosphorus Level 2.5 mg/dL (2.6-4.7) Magnesium Level 1.8 mg/dL (1.8-2.4) Microbiology 12/13/20 Blood Culture - Preliminary, Resulted Medications Current Medications Cefepime HCl (Maxipime) 2 gm 1X ONCE IVP Last administered on 12/12/20at 17:01; Start 12/12/20 at 16:45; Stop 12/12/20 at 16:46; Status DC Sennosides (Senna) 17.2 mg PRN BID PRN PO CONSTIPATION; Start 12/12/20 at 16:45 Docusate Sodium (Colace) 100 mg PRN DAILY PRN PO HARD STOOLS; Start 12/12/20 at 16:45 Ondansetron HCl (Zofran) 4 mg PRN Q6HRS PRN IVP NAUSEA/VOMITING Last administered on 12/17/20at 05:57; Start 12/12/20 at 16:45 Dextrose (Dextrose 50%-Water Syringe) 12.5 gm PRN Q15MIN PRN IV SEE COMMENTS; Start 12/12/20 at 16:45 Cefepime HCl (Maxipime) 2 gm DAILY ONCE IVP Last administered on 12/13/20at 08:08; Start 12/13/20 at 09:00; Stop 12/13/20 at 10:46; Status DC Sodium Chloride 1,000 ml @ 100 mls/hr Q10H IV Last administered on 12/17/20at 08:46; Start 12/12/20 at 17:45 Enoxaparin Sodium (Lovenox 40mg Syringe) 40 mg Q24H SQ Last administered on 12/16/20at 17:43; Start 12/12/20 at 17:45 Zolpidem Tartrate (Ambien) 5 mg PRN QHS PRN PO INSOMNIA Last administered on 12/16/20at 22:25; Start 12/12/20 at 23:30 Magnesium Sulfate 50 ml @ 25 mls/hr Q24H IV Last administered on 12/13/20at 16:04; Start 12/13/20 at 11:00; Stop 12/13/20 at 12:59; Status DC Cefepime HCl (Maxipime) 1 gm Q12HR IVP Last administered on 12/14/20at 21:33; Start 12/13/20 at 21:00; Stop 12/15/20 at 09:30; Status DC Vancomycin HCl (Vanco Per Pharmacy) 1 each PRN DAILY PRN MC SEE COMMENTS Last administered on 12/14/20at 12:03; Start 12/13/20 at 10:45; Stop 12/15/20 at 09:46; Status DC Vancomycin HCl 1 gm/Sodium Chloride 250 ml @ 250 mls/hr 1X ONCE IV Last administered on 12/13/20at 12:22; Start 12/13/20 at 11:00; Stop 12/13/20 at 11:59; Status DC Micafungin Sodium 100 mg/Dextrose 100 ml @ 100 mls/hr Q24H IV Last administered on 12/14/20at 11:57; Start 12/13/20 at 12:00; Stop 12/15/20 at 09:30; Status DC Info (Tpn Per Pharmacy) 1 each PRN DAILY PRN MC SEE COMMENTS Last administered on 12/17/20at 10:07; Start 12/13/20 at 11:30 Sodium Chloride 110 meq/Potassium Chloride 50 meq/ Potassium Phosphate 12 mmol/ Magnesium Sulfate 12 meq/Calcium Gluconate 10 meq/ Multivitamins 5 ml/Zinc/Copper/ Manganese/ Selenium 1 ml/ Total Parenteral Nutrition/Amino Acids/Dextrose/ Fat Emulsion Intravenous 1,512 ml @ 63 mls/hr TPN CONT IV Last administered on 12/13/20at 21:57; Start 12/13/20 at 22:00; Stop 12/14/20 at 21:59; Status DC Filgrastim (Neupogen) 300 mcg QHS SQ Last administered on 12/16/20at 20:20; Start 12/13/20 at 21:00 Vancomycin HCl 750 mg/Sodium Chloride 250 ml @ 250 mls/hr Q24H IV Last admini stered on 12/14/20at 13:58; Start 12/14/20 at 12:30; Stop 12/15/20 at 09:30; Status DC Vancomycin HCl (Vancomycin Trough Level) 1 each 1X ONCE MC ; Start 12/15/20 at 12:00; Stop 12/15/20 at 12:01; Status Cancel Multivitamins (Thera M Plus) 1 tab DAILY PO Last administered on 12/16/20at 13:04; Start 12/14/20 at 11:30; Stop 12/17/20 at 09:28; Status DC Sodium Chloride 110 meq/Potassium Chloride 50 meq/ Potassium Phosphate 12 mmol/ Magnesium Sulfate 12 meq/Calcium Gluconate 10 meq/ Multivitamins 5 ml/Zinc/C opper/ Manganese/ Selenium 1 ml/ Total Parenteral Nutrition/Amino Acids/Dextrose/ Fat Emulsion Intravenous 1,512 ml @ 63 mls/hr TPN CONT IV Last administered on 12/14/20at 22:27; Start 12/14/20 at 22:00; Stop 12/15/20 at 21:59; Status DC Linezolid (Zyvox) 600 mg BID PO Last administered on 12/15/20at 20:52; Start 12/15/20 at 21:00; Stop 12/16/20 at 09:42; Status DC Levothyroxine Sodium (Synthroid) 50 mcg DAILY06 PO Last administered on 12/17/20at 05:45; Start 12/16/20 at 06:00 Sodium Phosphate 15 mmol/Sodium Chloride 105 ml @ 105 mls/hr 1X ONCE IV Last administered on 12/15/20at 14:44; Start 12/15/20 at 14:30; Stop 12/15/20 at 15:29; Status DC Magnesium Sulfate 50 ml @ 25 mls/hr 1X ONCE IV Last administered on 12/15/20at 14:44; Start 12/15/20 at 14:30; Stop 12/15/20 at 16:29; Status DC Sodium Chloride 110 meq/Potassium Chloride 50 meq/ Potassium Phosphate 17 mmol/ Magnesium Sulfate 15 meq/Calcium Gluconate 10 meq/ Multivitamins 5 ml/Zinc/Copper/ Manganese/ Selenium 1 ml/ Total Parenteral Nutrition/Amino Acids/Dextrose/ Fat Emulsion Intravenous 1,512 ml @ 63 mls/hr TPN CONT IV Last administered on 12/15/20at 20:55; Start 12/15/20 at 22:00; Stop 12/16/20 at 21:59; Status DC Linezolid/Dextrose 300 ml @ 300 mls/hr Q12HR IV Last administered on 12/16/20at 20:20; Start 12/16/20 at 10:00; Stop 12/17/20 at 07:43; Status DC Sodium Chloride 110 meq/Potassium Chloride 50 meq/ Potassium Phosphate 17 mmol/ Magnesium Sulfate 15 meq/Calcium Gluconate 10 meq/ Multivitamins 5 ml/Zinc/Copper/ Manganese/ Selenium 1 ml/ Total Parenteral Nutrition/Amino Acids/Dextrose/ Fat Emulsion Intravenous 1,512 ml @ 63 mls/hr TPN CONT IV Last administered on 12/16/20at 22:20; Start 12/16/20 at 22:00; Stop 12/17/20 at 21:59 Daptomycin 260 mg/ Sodium Chloride 50 ml @ 100 mls/hr Q24H IV Last administered on 12/17/20at 09:26; Start 12/17/20 at 09:00 Multivitamins/ Minerals Therapeutic (Centrum Multivit-Mineral Liq) 5 ml DAILY PO Last administered on 12/17/20at 09:42; Start 12/17/20 at 10:00 Sodium Chloride 110 meq/Potassium Chloride 40 meq/ Potassium Phosphate 25 mmol/ Magnesium Sulfate 20 meq/Calcium Gluconate 10 meq/ Multivitamins 5 ml/Zinc/Copper/ Manganese/ Selenium 1 ml/ Total Parenteral Nutrition/Amino Acids/Dextrose/ Fat Emulsion Intravenous 1,512 ml @ 63 mls/hr TPN CONT IV ; Start 12/17/20 at 22:00; Stop 12/18/20 at 21:59 Active Scripts Active Protonix (Pantoprazole Sodium) 40 Mg Tablet. 40 Mg PO DAILYAC 30 Days Reported Levothyroxine Sodium 50 Mcg Tablet 1 Tab PO DAILY Carvedilol (Carvedilol) 3.125 Mg Tablet 3.125 Mg PO BIDWMEALS Ondansetron Hcl 4 Mg Tablet 1 Tab PO PRN Q8HRS PRN Vitals/I & O Vital Sign - Last 24 Hours 12/16/20 12/16/20 12/16/20 12/16/20 11:00 15:00 19:00 20:00 Temp 97.9 97.8 98.4 97.9 97.8 98.4 Pulse 76 67 69 Resp 16 18 20 B/P (MAP) 121/71 (88) 104/68 (80) 114/76 (89) Pulse Ox 99 99 98 O2 Delivery Room Air Room Air Room Air Room Air 12/16/20 12/17/20 12/17/20 23:00 03:00 07:00 Temp 97.4 97.7 97.3 97.4 97.7 97.3 Pulse 78 64 74 Resp 20 20 17 B/P (MAP) 104/67 (79) 104/62 (76) 114/71 (85) Pulse Ox 100 99 100 O2 Delivery Room Air Room Air Room Air Intake and Output 12/16/20 12/16/20 12/17/20 15:00 23:00 07:00 Intake Total 200 ml 2800 ml 400 ml Output Total 250 ml 950 ml 850 ml Balance -50 ml 1850 ml -450 ml Nutrition Consultation Dietary Evaluation: Recommendations by RD: Dietary education by RD, PPN/TPN Comments: REC continue diet as tolerated TPN: 195 g dextrose, 60 g AA, 20 g lipid Expected Outcomes/Goals: to meet >75% est nutr needs via po intake and nutrition support- met, goal ongoing Interpretation of weight loss: >10% in 6 months Malnutrition Findings: Food and Nutrition Intake (Sev: <50% est energy req 5days Body Fat Depletion (Non Severe: Mod to Severe Weight Status: Underweight Justicifation of Admission Dx: Justifications for Admission: Justification of Admission Dx: Yes RONALD VANEGAS MD Dec 17, 2020 10:40
[2020-12-17 11:00] VITALS: BP 104/58
--- NOTE | 2020-12-17 11:04 | PDOC ---
PULMONARY PROGRESS NOTES DATE: 12/17/20 TIME: 11:03 Subjective Patient remains on room air No overnight concerns from nursing Afebrile Vitals Vital Signs Date Time Temp Pulse Resp B/P (MAP) Pulse Ox O2 Delivery O2 Flow Rate FiO2 12/17/20 07:00 97.3 74 17 114/71 (85) 100 Room Air 97.3 ROS: No Nausea, No Chest Pain, No Abdominal Pain, No Increase Cough General: Alert, No acute distress HEENT: Other Lungs: Clear, Wheezing, Other Cardiovascular: S1 Abdomen: Soft, Other (ostomy) Extremities: Other Labs Laboratory Tests Test 12/16/20 06:15 12/17/20 05:55 Sodium Level 137 mmol/L (136-145) 136 mmol/L (136-145) Potassium Level 4.0 mmol/L (3.5-5.1) 4.2 mmol/L (3.5-5.1) Chloride Level 106 mmol/L (98-107) 106 mmol/L (98-107) Carbon Dioxide Level 24 mmol/L (21-32) 25 mmol/L (21-32) Anion Gap 7 (6-14) 5 (6-14) Blood Urea Nitrogen 9 mg/dL (8-26) 6 mg/dL (8-26) Creatinine 0.6 mg/dL (0.7-1.3) 0.7 mg/dL (0.7-1.3) Estimated GFR (Cockcroft-Gault) 134.8 112.8 Glucose Level 84 mg/dL (70-99) 93 mg/dL (70-99) Calcium Level 7.5 mg/dL (8.5-10.1) 7.7 mg/dL (8.5-10.1) Phosphorus Level 2.6 mg/dL (2.6-4.7) 2.5 mg/dL (2.6-4.7) Magnesium Level 2.1 mg/dL (1.8-2.4) 1.8 mg/dL (1.8-2.4) White Blood Count 14.5 x10^3/uL (4.0-11.0) Red Blood Count 2.69 x10^6/uL (4.30-5.70) Hemoglobin 7.2 g/dL (13.0-17.5) Hematocrit 22.3 % (39.0-53.0) Mean Corpuscular Volume 83 fL (79-100) Mean Corpuscular Hemoglobin 27 pg (25-35) Mean Corpuscular Hemoglobin Concent 32 g/dL (31-37) Red Cell Distribution Width 17.2 % (11.5-14.5) Platelet Count 148 x10^3/uL (140-400) Neutrophils (%) (Auto) 94 % (31-73) Lymphocytes (%) (Auto) 1 % (24-48) Monocytes (%) (Auto) 5 % (0-9) Eosinophils (%) (Auto) 1 % (0-3) Basophils (%) (Auto) 0 % (0-3) Neutrophils # (Auto) 13.6 x10^3/uL (1.8-7.7) Lymphocytes # (Auto) 0.1 x10^3/uL (1.0-4.8) Monocytes # (Auto) 0.6 x10^3/uL (0.0-1.1) Eosinophils # (Auto) 0.1 x10^3/uL (0.0-0.7) Basophils # (Auto) 0.0 x10^3/uL (0.0-0.2) Laboratory Tests Test 12/17/20 05:55 White Blood Count 14.5 x10^3/uL (4.0-11.0) Red Blood Count 2.69 x10^6/uL (4.30-5.70) Hemoglobin 7.2 g/dL (13.0-17.5) Hematocrit 22.3 % (39.0-53.0) Mean Corpuscular Volume 83 fL (79-100) Mean Corpuscular Hemoglobin 27 pg (25-35) Mean Corpuscular Hemoglobin Concent 32 g/dL (31-37) Red Cell Distribution Width 17.2 % (11.5-14.5) Platelet Count 148 x10^3/uL (140-400) Neutrophils (%) (Auto) 94 % (31-73) Lymphocytes (%) (Auto) 1 % (24-48) Monocytes (%) (Auto) 5 % (0-9) Eosinophils (%) (Auto) 1 % (0-3) Basophils (%) (Auto) 0 % (0-3) Neutrophils # (Auto) 13.6 x10^3/uL (1.8-7.7) Lymphocytes # (Auto) 0.1 x10^3/uL (1.0-4.8) Monocytes # (Auto) 0.6 x10^3/uL (0.0-1.1) Eosinophils # (Auto) 0.1 x10^3/uL (0.0-0.7) Basophils # (Auto) 0.0 x10^3/uL (0.0-0.2) Sodium Level 136 mmol/L (136-145) Potassium Level 4.2 mmol/L (3.5-5.1) Chloride Level 106 mmol/L (98-107) Carbon Dioxide Level 25 mmol/L (21-32) Anion Gap 5 (6-14) Blood Urea Nitrogen 6 mg/dL (8-26) Creatinine 0.7 mg/dL (0.7-1.3) Estimated GFR (Cockcroft-Gault) 112.8 Glucose Level 93 mg/dL (70-99) Calcium Level 7.7 mg/dL (8.5-10.1) Phosphorus Level 2.5 mg/dL (2.6-4.7) Magnesium Level 1.8 mg/dL (1.8-2.4) Medications Active Scripts Medications Dose Route/Sig Max Daily Dose Days Date Category Protonix (Pantoprazole Sodium) 40 Mg Tablet.dr 40 Mg PO DAILYAC 30 09/07/20 Rx Levothyroxine Sodium 50 Mcg Tablet 1 Tab PO DAILY 08/27/20 Reported Carvedilol (Carvedilol) 3.125 Mg Tablet 3.125 Mg PO BIDWMEALS 08/27/20 Reported Ondansetron Hcl 4 Mg Tablet 1 Tab PO PRN Q8HRS PRN 08/27/20 Reported Impression . IMPRESSION: 1. Neutropenic fever 2. Pancytopenia post-chemotherapy--improving 3. 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 4. No significant tobacco history. 5. Bacteremia, suspect related to Port-A-Cath Plan . Stable from a pulmonary standpoint, remains on room air Antibiotics per ID--awaiting cultures--preliminary gram-positive cocci May need Port-A-Cath removal Follow cultures Monitor hemoglobin white blood cell count and platelets Transfusion as needed for anemia COVID-19 negative can move out of isolation DVT/GI prophylaxis Discussed with RN Okay to discharge from a pulmonary standpoint Stable from a pulmonary standpoint we will see if on a as needed basis if the patient does not discharge RICH VUONG MD Dec 17, 2020 11:04
[2020-12-17 12:31] LABS: % BANDS 21 % (0-9); % EOS 1 % (0-5); % LYMPHS 2 % (24-48); % METAS 1 % (0-0); % MONOS 7 % (0-10); % MYELOS 2 % (0-0); % SEGS 66 % (35-66)
[2020-12-17 12:32] LABS: PLT ESTIMATE ADEQUATE (ADEQUATE); TOXIC GRANULATION SLIGHT
[2020-12-17 12:33] LABS: ANISOCYTOSIS PRESENT
[2020-12-17] MEDS ORDERED: POTASSIUM BICARB 20 MEQ EFFERVESCENT TABLET. FT ONE (14:00)
[2020-12-17] MEDS ORDERED: POTASSIUM BICARB 10 MEQ EFFERVESCENT TABLET. PO SCH (14:00)
[2020-12-17] MEDS ORDERED: POTASSIUM BICARB 20 MEQ EFFERVESCENT TABLET. PO SCH (14:00)
[2020-12-17] MEDS ORDERED: MAGNESIUM SULFATE 2GM 50 ML IV SCH (14:00)
[2020-12-17] MEDS ORDERED: POTASSIUM BICARB 10 MEQ EFFERVESCENT TABLET. FT ONE (14:00)
[2020-12-17] MEDS ORDERED: ELECTROLYTE (NON-ICU) PROTOCOL. MC PRN (14:15)
[2020-12-17 15:00] VITALS: BP 128/75
[2020-12-17] MEDS: ENOXAPARIN 40 MG/0.4 ML SYRINGE. SQ SCH (16:49)
[2020-12-17 19:00] VITALS: BP 120/76
[2020-12-17] MEDS ORDERED: POTASSIUM & SODIUM PHOSPHATES PACKET. PO SCH (21:00)
[2020-12-17] MEDS ORDERED: MAGNESIUM OXIDE 400 MG TABLET PO SCH (21:00)
[2020-12-17] MEDS ORDERED: AMINO ACID IV SCH (22:00)
[2020-12-17] MEDS ORDERED: TOTAL PARENTERAL NUTRITION IV SCH (22:00)
[2020-12-17] MEDS ORDERED: DEXTROSE 70% IV SCH (22:00)
[2020-12-17] MEDS ORDERED: [UNRECOGNIZED DRUG - OTHER] IV SCH (22:00)
[2020-12-17] MEDS: ZOLPIDEM 5 MG TABLET. PO PRN (22:51)
[2020-12-17 23:00] VITALS: BP 118/60
[2020-12-18 03:00] VITALS: BP 131/67
[2020-12-18] MEDS: LEVOTHYROXINE 50 MCG TABLET PO SCH (06:31)
[2020-12-18 07:00] VITALS: BP 114/72
[2020-12-18 07:05] LABS: CREATININE 0.7 mg/dL (0.7-1.3); GFR 112.8; MAGNESIUM 1.9 mg/dL (1.8-2.4); PHOSPHORUS 3.1 mg/dL (2.6-4.7); POTASSIUM 4.1 mmol/L (3.5-5.1)
[2020-12-18] MEDS: IV NORMAL SALINE 1000ML BAG 1,000 ML IV SCH ×3 (08:28→23:45)
[2020-12-18] MEDS: MULTIVITAMINS,THERAPEUTIC 5 ML ORAL LIQUID. PO SCH (08:28)
[2020-12-18] MEDS: NORMAL SALINE IV SCH (08:31)
[2020-12-18] MEDS: DAPTOMYCIN IV SCH (08:31)
--- NOTE | 2020-12-18 10:50 | PDOC ---
[employer] PROGRESS NOTE Date of Service DOS: DATE: 12/18/20 TIME: 10:46 Chief Complaint Chief Complaint Acute generalized weakness due to recent chemoradiation Tx Patchy opacities left lung base. Small left pleural effusion. Neutropenia Failure to thrive Debility Oropharyngeal dysphagia due to adenoCA Hyponatremia due to volume depletion Severe protein malnutrition POS BLOOD CULT 1 Blood culture positive with Gram-positive cocci, likely from the Port-A-Cath IE colonization or infection. 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 PEG is contraindicated and he was sent home with TPN through his portacath. Since his discharge on 12/01/20, patient has been doing well with his last session of chemoTx 2 weeks ago, but he stated he did feel week yesterday before his radiation Tx. Last labs drawn shown he had a WBC of 1.5 and today was 1.4 in the ED with ANC of > 700. He denied fevers, N/V, chest pain, SOB, diarrhea, or ABD pain. he does still have early satiety and some dysphagia with chopped chicken and mashed potatoes. He is able to tolerate ice cream and broth. 12-14 COVID NEG, feeling a bit stronger, D/W RN 12-16 repeat bc + , G + cocci, still likely port is infected vs colonized change zyvox to iv to help clear cath, removal of port d/w pt if cont to have problem 12/18/2020 - pt seen and examined at bedside - discussed with RN - pt on IV TPN and fluids - pt on IV Abx - pt complains of increased pain - chart reviewed Past Medical/Surgical History: PMH/PSH: Past Medical History: Cancer, Hypertension, [place], Stroke, throat CA, esphogeal CA Past Surgical History: CABG, colostomy bag Allergies: Allergies: Coded Allergies: No Known Drug Allergies (Unverified , 08/31/20) Family History: Family History: Reviewed with no relevant findings Social History: Social History: Smoking Status: Never Smoker Alcohol Use: None Vitals/I&O Vitals/I&O: Vital Signs Date Time Temp Pulse Resp B/P (MAP) Pulse Ox O2 Delivery O2 Flow Rate FiO2 12/18/20 07:00 98.1 77 17 114/72 (86) 100 Room Air 98.1 I & O 12/17/20 12/17/20 12/18/20 15:00 23:00 07:00 Intake Total 2512 ml Output Total 570 ml 650 ml 1250 ml Balance -570 ml 1862 ml -1250 ml Physical Exam Physical Exam: GENERAL: Alert and oriented gentleman, not in distress. The patient is thin, Eating breakfast cachectic down to 102 pounds. HEENT: Both pupils are round and reacting. No conjunctival lesion, no lesion in the mouth. NECK: Supple, no JVP, no lymphadenopathy. LUNGS: Clear. HEART: S1, S2 regular. ABDOMEN: Has a colostomy in place, but otherwise unremarkable. The patient does have Port-A-Cath in the right upper chest, which is not showing any obvious signs of infection. NEUROLOGIC: The patient is alert, awake and appropriate. No focal neurologic deficit. General: Alert, Oriented X3 Heart: Regular rate, Normal S1, Normal S2 Lungs: Clear, Wheezing, Other Abdomen: Normal bowel sounds, Soft Extremities: No clubbing Skin: No rashes Labs Labs: Laboratory Tests Test 12/18/20 06:30 Sodium Level 138 mmol/L (136-145) Potassium Level 4.1 mmol/L (3.5-5.1) Chloride Level 107 mmol/L (98-107) Carbon Dioxide Level 26 mmol/L (21-32) Anion Gap 5 (6-14) Blood Urea Nitrogen 7 mg/dL (8-26) Creatinine 0.7 mg/dL (0.7-1.3) Estimated GFR (Cockcroft-Gault) 112.8 Glucose Level 103 mg/dL (70-99) Calcium Level 8.0 mg/dL (8.5-10.1) Phosphorus Level 3.1 mg/dL (2.6-4.7) Magnesium Level 1.9 mg/dL (1.8-2.4) Review of Systems Review of Systems: pt denies change in vision pt denies SEARS Assessment and Plan Assessmemt and Plan Problems Medical Problems: (1) Colon cancer Status: Acute (2) Esophageal cancer Status: Acute (3) Fatigue Status: Acute (4) Left lower lobe pneumonia Status: Acute (5) Person under investigation for COVID-19 Status: Acute Assessment Acute generalized weakness due to recent chemoradiation Tx Patchy opacities left lung base. Small left pleural effusion. Neutropenia Failure to thrive Debility Oropharyngeal dysphagia due to adenoCA Hyponatremia due to volume depletion Severe protein malnutrition Plan - continue broad spectrum IV Abx - trend labs - pain control, morphine - continue TPN and maintenance IV fluids - wound care/ port care - appreciate input from subspecialists Comment Review of Relevant I have reviewed the following items adeline (where applicable) has been applied. Medications: Current Medications Medications (Trade) Dose Ordered Sig/Steff Route PRN Reason Start Time Stop Time Status Last Admin Dose Admin Sodium Chloride 110 meq/Potassium Chloride 40 meq/ Potassium Phosphate 25 mmol/ Magnesium Sulfate 20 meq/Calcium Gluconate 10 meq/ Multivitamins 5 ml/Zinc/Copper/ Manganese/ Selenium 1 ml/ Total Parenteral Nutrition/Amino Acids/Dextrose/ Fat Emulsion Intravenous 1,512 ml @ 63 mls/hr TPN CONT IV 12/17/20 22:00 12/18/20 21:59 12/17/20 22:46 Justifications for Admission Other Justification STEVIE RALPH III DO Dec 18, 2020 10:50
[2020-12-18 11:00] VITALS: BP 122/80
[2020-12-18] MEDS ORDERED: MORPHINE SULFATE 2 MG/ML VIAL. IV PRN (11:00)
[2020-12-18] MEDS: TPN PER PHARMACY MC PRN (11:02)
--- NOTE | 2020-12-18 11:02 | NUR ---
Pharmacy TPN Dosing Note S: JASON KIRK is a 65 year old M Currently receiving Central Continuous TPN started B:Pertinent PMH: Oropharyngeal adenocarcinoma Height: 5 feet, 4 inches Weight: 41.4 kg Current diet: full liquid diet LABS: Sodium: 138 Potassium: 41 Chloride: 107 Calcium: 8.0 Corrected Calcium: 9.76 Magnesium: 1.9 CO2: 26 SCr: 0.7 Glucose: 103 Albumin: 1.8 AST: 13 ALT: 22 TPN FORMULA: TPN TYPE: Central Continuous AMINO ACIDS: 60 gm DEXTROSE: 195 gm LIPIDS: 20 gm SODIUM CHLORIDE: 110 mEq SODIUM ACETATE: mEq SODIUM PHOSPHATE: mmol POTASSIUM CHLORIDE: 40 mEq POTASSIUM ACETATE: mEq POTASSIUM PHOSPHATE: 25 mmol MAGNESIUM: 20 mEq CALCIUM: 10 mEq INSULIN: units MULTIPLE VITAMIN: 5 ml TRACE ELEMENTS: 1 ml(s) TPN PLAN: Phos and mag improved, continue same. BMP in the am. R: Continue TPN as written above. Will monitor electrolytes, glucose, and tolerance to TPN. LAKIA ISABEL RPH, 12/18/20 1102
[2020-12-18 15:00] VITALS: BP 122/79
[2020-12-18] MEDS: ONDANSETRON PF 4 MG/2 ML VIAL. IVP PRN (16:25)
[2020-12-18] MEDS: ENOXAPARIN 40 MG/0.4 ML SYRINGE. SQ SCH (17:45)
[2020-12-18 19:00] VITALS: BP 129/67
[2020-12-18] MEDS ORDERED: DEXTROSE 70% IV SCH (22:00)
[2020-12-18] MEDS ORDERED: [UNRECOGNIZED DRUG - OTHER] IV SCH (22:00)
[2020-12-18] MEDS ORDERED: TOTAL PARENTERAL NUTRITION IV SCH (22:00)
[2020-12-18] MEDS ORDERED: AMINO ACID IV SCH (22:00)
[2020-12-18] MEDS: ZOLPIDEM 5 MG TABLET. PO PRN (22:27)
[2020-12-18 23:00] VITALS: BP 126/74
[2020-12-19 03:00] VITALS: BP 124/69
[2020-12-19] MEDS: IV NORMAL SALINE 1000ML BAG 1,000 ML IV SCH (05:17)
[2020-12-19] MEDS: LEVOTHYROXINE 50 MCG TABLET PO SCH (05:17)
[2020-12-19] MEDS: ONDANSETRON PF 4 MG/2 ML VIAL. IVP PRN (05:23)
[2020-12-19 05:46] LABS: CALCIUM 8.2 mg/dL (8.5-10.1); CREATININE 0.6 mg/dL (0.7-1.3); GFR 134.8; POTASSIUM 4.7 mmol/L (3.5-5.1)
[2020-12-19 07:00] VITALS: BP 123/77
--- NOTE | 2020-12-19 09:04 | PDOC ---
Infectious Disease Note Subjective Subjective pt is feeling good, no fever, no complaints Eating. Port ok ROS ROS No nausea vomiting diarrhea Vital Sign Vital Signs Vital Signs Date Time Temp Pulse Resp B/P (MAP) Pulse Ox O2 Delivery O2 Flow Rate FiO2 12/19/20 07:00 97.5 69 16 123/77 (92) 99 Room Air 97.5 Physical Exam PHYSICAL EXAM GENERAL: Alert and oriented gentleman, not in distress. The patient is thin, Eating breakfast cachectic down to 102 pounds. HEENT: Both pupils are round and reacting. No conjunctival lesion, no lesion in the mouth. NECK: Supple, no JVP, no lymphadenopathy. LUNGS: Clear. HEART: S1, S2 regular. ABDOMEN: Has a colostomy in place, but otherwise unremarkable. The patient does have Port-A-Cath in the right upper chest, which is not showing any obvious signs of infection. NEUROLOGIC: The patient is alert, awake and appropriate. No focal neurologic deficit. Labs Lab Laboratory Tests Test 12/19/20 05:15 Sodium Level 137 mmol/L (136-145) Potassium Level 4.7 mmol/L (3.5-5.1) Chloride Level 104 mmol/L (98-107) Carbon Dioxide Level 27 mmol/L (21-32) Anion Gap 6 (6-14) Blood Urea Nitrogen 9 mg/dL (8-26) Creatinine 0.6 mg/dL (0.7-1.3) Estimated GFR (Cockcroft-Gault) 134.8 Glucose Level 101 mg/dL (70-99) Calcium Level 8.2 mg/dL (8.5-10.1) Micro BLOOD CULTURE LC Final Final GROWTH OF GRAM POSITIVE COCCI FINAL ID= [STAPHYLOCOCCUS EPIDERMIDIS] STAPHYLOCOCCUS EPIDERMIDIS ANTIMICROBIAL SUSCEPTIBILITY Final Comment POS ALEXIS TYPE 38 STAPHYLOCOCCUS EPIDERMIDIS ANTIBIOTIC RESULT INTERPRETATION AZITHROMYCIN <=2 S CLINDAMYCIN <=0.25 S CIPROFLOXACIN <=1 S DAPTOMYCIN <=0.5 S ERYTHROMYCIN <=0.25 S GENTAMICIN <=4 S LINEZOLID 2 S LEVOFLOXACIN <=1 S OXACILLIN <=0.25 S PENICILLIN >2 Ok RIFAMPIN <=1 S TRIMETHOPRIM/SULFAMETHOXAZOLE <=0.5/9.5 S TETRACYCLINE <=4 S VANCOMYCIN 2 S Unless otherwise specified, Testing Performed by: [address] [address] For Inquires, the Physician may contact the Microbiology department at [phone] Objective Assessment IMPRESSION: 1. Neutropenic fever. 2. Blood culture positive with Gram-positive cocci, likely from the Port-A-Cath either colonization or infection. Coag neg staph 3. Neutropenia from chemotherapy. 4. 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 5. Malnutrition. Plan Plan of Care Patient can be discharged on p.o. Shima I did discuss with the patient port can be colonized and may need to remove but we will try to save it unless it fails TIM WONG MD Dec 19, 2020 09:04
--- NOTE | 2020-12-19 09:23 | PDOC ---
PULMONARY PROGRESS NOTES DATE: 12/19/20 TIME: 09:21 Subjective Patient remains on room air No overnight concerns from nursing Afebrile Vitals Vital Signs Date Time Temp Pulse Resp B/P (MAP) Pulse Ox O2 Delivery O2 Flow Rate FiO2 12/19/20 07:00 97.5 69 16 123/77 (92) 99 Room Air 97.5 ROS: No Nausea, No Chest Pain, No Abdominal Pain, No Increase Cough General: Alert, No acute distress HEENT: Other Lungs: Clear, Wheezing, Other Cardiovascular: S1 Abdomen: Soft, Other (ostomy) Extremities: Other Labs Laboratory Tests Test 12/18/20 06:30 12/19/20 05:15 Sodium Level 138 mmol/L (136-145) 137 mmol/L (136-145) Potassium Level 4.1 mmol/L (3.5-5.1) 4.7 mmol/L (3.5-5.1) Chloride Level 107 mmol/L (98-107) 104 mmol/L (98-107) Carbon Dioxide Level 26 mmol/L (21-32) 27 mmol/L (21-32) Anion Gap 5 (6-14) 6 (6-14) Blood Urea Nitrogen 7 mg/dL (8-26) 9 mg/dL (8-26) Creatinine 0.7 mg/dL (0.7-1.3) 0.6 mg/dL (0.7-1.3) Estimated GFR (Cockcroft-Gault) 112.8 134.8 Glucose Level 103 mg/dL (70-99) 101 mg/dL (70-99) Calcium Level 8.0 mg/dL (8.5-10.1) 8.2 mg/dL (8.5-10.1) Phosphorus Level 3.1 mg/dL (2.6-4.7) Magnesium Level 1.9 mg/dL (1.8-2.4) Laboratory Tests Test 12/19/20 05:15 Sodium Level 137 mmol/L (136-145) Potassium Level 4.7 mmol/L (3.5-5.1) Chloride Level 104 mmol/L (98-107) Carbon Dioxide Level 27 mmol/L (21-32) Anion Gap 6 (6-14) Blood Urea Nitrogen 9 mg/dL (8-26) Creatinine 0.6 mg/dL (0.7-1.3) Estimated GFR (Cockcroft-Gault) 134.8 Glucose Level 101 mg/dL (70-99) Calcium Level 8.2 mg/dL (8.5-10.1) Medications Active Scripts Medications Dose Route/Sig Max Daily Dose Days Date Category Protonix (Pantoprazole Sodium) 40 Mg Tablet.dr 40 Mg PO DAILYAC 30 09/07/20 Rx Levothyroxine Sodium 50 Mcg Tablet 1 Tab PO DAILY 08/27/20 Reported Carvedilol (Carvedilol) 3.125 Mg Tablet 3.125 Mg PO BIDWMEALS 08/27/20 Reported Ondansetron Hcl 4 Mg Tablet 1 Tab PO PRN Q8HRS PRN 08/27/20 Reported Impression . IMPRESSION: 1. Neutropenic fever--- resolved 2. Pancytopenia post-chemotherapy--improving 3. 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 4. No significant tobacco history. 5. Bacteremia, suspect related to [id number]--- GROWTH OF GRAM POSITIVE COCCI FINAL ID= [STAPHYLOCOCCUS EPIDERMIDIS] STAPHYLOCOCCUS EPIDERMIDIS Plan . Stable from a pulmonary standpoint, remains on room air Antibiotics per ID--now on p.o. antibiotics Follow Cultures ----GROWTH OF GRAM POSITIVE COCCI, FINAL ID= [STAPHYLOCOCCUS EPIDERMIDIS], STAPHYLOCOCCUS EPIDERMIDIS Monitor hemoglobin white blood cell count and platelets Transfusion as needed for anemia COVID-19 negative can move out of isolation DVT/GI prophylaxis Discussed with RN Okay to discharge from a pulmonary standpoint Stable from a pulmonary standpoint we will see if on a as needed basis if the patient does not discharge RICH VUONG MD Dec 19, 2020 09:23
[2020-12-19] MEDS: MULTIVITAMINS,THERAPEUTIC 5 ML ORAL LIQUID. PO SCH (09:32)
[2020-12-19] MEDS: CEPHALEXIN 250 MG CAPSULE. PO SCH ×2 (09:33→12:26)
[2020-12-19] MEDS: DAPTOMYCIN IV SCH (09:33)
[2020-12-19] MEDS: NORMAL SALINE IV SCH (09:33)
[2020-12-19 11:00] VITALS: BP 134/53
--- NOTE | 2020-12-19 11:15 | NUR ---
SW following for discharge planning. Spoke with RN and reviewed chart. Pt will not need Zyvox on discharge per ID. Pt to discharge on oral Keflex. Pt to discharge home today, 12/19 with resumption of [facility] and [facility] home infusion for TPN. SW awaiting discharge orders. SW following. Addendum: 12/19/20 at 1603 by TONI GOLDSTEIN Discharge orders faxed to [facility] and [facility]. No further SW needs at this time. Addendum: 12/19/20 at 1646 by TONI GOLDSTEIN Coordinated care with Kathe from [facility] and Braulio from [facility]. Orders received.
--- NOTE | 2020-12-19 11:58 | PDOC ---
PROGRESS NOTES Date of Service DATE: 12/19/20 TIME: 11:55 Subjective Subjective Burt reports no new symptoms today. He reports no new episodes of fever. He denies pain anywhere. He has been able to take food by mouth. Denies nausea or vomiting. Objective Objective Vital Signs Date Time Temp Pulse Resp B/P (MAP) Pulse Ox O2 Delivery O2 Flow Rate FiO2 12/19/20 11:00 98.1 82 16 134/53 (80) 100 Room Air 98.1 Intake and Output 12/19/20 07:00 Intake Total 2930 ml Output Total 3270 ml Balance -340 ml Intake Oral 430 ml IV Total 2500 ml Output Urine Total 3120 ml Stool Total 150 ml Physical Exam Abdomen: Normal bowel sounds, Soft Heart: Regular rate Extremities: No clubbing, No cyanosis General: Alert HEENT: Atraumatic Lungs: Clear to auscultation MUSCULOSKELETAL: No swelling Neck: Supple, No JVD Neuro: Normal speech Psych/Mental Status: Mental status NL Skin: No rashes Assessment Assessment Locally advanced GE junction adenocarcinoma, status post concurrent chemoradiotherapy with carboplatin and paclitaxel Fever, possibly secondary to Staphylococcus epidermidis bacteremia, noted on culture obtained from Port-A-Cath. 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 Now in remission Plan Plan of Care -Continue with antibiotics per ID service at this time -No growth noted on repeat blood cultures. We will plan on repeating these in the office next week -Follow-up will be arranged with medical oncology clinic in 1 week. No additional recommendations for management while inpatient from oncology standpoint -Continue TPN -DC and other management per primary service Rob Barr MD Medical Oncology/Hematology Ph: [phone] Comment Review of Relevant I have reviewed the following items adeline (where applicable) has been applied. Labs Laboratory Tests Test 12/18/20 06:30 12/19/20 05:15 Sodium Level 138 mmol/L (136-145) 137 mmol/L (136-145) Potassium Level 4.1 mmol/L (3.5-5.1) 4.7 mmol/L (3.5-5.1) Chloride Level 107 mmol/L (98-107) 104 mmol/L (98-107) Carbon Dioxide Level 26 mmol/L (21-32) 27 mmol/L (21-32) Anion Gap 5 (6-14) 6 (6-14) Blood Urea Nitrogen 7 mg/dL (8-26) 9 mg/dL (8-26) Creatinine 0.7 mg/dL (0.7-1.3) 0.6 mg/dL (0.7-1.3) Estimated GFR (Cockcroft-Gault) 112.8 134.8 Glucose Level 103 mg/dL (70-99) 101 mg/dL (70-99) Calcium Level 8.0 mg/dL (8.5-10.1) 8.2 mg/dL (8.5-10.1) Phosphorus Level 3.1 mg/dL (2.6-4.7) Magnesium Level 1.9 mg/dL (1.8-2.4) 1.9 mg/dL (1.8-2.4) Laboratory Tests Test 12/19/20 05:15 Sodium Level 137 mmol/L (136-145) Potassium Level 4.7 mmol/L (3.5-5.1) Chloride Level 104 mmol/L (98-107) Carbon Dioxide Level 27 mmol/L (21-32) Anion Gap 6 (6-14) Blood Urea Nitrogen 9 mg/dL (8-26) Creatinine 0.6 mg/dL (0.7-1.3) Estimated GFR (Cockcroft-Gault) 134.8 Glucose Level 101 mg/dL (70-99) Calcium Level 8.2 mg/dL (8.5-10.1) Magnesium Level 1.9 mg/dL (1.8-2.4) Microbiology 12/13/20 Blood Culture - Final, Complete 12/13/20 Antimicrobic Susceptibility - Final, Complete Medications Current Medications Cefepime HCl (Maxipime) 2 gm 1X ONCE IVP Last administered on 12/12/20at 17:01; Start 12/12/20 at 16:45; Stop 12/12/20 at 16:46; Status DC Sennosides (Senna) 17.2 mg PRN BID PRN PO CONSTIPATION; Start 12/12/20 at 16:45 Docusate Sodium (Colace) 100 mg PRN DAILY PRN PO HARD STOOLS; Start 12/12/20 at 16:45 Ondansetron HCl (Zofran) 4 mg PRN Q6HRS PRN IVP NAUSEA/VOMITING Last administered on 12/19/20at 05:23; Start 12/12/20 at 16:45 Dextrose (Dextrose 50%-Water Syringe) 12.5 gm PRN Q15MIN PRN IV SEE COMMENTS; Start 12/12/20 at 16:45 Cefepime HCl (Maxipime) 2 gm DAILY ONCE IVP Last administered on 12/13/20at 08:08; Start 12/13/20 at 09:00; Stop 12/13/20 at 10:46; Status DC Sodium Chloride 1,000 ml @ 100 mls/hr Q10H IV Last administered on 12/19/20at 05:17; Start 12/12/20 at 17:45 Enoxaparin Sodium (Lovenox 40mg Syringe) 40 mg Q24H SQ Last administered on 12/16/20at 17:43; Start 12/12/20 at 17:45 Zolpidem Tartrate (Ambien) 5 mg PRN QHS PRN PO INSOMNIA Last administered on 12/18/20at 22:27; Start 12/12/20 at 23:30 Magnesium Sulfate 50 ml @ 25 mls/hr Q24H IV Last administered on 12/13/20at 16:04; Start 12/13/20 at 11:00; Stop 12/13/20 at 12:59; Status DC Cefepime HCl (Maxipime) 1 gm Q12HR IVP Last administered on 12/14/20at 21:33; Start 12/13/20 at 21:00; Stop 12/15/20 at 09:30; Status DC Vancomycin HCl (Vanco Per Pharmacy) 1 each PRN DAILY PRN MC SEE COMMENTS Last administered on 12/14/20at 12:03; Start 12/13/20 at 10:45; Stop 12/15/20 at 09:46; Status DC Vancomycin HCl 1 gm/Sodium Chloride 250 ml @ 250 mls/hr 1X ONCE IV Last administered on 12/13/20at 12:22; Start 12/13/20 at 11:00; Stop 12/13/20 at 11:59; Status DC Micafungin Sodium 100 mg/Dextrose 100 ml @ 100 mls/hr Q24H IV Last administered on 12/14/20at 11:57; Start 12/13/20 at 12:00; Stop 12/15/20 at 09:30; Status DC Info (Tpn Per Pharmacy) 1 each PRN DAILY PRN MC SEE COMMENTS Last administered on 12/18/20at 11:02; Start 12/13/20 at 11:30 Sodium Chloride 110 meq/Potassium Chloride 50 meq/ Potassium Phosphate 12 mmol/ Magnesium Sulfate 12 meq/Calcium Gluconate 10 meq/ Multivitamins 5 ml/Zinc/Copper/ Manganese/ Selenium 1 ml/ Total Parenteral Nutrition/Amino Acids/Dextrose/ Fat Emulsion Intravenous 1,512 ml @ 63 mls/hr TPN CONT IV Last administered on 12/13/20at 21:57; Start 12/13/20 at 22:00; Stop 12/14/20 at 21:59; Status DC Filgrastim (Neupogen) 300 mcg QHS SQ Last administered on 12/16/20at 20:20; Start 12/13/20 at 21:00; Stop 12/17/20 at 12:54; Status DC Vancomycin HCl 750 mg/Sodium Chloride 250 ml @ 250 mls/hr Q24H IV Last administered on 12/14/20at 13:58; Start 12/14/20 at 12:30; Stop 12/15/20 at 09:30; Status DC Vancomycin HCl (Vancomycin Trough Level) 1 each 1X ONCE MC ; Start 12/15/20 at 12:00; Stop 12/15/20 at 12:01; Status Cancel Multivitamins (Thera M Plus) 1 tab DAILY PO Last administered on 12/16/20at 13:04; Start 12/14/20 at 11:30; Stop 12/17/20 at 09:28; Status DC Sodium Chloride 110 meq/Potassium Chloride 50 meq/ Potassium Phosphate 12 mmol/ Magnesium Sulfate 12 meq/Calcium Gluconate 10 meq/ Multivitamins 5 ml/Zinc/Copper/ Manganese/ Selenium 1 ml/ Total Parenteral Nutrition/Amino Acids/Dextrose/ Fat Emulsion Intravenous 1,512 ml @ 63 mls/hr TPN CONT IV Last administered on 12/14/20at 22:27; Start 12/14/20 at 22:00; Stop 12/15/20 at 21:59; Status DC Linezolid (Zyvox) 600 mg BID PO Last administered on 12/15/20at 20:52; Start 12/15/20 at 21:00; Stop 12/16/20 at 09:42; Status DC Levothyroxine Sodium (Synthroid) 50 mcg DAILY06 PO Last administered on 12/19/20at 05:17; Start 12/16/20 at 06:00 Sodium Phosphate 15 mmol/Sodium Chloride 105 ml @ 105 mls/hr 1X ONCE IV Last administered on 12/15/20at 14:44; Start 12/15/20 at 14:30; Stop 12/15/20 at 15:29; Status DC Magnesium Sulfate 50 ml @ 25 mls/hr 1X ONCE IV Last administered on 12/15/20at 14:44; Start 12/15/20 at 14:30; Stop 12/15/20 at 16:29; Status DC Sodium Chloride 110 meq/Potassium Chloride 50 meq/ Potassium Phosphate 17 mmol/ Magnesium Sulfate 15 meq/Calcium Gluconate 10 meq/ Multivitamins 5 ml/Zinc/Copper/ Manganese/ Selenium 1 ml/ Total Parenteral Nutrition/Amino Acids/Dextrose/ Fat Emulsion Intravenous 1,512 ml @ 63 mls/hr TPN CONT IV Last administered on 12/15/20at 20:55; Start 12/15/20 at 22:00; Stop 12/16/20 at 21:59; Status DC Linezolid/Dextrose 300 ml @ 300 mls/hr Q12HR IV Last administered on 12/16/20at 20:20; Start 12/16/20 at 10:00; Stop 12/17/20 at 07:43; Status DC Sodium Chloride 110 meq/Potassium Chloride 50 meq/ Potassium Phosphate 17 mmol/ Magnesium Sulfate 15 meq/Calcium Gluconate 10 meq/ Multivitamins 5 ml/Zinc/Copper/ Manganese/ Selenium 1 ml/ Total Parenteral Nutrition/Amino Acids/Dextrose/ Fat Emulsion Intravenous 1,512 ml @ 63 mls/hr TPN CONT IV Last administered on 12/16/20at 22:20; Start 12/16/20 at 22:00; Stop 12/17/20 at 21:59; Status DC Daptomycin 260 mg/ Sodium Chloride 50 ml @ 100 mls/hr Q24H IV Last administered on 12/19/20at 09:33; Start 12/17/20 at 09:00 Multivitamins/ Minerals Therapeutic (Centrum Multivit-Mineral Liq) 5 ml DAILY PO Last administered on 12/19/20at 09:32; Start 12/17/20 at 10:00 Sodium Chloride 110 meq/Potassium Chloride 40 meq/ Potassium Phosphate 25 mmol/ Magnesium Sulfate 20 meq/Calcium Gluconate 10 meq/ Multivitamins 5 ml/Zinc/Copper/ Manganese/ Selenium 1 ml/ Total Parenteral Nutrition/Amino Acids/Dextrose/ Fat Emulsion Intravenous 1,512 ml @ 63 mls/hr TPN CONT IV Last administered on 12/17/20at 22:46; Start 12/17/20 at 22:00; Stop 12/18/20 at 21:59; Status DC Potassium Bicarbonate (Potassium Effervescent Tablet) 40 meq 1X ONCE FT ; Start 12/17/20 at 14:00; Stop 12/17/20 at 14:01; Status UNV Potassium Bicarbonate (Potassium Effervescent Tablet) 40 meq 1X ONCE FT ; Start 12/17/20 at 14:00; Stop 12/17/20 at 14:01; Status UNV Magnesium Oxide (Magnesium Oxide) 400 mg BID PO ; Start 12/17/20 at 21:00; Stop 12/19/20 at 09:01; Status UNV Magnesium Sulfate 50 ml @ 25 mls/hr Q24H IV ; Start 12/17/20 at 14:00; Stop 12/19/20 at 15:59; Status UNV Potassium Phos/ Sodium Phos (Phos-Nak) 1 pkt BID PO ; Start 12/17/20 at 21:00; Stop 12/18/20 at 09:01; Status UNV Potassium Bicarbonate (Potassium Effervescent Tablet) 40 meq Q4H PO ; Start 12/17/20 at 14:00; Stop 12/17/20 at 18:01; Status UNV Potassium Bicarbonate (Potassium Effervescent Tablet) 40 meq Q4H PO ; Start 12/17/20 at 14:00; Stop 12/17/20 at 18:01; Status UNV Info (Non-Icu Electrolyte Protocol) 1 ea CONT PRN PRN MC SEE COMMENTS; Start 12/17/20 at 14:15 Morphine Sulfate (Morphine Sulfate) 2 mg PRN Q2HR PRN IV PAIN; Start 12/18/20 at 11:00 Sodium Chloride 110 meq/Potassium Chloride 40 meq/ Potassium Phosphate 25 mmol/ Magnesium Sulfate 20 meq/Calcium Gluconate 10 meq/ Multivitamins 5 ml/Zinc/Copper/ Manganese/ Selenium 1 ml/ Total Parenteral Nutrition/Amino Acids/Dextrose/ Fat Emulsion Intravenous 1,512 ml @ 63 mls/hr TPN CONT IV Last administered on 12/18/20at 22:27; Start 12/18/20 at 22:00; Stop 12/19/20 at 21:59 Cephalexin HCl (Keflex) 250 mg QID PO Last administered on 12/19/20at 09:33; Start 12/19/20 at 09:15 Active Scripts Active Protonix (Pantoprazole Sodium) 40 Mg Tablet. 40 Mg PO DAILYAC 30 Days Reported Levothyroxine Sodium 50 Mcg Tablet 1 Tab PO DAILY Carvedilol (Carvedilol) 3.125 Mg Tablet 3.125 Mg PO BIDWMEALS Ondansetron Hcl 4 Mg Tablet 1 Tab PO PRN Q8HRS PRN Vitals/I & O Vital Sign - Last 24 Hours 12/18/20 12/18/20 12/18/20 12/18/20 15:00 19:00 20:30 23:00 Temp 97.8 98.4 98.1 97.8 98.4 98.1 Pulse 78 80 78 Resp 17 18 18 B/P (MAP) 122/79 (93) 129/67 (87) 126/74 (91) Pulse Ox 100 95 99 O2 Delivery Room Air Room Air Room Air Room Air 12/19/20 12/19/20 12/19/20 03:00 07:00 11:00 Temp 98.6 97.5 98.1 98.6 97.5 98.1 Pulse 78 69 82 Resp 18 16 16 B/P (MAP) 124/69 (87) 123/77 (92) 134/53 (80) Pulse Ox 98 99 100 O2 Delivery Room Air Room Air Room Air Intake and Output 12/18/20 12/18/20 12/19/20 15:00 23:00 07:00 Intake Total 120 ml 1710 ml 1100 ml Output Total 1320 ml 1500 ml 450 ml Balance -1200 ml 210 ml 650 ml Justifications for Admission Other Justification Nutrition Consultation Dietary Evaluation: Recommendations by RD: Dietary education by RD, PPN/TPN Comments: REC continue diet as tolerated TPN: 195 g dextrose, 60 g AA, 20 g lipid Expected Outcomes/Goals: to meet >75% est nutr needs via po intake and nutrition support- met, goal ongoing Interpretation of weight loss: >10% in 6 months Malnutrition Findings: Food and Nutrition Intake (Sev: <50% est energy req 5days Body Fat Depletion (Non Severe: Mod to Severe Weight Status: Underweight JASSON BARR MD Dec 19, 2020 11:58
--- NOTE | 2020-12-19 12:21 | PDOC ---
[employer] PROGRESS NOTE Date of Service DOS: DATE: 12/19/20 TIME: 12:20 Chief Complaint Chief Complaint Acute generalized weakness due to recent chemoradiation Tx Patchy opacities left lung base. Small left pleural effusion. Neutropenia Failure to thrive Debility Oropharyngeal dysphagia due to adenoCA Hyponatremia due to volume depletion Severe protein malnutrition POS BLOOD CULT 1- Blood culture positive with Gram-positive cocci, likely from the Port-A-Cath IE colonization or infection. 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 PEG is contraindicated and he was sent home with TPN through his portacath. Since his discharge on 12/01/20, patient has been doing well with his last session of chemoTx 2 weeks ago, but he stated he did feel week yesterday before his radiation Tx. Last labs drawn shown he had a WBC of 1.5 and today was 1.4 in the ED with ANC of > 700. He denied fevers, N/V, chest pain, SOB, diarrhea, or ABD pain. he does still have early satiety and some dysphagia with chopped chicken and mashed potatoes. He is able to tolerate ice cream and broth. 12-14 COVID NEG, feeling a bit stronger, D/W RN 12-16 repeat bc + , G + cocci, still likely port is infected vs colonized change zyvox to iv to help clear cath, removal of port d/w pt if cont to have problem 12/18/2020 - pt seen and examined at bedside - discussed with RN - pt on IV TPN and fluids - pt on IV Abx - pt complains of increased pain - chart reviewed 12/19: Patient seen and evaluated bedside. He is on oral antibiotics. Discussed with ID, Port-A-Cath may need removal in the future if he fails treatment with oral antibiotics. He appears stable for discharge home with home health. Greater than 30 minutes spent managing the discharge this patient. Past Medical/Surgical History: PMH/PSH: Past Medical History: Cancer, Hypertension, [place], Stroke, throat CA, esphogeal CA Past Surgical History: CABG, colostomy bag Allergies: Allergies: Coded Allergies: No Known Drug Allergies (Unverified , 08/31/20) Family History: Family History: Reviewed with no relevant findings Social History: Social History: Smoking Status: Never Smoker Alcohol Use: None Vitals/I&O Vitals/I&O: Vital Signs Date Time Temp Pulse Resp B/P (MAP) Pulse Ox O2 Delivery O2 Flow Rate FiO2 12/19/20 11:00 98.1 82 16 134/53 (80) 100 Room Air 98.1 I & O 12/18/20 12/18/20 12/19/20 15:00 23:00 07:00 Intake Total 120 ml 1710 ml 1100 ml Output Total 1320 ml 1500 ml 450 ml Balance -1200 ml 210 ml 650 ml Physical Exam Physical Exam: GENERAL: Alert and oriented gentleman, not in distress. The patient is thin, Eating breakfast cachectic down to 102 pounds. HEENT: Both pupils are round and reacting. No conjunctival lesion, no lesion in the mouth. NECK: Supple, no JVP, no lymphadenopathy. LUNGS: Clear. HEART: S1, S2 regular. ABDOMEN: Has a colostomy in place, but otherwise unremarkable. The patient does have Port-A-Cath in the right upper chest, which is not showing any obvious signs of infection. NEUROLOGIC: The patient is alert, awake and appropriate. No focal neurologic deficit. General: Alert Heart: Regular rate Lungs: Clear, Wheezing, Other Abdomen: Normal bowel sounds, Soft Extremities: No clubbing, No cyanosis Skin: No rashes Labs Labs: Laboratory Tests Test 12/19/20 05:15 Sodium Level 137 mmol/L (136-145) Potassium Level 4.7 mmol/L (3.5-5.1) Chloride Level 104 mmol/L (98-107) Carbon Dioxide Level 27 mmol/L (21-32) Anion Gap 6 (6-14) Blood Urea Nitrogen 9 mg/dL (8-26) Creatinine 0.6 mg/dL (0.7-1.3) Estimated GFR (Cockcroft-Gault) 134.8 Glucose Level 101 mg/dL (70-99) Calcium Level 8.2 mg/dL (8.5-10.1) Magnesium Level 1.9 mg/dL (1.8-2.4) Assessment and Plan Assessmemt and Plan Problems Medical Problems: (1) Colon cancer Status: Acute (2) Esophageal cancer Status: Acute (3) Fatigue Status: Acute (4) Left lower lobe pneumonia Status: Acute (5) Person under investigation for COVID-19 Status: Acute Comment Review of Relevant I have reviewed the following items adeline (where applicable) has been applied. Medications: Current Medications Medications (Trade) Dose Ordered Sig/Steff Route PRN Reason Start Time Stop Time Status Last Admin Dose Admin Sodium Chloride 110 meq/Potassium Chloride 40 meq/ Potassium Phosphate 25 mmol/ Magnesium Sulfate 20 meq/Calcium Gluconate 10 meq/ Multivitamins 5 ml/Zinc/Copper/ Manganese/ Selenium 1 ml/ Total Parenteral Nutrition/Amino Acids/Dextrose/ Fat Emulsion Intravenous 1,512 ml @ 63 mls/hr TPN CONT IV 12/18/20 22:00 12/19/20 21:59 12/18/20 22:27 Cephalexin HCl (Keflex) 250 mg QID PO 12/19/20 09:15 12/19/20 09:33 Justifications for Admission Other Justification ELLA WILLIS MD Dec 19, 2020 12:21
[2020-12-19 15:00] VITALS: BP 133/87
--- NOTE | 2020-12-19 15:12 | SNU/HH DC ---
DISCHARGE WITH HOME HEALTH DISCHARGE INFORMATION: Discharge Date: Dec 19, 2020 Final Diagnosis: Problems Medical Problems: (1) Colon cancer Status: Acute (2) Esophageal cancer Status: Acute (3) Fatigue Status: Acute (4) Left lower lobe pneumonia Status: Acute (5) Person under investigation for COVID-19 Status: Acute Condition on Discharge: Stable CODE STATUS: Code Status: Full HOME HEALTH: Face to Face: I certify this patient is under my care and that I, or a nurse practitioner or physician's conference assistant working with me, had a face to face encounter that meets the physician face to face encounter requirements with this patient on 12/19/2020. RN For Eval/Treatment: Yes Pt Meets Homebound Status: Extreme weakness w/ amb., Fatigue w/ amb. POST DISCHARGE ORDERS: Activity Instructions for Disc: Activity as tolerated Weight Bearing Status after Di: As tolerated DIET AFTER DISCHARGE: Clear liquid diet CHECKS AFTER DISCHARGE: Checks after discharge: Check blood press - daily, Check your Temp as needed FOLLOW-UP: DC TO SNF LABS: CBC, CMP within 1 week at discharge while on TPN TREATMENT/EQUIPMENT ORDERS: Adaptive Equipment Issued: None CERTIFICATION STATEMENT: Certification Statement: Certification Statement: Based on the above finding, I certify that this patient is confined to the home and needs intermittent custodial care, physical therapy and/or speech therapy, or continues to need occupational therapy.~ This patient is under my care, and I have initiated the establishment of the plan of care.~ This patient will be followed by myself or a community physician who will periodically review the plan of care. Home Meds Active Scripts Pantoprazole Sodium (PROTONIX ) 40 Mg Tablet., 40 MG PO DAILYAC for GERD fo r 30 Days, #30 TAB Prov:CINDY MUÑIZ MD 09/07/20 Reported Medications Levothyroxine Sodium (LEVOTHYROXINE SODIUM) 50 Mcg Tablet, 1 TAB PO DAILY for hypothyroid, #30 TAB 5 Refills 08/27/20 Carvedilol (CARVEDILOL ) 3.125 Mg Tablet, 3.125 MG PO BIDWMEALS for CARDIAC, TAB 08/27/20 Ondansetron Hcl (ONDANSETRON HCL) 4 Mg Tablet, 1 TAB PO PRN Q8HRS PRN for NAUSEA/VOMITING, #10 TAB 1 Refill 08/27/20 ELLA WILLIS MD Dec 19, 2020 15:12
[2020-12-19] MEDS ORDERED: CEPH250C PO (15:13)
--- NOTE | 2020-12-19 15:22 | PDOC3 ---
Discharge Summary Visit Information Date of Admission: Dec 12, 2020 Date of Discharge: Dec 19, 2020 Final Diagnosis Problems Medical Problems: (1) Colon cancer Status: Acute (2) Esophageal cancer Status: Acute (3) Fatigue Status: Acute (4) Left lower lobe pneumonia Status: Acute (5) Person under investigation for COVID-19 Status: Acute Brief Hospital Course Allergies Allergies Coded Allergies Type Severity Reaction Last Updated Verified No Known Drug Allergies 08/31/20 No Vital Signs Vital Signs Date Time Temp Pulse Resp B/P (MAP) Pulse Ox O2 Delivery O2 Flow Rate FiO2 12/19/20 11:00 98.1 82 16 134/53 (80) 100 Room Air 98.1 Lab Results Laboratory Tests Test 12/18/20 06:30 12/19/20 05:15 Sodium Level 138 mmol/L (136-145) 137 mmol/L (136-145) Potassium Level 4.1 mmol/L (3.5-5.1) 4.7 mmol/L (3.5-5.1) Chloride Level 107 mmol/L (98-107) 104 mmol/L (98-107) Carbon Dioxide Level 26 mmol/L (21-32) 27 mmol/L (21-32) Anion Gap 5 (6-14) 6 (6-14) Blood Urea Nitrogen 7 mg/dL (8-26) 9 mg/dL (8-26) Creatinine 0.7 mg/dL (0.7-1.3) 0.6 mg/dL (0.7-1.3) Estimated GFR (Cockcroft-Gault) 112.8 134.8 Glucose Level 103 mg/dL (70-99) 101 mg/dL (70-99) Calcium Level 8.0 mg/dL (8.5-10.1) 8.2 mg/dL (8.5-10.1) Phosphorus Level 3.1 mg/dL (2.6-4.7) Magnesium Level 1.9 mg/dL (1.8-2.4) 1.9 mg/dL (1.8-2.4) Laboratory Tests Test 12/19/20 05:15 Sodium Level 137 mmol/L (136-145) Potassium Level 4.7 mmol/L (3.5-5.1) Chloride Level 104 mmol/L (98-107) Carbon Dioxide Level 27 mmol/L (21-32) Anion Gap 6 (6-14) Blood Urea Nitrogen 9 mg/dL (8-26) Creatinine 0.6 mg/dL (0.7-1.3) Estimated GFR (Cockcroft-Gault) 134.8 Glucose Level 101 mg/dL (70-99) Calcium Level 8.2 mg/dL (8.5-10.1) Magnesium Level 1.9 mg/dL (1.8-2.4) Brief Hospital Course Mr. Dao is a 65 old male who presented with generalized weakness, failure to thrive secondary to adenocarcinoma of the gastroesophageal junction. Consultations placed to hematology/oncology and ID secondary to bacteremia. Consultations also placed to pulmonology for suspected pneumonia. Blood cultures grew pansensitive staph epidermidis. He was treated with IV antibio tics, which were de-escalating to oral Keflex. Will attempt to salvage his Port-A-Cath with antibiotic treatment, however this may need to be removed if treatment fails. Repeat blood cultures showed no growth to date. He received continuation of his home TPN while inpatient. He will follow-up with oncology in 1 week. Stable to discharge home with home health. Discharge Information Condition at Discharge: Stable Follow Up: Weeks Disposition/Orders: D/C to Home w/ HH Scheduled Carvedilol (Carvedilol ) 3.125 Mg Tablet, 3.125 MG PO BIDWMEALS for CARDIAC, (Reported) Entered as Reported by: TAWANNA ENGLISH on 08/27/20151 Last Action: Reviewed on 12/12/20 182 by SHAHIDA NOE Cephalexin (Cephalexin) 250 Mg Capsule, 250 MG PO QID for Bacteremia for 14 Days, #56 Prescribed by: ELLA WILLIS MD on 12/19/20 1513 Levothyroxine Sodium (Levothyroxine Sodium) 50 Mcg Tablet, 1 TAB PO DAILY for hypothyroid, #30 Ref 5 (Reported) Entered as Reported by: TAWANNA ENGLISH on 08/27/20151 Last Taken: Unknown Dose on 12/11/20 Last Action: Continued on 12/15/20 1045 by PHILOMENA ALFARO Pantoprazole Sodium (Protonix ) 40 Mg Tablet.dr, 40 MG PO DAILYAC for GERD for 30 Days, #30 Prescribed by: MARY KAY WHITE on 09/07/20 1421 Last Action: Reviewed on 12/12/201822 by SHAHIDA NOE Scheduled PRN Ondansetron Hcl (Ondansetron Hcl) 4 Mg Tablet, 1 TAB PO PRN Q8HRS PRN for NAUSEA/VOMITING, #10 Ref 1 (Reported) Entered as Reported by: TAWANNA ENGLISH on 08/27/20 0152 Last Action: Reviewed on 12/12/201822 by SHAHIDA NOE Justicifation of Admission Dx: Justifications for Admission: Justification of Admission Dx: Yes ELLA WILLIS MD Dec 19, 2020 15:22
--- NOTE | 2020-12-19 16:13 | NUR ---
Pt discharged home on keflex. orders for TPN and home health restarted. port remains accessed as it was just reaccessed yesterday. tubing flushed and capped prior to DC. pt stable upon dc. Meds and follow up reviewed with patient and [id number].
== END 2020-12-19 16:10 | disposition home health service (06) | DRG 808 ==
LOC: ER 12:56 → 6 SOUTH 16:45 → 5 NORTH 12-14 16:00
PROVIDERS: ADMIT Internal Medicine; ATTEND Internal Medicine
PROC: 30233N1 Transfusion of Nonautologous Red Blood Cells into Peripheral Vein, Percutaneous Approach (ICD-10-PCS; principal; 2020-12-13)
DX: D70.1 Agranulocytosis secondary to cancer chemotherapy (principal); E43 Unspecified severe protein-calorie malnutrition; J18.9 Pneumonia, unspecified organism; C16.0 Malignant neoplasm of cardia; C18.9 Malignant neoplasm of colon, unspecified; D84.9 Immunodeficiency, unspecified; E87.1 Hypo-osmolality and hyponatremia; R78.81 Bacteremia; Z68.1 Body mass index [BMI] 19.9 or less, adult; C10.9 Malignant neoplasm of oropharynx, unspecified; R50.81 Fever presenting with conditions classified elsewhere; T45.1X5A Adverse effect of antineoplastic and immunosuppressive drugs, initial encounter; Z92.3 Personal history of irradiation; D61.818 Other pancytopenia; E03.9 Hypothyroidism, unspecified; E86.9 Volume depletion, unspecified; I10 Essential (primary) hypertension; I25.10 Atherosclerotic heart disease of native coronary artery without angina pectoris; R13.12 Dysphagia, oropharyngeal phase; R62.7 Adult failure to thrive; Z20.822 Contact with and (suspected) exposure to COVID-19; Z85.01 Personal history of malignant neoplasm of esophagus; Z85.038 Personal history of other malignant neoplasm of large intestine; Z85.818 Personal history of malignant neoplasm of other sites of lip, oral cavity, and pharynx; Z86.73 Personal history of transient ischemic attack (TIA), and cerebral infarction without residual deficits; Z93.3 Colostomy status; Z95.1 Presence of aortocoronary bypass graft; Z95.5 Presence of coronary angioplasty implant and graft; F32.9 Major depressive disorder, single episode, unspecified; K21.9 Gastro-esophageal reflux disease without esophagitis; I25.2 Old myocardial infarction; Y92.89 Other specified places as the place of occurrence of the external cause
CPT/HCPCS: 36415; 71045; 80048; 80053; 80202; 81001; 83605; 83735; 84100; 84145; 84478; 84484; 85007; 85025; 86850; 86900; 86901; 86920; 87040; 87077; 87186; 87205; 93005; 96374; 99285; J0610; J0692; J0878; J1442; J1650; J2020; J2248; J2405; J3370; J3475; J3480; J3490; J7030; J7050; J7060; P9016; U0003; 97116-GP; 97530-GP; G0378

== ENCOUNTER 2020-12-23 12:56 | Emergency (ER) | payer MEDICARE, MEDICAID ==
[~2020-12-23] VITALS: Ht 162.6 cm; Wt 102.0 kg
[~2020-12-23 12:56] MED LIST changes: -NAPR-695 PO; -PRED20TA PO
[2020-12-23] MEDS ORDERED: DEXAMETHASONE 4 MG TABLET PO ONE (13:15)
--- NOTE | 2020-12-23 13:19 | PHYS DOC ---
Past Medical History Past Medical History: Cancer, Hypertension, [place], Stroke, Other Additional Past Medical Histor: throat CA, esphogeal CA Past Medical History Gout Past Surgical History: Other Additional Past Surgical Histo: CABG, colostomy bag Smoking Status: Never Smoker Alcohol Use: None Drug Use: None General Adult EDM: Chief Complaint: HAND PROBLEM HPI: HPI: 65 year old male presents with history of swelling, redness, and pain to left 2nd knuckle. Patient reports sent to ED due to concern for possible infection. Patient denies fever. Reports symptoms similar to prior gout flares. Denies trauma. Review of Systems: Review of Systems: Constitutional: Denies fever or chills Eyes: Denies redness or eye pain HENT: Denies nasal congestion or sore throat Respiratory: Denies cough or shortness of breath Cardiovascular: Denies chest pain or palpitations GI: Denies abdominal pain, nausea, or vomiting : Denies dysuria or hematuria Musculoskeletal: Denies back pain; reports let 2nd knuckle pain Integument: Reports erythema and swelling Neurologic: Denies headache, focal weakness or sensory changes Complete systems were reviewed and found to be within normal limits, except as documented in this note. Current Medications: Current Medications Medications (Trade) Dose Ordered Sig/Steff Start Time Stop Time Status Last Admin Dose Admin Dexamethasone (Decadron) 10 mg 1X ONCE 12/23/20 13:15 12/23/20 13:16 Allergies: Allergies: Allergies Coded Allergies Type Severity Reaction Last Updated Verified No Known Drug Allergies 08/31/20 No Physical Exam: PE: Constitutional: Well developed, well nourished, no acute distress, non-toxic appearance HENT: Normocephalic, atraumatic Eyes: Conjunctiva normal, no discharge Neck: Normal range of motion, supple Lungs & Thorax: No respiratory distress, equal chest rise and fall Skin: Warm, dry, erythema noted to dorsum of 2nd MCP, no fluctuance, no streaking, warm to touch Extremities: ROM intact, pain on palpation of left 2nd MCP, mild swelling, no deformity Neurologic: Alert and oriented X 3, no focal deficits noted Psychologic: Affect normal, judgment normal EKG: EKG: [] Radiology/Procedures: Radiology/Procedures: [] Course & Med Decision Making: Course & Med Decision Making Patient presents with redness and pain to left 2nd MCP. Hx of gout. Patient reports similar to prior gouty flares. Afebrile. No signs of streaking noted. No fluctuance. ROM intact. No history of trauma. No wounds noted. Doubt septic arthritis. Symptomatic treatment provided for gout. Patient stable for discharge home with outpatient follow-up with PCP. Discussed findings and plan with patient, who acknowledges understanding and agreement. Gm Disclaimer: Gm Disclaimer: This electronic medical record was generated, in whole or in part, using a voice recognition dictation system. Departure Departure Impression: Primary Impression: Gout attack Qualified Codes: M10.9 - Gout, unspecified Disposition: HOME SELF CARE/HOMELESS Condition: STABLE Referrals: BRITTANY CLIFFORD MD (PCP) Patient Instructions: Gout, [id number] Scripts Naproxen (NAPROXEN) 375 Mg Tablet 375 MG PO TID PRN for PAIN, #30 TAB Prov: SUZAN GOLDSTEIN DO 12/23/20 Prednisone (PREDNISONE) 20 Mg Tablet 2 TAB PO DAILY, #10 TAB Prov: SUZAN GOLDSTEIN DO 12/23/20 SUZAN GOLDSTEIN DO Dec 23, 2020 13:18
[2020-12-23] MEDS ORDERED: PRED20TA PO (13:25)
[2020-12-23] MEDS ORDERED: NAPR-695 PO (13:25)
[2020-12-23 13:35] VITALS: BP 129/66
== END 2020-12-23 13:34 | disposition home or self-care (01) ==
LOC: ER 12:56
DX: M10.9 Gout, unspecified (principal); I10 Essential (primary) hypertension; I25.2 Old myocardial infarction; Z86.73 Personal history of transient ischemic attack (TIA), and cerebral infarction without residual deficits; Z95.1 Presence of aortocoronary bypass graft
CPT/HCPCS: 99283

== ENCOUNTER → 2020-12-23 | Outpatient (CLI) | payer MEDICARE, MEDICAID ==
[2020-12-19 15:00] VITALS: BP 133/87
[~2020-12-23] MED LIST changes: +CEPH250C PO; +NAPR-695 PO; +PRED20TA PO
[2020-12-23 12:30] LABS: BASO % 0 % (0-3); EOS # 0.1 x10^3/uL (0.0-0.7); EOS % 1 % (0-3); HEMATOCRIT 24.5 % (39.0-53.0); HEMOGLOBIN 7.9 g/dL (13.0-17.5); LYMPH # 0.1 x10^3/uL (1.0-4.8); LYMPH % 2 % (24-48); MEAN CORPUSCULAR HEMOGLOBIN 27 pg (25-35); MEAN CORPUSCULAR HGB CONC 32 g/dL (31-37); MEAN CORPUSCULAR VOLUME 85 fL (79-100); MONO # 0.8 x10^3/uL (0.0-1.1); MONO % 12 % (0-9); NEUT # 5.2 x10^3/uL (1.8-7.7); NEUT % 85 % (31-73); PLATELET COUNT 156 x10^3/uL (140-400); RED BLOOD COUNT 2.89 x10^6/uL (4.30-5.70); RED CELL DISTRIBUTION WIDTH 19.6 % (11.5-14.5); WHITE BLOOD COUNT 6.1 x10^3/uL (4.0-11.0)
[2020-12-23 12:35] LABS: CALCIUM 8.3 mg/dL (8.5-10.1); CREATININE 0.8 mg/dL (0.7-1.3); GFR 96.7; POTASSIUM 4.6 mmol/L (3.5-5.1)
[2020-12-23 12:41] LABS: ALBUMIN 2.4 g/dL (3.4-5.0); ALBUMIN/GLOBULIN RATIO 0.7 (1.0-1.7); TOTAL BILIRUBIN 0.2 mg/dL (0.2-1.0); TOTAL PROTEIN 5.8 g/dL (6.4-8.2); URIC ACID 3.5 mg/dL (3.5-7.2)
[2020-12-23 14:06] LABS: % EOS 1 % (0-5); % LYMPHS 1 % (24-48); % MONOS 5 % (0-10); % SEGS 93 % (35-66)
[2020-12-23 14:07] LABS: TOXIC GRANULATION MARKED
[2020-12-23 14:09] LABS: ANISOCYTOSIS SLIGHT; PLT ESTIMATE ADEQUATE (ADEQUATE); POIKILOCYTOSIS SLIGHT
[2020-12-23 14:10] LABS: POLYCHROMASIA SLIGHT
[2020-12-23 14:11] LABS: TEAR DROP CELLS FEW
[2020-12-23 14:16] LABS: HELMET CELLS FEW
== END ==
LOC: ONCLAB 11:00
PROVIDERS: ATTEND Internal Medicine Hematology & Oncology
DX: C15.5 Malignant neoplasm of lower third of esophagus (principal)
CPT/HCPCS: 36415; 80053; 84550; 85007; 85025; 87040; 87077; 87186; 87205

== ENCOUNTER → 2021-01-08 | Outpatient (CLI) | payer MEDICARE, MEDICAID ==
[2021-01-04 11:00] VITALS: BP 102/71
[~2021-01-08] MED LIST changes: +NAPR-695 PO; +PRED20TA PO
[2021-01-08 12:01] LABS: BASO % 0 % (0-3); EOS # 0.1 x10^3/uL (0.0-0.7); EOS % 1 % (0-3); HEMATOCRIT 24.6 % (39.0-53.0); HEMOGLOBIN 7.8 g/dL (13.0-17.5); LYMPH # 0.2 x10^3/uL (1.0-4.8); LYMPH % 3 % (24-48); MEAN CORPUSCULAR HEMOGLOBIN 27 pg (25-35); MEAN CORPUSCULAR HGB CONC 32 g/dL (31-37); MEAN CORPUSCULAR VOLUME 87 fL (79-100); MONO # 0.4 x10^3/uL (0.0-1.1); MONO % 8 % (0-9); NEUT # 4.8 x10^3/uL (1.8-7.7); NEUT % 88 % (31-73); PLATELET COUNT 194 x10^3/uL (140-400); RED BLOOD COUNT 2.85 x10^6/uL (4.30-5.70); RED CELL DISTRIBUTION WIDTH 20.2 % (11.5-14.5); WHITE BLOOD COUNT 5.5 x10^3/uL (4.0-11.0)
[2021-01-08 12:05] LABS: ALBUMIN 2.5 g/dL (3.4-5.0); ALBUMIN/GLOBULIN RATIO 0.9 (1.0-1.7); CALCIUM 8.1 mg/dL (8.5-10.1); CREATININE 0.9 mg/dL (0.7-1.3); GFR 84.4; PHOSPHORUS 4.9 mg/dL (2.6-4.7); POTASSIUM 4.5 mmol/L (3.5-5.1); TOTAL BILIRUBIN 0.3 mg/dL (0.2-1.0); TOTAL PROTEIN 5.4 g/dL (6.4-8.2)
== END ==
LOC: LAB 10:58
PROVIDERS: ATTEND Family Medicine
DX: Z45.2 Encounter for adjustment and management of vascular access device (principal); R62.7 Adult failure to thrive
CPT/HCPCS: 36415; 80053; 83735; 84100; 85025

== ENCOUNTER → 2021-01-12 | Outpatient (CLI) | payer MEDICARE, MEDICAID ==
[2021-01-04 11:00] VITALS: BP 102/71
[2021-01-12 11:03] LABS: BASO % 0 % (0-3); EOS # 0.1 x10^3/uL (0.0-0.7); EOS % 3 % (0-3); HEMATOCRIT 25.1 % (39.0-53.0); LYMPH # 0.3 x10^3/uL (1.0-4.8); LYMPH % 8 % (24-48); MEAN CORPUSCULAR HEMOGLOBIN 27 pg (25-35); MEAN CORPUSCULAR HGB CONC 32 g/dL (31-37); MEAN CORPUSCULAR VOLUME 86 fL (79-100); MONO # 0.6 x10^3/uL (0.0-1.1); MONO % 14 % (0-9); NEUT # 3.3 x10^3/uL (1.8-7.7); NEUT % 76 % (31-73); PLATELET COUNT 189 x10^3/uL (140-400); RED BLOOD COUNT 2.92 x10^6/uL (4.30-5.70); RED CELL DISTRIBUTION WIDTH 20.3 % (11.5-14.5); WHITE BLOOD COUNT 4.4 x10^3/uL (4.0-11.0)
[2021-01-12 11:20] LABS: CALCIUM 7.9 mg/dL (8.5-10.1); CREATININE 0.8 mg/dL (0.7-1.3); GFR 96.7; POTASSIUM 4.3 mmol/L (3.5-5.1)
[2021-01-12 11:26] LABS: ALBUMIN 2.6 g/dL (3.4-5.0); ALBUMIN/GLOBULIN RATIO 0.8 (1.0-1.7); TOTAL BILIRUBIN 0.3 mg/dL (0.2-1.0); TOTAL PROTEIN 5.9 g/dL (6.4-8.2)
[2021-01-12 11:51] LABS: % BANDS 3 % (0-9); % EOS 6 % (0-5); % LYMPHS 2 % (24-48); % MONOS 8 % (0-10); % SEGS 81 % (35-66); PLT ESTIMATE ADEQUATE (ADEQUATE)
== END ==
LOC: ONCLAB 09:55
PROVIDERS: ATTEND Internal Medicine Hematology & Oncology
DX: C15.5 Malignant neoplasm of lower third of esophagus (principal); A41.1 Sepsis due to other specified staphylococcus
CPT/HCPCS: 36415; 80053; 85007; 85025; 87040

== ENCOUNTER → 2021-02-03 | Outpatient (CLI) | payer MEDICARE, MEDICAID ==
[2021-01-04 11:00] VITALS: BP 102/71
--- NOTE | 2021-02-03 16:45 | RAD ---
EXAM: NM PET/CT SKULL BASE TO MID THIGH EXAM DATE: 02/03/2021 INDICATION: Esophageal cancer restaging RADIOPHARMACEUTICAL: 15.4 mCi of F-18 Fluorodeoxyglucose (FDG) I.V. via the right forearm. TECHNIQUE: Patient weight: 106 pounds. Following at least four-hour fasting, the patient's blood gluc ose was 93 mg/dl. Approximately 90 minutes after administration of FDG, overlapping emission scannin g was performed from the orbital meatal line through the pelvis. A low-dose CT was performed for att enuation correction purposes and anatomic localization. Fused images of PET and CT were reviewed. An y standardized uptake values (SUV) reported are maximum values within a volume region of interest, ex pressed in gm/ml. COMPARISON: PET CT of 09/16/2020 FINDINGS: PET: In the head and neck, persistent mild uptake in the left parotid gland to max SUV of 2.3 is apparent. Otherwise no soft tissue abnormal uptake and no FDG avid adenopathy is apparent in the head and neck . In the chest, interval development of irregular nodules in the right upper lobe showing a max SUV of 4.13 uptake (image 99 of series 3). These respectively measure 8 mm and 12 mm. Thoracic esophagus with wall thickening shows FDG uptake to max SUV of 4.4 just below the ailin and 5.4 at the gastroesophageal junction. The abnormal uptake in the distal thoracic esophagus extends caudally into the gastric cardia were as ymmetric wall thickening is more apparent in the interval, also with FDG uptake to max SUV of 5.4. In the abdomen and pelvis, interval development of wall thickening in the distal large bowel proximal to patient's left lower quadrant colostomy is present, associated with FDG uptake to max SUV of 3.1. CT: In the head and neck, no acute findings. No mass or adenopathy. In the chest, mediastinum shows no developing adenopathy on noncontrast CT with stable calcified subc arinal lymph nodes. However, there is clearly an increase in wall thickening of the thoracic esophagu s extending into the gastric cardia. Dense multivessel coronary calcifications are redemonstrated. Th ere is minimal frothy tissue in the distal trachea. No hilar mass or adenopathy identified. Lungs show irregular nodules in the right upper lobe, resolution of masslike opacity in the medial ba mayuri left lower lobe and persistent or recurrent peripheral pleural-based nodular opacity in the later al left lower lobe measuring 2.3 x 1.2 cm on image 144 series 3 this exam. No associated abnormal FDG uptake is appreciated. No pleural effusion or pneumothorax. In the abdomen and pelvis, surgical changes from a previous subtotal colectomy with diverting colosto my in the left lower quadrant are evident. There has been development of abnormal wall thickening in the distal large bowel just proximal to the colostomy with moderate stool throughout the visualized l arge bowel. There is also new left upper quadrant free fluid surrounding jejunal bowel loops. There i s linear density along the midline ventral abdominal incision that could represent packing material o r sutures. No free air or organized fluid collection. Punctate right renal calcification or hydronephrosis and multiple left-sided renal cortical cysts are redemonstrated, unchanged in the interval. The remaining solid abdominal organs without IV contrast are unchanged and unremarkable. In the pelvis, the urinary bladder is unremarkable. The bones reveal no acute or aggressive appearing lesions. There is generalized osteopenia and multil evel spinal degenerative changes. Stable dense sclerosis in the superior left sacrum measuring 7 mm, compatible with a bone island. IMPRESSION: 1. Interval increase in wall thickening of the thoracic esophagus extending to the gastric cardia but decrease in abnormal FDG uptake to 5.4, down from a previously reported 6.5. This could reflect post treatment changes. Consider endoscopic correlation as clinically warranted. No findings suspicious fo r more advanced locoregional disease otherwise noted. 2. Evolving nodules in the lungs, likely inflammatory in origin with resolution in the medial basal l eft lower lobe FDG avid mass but development of small nodules in the right upper lobe and persistence of a non-FDG avid nodular opacity in the lateral basal left lower lobe. These can be reassessed on f ollow-up. 3. Interval development of inflammatory changes in the left upper quadrant abdomen with wall thickeni ng in the distal transverse colon leading up to patient's existing colostomy, with max SUV of 3.1 FDG uptake and associated with developing ascites in the left upper quadrant abdomen but no free air or pneumatosis. There are also findings compatible with constipation with a stool-filled large bowel. Electronically signed by: Rere Gaspar MD (02/03/2021 4:42 PM) [id number]
== END ==
LOC: PETSC 09:02
PROVIDERS: ATTEND Internal Medicine Hematology & Oncology
DX: C15.5 Malignant neoplasm of lower third of esophagus (principal); R91.1 Solitary pulmonary nodule; Z90.49 Acquired absence of other specified parts of digestive tract
CPT/HCPCS: 78815; A9552

== ENCOUNTER → 2021-02-23 | Day surgery (SDC) | payer MEDICARE, MEDICAID ==
[~2021-02-23] MED LIST changes: +IV RINGERS,LACTATED 1000ML 1,000 ML IV SCH; +LIDOCAINE 2% PF 5 ML VIAL. ONE; +PROPOFOL 10 MG/ML (20ML) VIAL. IV ONE
[2021-02-23 13:38] VITALS: BP 130/76
--- NOTE | 2021-02-23 15:12 | CONS ---
DATE OF CONSULTATION: 02/23/2021 REFERRING PHYSICIAN: Jaime Scott MD REASON FOR CONSULTATION: History of esophageal cancer, status post chemoradiation for restaging. HISTORY OF PRESENT ILLNESS: A 65-year-old male with past medical history significant for CVA, hypertension as well as hypothyroidism, diverticulitis with diverting ostomy, history of non-STEMI [place] as well as esophageal cancer. He has completed adjuvant treatments. Endoscopy to confirm healing is recommended as well as restaging. The patient at the present time is tolerating p.o. Weight and appetite are stable. He has no additional complaints. PAST MEDICAL HISTORY: Esophageal cancer, non-STEMI, history of diverticulitis, status post diverting ostomy, history of hypothyroidism. ALLERGIES: None. MEDICATIONS: Carvedilol, levothyroxine, ondansetron, pantoprazole. SOCIAL HISTORY: Does not drink or smoke at this time. FAMILY HISTORY: Noncontributory. REVIEW OF SYSTEMS: Per records. PHYSICAL EXAMINATION: GENERAL: Reveals a well-nourished, well-developed male. VITAL SIGNS: Temperature is 97.9, pulse 66, respirations 20. LUNGS: Clear. CARDIOVASCULAR: Reveals an S1, S2 without S3, S4 or appreciable murmur. ABDOMEN: With a soft abdomen, normal bowel sounds, without appreciable hepatosplenomegaly with previous diverting ostomy. EXTREMITIES: No cyanosis, clubbing or edema. IMPRESSION: History of esophageal cancer, status post adjuvant therapy. EGD is recommended at this time to reassess the anatomy to look for potential recurrence. Risks and benefits were discussed. The patient is willing to proceed. JUS GRIMALDO MD DR: RENETTA/audra JOB#: [id number] / [id number]
--- NOTE | 2021-03-01 11:09 | PATHOLOGY ---
[facility] Accession Number: [id number] . 01 Material submitted: . esophagus - GE JUNCTION BIOPSY HISTORY OF ESOPHAGEAL CANCER FOR STAGING . 01 Clinical history: . HISTORY OF GASTRIC CANCER EGD . 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 SEE COMMENT. (JPM:IRVING; 02/28/2021) QMS 02/28/2021 0935 Local . 02 Comment: Sections of the gastroesophageal junction biopsy reveal segments of gastric mucosa and fibromuscular tissue. There is a malignant epithelial neoplasm characterized by abundant pools of extracellular mucin, which focally dissect fibromuscular tissue. Some of the pools of mucin contain malignant cells having signet-ring cell features. These tumor cells have abundant amounts of intracellular mucin, and possess eccentric, rounded to ovoid hyperchromatic nuclei. There are acute inflammatory cells present within the mucin. There are segments of gastric mucosa showing chronic inflammation. A panel of immunoperoxidase stains is obtained and yields the following results: . AE1/AE3: Tumor cells positive. Cytokeratin 7: Tumor cells positive. Cytokeratin 20: Tumor cells positive. CD68: Histiocytes positive. . 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 The case is also examined by Dr. Eric, who concurs with the diagnosis. The results are reported to Dr. Gray on 03/01/21 at 9:40 AM. (JPM:irving; 02/28/2021) . Special stains performed: Immunoperoxidase stains for AE/AE3, CK7, CK20, and CD68. (JPM:irving; 02/28/2021) . 02 Electronically signed: . Prateek Vidales MD, Pathologist NPI- [id number] . 01 Gross description: . Received in formalin labeled "Burt Dao, GE junction BX hx of esophageal cancer for staging" are multiple jones-brown soft tissue fragments measuring in aggregate 2.8 x 0.7 x 0.1 cm. The specimen is submitted entirely in A1.([facility]; 02/24/2021) [facility] 02/24/2021 1443 Local . 02 Pathologist provided ICD-10: C16.0 . 02 CPT . 059302, [id number], [id number] Specimen Comment: A courtesy copy of this report has been sent to [phone], [phone] Specimen Comment: [id number] Specimen Comment: Report sent to / DR CLIFFORD Performed at: 01 [facility] [address] [facility] [address], [place] [id number] MD Dawit Eric MD Phone: [phone] Performed at: 02 [facility] [address], [place] [id number] MD Prateek Vidales MD Phone: [phone]
== END | disposition home or self-care (01) ==
LOC: ENDOS 11:18
PROVIDERS: ATTEND Internal Medicine Gastroenterology
DX: C15.9 Malignant neoplasm of esophagus, unspecified (principal); K21.00 Gastro-esophageal reflux disease with esophagitis, without bleeding; K31.89 Other diseases of stomach and duodenum; T66.XXXA Radiation sickness, unspecified, initial encounter; E03.9 Hypothyroidism, unspecified; I13.0 Hypertensive heart and chronic kidney disease with heart failure and stage 1 through stage 4 chronic kidney disease, or unspecified chronic kidney disease; I50.9 Heart failure, unspecified; N18.9 Chronic kidney disease, unspecified; M19.90 Unspecified osteoarthritis, unspecified site; F32.9 Major depressive disorder, single episode, unspecified; Z87.891 Personal history of nicotine dependence; Z79.899 Other long term (current) drug therapy; Z98.890 Other specified postprocedural states; Z20.822 Contact with and (suspected) exposure to COVID-19; X58.XXXA Exposure to other specified factors, initial encounter; Y93.89 Activity, other specified; Y92.89 Other specified places as the place of occurrence of the external cause; Y99.8 Other external cause status
CPT/HCPCS: 43239; 87426; J2704

== ENCOUNTER → 2021-04-13 | Outpatient (CLI) | payer MEDICARE, MEDICAID ==
[2021-02-23 13:38] VITALS: BP 130/76
[~2021-04-13] MED LIST changes: +IOHEXOL 240 MG/ML 50ML VIAL. PO ONE; +IOHEXOL 300 MG/ML 100ML VIAL. IV ONE; -IV RINGERS,LACTATED 1000ML 1,000 ML IV SCH; -LIDOCAINE 2% PF 5 ML VIAL. ONE; -PROPOFOL 10 MG/ML (20ML) VIAL. IV ONE
--- NOTE | 2021-04-13 14:51 | RAD ---
EXAM: Chest, abdomen and pelvis CT with intravenous contrast. HISTORY: Esophageal cancer. TECHNIQUE: Computed tomographic images of the chest, abdomen and pelvis were obtained following the a dministration of intravenous contrast. Multiplanar reformatting was performed. *One or more of the following individualized dose reduction techniques were utilized for this examina tion: 1. Automated exposure control. 2. Adjustment of the mA and/or kV according to patient size. 3. Use of iterative reconstruction technique. COMPARISON: PET/CT dated 02/03/2021. FINDINGS: Chest: There is fairly stable diffuse wall thickening involving the mid and distal esophagu s and gastroesophageal junction. There is a stable small left pleural effusion. There is stable biapi elaine pleural parenchymal scarring. There is emphysema. There has been slight interval decrease in prev iously demonstrated nodular and groundglass opacities within the right upper lobe and left lower lobe , favoring a postinfectious or postinflammatory etiology. There is stable bilateral multifocal pleura l parenchymal scarring. The heart is normal in size. The aorta is normal in caliber. There is calcifi ed atherosclerotic plaque involving the coronary arteries. There are nonspecific right paratracheal l ymph nodes, similar compared to the prior exam. There are calcified subcarinal granulomas. There is g ynecomastia. There is degenerative change throughout the spine. There are chronic appearing mild vert ebral compression deformities. No acute fracture is seen. Abdomen and pelvis: No hepatic lesion is seen. The gallbladder is contracted. The pancreas, spleen an d adrenal glands are unremarkable. There is thickening of the wall of the gastric cardia and a small amount of fluid along the greater curvature of the stomach, the latter which is new compared to the p rior exam. There are multiple simple appearing renal cysts. There is right nephrolithiasis. There is no hydronephrosis. There is no appendicitis. There is a left ventral abdominal wall colostomy. There is no evidence of bowel obstruction. The bladder is unremarkable. The prostate contains calcification s. There is aortic and aortic branch vessel atherosclerosis. There is no lymphadenopathy. No patholog ically enlarged lymph node is seen. There is degenerative change throughout the spine. There is a chr onic compression fracture of L2. IMPRESSION: 1. Severe mid and distal esophageal mucosal thickening and proximal gastric wall thickening. The diff erential includes known neoplasm as well as radiation changes. 2. Slight interval decrease in nodular groundglass opacities within the right upper and left lower lo bes, favoring a postinfectious or postinflammatory etiology. Continued attention the time of follow-u p is recommended. 3. Stable small left pleural effusion. 4. Stable nonspecific right paratracheal lymph nodes. 5. Small amount of fluid along the greater curvature the stomach, new compared to the prior study and likely due to treatment changes. 6. Bilateral renal cysts and right nephrolithiasis. 7. Partial colonic resection. Electronically signed by: Azra Patel MD (04/13/2021 2:48 PM) [id number]
== END ==
LOC: CT 12:50
PROVIDERS: ATTEND Internal Medicine Hematology & Oncology
DX: C15.5 Malignant neoplasm of lower third of esophagus (principal); J90 Pleural effusion, not elsewhere classified; N28.1 Cyst of kidney, acquired; N20.0 Calculus of kidney
CPT/HCPCS: 71260; 74177; Q9966; Q9967

== ENCOUNTER → 2021-06-07 | Outpatient (CLI) | payer MEDICARE, MEDICAID ==
[2021-02-23 13:38] VITALS: BP 130/76
[~2021-06-07] MED LIST changes: -IOHEXOL 240 MG/ML 50ML VIAL. PO ONE; -IOHEXOL 300 MG/ML 100ML VIAL. IV ONE; +ONDA8TAB15 PO
[2021-06-07 16:34] LABS: BASO % 1 % (0-3); EOS # 0.1 x10^3/uL (0.0-0.7); EOS % 2 % (0-3); HEMATOCRIT 34.5 % (39.0-53.0); HEMOGLOBIN 10.6 g/dL (13.0-17.5); LYMPH # 0.3 x10^3/uL (1.0-4.8); LYMPH % 10 % (24-48); MEAN CORPUSCULAR HEMOGLOBIN 22 pg (25-35); MEAN CORPUSCULAR HGB CONC 31 g/dL (31-37); MEAN CORPUSCULAR VOLUME 71 fL (79-100); MONO # 0.3 x10^3/uL (0.0-1.1); MONO % 9 % (0-9); NEUT # 2.5 x10^3/uL (1.8-7.7); NEUT % 78 % (31-73); PLATELET COUNT 146 x10^3/uL (140-400); RED BLOOD COUNT 4.89 x10^6/uL (4.30-5.70); RED CELL DISTRIBUTION WIDTH 18.6 % (11.5-14.5); WHITE BLOOD COUNT 3.3 x10^3/uL (4.0-11.0)
[2021-06-07 17:02] LABS: % BANDS 1 % (0-9); % BASOS 2 % (0-3); % LYMPHS 9 % (24-48); % MONOS 10 % (0-10); % SEGS 78 % (35-66); ALBUMIN 3.1 g/dL (3.4-5.0); ALBUMIN/GLOBULIN RATIO 0.8 (1.0-1.7); ANISOCYTOSIS SLIGHT; CREATININE 1.2 mg/dL (0.7-1.3); GFR 60.4; HYPOCHROMIA MOD; MICROCYTOSIS MOD; PLT ESTIMATE ADEQUATE (ADEQUATE); POIKILOCYTOSIS SLIGHT; POTASSIUM 4.6 mmol/L (3.5-5.1); TOTAL BILIRUBIN 0.5 mg/dL (0.2-1.0); TOTAL PROTEIN 6.8 g/dL (6.4-8.2)
[2021-06-07 17:03] LABS: OVALOCYTES PRESENT; SCHISTOCYTES FEW
== END ==
LOC: ONCLAB 11:05
PROVIDERS: ATTEND Internal Medicine Hematology & Oncology
DX: C15.5 Malignant neoplasm of lower third of esophagus (principal)
CPT/HCPCS: 36415; 80053; 83615; 85007; 85025

== ENCOUNTER 2021-06-15 08:31 | Outpatient (CLI) | payer MEDICARE, MEDICAID ==
[~2021-06-15] VITALS: Ht 162.6 cm; Wt 47.3 kg
[~2021-06-15 08:31] MED LIST changes: -ONDA8TAB15 PO
[2021-06-15 08:58] VITALS: BP 123/88
[2021-06-15] MEDS ORDERED: LIDOCAINE 1%/EPI 1:100,000 20 ML VIAL. ONE (09:45)
[2021-06-15] MEDS ORDERED: MIDAZOLAM HCL/PF 2 MG/2 ML VIAL. ONE (10:10)
[2021-06-15] MEDS ORDERED: fentaNYL PF VIAL 100 MCG/2 ML VIAL ONE (10:10)
[2021-06-15] MEDS ORDERED: ceFAZolin SODIUM IV Push 1 GM VIAL. IVP ONE ×2 (10:10→10:30)
[2021-06-15] MEDS ORDERED: MIDAZOLAM HCL/PF 2 MG/2 ML VIAL. IV ONE (10:30)
[2021-06-15] MEDS ORDERED: fentaNYL PF VIAL 100 MCG/2 ML VIAL IV ONE (10:30)
[2021-06-15] MEDS ORDERED: LIDOCAINE 1%/EPI 1:100,000 20 ML VIAL. INJ ONE (10:30)
[2021-06-15 11:02] VITALS: BP 110/59
[2021-06-15 11:13] VITALS: BP 98/72
[2021-06-15 11:28] VITALS: BP 96/81
[2021-06-15 11:43] VITALS: BP 95/75
[2021-06-15 11:59] VITALS: BP 110/77
--- NOTE | 2021-06-15 12:27 | NUR ---
Discharge Note: JASON KIRK Discharge instructions and discharge home medications reviewed with Patient and Daughter in law and a copy given. All questions have been answered and understanding verbalized. The following instructions and handouts were given: Port placement/care and moderate sedation Discontinued lines and drains: Left FA IV dc'd and tip intact, gauze and coban bandage applied; per pt request. Patient discharged to home with Maura via personal vehicle.
--- NOTE | 2021-06-16 08:00 | RAD ---
Procedure: Ultrasound and fluoroscopically guided placement of right internal jugular power port.. 06/16/2021 5:56 AM Clinical Indication: ESOPHAGEAL CANCER Sedation: Conscious sedation was administered for 30 minutes. The patient was monitored by a qualified independent observer throughout the time of sedation. Please refer to the medical record for exact doses of medications utilized to achieve moderate sedation. Fluoroscopy time: 1 minutes Dose area product: 1 Gycm2 Consent: The procedure was explained in its entirety to the patient or the patients designated housing management representative by a member of the treatment team, including a discussion of the risks, benefits and commonly accepted alternatives to the procedure, as well as the expected consequences of no therapy whatsoever. Discussion of the risks included, but was not limited to, those that are most frequent and those that are rare but possibly severe or life-threatening, as well as the possibility of unforeseen complications. Technique and Findings: All elements of maximal sterile barrier technique including the use of a cap, mask, sterile gown, sterile gloves, large sterile sheet, appropriate hand hygiene, and 2% chlorhexidine for cutaneous antisepsis (or acceptable alternative antiseptic per current guidelines) were followed for this procedure. Following informed consent, and a timeout procedure, the patient was prepped and draped in the usual sterile fashion. Ultrasound interrogation of the right neck revealed patency and compressibility of the right internal jugular vein. A 21-gauge micropuncture was then used to gain access to this vein under ultrasound guidance. A hard copy ultrasound image was recorded. The needle was exchanged over a wire for a sheath. A 1 inch incision was made several centimeters inferior to the venotomy site. A catheter was tunneled from this site dermatotomy site in the neck. Catheter was advanced through peel-away sheath such that its tip was in the proximal right atrium with the patient supine. The catheter was trimmed to length and connected to the port reservoir. The port was found to flush and aspirate normally. The wound was closed in layers using 4-0 Vicryl suture. Sterile dressings were applied. Impression: Successful ultrasound and fluoroscopically guided placement of a right internal jugular PowerPort
== END 2021-06-15 12:31 | disposition home or self-care (01) ==
LOC: INTRAD 08:31
PROVIDERS: ATTEND Physician Assistant
DX: C15.9 Malignant neoplasm of esophagus, unspecified (principal); I10 Essential (primary) hypertension; E03.9 Hypothyroidism, unspecified; F32.9 Major depressive disorder, single episode, unspecified; I11.0 Hypertensive heart disease with heart failure; I50.9 Heart failure, unspecified; I25.10 Atherosclerotic heart disease of native coronary artery without angina pectoris; F41.9 Anxiety disorder, unspecified; M19.90 Unspecified osteoarthritis, unspecified site; K21.9 Gastro-esophageal reflux disease without esophagitis; Z87.01 Personal history of pneumonia (recurrent); Z92.21 Personal history of antineoplastic chemotherapy; Z92.3 Personal history of irradiation; Z95.1 Presence of aortocoronary bypass graft; Z95.5 Presence of coronary angioplasty implant and graft; Z98.890 Other specified postprocedural states
CPT/HCPCS: 36561; 76937; 77001; 99152; 99153; C1788; C1892; J0690; J2250; J3010; J3490

== ENCOUNTER → 2021-06-19 | Outpatient (CLI) | payer MEDICARE, MEDICAID ==
[2021-06-15 11:59] VITALS: BP 110/77
[2021-06-19 10:41] LABS: BASO % 0 % (0-3); EOS # 0.1 x10^3/uL (0.0-0.7); EOS % 1 % (0-3); HEMATOCRIT 30.1 % (39.0-53.0); HEMOGLOBIN 9.3 g/dL (13.0-17.5); LYMPH # 0.2 x10^3/uL (1.0-4.8); LYMPH % 3 % (24-48); MEAN CORPUSCULAR HEMOGLOBIN 22 pg (25-35); MEAN CORPUSCULAR HGB CONC 31 g/dL (31-37); MEAN CORPUSCULAR VOLUME 70 fL (79-100); MONO # 0.7 x10^3/uL (0.0-1.1); MONO % 10 % (0-9); NEUT # 6.1 x10^3/uL (1.8-7.7); NEUT % 86 % (31-73); PLATELET COUNT 136 x10^3/uL (140-400); RED BLOOD COUNT 4.33 x10^6/uL (4.30-5.70); RED CELL DISTRIBUTION WIDTH 19.3 % (11.5-14.5); WHITE BLOOD COUNT 7.1 x10^3/uL (4.0-11.0)
[2021-06-19 10:54] LABS: CALCIUM 8.6 mg/dL (8.5-10.1); CREATININE 1.2 mg/dL (0.7-1.3); GFR 60.4
[2021-06-19 11:00] LABS: ALBUMIN 2.5 g/dL (3.4-5.0); ALBUMIN/GLOBULIN RATIO 0.7 (1.0-1.7); TOTAL BILIRUBIN 0.7 mg/dL (0.2-1.0)
[2021-06-19 11:39] LABS: % EOS 4 % (0-5); % LYMPHS 3 % (24-48); % MONOS 5 % (0-10); % SEGS 88 % (35-66)
[2021-06-19 11:41] LABS: MICROCYTOSIS MOD; PLT ESTIMATE DECREASED (ADEQUATE)
[2021-06-19 11:42] LABS: HYPOCHROMIA SLIGHT; OVALOCYTES OCC; TEAR DROP CELLS OCC
== END ==
LOC: ONCLAB 09:15
PROVIDERS: ATTEND Internal Medicine Hematology & Oncology
DX: C15.5 Malignant neoplasm of lower third of esophagus (principal); D50.0 Iron deficiency anemia secondary to blood loss (chronic)
CPT/HCPCS: 36415; 80053; 82607; 82728; 82746; 83540; 83550; 85007; 85025

== ENCOUNTER 2021-06-22 19:03 | Emergency (ER) | payer MEDICARE, MEDICAID ==
[2021-06-22 20:15] VITALS: BP 134/88
[2021-06-23] MEDS ORDERED: ONDA8TAB15 PO (23:20)
[2021-06-24] MEDS ORDERED: HYDR-2761 PO (00:55)
== END 2021-06-22 20:21 | disposition left against medical advice (07) ==
LOC: ER 19:03
DX: E86.0 Dehydration (principal); Z53.21 Procedure and treatment not carried out due to patient leaving prior to being seen by health care provider

== ENCOUNTER → 2021-07-03 | Outpatient (CLI) | payer MEDICARE, MEDICAID ==
[2021-06-28 17:00] VITALS: BP 104/65
[~2021-07-03] MED LIST changes: +ONDA8TAB15 PO
[2021-07-03 09:50] LABS: BASO % 1 % (0-3); EOS % 1 % (0-3); HEMATOCRIT 28.1 % (39.0-53.0); HEMOGLOBIN 8.7 g/dL (13.0-17.5); LYMPH # 0.2 x10^3/uL (1.0-4.8); LYMPH % 4 % (24-48); MEAN CORPUSCULAR HEMOGLOBIN 21 pg (25-35); MEAN CORPUSCULAR HGB CONC 31 g/dL (31-37); MEAN CORPUSCULAR VOLUME 69 fL (79-100); MONO # 0.5 x10^3/uL (0.0-1.1); MONO % 11 % (0-9); NEUT # 3.9 x10^3/uL (1.8-7.7); NEUT % 84 % (31-73); PLATELET COUNT 81 x10^3/uL (140-400); RED BLOOD COUNT 4.07 x10^6/uL (4.30-5.70); RED CELL DISTRIBUTION WIDTH 19.4 % (11.5-14.5); WHITE BLOOD COUNT 4.7 x10^3/uL (4.0-11.0)
[2021-07-03 10:06] LABS: CALCIUM 8.3 mg/dL (8.5-10.1); CREATININE 1.5 mg/dL (0.7-1.3); GFR 46.7; POTASSIUM 4.4 mmol/L (3.5-5.1)
[2021-07-03 10:25] LABS: ALBUMIN 2.3 g/dL (3.4-5.0); ALBUMIN/GLOBULIN RATIO 0.7 (1.0-1.7); TOTAL BILIRUBIN 0.3 mg/dL (0.2-1.0); TOTAL PROTEIN 5.8 g/dL (6.4-8.2)
[2021-07-03 12:09] LABS: % BANDS 6 % (0-9); % EOS 1 % (0-5); % LYMPHS 2 % (24-48); % MONOS 5 % (0-10); % SEGS 86 % (35-66); PLT ESTIMATE DECREASED (ADEQUATE)
[2021-07-03 12:10] LABS: ANISOCYTOSIS PRESENT; HYPOCHROMIA PRESENT; MICROCYTOSIS PRESENT
== END ==
LOC: ONCLAB 09:25
PROVIDERS: ATTEND Internal Medicine Hematology & Oncology
DX: C15.5 Malignant neoplasm of lower third of esophagus (principal)
CPT/HCPCS: 36415; 80053; 82607; 82728; 82746; 83540; 83550; 85007; 85025

== ENCOUNTER → 2021-07-17 | Outpatient (CLI) | payer MEDICARE, MEDICAID ==
[2021-06-28 17:00] VITALS: BP 104/65
[2021-07-17 10:25] LABS: BASO % 0 % (0-3); EOS % 0 % (0-3); HEMATOCRIT 29.4 % (39.0-53.0); HEMOGLOBIN 9.1 g/dL (13.0-17.5); LYMPH # 0.3 x10^3/uL (1.0-4.8); LYMPH % 3 % (24-48); MEAN CORPUSCULAR HEMOGLOBIN 21 pg (25-35); MEAN CORPUSCULAR HGB CONC 31 g/dL (31-37); MEAN CORPUSCULAR VOLUME 68 fL (79-100); MONO # 0.6 x10^3/uL (0.0-1.1); MONO % 7 % (0-9); NEUT # 7.7 x10^3/uL (1.8-7.7); NEUT % 90 % (31-73); PLATELET COUNT 148 x10^3/uL (140-400); RED BLOOD COUNT 4.31 x10^6/uL (4.30-5.70); RED CELL DISTRIBUTION WIDTH 20.3 % (11.5-14.5); WHITE BLOOD COUNT 8.6 x10^3/uL (4.0-11.0)
[2021-07-17 10:32] LABS: CALCIUM 8.8 mg/dL (8.5-10.1); CREATININE 1.4 mg/dL (0.7-1.3); GFR 50.5; POTASSIUM 4.2 mmol/L (3.5-5.1)
[2021-07-17 10:37] LABS: ALBUMIN 2.3 g/dL (3.4-5.0); ALBUMIN/GLOBULIN RATIO 0.6 (1.0-1.7); TOTAL BILIRUBIN 0.6 mg/dL (0.2-1.0); TOTAL PROTEIN 6.2 g/dL (6.4-8.2)
[2021-07-17 13:59] LABS: % BANDS 2 % (0-9); % EOS 1 % (0-5); % MONOS 3 % (0-10); % SEGS 94 % (35-66)
[2021-07-17 14:01] LABS: ANISOCYTOSIS MOD; HYPOCHROMIA MOD; MICROCYTOSIS MARKED; PLT ESTIMATE ADEQUATE (ADEQUATE); POLYCHROMASIA SLIGHT
[2021-07-17 14:02] LABS: BIZZARE CELLS FEW; OVALOCYTES FEW
== END ==
LOC: ONCLAB 09:20
PROVIDERS: ATTEND Internal Medicine Hematology & Oncology
DX: C15.5 Malignant neoplasm of lower third of esophagus (principal)
CPT/HCPCS: 36415; 80053; 85007; 85025

== ENCOUNTER 2021-07-20 17:33 | Inpatient (IN) | payer MEDICARE, MEDICAID ==
[~2021-07-20] VITALS: Ht 162.6 cm; Wt 40.3 kg
[2021-07-20 12:45] VITALS: BP 103/59
[2021-07-20] MEDS ORDERED: ONDANSETRON PF 4 MG/2 ML VIAL. IVP ONE (20:15)
[2021-07-20] MEDS ORDERED: IV NORMAL SALINE 1000ML BAG 1,000 ML IV ONE ×2 (20:15→21:30)
[2021-07-20 20:47] LABS: BASO # 0.1 x10^3/uL (0.0-0.2); BASO % 1 % (0-3); EOS % 0 % (0-3); HEMATOCRIT 31.5 % (39.0-53.0); HEMOGLOBIN 9.7 g/dL (13.0-17.5); LYMPH # 0.4 x10^3/uL (1.0-4.8); LYMPH % 4 % (24-48); MEAN CORPUSCULAR HEMOGLOBIN 21 pg (25-35); MEAN CORPUSCULAR HGB CONC 31 g/dL (31-37); MEAN CORPUSCULAR VOLUME 69 fL (79-100); MONO # 0.5 x10^3/uL (0.0-1.1); MONO % 5 % (0-9); NEUT # 9.7 x10^3/uL (1.8-7.7); NEUT % 91 % (31-73); PLATELET COUNT 164 x10^3/uL (140-400); RED BLOOD COUNT 4.61 x10^6/uL (4.30-5.70); RED CELL DISTRIBUTION WIDTH 20.2 % (11.5-14.5); WHITE BLOOD COUNT 10.7 x10^3/uL (4.0-11.0)
[2021-07-20 21:01] LABS: CALCIUM 9.1 mg/dL (8.5-10.1); CREATININE 1.6 mg/dL (0.7-1.3); GFR 43.3; POTASSIUM 4.6 mmol/L (3.5-5.1)
[2021-07-20 21:07] LABS: ALBUMIN 2.5 g/dL (3.4-5.0); ALBUMIN/GLOBULIN RATIO 0.6 (1.0-1.7); MAGNESIUM 2.2 mg/dL (1.8-2.4); TOTAL BILIRUBIN 0.9 mg/dL (0.2-1.0); TOTAL PROTEIN 6.4 g/dL (6.4-8.2)
--- NOTE | 2021-07-20 21:23 | PHYS DOC ---
Past Medical History Past Medical History: Cancer, Hypertension, [place], Stroke, Other Additional Past Medical Histor: TONGUE CA, REMISSION. ESOPHAGEAL CA, GOUT Past Surgical History: Colectomy Additional Past Surgical Histo: CABG, colostomy bag, CHEST PORT Smoking Status: Former Smoker Alcohol Use: None General Adult EDM: Chief Complaint: DEHYDRATION HPI: HPI: Patient is a 66 year old male with a history of tongue and esophageal cancer who present to ER due to generalized weakness. Patient said he had not been able to eat or drink much. Patient had radiation treatment in the past, had chemo treatment last week. Patient is scheduled to be evaluated by hospice this week. Patient denies any abdominal pain, no cough, no fever. Patient denies any trouble breathing. Review of Systems: Review of Systems: Constitutional: Denies fever or chills. Positive for generalized weakness Eyes: Denies change in visual acuity. [] HENT: Denies nasal congestion or sore throat. [] Respiratory: Denies cough or shortness of breath. [] Cardiovascular: Denies chest pain or edema. [] GI: Denies abdominal pain, nausea, vomiting, bloody stools or diarrhea. [] : Denies dysuria. [] Musculoskeletal: Denies back pain or joint pain. [] Integument: Denies rash. [] Neurologic: Denies headache, focal weakness or sensory changes. [] Endocrine: Denies polyuria or polydipsia. [] Lymphatic: Denies swollen glands. [] Psychiatric: Denies depression or anxiety. [] Heart Score: C/O Chest Pain: N/A Risk Factors: Risk Factors: DM, Current or recent (<one month) smoker, HTN, HLP, family history of CAD, obesity. Risk Scores: Score 0 - 3: 2.5% MACE over next 6 weeks - Discharge Home Score 4 - 6: 20.3% MACE over next 6 weeks - Admit for Clinical Observation Score 7 - 10: 72.7% MACE over next 6 weeks - Early Invasive Strategies Current Medications: Current Medications Medications (Trade) Dose Ordered Sig/Steff Start Time Stop Time Status Last Admin Dose Admin Ondansetron HCl (Zofran) 4 mg 1X ONCE 07/20/21 20:15 07/20/21 20:31 DC 07/20/21 20:34 4 MG Sodium Chloride 1,000 ml @ 1,000 mls/hr 1X ONCE 07/20/21 21:30 07/20/21 22:29 Allergies: Allergies: Allergies Coded Allergies Type Severity Reaction Last Updated Verified No Known Drug Allergies 02/23/21 No Physical Exam: PE: Constitutional: Well developed, severe cachectic HENT: Normocephalic, atraumatic, bilateral external ears normal, oropharynx moist, no oral exudates, nose normal. [] Eyes: PERRLA, EOMI, conjunctiva normal, no discharge. [] Neck: Normal range of motion, no tenderness, supple, no stridor. [] Cardiovascular:Heart rate regular rhythm, no murmur [] Lungs & Thorax: Bilateral breath sounds clear to auscultation [] Abdomen: Bowel sounds normal, soft, no tenderness, no masses, no pulsatile masses. [] Skin: Warm, dry, no erythema, no rash. [] Back: No tenderness, no CVA tenderness. [] Extremities: No tenderness, no cyanosis, no clubbing, ROM intact, no edema. [] Neurologic: Alert and oriented X 3, normal motor function, normal sensory function, no focal deficits noted. [] Psychologic: Affect normal, judgement normal, mood normal. [] Current Patient Data: Labs: Laboratory Tests Test 07/20/21 20:30 White Blood Count 10.7 x10^3/uL (4.0-11.0) Red Blood Count 4.61 x10^6/uL (4.30-5.70) Hemoglobin 9.7 g/dL (13.0-17.5) L Hematocrit 31.5 % (39.0-53.0) L Mean Corpuscular Volume 69 fL (79-100) L Mean Corpuscular Hemoglobin 21 pg (25-35) L Mean Corpuscular Hemoglobin Concent 31 g/dL (31-37) Red Cell Distribution Width 20.2 % (11.5-14.5) H Platelet Count 164 x10^3/uL (140-400) Neutrophils (%) (Auto) 91 % (31-73) H Lymphocytes (%) (Auto) 4 % (24-48) L Monocytes (%) (Auto) 5 % (0-9) Eosinophils (%) (Auto) 0 % (0-3) Basophils (%) (Auto) 1 % (0-3) Neutrophils # (Auto) 9.7 x10^3/uL (1.8-7.7) H Lymphocytes # (Auto) 0.4 x10^3/uL (1.0-4.8) L Monocytes # (Auto) 0.5 x10^3/uL (0.0-1.1) Eosinophils # (Auto) 0.0 x10^3/uL (0.0-0.7) Basophils # (Auto) 0.1 x10^3/uL (0.0-0.2) Sodium Level 136 mmol/L (136-145) Potassium Level 4.6 mmol/L (3.5-5.1) Chloride Level 99 mmol/L (98-107) Carbon Dioxide Level 26 mmol/L (21-32) Anion Gap 11 (6-14) Blood Urea Nitrogen 31 mg/dL (8-26) H Creatinine 1.6 mg/dL (0.7-1.3) H Estimated GFR (Cockcroft-Gault) 43.3 BUN/Creatinine Ratio 19 (6-20) Glucose Level 96 mg/dL (70-99) Calcium Level 9.1 mg/dL (8.5-10.1) Magnesium Level 2.2 mg/dL (1.8-2.4) Total Bilirubin 0.9 mg/dL (0.2-1.0) Aspartate Amino Transferase (AST) 20 U/L (15-37) Alanine Aminotransferase (ALT) 9 U/L (16-63) L Alkaline Phosphatase 90 U/L (46-116) Total Protein 6.4 g/dL (6.4-8.2) Albumin 2.5 g/dL (3.4-5.0) L Albumin/Globulin Ratio 0.6 (1.0-1.7) L Lipase 37 U/L (73-393) L Laboratory Tests 07/20/21 20:30 Laboratory Tests 07/20/21 20:30 EKG: EKG: [] Radiology/Procedures: Radiology/Procedures: [][facility] [address] [place], [place] [id number] IMAGING REPORT Signed PATIENT: JASON KIRK ACCOUNT: [id number] : 1955 LOCATION: [address] [place] [address] AGE: 66 SEX: M EXAM STATUS: ADM IN ORD. PHYSICIAN: WAGNER TOPETE DO REASON: COUGH PROCEDURE: CHEST AP ONLY EXAM: XR CHEST 1V 07/20/2021 10:52 PM CLINICAL INDICATION: Cough COMPARISON: Chest radiograph 06/23/2021 TECHNIQUE: Cough FINDINGS: A right chest wall port is unchanged. There is an esophageal stent. The cardiomediastinal silhouette is normal. Lungs are well-expanded. There are increased patchy airspace opacities in the upper lobes. There are small bilateral pleural effusions. No pneumothorax. IMPRESSION: Increased patchy airspace opacities in the upper lobes. Unchanged small bilateral pleural effusions. Electronically signed by: Lisa Rea MD (07/21/2021 12:13 AM) [id number] DICTATED and SIGNED BY: LISA REA MD DATE: 07/21/21 [id number] 0 Course & Med Decision Making: Course & Med Decision Making Pertinent Labs and Imaging studies reviewed. (See chart for details) Patient is a 66-year-old male who present to ER due to generalized weakness, dehydration BECAUSE HE has not been able to eat or drink anything. Patient was given IV fluid in ER, he will be admitted to hospital for further evaluation and treatment. Patient is DNR. Jarrellon Disclaimer: Gm Disclaimer: This electronic medical record was generated, in whole or in part, using a voice recognition dictation system. Departure Departure Impression: Primary Impression: Dehydration Additional Impression: Esophageal cancer Disposition: ADMITTED INPATIENT Admitting Physician: PRATEEK (DR. RALPH) Condition: IMPROVED Referrals: BRITTANY CLIFFORD MD (PCP) WAGNER TOPETE DO Jul 20, 2021 21:23
[2021-07-20] MEDS ORDERED: ONDANSETRON PF 4 MG/2 ML VIAL. IVP PRN (23:00)
[2021-07-21] VITALS (7 sets, daily range): BP systolic 92–111; BP diastolic 58–72
--- NOTE | 2021-07-21 00:16 | RAD ---
EXAM: XR CHEST 1V 07/20/2021 10:52 PM CLINICAL INDICATION: Cough COMPARISON: Chest radiograph 06/23/2021 TECHNIQUE: Cough FINDINGS: A right chest wall port is unchanged. There is an esophageal stent. The cardiomediastinal silhouette is normal. Lungs are well-expanded. There are increased patchy airspace opacities in the u pper lobes. There are small bilateral pleural effusions. No pneumothorax. IMPRESSION: Increased patchy airspace opacities in the upper lobes. Unchanged small bilateral pleura l effusions. Electronically signed by: Lisa Rea MD (07/21/2021 12:13 AM) [id number]
[2021-07-21] MEDS: guaiFENesin/CODEINE 100mg/10mg 5 ML LIQUID PO PRN ×2 (00:35→21:13)
[2021-07-21] MEDS: IV NORMAL SALINE 1000ML BAG 1,000 ML IV SCH ×2 (00:35→07:28)
--- NOTE | 2021-07-21 00:38 | NUR ---
The patient, JASON KIRK, 66 y/o, M admitted by STEVIE RALPH III, DO, was given written information regarding hospital policies, unit procedures and contact persons. Valuables were checked and left with him.
--- NOTE | 2021-07-21 10:51 | PDOC1 ---
History and Physical Date of Admission Date of Admission DATE: 07/21/21 TIME: 10:50 Identification/Chief Complaint Chief Complaint history of tongue and esophageal cancer who present to ER due to generalized weakness History of Present Illness History of Present Illness 66 year old male w/ PMHx oropharyngeal carcinoma involving the GE junction, status post chemoradiation and esophageal stenting and diverting colostomy, gastroesophageal reflux, hypertension, coronary artery disease, CVA, hypothyroidism and depression who presents with a fall at home, weakness and dizzines that have been progressive. His cannot help him. He started back on chemotherapy on Saturday - Saturday and has had progressive symptoms BUT no appetite. He denies pain, abdominal pain, chest pain, nausea, vomiting, diarrhea, dizziness, syncope, headache, vision change, numbness or tingling, focal weakness. POS exertional dyspnea and fatigue, some shortness of breath at rest // he had not been able to eat or drink much. Patient had radiation treatment in the past, had chemo treatment last week. Patient is scheduled to be evaluated by hospice this week. Patient denies any abdominal pain, no cough, no fever Past Medical History Past Medical History Past Medical History Past Medical History Past Medical History: Cancer, Hypertension, [place], Stroke, Other Additional Past Medical Histor: TONGUE CA, REMISSION. ESOPHAGEAL CA, GOUT Past Surgical History: Colectomy Additional Past Surgical Histo: CABG, colostomy bag, CHEST PORT Smoking Status: Former Smoker Alcohol Use: None fhx copd Cardiovascular: CAD, CHF, HTN, Hyperlipidemia Pulmonary: No pertinent hx CENTRAL NERVOUS SYSTEM: Other GI: No pertinent hx Heme/Onc: Cancer Hepatobiliary: No pertinent hx Psych: Depression Musculoskeletal: Osteoarthritis Rheumatologic: Gout Infectious disease: No pertinent hx Renal/: No pertinent hx Endocrine: No pertinent hx Past Surgical History Past Surgical History: Colon Resection Family History Family History: Hypertension Social History Smoke: Quit ALCOHOL: none Drugs: None Current Problem List Problem List Problems Medical Problems: (1) Dehydration Status: Acute (2) Esophageal cancer Status: Acute Current Medications Current Medications Current Medications Ondansetron HCl (Zofran) 4 mg 1X ONCE IVP Last administered on 07/20/21at 20:34; Start 07/20/21 at 20:15; Stop 07/20/21 at 20:31; Status DC Sodium Chloride 1,000 ml @ 1,000 mls/hr 1X ONCE IV Last administered on 07/20/21at 20:34; Start 07/20/21 at 20:15; Stop 07/20/21 at 21:14; Status DC Sodium Chloride 1,000 ml @ 1,000 mls/hr 1X ONCE IV Last administered on 07/20/21at 21:24; Start 07/20/21 at 21:30; Stop 07/20/21 at 22:29; Status DC Ondansetron HCl (Zofran) 4 mg PRN Q8HRS PRN IVP NAUSEA/VOMITING; Start 07/20/21 at 23:00; Stop 07/21/21 at 22:59 Sodium Chloride 1,000 ml @ 75 mls/hr [id number] IV Last administered on 07/21/21at 07:28; Start 07/20/21 at 23:00; Stop 07/21/21 at 22:59 Guaifenesin/ Codeine Phosphate (Robitussin Ac) 5 ml PRN Q6HRS PRN PO COUGH Last administered on 07/21/21at 00:35; Start 07/20/21 at 23:00 Active Scripts Active Protonix (Pantoprazole Sodium) 40 Mg Tablet.dr 40 Mg PO DAILYAC 30 Days Reported Ondansetron Odt (Ondansetron) 8 Mg Tab.rapdis 8 Mg PO DAILY PRN Allergies Allergies: Coded Allergies: No Known Drug Allergies (Unverified , 02/23/21) ROS Review of System Positive for generalized weakness Eyes: Denies change in visual acuity. [] HENT: Denies nasal congestion or sore throat. [] Respiratory: Denies cough or shortness of breath. [] Cardiovascular: Denies chest pain or edema. [] GI: Denies abdominal pain, nausea, vomiting, bloody stools or diarrhea. [] : Denies dysuria. [] Musculoskeletal: Denies back pain or joint pain. [] Integument: Denies rash. [] Neurologic: Denies headache, focal weakness or sensory changes. [] Endocrine: Denies polyuria or polydipsia. [] Lymphatic: Denies swollen glands. [] had some broth for lunch 14 pt ros otherwise neg Physical Exam Physical Exam Constitutional: Well developed, severe cachectic HENT: Normocephalic, atraumatic, bilateral external ears normal, oropharynx moist, no oral exudates, nose normal. [] Eyes: PERRLA, EOMI, conjunctiva normal, no discharge. [] Neck: Normal range of motion, no tenderness, supple, no stridor. [] Cardiovascular:Heart rate regular rhythm, no murmur [] Lungs & Thorax: Bilateral breath sounds clear to auscultation [] Abdomen: Bowel sounds normal, soft, no tenderness, no masses, no pulsatile masses. [] Skin: Warm, dry, no erythema, no rash. [] Back: No tenderness, no CVA tenderness. [] Extremities: No tenderness, no cyanosis, no clubbing, ROM intact, no edema. [] Neurologic: Alert and oriented X 3, General: Alert, Oriented X3, Cooperative, No acute distress HEENT: Atraumatic Lungs: Clear to auscultation, Normal air movement Heart: RRR Breasts: Not examined Abdomen: Normal bowel sounds, Soft Rectal Exam: not examined PELVIC: Examination not indicated Extremities: No cyanosis, No edema Neuro: Normal speech, Cranial nerves 3-12 NL Psych/Mental Status: Mental status NL, Mood NL Vitals Vitals Vital Signs Date Time Temp Pulse Resp B/P (MAP) Pulse Ox O2 Delivery O2 Flow Rate FiO2 07/21/21 08:00 Room Air 07/21/21 07:00 97.5 83 18 107/72 (84) 99 97.5 Labs Labs Laboratory Tests Test 07/20/21 20:30 White Blood Count 10.7 x10^3/uL (4.0-11.0) Red Blood Count 4.61 x10^6/uL (4.30-5.70) Hemoglobin 9.7 g/dL (13.0-17.5) Hematocrit 31.5 % (39.0-53.0) Mean Corpuscular Volume 69 fL (79-100) Mean Corpuscular Hemoglobin 21 pg (25-35) Mean Corpuscular Hemoglobin Concent 31 g/dL (31-37) Red Cell Distribution Width 20.2 % (11.5-14.5) Platelet Count 164 x10^3/uL (140-400) Neutrophils (%) (Auto) 91 % (31-73) Lymphocytes (%) (Auto) 4 % (24-48) Monocytes (%) (Auto) 5 % (0-9) Eosinophils (%) (Auto) 0 % (0-3) Basophils (%) (Auto) 1 % (0-3) Neutrophils # (Auto) 9.7 x10^3/uL (1.8-7.7) Lymphocytes # (Auto) 0.4 x10^3/uL (1.0-4.8) Monocytes # (Auto) 0.5 x10^3/uL (0.0-1.1) Eosinophils # (Auto) 0.0 x10^3/uL (0.0-0.7) Basophils # (Auto) 0.1 x10^3/uL (0.0-0.2) Sodium Level 136 mmol/L (136-145) Potassium Level 4.6 mmol/L (3.5-5.1) Chloride Level 99 mmol/L (98-107) Carbon Dioxide Level 26 mmol/L (21-32) Anion Gap 11 (6-14) Blood Urea Nitrogen 31 mg/dL (8-26) Creatinine 1.6 mg/dL (0.7-1.3) Estimated GFR (Cockcroft-Gault) 43.3 BUN/Creatinine Ratio 19 (6-20) Glucose Level 96 mg/dL (70-99) Calcium Level 9.1 mg/dL (8.5-10.1) Magnesium Level 2.2 mg/dL (1.8-2.4) Total Bilirubin 0.9 mg/dL (0.2-1.0) Aspartate Amino Transf (AST/SGOT) 20 U/L (15-37) Alanine Aminotransferase (ALT/SGPT) 9 U/L (16-63) Alkaline Phosphatase 90 U/L (46-116) Total Protein 6.4 g/dL (6.4-8.2) Albumin 2.5 g/dL (3.4-5.0) Albumin/Globulin Ratio 0.6 (1.0-1.7) Lipase 37 U/L (73-393) Laboratory Tests Test 07/20/21 20:30 White Blood Count 10.7 x10^3/uL (4.0-11.0) Red Blood Count 4.61 x10^6/uL (4.30-5.70) Hemoglobin 9.7 g/dL (13.0-17.5) Hematocrit 31.5 % (39.0-53.0) Mean Corpuscular Volume 69 fL (79-100) Mean Corpuscular Hemoglobin 21 pg (25-35) Mean Corpuscular Hemoglobin Concent 31 g/dL (31-37) Red Cell Distribution Width 20.2 % (11.5-14.5) Platelet Count 164 x10^3/uL (140-400) Neutrophils (%) (Auto) 91 % (31-73) Lymphocytes (%) (Auto) 4 % (24-48) Monocytes (%) (Auto) 5 % (0-9) Eosinophils (%) (Auto) 0 % (0-3) Basophils (%) (Auto) 1 % (0-3) Neutrophils # (Auto) 9.7 x10^3/uL (1.8-7.7) Lymphocytes # (Auto) 0.4 x10^3/uL (1.0-4.8) Monocytes # (Auto) 0.5 x10^3/uL (0.0-1.1) Eosinophils # (Auto) 0.0 x10^3/uL (0.0-0.7) Basophils # (Auto) 0.1 x10^3/uL (0.0-0.2) Sodium Level 136 mmol/L (136-145) Potassium Level 4.6 mmol/L (3.5-5.1) Chloride Level 99 mmol/L (98-107) Carbon Dioxide Level 26 mmol/L (21-32) Anion Gap 11 (6-14) Blood Urea Nitrogen 31 mg/dL (8-26) Creatinine 1.6 mg/dL (0.7-1.3) Estimated GFR (Cockcroft-Gault) 43.3 BUN/Creatinine Ratio 19 (6-20) Glucose Level 96 mg/dL (70-99) Calcium Level 9.1 mg/dL (8.5-10.1) Magnesium Level 2.2 mg/dL (1.8-2.4) Total Bilirubin 0.9 mg/dL (0.2-1.0) Aspartate Amino Transf (AST/SGOT) 20 U/L (15-37) Alanine Aminotransferase (ALT/SGPT) 9 U/L (16-63) Alkaline Phosphatase 90 U/L (46-116) Total Protein 6.4 g/dL (6.4-8.2) Albumin 2.5 g/dL (3.4-5.0) Albumin/Globulin Ratio 0.6 (1.0-1.7) Lipase 37 U/L (73-393) VTE Prophylaxis Ordered VTE Prophylaxis Devices: No VTE Pharmacological Prophylaxi: Yes Assessment/Plan Assessment/Plan impression DEHYDRATION Generalized weakness s/p chemotherapy Dizziness Pancytopenia Bilateral pleural effusions Shortness of breath Esophageal cancer Dysphagia Moderate protein calorie malnutrition Hypertension Coronary artery disease plan admit iv fluid support home meds pain control hospice screen palliation of symptoms D/W RN Justifications for Admission Other Justification RONALD VANEGAS MD Jul 21, 2021 10:51
[2021-07-21] MEDS ORDERED: 0.9 % SODIUM CHLORIDE 10 ML DISP.SYRIN. IV PRN (16:15)
[2021-07-21] MEDS ORDERED: LORazepam 0.5 MG TABLET PO PRN (16:15)
[2021-07-21] MEDS ORDERED: ACETAMINOPHEN 325 MG TABLET. PO PRN (16:15)
[2021-07-21] MEDS ORDERED: guaiFENesin ORAL 200 MG/10 ML LIQUID. PO PRN (16:15)
[2021-07-21] MEDS ORDERED: ONDANSETRON ODT 4 MG TAB.RAPDIS. PO PRN (16:15)
[2021-07-21] MEDS ORDERED: MAG HYDROX/ALUMINUM HYD/SIMETH 30 ML ORAL.SUSP PO PRN (16:15)
[2021-07-21] MEDS ORDERED: ACETAMINOPHEN 650 MG SUPP.RECT. PR PRN (16:15)
[2021-07-21] MEDS ORDERED: DOCUSATE SODIUM 100 MG CAPSULE. PO PRN (16:15)
[2021-07-21] MEDS: ONDANSETRON PF 4 MG/2 ML VIAL. IV PRN ×2 (16:22→21:13)
--- NOTE | 2021-07-21 16:22 | NUR ---
SS following for discharge planning. SS reviewed pt chart and discussed with pt RN. Pt is from home and is currently on room air. PT/OT ordered. SS will continue to follow for discharge planning.
[2021-07-21] MEDS: MORPHINE SULFATE 4 MG/ML INJ. IV PRN ×2 (16:49→21:13)
[2021-07-21] MEDS: PANTOPRAZOLE 40 MG TABLET.DR. PO SCH (16:49)
[2021-07-21] MEDS: IPRATRPIUM/ALBUTEROL 0.5/2.5MG 3 ML NEBU. NEB SCH ×2 (20:29→20:47)
[2021-07-21] MEDS: ENOXAPARIN 30 MG/0.3 ML SYRINGE. SQ SCH (21:00)
[2021-07-22] MEDS: IPRATRPIUM/ALBUTEROL 0.5/2.5MG 3 ML NEBU. NEB SCH ×6 (00:24→20:41)
[2021-07-22 03:00] VITALS: BP 89/45
[2021-07-22 07:00] VITALS: BP 98/61
[2021-07-22] MEDS: guaiFENesin/CODEINE 100mg/10mg 5 ML LIQUID PO PRN ×2 (09:16→19:23)
[2021-07-22] MEDS: PANTOPRAZOLE 40 MG TABLET.DR. PO SCH (09:16)
[2021-07-22 11:00] VITALS: BP 119/68
[2021-07-22] MEDS: ONDANSETRON PF 4 MG/2 ML VIAL. IV PRN (12:19)
[2021-07-22] MEDS: MORPHINE SULFATE 4 MG/ML INJ. IV PRN (12:20)
--- NOTE | 2021-07-22 13:31 | PDOC ---
[employer] PROGRESS NOTE Date of Service DOS: DATE: 07/22/21 TIME: 13:30 Chief Complaint Chief Complaint DEHYDRATION Generalized weakness s/p chemotherapy Dizziness Pancytopenia Bilateral pleural effusions Shortness of breath Esophageal cancer Dysphagia Moderate protein calorie malnutrition, severe malnutrition from BMI 15 Hypertension Coronary artery disease History of Present Illness History of Present Illness cont iv fluid support, change from NS to D5 half home meds pain control, he reports better, hospice screen - he declined, he still wants treatmetn, would liek to continue chemo palliation of symptoms D/W RN Vitals/I&O Vitals/I&O: Vital Signs Date Time Temp Pulse Resp B/P (MAP) Pulse Ox O2 Delivery O2 Flow Rate FiO2 07/22/21 12:20 Room Air 07/22/21 11:43 98 07/22/21 11:00 97.6 102 20 119/68 (85) 97.6 I & O 07/21/21 07/21/21 07/22/21 15:00 23:00 07:00 Intake Total 500 ml 240 ml Balance 500 ml 240 ml Physical Exam General: Alert, Oriented X3, Cooperative, No acute distress Lungs: Clear, Wheezing, Other Abdomen: Normal bowel sounds, Soft Extremities: No cyanosis, No edema Assessment and Plan Assessmemt and Plan Problems Medical Problems: (1) Dehydration Status: Acute (2) Esophageal cancer Status: Acute Comment Review of Relevant I have reviewed the following items adeline (where applicable) has been applied. Medications: Current Medications Medications (Trade) Dose Ordered Sig/Steff Route PRN Reason Start Time Stop Time Status Last Admin Dose Admin Pantoprazole Sodium (Protonix) 40 mg DAILYAC PO 07/21/21 16:30 07/21/21 16:49 Ondansetron HCl (Zofran) 4 mg PRN Q4HRS PRN IV NAUSEA/VOMITING 07/21/21 16:15 07/22/21 12:19 Albuterol/ Ipratropium (Duoneb) 3 ml Q4HRS NEB 07/21/21 16:30 07/22/21 11:43 Guaifenesin (Robitussin) 200 mg PRN Q4HRS PRN PO COUGH 07/21/21 16:15 07/21/21 23:27 Enoxaparin Sodium (Lovenox 30mg Syringe) 30 mg Q24H SQ 07/21/21 21:00 07/21/21 21:00 Morphine Sulfate (Morphine Sulfate) 3 mg PRN Q4HRS PRN IV PAIN 07/21/21 16:30 07/22/21 12:20 Justifications for Admission Other Justification SEVERE DEHYDRATION MAIKEL PHILLIP MD Jul 22, 2021 13:31
[2021-07-22] MEDS: IV DEXTROSE 5 %-0.45 % NACL 1,000 ML IV SCH (14:24)
[2021-07-22 15:00] VITALS: BP 100/40
[2021-07-22 19:00] VITALS: BP 98/60
[2021-07-22] MEDS: ENOXAPARIN 30 MG/0.3 ML SYRINGE. SQ SCH (20:57)
[2021-07-22 23:00] VITALS: BP 106/70
[2021-07-23] MEDS: IPRATRPIUM/ALBUTEROL 0.5/2.5MG 3 ML NEBU. NEB SCH ×6 (00:21→21:29)
[2021-07-23] MEDS: IV DEXTROSE 5 %-0.45 % NACL 1,000 ML IV SCH ×3 (00:33→20:13)
[2021-07-23] MEDS: MORPHINE SULFATE 4 MG/ML INJ. IV PRN ×2 (00:34→21:53)
[2021-07-23 03:00] VITALS: BP 98/61
[2021-07-23] MEDS: guaiFENesin/CODEINE 100mg/10mg 5 ML LIQUID PO PRN (06:03)
--- NOTE | 2021-07-23 06:30 | NUR ---
Pt. choked on cough syrup. Coughing and complaining of difficulty breathing. O2 sats 86-88%. Placed on oxygen at 3 L. Pt. states he feels better with the O2. Will continue to monitor.
[2021-07-23 07:00] VITALS: BP 95/62
[2021-07-23] MEDS: PANTOPRAZOLE 40 MG TABLET.DR. PO SCH ×2 (07:30→08:29)
[2021-07-23 11:00] VITALS: BP 148/88
--- NOTE | 2021-07-23 14:39 | PDOC ---
[employer] PROGRESS NOTE Date of Service DOS: DATE: 07/23/21 TIME: 14:37 Chief Complaint Chief Complaint DEHYDRATION Generalized weakness s/p chemotherapy Dizziness Pancytopenia Bilateral pleural effusions Shortness of breath Esophageal cancer Dysphagia Moderate protein calorie malnutrition, severe malnutrition from BMI 15 Hypertension Coronary artery disease History of Present Illness History of Present Illness cont iv fluid support, change to clinimix home meds pain control, he reports better, hospice screen - declined, palliation of symptoms very weak, pt and ot and speech, he has dysphonia, D/W RN Vitals/I&O Vitals/I&O: Vital Signs Date Time Temp Pulse Resp B/P (MAP) Pulse Ox O2 Delivery O2 Flow Rate FiO2 07/23/21 12:17 94 Room Air 07/23/21 11:00 97.9 55 18 148/88 (108) 3.0 97.9 I & O 07/22/21 07/22/21 07/23/21 15:00 23:00 07:00 Intake Total 400 ml 200 ml 1400 ml Output Total 600 ml Balance 400 ml 200 ml 800 ml Physical Exam General: Alert, Oriented X3, Cooperative, No acute distress Lungs: Clear, Wheezing, Other Abdomen: Normal bowel sounds, Soft Extremities: No cyanosis, No edema Assessment and Plan Assessmemt and Plan Problems Medical Problems: (1) Dehydration Status: Acute (2) Esophageal cancer Status: Acute Comment Review of Relevant I have reviewed the following items adeline (where applicable) has been applied. Justifications for Admission Other Justification SEVERE DEHYDRATION MAIKEL PHILLIP MD Jul 23, 2021 14:39
[2021-07-23] MEDS: ONDANSETRON PF 4 MG/2 ML VIAL. IV PRN (14:49)
[2021-07-23 15:00] VITALS: BP 103/67
[2021-07-23 19:00] VITALS: BP 98/70
[2021-07-23] MEDS: ENOXAPARIN 30 MG/0.3 ML SYRINGE. SQ SCH (21:50)
[2021-07-23 22:42] VITALS: BP 81/48
[2021-07-24] MEDS: IPRATRPIUM/ALBUTEROL 0.5/2.5MG 3 ML NEBU. NEB SCH ×6 (00:31→22:52)
[2021-07-24 03:05] VITALS: BP 99/74
[2021-07-24] MEDS: guaiFENesin/CODEINE 100mg/10mg 5 ML LIQUID PO PRN (04:39)
[2021-07-24 04:51] LABS: BASO % 0 % (0-3); EOS % 0 % (0-3); HEMATOCRIT 26.7 % (39.0-53.0); HEMOGLOBIN 7.9 g/dL (13.0-17.5); LYMPH # 0.2 x10^3/uL (1.0-4.8); LYMPH % 3 % (24-48); MEAN CORPUSCULAR HEMOGLOBIN 21 pg (25-35); MEAN CORPUSCULAR HGB CONC 30 g/dL (31-37); MEAN CORPUSCULAR VOLUME 71 fL (79-100); MONO # 0.2 x10^3/uL (0.0-1.1); MONO % 2 % (0-9); NEUT # 7.3 x10^3/uL (1.8-7.7); NEUT % 95 % (31-73); PLATELET COUNT 110 x10^3/uL (140-400); RED BLOOD COUNT 3.78 x10^6/uL (4.30-5.70); RED CELL DISTRIBUTION WIDTH 20.7 % (11.5-14.5); WHITE BLOOD COUNT 7.8 x10^3/uL (4.0-11.0)
[2021-07-24 05:52] LABS: ALBUMIN 1.9 g/dL (3.4-5.0); ALBUMIN/GLOBULIN RATIO 0.6 (1.0-1.7); CALCIUM 8.1 mg/dL (8.5-10.1); CREATININE 1.4 mg/dL (0.7-1.3); GFR 50.5; POTASSIUM 3.5 mmol/L (3.5-5.1); TOTAL BILIRUBIN 0.7 mg/dL (0.2-1.0); TOTAL PROTEIN 5.2 g/dL (6.4-8.2)
[2021-07-24] MEDS: IV DEXTROSE 5 %-0.45 % NACL 1,000 ML IV SCH ×2 (06:31→16:26)
[2021-07-24] MEDS: PANTOPRAZOLE 40 MG TABLET.DR. PO SCH (07:30)
[2021-07-24 07:31] VITALS: BP 99/68
[2021-07-24] MEDS: MORPHINE SULFATE 4 MG/ML INJ. IV PRN (08:57)
--- NOTE | 2021-07-24 10:42 | PDOC ---
[employer] PROGRESS NOTE Date of Service DOS: DATE: 07/24/21 TIME: 10:40 Chief Complaint Chief Complaint DEHYDRATION Generalized weakness s/p chemotherapy Dizziness Pancytopenia Bilateral pleural effusions Shortness of breath Esophageal cancer Dysphagia Moderate protein calorie malnutrition, severe malnutrition from BMI 15 Hypertension Coronary artery disease History of Present Illness History of Present Illness cont iv fluid support, change to clinimix home meds pain control, he reports better, hospice screen - declined, palliation of symptoms very weak, pt and ot and speech, he has dysphonia, D/W RN 07/24 Patient evaluated at bedside. Soft voice difficult to understand. Was able to understand that he still feels fatigued but better than admission. He is having some N/V today even with liquids. Coughing a lot when examined. Still wanting chemotherapy treatment. Plan of care discussed wt bedside RN. Vitals/I&O Vitals/I&O: Vital Signs Date Time Temp Pulse Resp B/P (MAP) Pulse Ox O2 Delivery O2 Flow Rate FiO2 07/24/21 08:57 20 96 Nasal Cannula 3.0 07/24/21 07:31 97.5 98 99/68 (78) 97.5 I & O 07/23/21 07/23/21 07/24/21 15:00 23:00 07:00 Output Total 800 ml Balance -800 ml Physical Exam General: Alert, Oriented X3, mild distress, Other (cachexia) Heart: Regular rate, Normal S1, Normal S2 Lungs: Clear, Wheezing, Other Abdomen: Normal bowel sounds, Soft Extremities: No cyanosis, No edema Skin: No significant lesion Labs Labs: Laboratory Tests Test 07/24/21 04:45 White Blood Count 7.8 x10^3/uL (4.0-11.0) Red Blood Count 3.78 x10^6/uL (4.30-5.70) Hemoglobin 7.9 g/dL (13.0-17.5) Hematocrit 26.7 % (39.0-53.0) Mean Corpuscular Volume 71 fL (79-100) Mean Corpuscular Hemoglobin 21 pg (25-35) Mean Corpuscular Hemoglobin Concent 30 g/dL (31-37) Red Cell Distribution Width 20.7 % (11.5-14.5) Platelet Count 110 x10^3/uL (140-400) Neutrophils (%) (Auto) 95 % (31-73) Lymphocytes (%) (Auto) 3 % (24-48) Monocytes (%) (Auto) 2 % (0-9) Eosinophils (%) (Auto) 0 % (0-3) Basophils (%) (Auto) 0 % (0-3) Neutrophils # (Auto) 7.3 x10^3/uL (1.8-7.7) Lymphocytes # (Auto) 0.2 x10^3/uL (1.0-4.8) Monocytes # (Auto) 0.2 x10^3/uL (0.0-1.1) Eosinophils # (Auto) 0.0 x10^3/uL (0.0-0.7) Basophils # (Auto) 0.0 x10^3/uL (0.0-0.2) Sodium Level 140 mmol/L (136-145) Potassium Level 3.5 mmol/L (3.5-5.1) Chloride Level 107 mmol/L (98-107) Carbon Dioxide Level 21 mmol/L (21-32) Anion Gap 12 (6-14) Blood Urea Nitrogen 19 mg/dL (8-26) Creatinine 1.4 mg/dL (0.7-1.3) Estimated GFR (Cockcroft-Gault) 50.5 BUN/Creatinine Ratio 14 (6-20) Glucose Level 90 mg/dL (70-99) Calcium Level 8.1 mg/dL (8.5-10.1) Total Bilirubin 0.7 mg/dL (0.2-1.0) Aspartate Amino Transf (AST/SGOT) 12 U/L (15-37) Alanine Aminotransferase (ALT/SGPT) 9 U/L (16-63) Alkaline Phosphatase 72 U/L (46-116) Total Protein 5.2 g/dL (6.4-8.2) Albumin 1.9 g/dL (3.4-5.0) Albumin/Globulin Ratio 0.6 (1.0-1.7) Assessment and Plan Assessmemt and Plan Problems Medical Problems: (1) Dehydration Status: Acute (2) Esophageal cancer Status: Acute Comment Review of Relevant I have reviewed the following items adeline (where applicable) has been applied. Justifications for Admission Other Justification SEVERE DEHYDRATION KATHRYN ROCK MD Jul 24, 2021 10:42
[2021-07-24] MEDS ORDERED: PROCHLORPERAZINE 10 MG/2 ML VIAL. IM PRN (10:45)
[2021-07-24 11:24] VITALS: BP 99/54
[2021-07-24 15:15] VITALS: BP 86/54
[2021-07-24 19:00] VITALS: BP 103/51
[2021-07-24] MEDS: ENOXAPARIN 30 MG/0.3 ML SYRINGE. SQ SCH (21:29)
[2021-07-24 23:00] VITALS: BP 115/54
[2021-07-25] MEDS: IV DEXTROSE 5 %-0.45 % NACL 1,000 ML IV SCH (02:17)
[2021-07-25] MEDS: guaiFENesin/CODEINE 100mg/10mg 5 ML LIQUID PO PRN (02:21)
[2021-07-25 03:00] VITALS: BP 102/60
[2021-07-25] MEDS: IPRATRPIUM/ALBUTEROL 0.5/2.5MG 3 ML NEBU. NEB SCH ×3 (03:06→11:38)
--- NOTE | 2021-07-25 03:23 | NUR ---
RAPID RESPONSE NOTE Rapid response called by 5S RN at 031. Nursing [employer] supervisor and I arrived to patient room at 0313. RN and RT reported that patient had O2 sats in 40s prior to my arrival and that they had started a breathing treatment which was increasing his sats. Patients lungs diminished but patient not in any respiratory distress. Patient's O2 sat 95% at 0317. RN going to put patient on NRB mask and continue to monitor. Rapid response ended at 316, patient remains on unit.
[2021-07-25 03:41] LABS: BASE EXCESS ABG -9 mmol/L (-3-3); HCO3 ABG 17 mmol/L (21-28); PCO2 ABG 37 mmHg (35-46); PO2 ABG 71 mmHg (65-108); SAT O2 ABG 92 % (92-99)
[2021-07-25 03:59] LABS: FIO2 ABG 100
[2021-07-25 07:00] VITALS: BP 104/57
[2021-07-25] MEDS: PANTOPRAZOLE 40 MG TABLET.DR. PO SCH (07:30)
[2021-07-25] MEDS ORDERED: MORPHINE SULFATE 4 MG/ML INJ. IV PRN (10:45)
[2021-07-25 11:00] VITALS: BP 95/53
--- NOTE | 2021-07-25 12:07 | SNU/HH DC ---
DISCHARGE ORDERS DISCHARGE INFORMATION: DISCHARGE DATE: Jul 25, 2021 FINAL DIAGNOSIS Problems Medical Problems: (1) Dehydration Status: Acute (2) Esophageal cancer Status: Acute CONDITION ON DISCHARGE: Guarded CODE STATUS: Code Status: DNR/DNI HOSPICE: HOSPICE: Yes HOSPICE EVAL & TREAT: Yes POST DISCHARGE ORDERS: ACTIVITY ORDERS: Activity as tolerated WEIGHT BEARING STATUS: As tolerated BATHING ORDERS: Shower-keep dressing dry, No Tub Bath until see DIET AFTER DISCHARGE: Regular WOUND/INCISION CARE: Ice to area for comfort TREATMENT/EQUIPMENT ORDERS: ADAPTIVE EQUIPMENT NEEDED: None DISCHARGE MEDICATIONS: Home Meds Active Scripts Pantoprazole Sodium (PROTONIX ) 40 Mg Tablet.dr, 40 MG PO DAILYAC for GERD for 30 Days, #30 TAB Prov:CINDY MUÑIZ MD 09/07/20 Reported Medications Ondansetron (ONDANSETRON ODT) 8 Mg Tab.rapdis, 8 MG PO DAILY PRN for NAUSEA/VOMITING, TAB 06/23/21 KATHRYN ROCK MD Jul 25, 2021 12:07
[2021-07-25] MEDS ORDERED: ATROPINE 1% OPHTH SOLUTION 5ML BOTTLE. SL PRN (12:45)
--- NOTE | 2021-07-25 13:00 | NUR ---
SW following. Discussed with RN. Pt from home with family, plans for hospice. Pt on a 15L NRB and 15L NC. rapid COVID-19 negative, PCR pending. Pt had been speaking with [facility], family wants [facility] for inpatient hospice. SW made referral, awaiting decision about inpatient hospice acceptance. SW will continue to follow.
--- NOTE | 2021-07-25 13:05 | NUR ---
Pt admitted to inpatient hospice at [address] Elizabeth. Per pt request, nonrebreather removed at approx 1240. 2L per nasal cannula remains in place for comfort measures. Morphine administered at 1257, refer to EMAR for further details. Pt time of 1310. Assessed by this RN and MECHELLE Bay. Dr. Elizabeth notified at 1315. Body to be released to [facility]. Walter, pt's sister in law and Roc, pt's brother at bedside. home notified at 1330 by MECHELLE Gómez of [facility]. Addendum: 07/25/21 at 1424 by MARIANA JOHN RN Add to previous: Domonique, nursing right of way maintenance supervisor notified at 1420.
--- NOTE | 2021-07-25 14:42 | PDOC ---
[employer] PROGRESS NOTE Date of Service DOS: DATE: 07/25/21 TIME: 14:41 Chief Complaint Chief Complaint DEHYDRATION Generalized weakness s/p chemotherapy Dizziness Pancytopenia Bilateral pleural effusions Shortness of breath Esophageal cancer Dysphagia Moderate protein calorie malnutrition, severe malnutrition from BMI 15 Hypertension Coronary artery disease History of Present Illness History of Present Illness cont iv fluid support, change to clinimix home meds pain control, he reports better, hospice screen - declined, palliation of symptoms very weak, pt and ot and speech, he has dysphonia, D/W RN 07/24 Patient evaluated at bedside. Soft voice difficult to understand. Was able to understand that he still feels fatigued but better than admission. He is having some N/V today even with liquids. Coughing a lot when examined. Still wanting chemotherapy treatment. Plan of care discussed wt bedside RN. 07/25 Patient evaluated at bedside. Agreeable to transition to inpatient hospice and explanation of condition and dismal prognosis. Vitals/I&O Vitals/I&O: Vital Signs Date Time Temp Pulse Resp B/P (MAP) Pulse Ox O2 Delivery O2 Flow Rate FiO2 07/25/21 13:01 Nasal Cannula 2.0 07/25/21 11:38 90 07/25/21 11:00 97.6 80 22 95/53 (67) 97.6 I & O 07/24/21 07/24/21 07/25/21 15:00 23:00 07:00 Intake Total 360 ml 300 ml 400 ml Output Total 400 ml Balance 360 ml 300 ml 0 ml Physical Exam General: Alert, Oriented X3, mild distress, Other (cachexia) Heart: Regular rate, Normal S1, Normal S2 Lungs: Clear, Wheezing, Other Abdomen: Normal bowel sounds, Soft Extremities: No cyanosis, No edema Skin: No significant lesion Labs Labs: Laboratory Tests Test 07/25/21 03:30 07/25/21 07:55 O2 Saturation 92 % (92-99) Arterial Blood pH 7.29 (7.35-7.45) Arterial Blood pCO2 at Patient Temp 37 mmHg (35-46) Arterial Blood pO2 at Patient Temp 71 mmHg (65-108) Arterial Blood HCO3 17 mmol/L (21-28) Arterial Blood Base Excess -9 mmol/L (-3-3) FiO2 100 SARS-CoV-2 RNA (SYDNEE) Negative (Negative) SARS-CoV-2 Antigen (Rapid) Negative (NEGATIVE) Assessment and Plan Assessmemt and Plan Problems Medical Problems: (1) Dehydration Status: Acute (2) Esophageal cancer Status: Acute Comment Review of Relevant I have reviewed the following items adeline (where applicable) has been applied. Medications: Current Medications Medications (Trade) Dose Ordered Sig/Steff Route PRN Reason Start Time Stop Time Status Last Admin Dose Admin Morphine Sulfate (Morphine Sulfate) 3 mg PRN Q1HR PRN IV PAIN, air hunger 07/25/21 10:45 07/25/21 12:57 Justifications for Admission Other Justification SEVERE DEHYDRATION KATHRYN ROCK MD Jul 25, 2021 14:42
--- NOTE | 2021-07-25 14:46 | PDOC3 ---
Discharge Summary Visit Information Date of Admission: Jul 21, 2021 Date of Discharge: Jul 25, 2021 Admitting Diagnosis: Esophageal cancer Final Diagnosis Problems Medical Problems: (1) Dehydration Status: Acute (2) Esophageal cancer Status: Acute Brief Hospital Course Allergies Allergies Coded Allergies Type Severity Reaction Last Updated Verified No Known Drug Allergies 02/23/21 No Vital Signs Vital Signs Date Time Temp Pulse Resp B/P (MAP) Pulse Ox O2 Delivery O2 Flow Rate FiO2 07/25/21 13:01 Nasal Cannula 2.0 07/25/21 11:38 90 07/25/21 11:00 97.6 80 22 95/53 (67) 97.6 Lab Results Laboratory Tests Test 07/24/21 04:45 07/25/21 03:30 07/25/21 07:55 White Blood Count 7.8 x10^3/uL (4.0-11.0) Red Blood Count 3.78 x10^6/uL (4.30-5.70) Hemoglobin 7.9 g/dL (13.0-17.5) Hematocrit 26.7 % (39.0-53.0) Mean Corpuscular Volume 71 fL (79-100) Mean Corpuscular Hemoglobin 21 pg (25-35) Mean Corpuscular Hemoglobin Concent 30 g/dL (31-37) Red Cell Distribution Width 20.7 % (11.5-14.5) Platelet Count 110 x10^3/uL (140-400) Neutrophils (%) (Auto) 95 % (31-73) Lymphocytes (%) (Auto) 3 % (24-48) Monocytes (%) (Auto) 2 % (0-9) Eosinophils (%) (Auto) 0 % (0-3) Basophils (%) (Auto) 0 % (0-3) Neutrophils # (Auto) 7.3 x10^3/uL (1.8-7.7) Lymphocytes # (Auto) 0.2 x10^3/uL (1.0-4.8) Monocytes # (Auto) 0.2 x10^3/uL (0.0-1.1) Eosinophils # (Auto) 0.0 x10^3/uL (0.0-0.7) Basophils # (Auto) 0.0 x10^3/uL (0.0-0.2) Sodium Level 140 mmol/L (136-145) Potassium Level 3.5 mmol/L (3.5-5.1) Chloride Level 107 mmol/L (98-107) Carbon Dioxide Level 21 mmol/L (21-32) Anion Gap 12 (6-14) Blood Urea Nitrogen 19 mg/dL (8-26) Creatinine 1.4 mg/dL (0.7-1.3) Estimated GFR (Cockcroft-Gault) 50.5 BUN/Creatinine Ratio 14 (6-20) Glucose Level 90 mg/dL (70-99) Calcium Level 8.1 mg/dL (8.5-10.1) Total Bilirubin 0.7 mg/dL (0.2-1.0) Aspartate Amino Transf (AST/SGOT) 12 U/L (15-37) Alanine Aminotransferase (ALT/SGPT) 9 U/L (16-63) Alkaline Phosphatase 72 U/L (46-116) Total Protein 5.2 g/dL (6.4-8.2) Albumin 1.9 g/dL (3.4-5.0) Albumin/Globulin Ratio 0.6 (1.0-1.7) O2 Saturation 92 % (92-99) Arterial Blood pH 7.29 (7.35-7.45) Arterial Blood pCO2 at Patient Temp 37 mmHg (35-46) Arterial Blood pO2 at Patient Temp 71 mmHg (65-108) Arterial Blood HCO3 17 mmol/L (21-28) Arterial Blood Base Excess -9 mmol/L (-3-3) FiO2 100 SARS-CoV-2 RNA (SYDNEE) Negative (Negative) SARS-CoV-2 Antigen (Rapid) Negative (NEGATIVE) Laboratory Tests Test 07/25/21 03:30 07/25/21 07:55 O2 Saturation 92 % (92-99) Arterial Blood pH 7.29 (7.35-7.45) Arterial Blood pCO2 at Patient Temp 37 mmHg (35-46) Arterial Blood pO2 at Patient Temp 71 mmHg (65-108) Arterial Blood HCO3 17 mmol/L (21-28) Arterial Blood Base Excess -9 mmol/L (-3-3) FiO2 100 SARS-CoV-2 RNA (SYDNEE) Negative (Negative) SARS-CoV-2 Antigen (Rapid) Negative (NEGATIVE) Brief Hospital Course Chief Complaint DEHYDRATION Generalized weakness s/p chemotherapy Dizziness Pancytopenia Bilateral pleural effusions Shortness of breath Esophageal cancer Dysphagia Moderate protein calorie malnutrition, severe malnutrition from BMI 15 Hypertension Coronary artery disease History of Present Illness History of Present Illness cont iv fluid support, change to clinimix home meds pain control, he reports better, hospice screen - declined, palliation of symptoms very weak, pt and ot and speech, he has dysphonia, D/W RN 07/24 Patient evaluated at bedside. Soft voice difficult to understand. Was able to understand that he still feels fatigued but better than admission. He is having some N/V today even with liquids. Coughing a lot when examined. Still wanting chemotherapy treatment. Plan of care discussed wt bedside RN. 07/25 Patient evaluated at bedside. Agreeable to transition to inpatient hospice and explanation of condition and dismal prognosis. Patient peacefully approximately 10 minutes after oxygen was removed. Discharge Information Condition at Discharge: / Disposition/Orders: Scheduled Pantoprazole Sodium (Protonix ) 40 Mg Tablet.dr, 40 MG PO DAILYAC for GERD for 30 Days, #30 Prescribed by: MARY KAY WHITE on 09/07/20 1421 Last Action: Continued on 07/21/211603 by RONALD VANEGAS MD Scheduled PRN Ondansetron (Ondansetron Odt) 8 Mg Tab.rapdis, 8 MG PO DAILY PRN for NAUSEA/VOMITING, (Reported) Entered as Reported by: ASHLEY JIMENEZ, MECHELLE on 06/23/21 2730 Last Action: Converted on 07/21/21 160 by RONALD VANEGAS MD Justicifation of Admission Dx: Justifications for Admission: Justification of Admission Dx: Yes KATHRYN ROCK MD Jul 25, 2021 14:46
--- NOTE | 2021-07-25 15:28 | NUR ---
Pt transferred to [facility] at 1528 by MICHAEL'halie, Colette and Hallie.
== END 2021-07-25 13:10 | DRG 374 ==
LOC: ER 17:33 → 5 NORTH 22:45 → 5 SOUTH 07-21 11:11
PROVIDERS: ADMIT Internal Medicine; ATTEND Internal Medicine
DX: C15.9 Malignant neoplasm of esophagus, unspecified (principal); E43 Unspecified severe protein-calorie malnutrition; D61.818 Other pancytopenia; Z68.1 Body mass index [BMI] 19.9 or less, adult; E03.9 Hypothyroidism, unspecified; E78.5 Hyperlipidemia, unspecified; E86.0 Dehydration; I11.0 Hypertensive heart disease with heart failure; I25.10 Atherosclerotic heart disease of native coronary artery without angina pectoris; I50.9 Heart failure, unspecified; K21.9 Gastro-esophageal reflux disease without esophagitis; R13.10 Dysphagia, unspecified; F32.9 Major depressive disorder, single episode, unspecified; M19.90 Unspecified osteoarthritis, unspecified site; Z82.49 Family history of ischemic heart disease and other diseases of the circulatory system; Z51.5 Encounter for palliative care; Z20.822 Contact with and (suspected) exposure to COVID-19; Z82.5 Family history of asthma and other chronic lower respiratory diseases; Z85.01 Personal history of malignant neoplasm of esophagus; Z85.810 Personal history of malignant neoplasm of tongue; Z85.818 Personal history of malignant neoplasm of other sites of lip, oral cavity, and pharynx; Z86.73 Personal history of transient ischemic attack (TIA), and cerebral infarction without residual deficits; Z87.891 Personal history of nicotine dependence; Z92.21 Personal history of antineoplastic chemotherapy; Z92.3 Personal history of irradiation; Z93.3 Colostomy status; Z95.1 Presence of aortocoronary bypass graft; I25.2 Old myocardial infarction
CPT/HCPCS: 36415; 36600; 71045; 80053; 82805; 83690; 83735; 85007; 85025; 87426; 94640; 94760; J1650; J2270; J2405; J7030; J7042; U0003; U0005; 97530-GP; 99285-25; G0378